=== PATIENT | female | born 1935 | race Caucasian/White ===

== ENCOUNTER 2017-10-09 17:14 | Inpatient (IN) | payer MEDICARE, BC, SELFPAY ==
[2017-10-09] VITALS (7 sets, daily range): BP systolic 117–126; BP diastolic 47–71; PULSE 60–71; RESP 16–23; TEMP 36–36.1; O2SAT 94–97; BMI 31.0; BMI 30.6
--- NOTE | 2017-10-09 18:07 | EKG12_ITS ---
Test Reason : Blood Pressure : / mmHG Vent. Rate : 061 BPM Atrial Rate : 061 BPM P-R Int : 160 ms QRS Dur : 206 ms QT Int : 532 ms P-R-T Axes : 000 -77 105 degrees QTc Int : 535 ms Atrial-sensed ventricular-paced rhythm Abnormal ECG Confirmed by MAHIN HANNA ([id number]), medical editor JÚNIOR LEWIS ([id number]) on 10/14/2017 10:07:35 AM Referred By: CHARLI Confirmed By:MAHIN HANNA
[2017-10-09 18:25] LABS: Absolute Lymphocyte Count 1.01 X10^3/ul (0.83-4.51); Absolute Neutrophil Count 5.7 X10^3/uL (2.0-7.7); Basophil# 0.03 X10^3/uL; Basophil% 0.4 % (0-1); Eosinophil# 0.21 X10^3/uL; Eosinophils% 2.7 % (0-5); Hematocrit 38.5 % (37-47); Lymphocyte # 1.01 X10^3/ul (4.0); Lymphocyte % 13.1 % (19-41); Mean Corp Hgb Conc 31.2 g/gl (32-36); Mean Corpuscular Hgb 27.6 pg (27.0-32.0); Mean Corpuscular Volume 88.7 fL (81-99); Mean Platelet Vol. 10.9 fl (6.2-12.0); Monocyte# 0.75 X10^3/uL; Monocyte% 9.8 % (0-10); Neutrophil # 5.67 X10^3/uL (2.7-7.7); Neutrophil % 73.7 % (47-70); Platelet Count 146 K/mm3 (150-450); RBC Distribution Width CV 15.8 % (11.6-14.6); Red Blood Count 4.34 M/mm3 (4.2-5.4); White Blood Count 7.7 K/mm3 (4.4-11.0)
[2017-10-09 18:27] LABS: POSITIVE COUNT NO; POSITIVE DIFFERENTIAL NO; POSITIVE MORPHOLOGY NO
[2017-10-09] MEDS: Furosemide 40 MG/4 ML Vial IV (18:40)
[2017-10-09 18:47] LABS: ALB/GLOB Ratio 0.7 RATIO (0.9-2.4); AST(SGOT) 35 U/L (15-37); Alanine Aminotransfer ALT/SGPT 26 U/L (12-78); Albumin, Serum 3.1 g/dL (3.4-5.0); Alkaline Phosphatase 168 U/L (45-117); Anion Gap 6 (5-15); BUN 38 mg/dL (7-18); BUN/Creat Ratio 21.3 RATIO (10-20); Calcium,Total 8.7 mg/dL (8.5-10.1); Chloride 107 mmol/L (98-107); Creatinine, Serum 1.78 mg/dL (0.55-1.02); EST Glomerular Filtration Rate 29 mL/min (>60); Est Glom Filt Rate - Afr Amer 35 mL/min (>60); Estimated Creatinine Clearance 27.27 ml/min; Globulin 4.2 g/dL (2.2-4.2); Glucose 249 mg/dL (70-110); Potassium 4.9 mmol/L (3.5-5.1); Protein, Total 7.3 g/dL (6.4-8.2); Sodium Level 141 mmol/L (136-145)
--- NOTE | 2017-10-09 18:50 | RAD_ITS ---
STUDY: X-RAY CHEST REASON FOR EXAM: Female, 81 years old. Weight gain. Orthopnea TECHNIQUE: PA and lateral views of the chest. COMPARISON: 06/11/2017 FINDINGS: Stable left chest wall pacing device Hypoinflated lungs with interstitial edema and right effusion. Sternal cerclage wires are present from a prior sternotomy. Cardiomegaly. Normal mediastinum and bib. Normal visualized pulmonary arteries. Normal visualized aortic arch and descending thoracic aorta. There are diffuse degenerative changes of the visualized thoracic spine. There is degenerative osteoarthritis of the bilateral shoulders. There is no demonstrated abnormality of the visualized soft tissue structures of the upper abdomen. RAD/Chest PA and Lateral IMPRESSION: CHF and right effusion Electronically Signed: Reggie Scott DO at 19:13 EST Tel , Service support ,
--- NOTE | 2017-10-09 19:26 | ED.VISSUMM ---
- ER Visit Summary Date of Service: 10/09/17 Chief Complaint: Sent to ER by History of Present Illness: The patient is a 81 F who has multiple medical problems and reports dyspnea on exertion, orthopnea and swelling for the past week. She is now able to walk only room to room for complain of shortness of breath. She denies fever, chills night sweats. She does report a 20 pound weight gain. She denies any ocular, visual auditory symptoms. She denies chest pain of any type. She does complain of abdominal distention without nausea, vomiting diarrhea. She denies dysuria, frequency, urgency or hematuria. Please see written note for complete detail Physical Examination: Pleasant woman slightly tachypnic. Monitor reveals a paced rhythm. Head is atraumatic normocephalic. Pupils are equal round reactive. Extraocular muscles are intact. TMs are pearly white with landmarks noted. Nares patent with no drainage. Posterior pharynx without erythema or exudate. Uvula is midline. There is no dysphonia or dysphasia. Trachea is midline. There is no stridor with auscultation of the neck. Lungs reveal bilateral rales with decreased breath sounds right base. Heart is regular without murmur, gallop or rub abdomen is distended and has pitting edema. Neuro exam is nonfocal. Test Results: EKG atrial sensed paced rhythm. Chest x-ray reveals an effusion that is moderate in size on the right with CHF and borderline cardiomegaly. CBC is unremarkable. Electrode panel was marked for glucose of 249 BUN 38 creatinine 1.78 with a GFR 21. Troponins elevated 0.23. Albumin slightly decreased at 3.1. Emergency Department Course and Treatment: Was treated with Lasix IV and workup for anasarca and dyspnea on exertion Treatment Plan: Admission for further diagnostic testing to evaluate CHF and elevated troponin Disposition: Admit to monitored unit Impression: 1. CHF, new onset 2. Right pleural effusion 3. Anasarca 4. Elevated troponin 5. Dyspnea on exertion rule out anginal equivalent 6. Elevated creatinine 7. History of diabetes type 2 8. History of coronary disease status post four-vessel bypass surgery This note was generated with [employer] dictation software. It may contain incorrect words, spelling, and punctuation that were not noted in review of the chart prior to signing ED Disposition - Plan for ED Patient: Chief Complaint: Shortness of Breath Referrals: Pita Conde MD [Primary Care Provider] -
--- NOTE | 2017-10-09 19:57 | PCM.HP.STD ---
Problem List (1) Acute exacerbation of CHF (congestive heart failure) Status: Acute Qualifiers: Congestive heart failure type: unspecified Qualified Code(s): I50.9 - Heart failure, unspecified (2) Acute kidney injury Status: Acute (3) Pacemaker Status: Chronic (4) History of renal stent Status: Chronic Comment: 2008, right (5) SSS (sick sinus syndrome) Status: Chronic Comment: s/p pacer 2013 (6) Esophageal spasm Status: Acute (7) Anxiety Status: Chronic (8) Hypertension Status: Chronic Qualifiers: (9) GERD (gastroesophageal reflux disease) Status: Chronic Qualifiers: (10) Diabetes mellitus, type 2 Status: Chronic Qualifiers: (11) History of hypothyroidism Status: Chronic (12) Benign hypertension Status: Chronic (13) History of coronary artery disease Status: Chronic (14) Obesity (BMI 30.0-34.9) Status: Chronic (15) Anemia Status: Chronic Qualifiers: (16) Chronic obstructive pulmonary disease (COPD) Status: Chronic Qualifiers: History of Present Illness Date of Admission: 10/09/17 Chief Complaint: Dyspnea, Orthopnea, LE Edema. The patient is a 81 y/o F w/ PMHx: Hx of Sick sinus syndrome s/p pacemaker, Obesity, GERD, Diabetes mellitus type II w/ Neuropathy, Chronic COPD, CAD s/p PCI and CABG x 4, Hypothyroidism, Anxiety and Depression who presents to the [facility] ED on 10/09/17 with history of ongoing exertional dyspnea, worse with increased activity, orthopnea and LE edema, progressively worsening over the last week with PCP attempts to increase home lasix; however, no improvement. In the ED work-up included T 96.8, HR 60-70, BP 119/63-->90/60 after lasix, RR 16, 96% on RA, CBC w/ WBC 7.7, Hgb 12, Plts 146 without marked shift, CMP w/ BUN/Cr 38/1.78, glucose 249, Alk phos 168, Trop 0.23, EKG paced without acute evidence of ischemia, CXR w/ congestion, R pleural effusion moderate. In the ED patient administered lasix 40 mg IV x 1. Patient and family requested Cardiology evaluation. Discussed in addition to plan of care advanced care planning w/ decision per patient to maintain full code status. Past Medical History Past Medical History (Chronic Problems): Chronic Problems Pacemaker (Chronic) History of renal stent (Chronic) 2009, right SSS (sick sinus syndrome) (Chronic) s/p pacer 2013 Anxiety (Chronic) Hypertension (Chronic) GERD (gastroesophageal reflux disease) (Chronic) Diabetes mellitus, type 2 (Chronic) History of hypothyroidism (Chronic) Benign hypertension (Chronic) History of coronary artery disease (Chronic) Edema extremities (Chronic) Status post total hip replacement, right (Chronic) Obesity (BMI 30.0-34.9) (Chronic) Anemia (Chronic) Chronic obstructive pulmonary disease (COPD) (Chronic) Allergies felodipine Allergy (Severe, Verified 06/12/17 01:09) Shortness of breath pentazocine lactate [From Talwin] Allergy (Unknown, Verified 06/12/17 01:09) Unknown Patient does not know what happened when taking pentazocine, was told do not take it in the past promethazine Allergy (Unknown, Verified 06/12/17 01:09) Unknown Patient is unsure of allergy or reaction, was told do not take it in the past Sulfa (Sulfonamide Antibiotics) Allergy (Unknown, Verified 06/12/17 01:09) Unknown Patient does not know what the reaction/allergy is. Was told not to take it after surgery in the past amlodipine Allergy (Verified 06/12/17 01:09) Unknown Heparin Analogues Allergy (Verified 06/12/17 01:09) Unknown meloxicam [From Mobic] Allergy (Verified 06/12/17 01:09) Other oxycodone terephthalate [From Percodan] Allergy (Verified 06/12/17 01:09) Unknown Penicillins Allergy (Verified 06/12/17 01:09) Hives Iodinated Contrast- Oral and IV Dye [Iodinated Contrast Media - IV Dye] Adverse Reaction (Severe, Verified 06/12/17 01:09) Other Convulsions NSAIDS (Non-Steroidal Anti-Inflamma Adverse Reaction (Intermediate, Verified 06/12/17 01:09) Other Elevated liver enzymes oxycodone HCl [From Percodan] Adverse Reaction (Intermediate, Verified 06/12/17 01:09) Other Elevated liver enzymes ciprofloxacin [From Cipro] Adverse Reaction (Mild, Verified 06/12/17 01:09) Nausea/Vom/Diarrhea codeine Adverse Reaction (Mild, Verified 06/12/17 01:09) Nausea makes me sick HEPARIN Allergy (Unknown, Uncoded 06/12/17 01:09) Unknown WAS TOLD NOT TO TAKE AFTER HEART SURG D/T RXN Home Medications: Ambulatory Orders Medication Instructions Recorded Folic Acid 400 mcg PO DAILY@0800 06/18/13 Hydroxychloroquine [Plaquenil] 200 mg PO BIDCM 06/18/13 Levothyroxine [Synthroid] 125 mcg PO DAILY 06/18/13 Nitroglycerin [Nitrostat] 0.4 mg SUBLINGUAL Q5M PRN 06/18/13 Simvastatin [Zocor] 20 mg PO QHS 06/18/13 Pantoprazole Sodium [Protonix] 40 mg PO BID 06/20/13 Clonazepam [Klonopin] 0.5 mg PO DAILY PRN PRN 06/19/14 Insulin NPH Human Isophane See Protocol SQ TIDCM #1 pen 09/28/15 [Humulin N Kwikpen] Gabapentin [Neurontin] 300 mg PO TID 01/10/16 Lisinopril [Zestril] 10 mg PO DAILY 01/10/16 Naproxen 0.5 - 1 tab PO BID PRN PRN 06/11/17 Premarin 1 applicatio VAGINALLY DAILY 06/11/17 TraMADol [Ultram] 1 - 2 tab PO BID PRN PRN 06/11/17 Aspirin E.C. [Ecotrin] 81 mg PO DAILY@0800 10/09/17 Carvedilol [Coreg] 18.75 mg PO BID 10/09/17 Furosemide [Lasix] 40 mg PO DAILY 10/09/17 Guaifenesin/Codeine [Robitussin AC] 5 - 10 ml PO Q6H PRN PRN 10/09/17 Polyethylene Glycol 3350 [Miralax] 17 gm PO DAILY 10/09/17 Valacyclovir HCl [Valtrex] 500 mg PO BID 10/09/17 Surgical History: - - CABG x 4, stent placement, R carotid endarterectomy, JACQUES w/ BSOO, Cholecystectomy, Appendectomy, BL Breast Reduction, Pcaemaker. Psychiatric History: Anxiety, Depression CDC ASSOCIATE History: No pertinent CDC ASSOCIATE history Lives: Spouse/ Significant Other Smoking Status: Former smoker - Very distant short length tobacco use in youth. Tobacco Use: Non-smoker Alcohol: None Drugs: None - *Family History Maternal History Items: Dementia - age 90, Hypertension Paternal History Items: Heart Disease - age 80, Hypertension, Stroke Sibling History Items: Hypertension Review of Systems Constitutional: Reports: Malaise, Weakness, Fatigue. Denies: Chills, Fever, Weight Change HEENT: Denies: Head Aches, Sinus Congestion, Sinus Drainage Cardiovascular: Reports: Edema, Orthopnea. Denies: Chest Pain, Chest Pressure, Chest Tightness, Light Headedness, Palpitations, Syncope Respiratory: Reports: Shortness of Breath, Shortness of breath at rest, Shortness of breath upon exertion. Denies: Cough, Sputum production Gastrointestinal: Denies: Abdominal Pain, Nausea, Vomiting Genitourinary: Denies: Dysuria Musculoskeletal: Denies: Joint Pain, Joint Tenderness Skin: Denies: Rash, Wounds Neurological: Denies: Numbness, Tingling, Focal weakness Psychiatric: Reports: Anxiety, Depression. Denies: Homicidal Ideations, Suicidal Ideations Hematologic/ Lymphatic: Reports: Anemia. Denies: Easy Bruising, Easy Bleeding VTE Information - Inpt Only VTE Present on Admission: No VTE Mechan Device Prophylaxis: SCD's VTE Pharm Prophylaxis ordered?: Yes Patient Problems: Active and Suspected Problems Acute exacerbation of CHF (congestive heart failure) (Acute) Acute kidney injury (Acute) Subjective: Seated upright in the ED bed, NAD, notes feeling mildly improved since lasix in the ED, but not exerting herself. Objective: Physical Examination: General: awake, alert, oriented x 3 and cooperative, seated upright in the ED bed in no apparent distress. Skin: normal color, turgor, no icterus, cyanosis. HEENT: AT/NC, EOMI, PERRLA, mildly dry MM, no carotid bruits or JVD noted. Lungs: Diminished BS BL bases, moderate effort, crackles BL bases, R> mid, no ronchi or wheezing. Heart: Paced; no gallop, rub audible. Abdomen: soft, obese, NTTP, ND, normal BS, no HSM. Extremities: no cyanosis, clubbing, BL LE foot to proximal ward 2+. Neurological: patient awake, alert, oriented x 3; cognitive function intact; pupils equally reactive to light and accomodation; cranial nerves II-XII grossly normal, moving all 4 extremities, no focal deficits, strength severely globally decreased secondary to acute presentation. Psychiatric: affect appears normal, no acute evidence of depressive or anxiety feelings. - Physical Exam Vital Signs Temp Pulse Resp BP Pulse Ox 96.8 F L 60 23 H 126/47 H 94 10/09/17 19:45 10/09/17 19:45 10/09/17 19:45 10/09/17 19:45 10/09/17 19:45 Oxygen Delivery Method Room Air Weight: 148 lb 9.465 oz Body Mass Index (BMI) 31.0 Finger Stick Blood Glucose 272 Laboratory Tests Past 24 Hrs 10/09/17 10/09/17 18:15 18:15 WBC 7.7 RBC 4.34 Hgb 12.0 Hct 38.5 MCV 88.7 MCH 27.6 MCHC 31.2 L RDW 15.8 H RDW Differential 51.0 H Plt Count 146 L MPV 10.9 Immature Gran % (Auto) 0.300 Neut % (Auto) 73.7 H Lymph % (Auto) 13.1 L [place] % (Auto) 9.8 Eos % (Auto) 2.7 Baso % (Auto) 0.4 Absolute Neuts (auto) 5.7 Absolute Lymphs (auto) 1.01 Total Counted Not Reportable Sodium 141 Potassium 4.9 Chloride 107 Carbon Dioxide 28.0 Anion Gap 6 BUN 38 H Creatinine 1.78 H Estim Creat Clear Calc 27.27 Est GFR (MDRD) Af Amer 35 L Est GFR (MDRD) Non-Af 29 L BUN/Creatinine Ratio 21.3 H Glucose 249 H Calcium 8.7 Total Bilirubin 0.60 AST 35 ALT 26 Alkaline Phosphatase 168 H Troponin I 0.23 H Total Protein 7.3 Albumin 3.1 L Globulin 4.2 Albumin/Globulin Ratio 0.7 L Assessment/Plan Active and Suspected Problems Acute exacerbation of CHF (congestive heart failure) (Acute) Acute kidney injury (Acute) The patient is a 81 y/o F w/ PMHx: Hx of Sick sinus syndrome s/p pacemaker, Obesity, GERD, Diabetes mellitus type II w/ Neuropathy, Chronic COPD, CAD s/p PCI and CABG x 4, Hypothyroidism, Anxiety and Depression who presents to the [facility] ED on 10/09/17 with history of ongoing exertional dyspnea, worse with increased activity, orthopnea and LE edema, progressively worsening over the last week with PCP attempts to increase home lasix; however, no improvement. (1) Acute Decompensated CHF, Unclear Type w/ indeterminate cardiac enzyme: CXR obtained in the ED w/ congestion, R effusion, troponin 0.23, EKG paced without acute findings. Patient administered IV lasix in the ED, will admit to PCU, maintain on cardiac telemetry obtain cardiac enzyme series, obtain serial EKGs, continue IV lasix diuresis, monitor I/Os, maintain on intake restriction, continue medical therapy w/ asa, statin, BB, hold ACEI given concurrent BRISEIDA and need for IV lasix usage with add back as able. Will obtain TSH and magnesium level. Most recent ECHO noted distantly, will repeat. Cardiology consulted, pending. PRN morphine to decrease afterload, continue oxygen supplementation, if necessary will position w/ upright position with legs off bed to decrease preload. (2) Acute kidney injury: Unclear specific etiology although likely secondary to recent increased lasix administration outpatient, admission BUN/Cr 38/1.78, prior baseline creatinine noted to be 0.9-1.0. Will defer hydration given acute failure presentation, will need to continue IV lasix as noted, defer ACEI for now, closely trending BMP. If continued worsened or unchanged function will obtain FeNa assessment and renal US. (3) CAD: s/p PCI/CABG x 4, follows w/ [facility]. Will continue home regimen asa, statin, BB. (4) Diabetes mellitus type II: Hold oral home regimen, continue home insulin regimen, ADA diet, accu checks w/ ISS. (5) Hypertension: Continue home regimen including coreg, IV lasix, holding ACEI given concurrent BRISEIDA and need for lasix usage, PRN hydralazine. (6) Hyperlipidemia: Continue home statin regimen. FLP in AM. (7) Anxiety and Depression: Continue home klonopin regimen. (8) Hypothyroidism: Continue home synthroid regimen. (9) Chronic COPD: ATC duonebs, PRN albuterol, HOB, IS parameters. (10) Sick Sinus Syndrome, Hx: s/p pacemaker. (11) Obesity: Encourage healthy weight and lifestyle changes. (12) GERD: PPI. (13) DVT Prophylaxis: SCDs, heparin. (14) CODE status: Discussed CODE status at length including difference between FULL code, DNR-CCA and DNR-CC status. Following discussions about the differences in these status, requested FULL CODE status. Patient does have HCPOA and living will in place also. Advanced Care Planning Face to Face Time: 16 minutes. Code Visit Inpatient E&M: 64845 Init Hosp L3 Procedures: 92676 Advncd Care Plan 30 Min
--- NOTE | 2017-10-09 20:10 | ED.RN ---
STILL NEEDS VERIFIED NO POA OR LW
[2017-10-09 21:21] LABS: Magnesium 1.7 mg/dL (1.6-2.6); Thyroid Stim Hormone (TSH) 2.99 uIU/mL (0.358-3.74)
[2017-10-09 22:02] LABS: Hemoglobin A1c 8.3 % (4.2-6.3)
[2017-10-09] MEDS: Ipratropium/Albuterol Sulfate 3 ML AMPUL.NEB INHALATION (22:03)
[2017-10-09 22:36] LABS: Bedside Glucose 209 mg/dL (70-110)
[2017-10-09] MEDS: Carvedilol 6.25 MG Tablet 18.75 MG PO (22:58)
[2017-10-09] MEDS: Pantoprazole Sodium 20 MG Tablet 40 MG PO (22:59)
[2017-10-09] MEDS: Atorvastatin Calcium 10 MG Tablet PO (22:59)
[2017-10-10] VITALS (14 sets, daily range): BP systolic 119–131; BP diastolic 37–54; PULSE 60–70; RESP 16–18; TEMP 36.7–36.9; O2SAT 93–95
[2017-10-10 02:28] LABS: Hematocrit 35.9 % (37-47); Hemoglobin 11.2 g/dl (12.0-15.0); Mean Corp Hgb Conc 31.2 g/gl (32-36); Mean Corpuscular Hgb 27.7 pg (27.0-32.0); Mean Corpuscular Volume 88.9 fL (81-99); Mean Platelet Vol. 10.9 fl (6.2-12.0); Platelet Count 135 K/mm3 (150-450); RBC Distribution Width CV 15.7 % (11.6-14.6); RBC Distribution Width SD 50.9 fl (35.1-43.9); Red Blood Count 4.04 M/mm3 (4.2-5.4); White Blood Count 6.3 K/mm3 (4.4-11.0)
[2017-10-10 02:31] LABS: Scan Indicated on CBC? Y/N NO
[2017-10-10 02:44] LABS: Anion Gap 8 (5-15); BUN 40 mg/dL (7-18); BUN/Creat Ratio 25.5 RATIO (10-20); Calcium,Total 8.6 mg/dL (8.5-10.1); Chloride 108 mmol/L (98-107); Cholesterol 91 mg/dL (200); Creatinine, Serum 1.57 mg/dL (0.55-1.02); EST Glomerular Filtration Rate 34 mL/min (>60); Est Glom Filt Rate - Afr Amer 41 mL/min (>60); Glucose 170 mg/dL (70-110); High Density Lipoprotein 52 mg/dL; Sodium Level 143 mmol/L (136-145); Triglycerides 49 mg/dL; Very Low Density Lipoprotein 10 mg/dL (5-40)
--- NOTE | 2017-10-10 05:55 | EKG12_ITS ---
Test Reason : MORNING EKG Blood Pressure : / mmHG Vent. Rate : 063 BPM Atrial Rate : 063 BPM P-R Int : 186 ms QRS Dur : 208 ms QT Int : 526 ms P-R-T Axes : 000 -74 107 degrees QTc Int : 538 ms AV dual-paced rhythm Abnormal ECG When compared with ECG of 12-JUN-2017 05:30, Vent. rate has increased BY 3 BPM Confirmed by MAHIN HANNA ([id number]), purchasing expeditor JÚNIOR LEWIS ([id number]) on 10/16/2017 11:55:03 AM Referred By: CALIXTO Confirmed By:MAHIN HANNA
--- NOTE | 2017-10-10 05:55 | ECHOD_ITS ---
Reason For Study: CHF Procedure This was a 2D Doppler, Color Flow transthoracic echocardiogram. Exam performed portable in patient room. Left Ventricle Mildly dilated left ventricle. The estimated ejection fraction is 50 %. Paced septal motion. There is mild global hypokinesis of the left ventricle. Right Ventricle Normal size and thickness. ICD or pacer leads identified within the right ventricle. Normal systolic function. Atria Normal left atrium. Normal right atrium. Normal atrial septum. Mitral Valve Mild diffuse mitral valve thickening. Mild mitral annular calcification extending into the posterior leaflet. Mild (1+) mitral valve insufficiency. Tricuspid Valve Normal tricuspid valve. Mild (1+) tricuspid valve insufficiency. Right ventricular systolic pressure estimated to be 48 mmHg. Moderate pulmonary hypertension. Aortic Valve Trisinus/trileaflet aortic valve. Mild focal aortic valve thickening. There is no aortic stenosis. Pulmonic Valve Normal pulmonic valve. Trivial eccentric pulmonic valve insufficiency. Great Vessels Normal aortic root. Normal arch. The inferior vena cava is dilated. Inferior vena cava collapse with sniff. Pericardium/Pleural No pericardial effusion. MMode/2D Measurements & Calculations LVIDd: 5.1 cm IVSd: 1.1 cm Ao root diam: 2.7 cm LVIDs: 4.0 cm LVPWd: 0.88 cm LA dimension: 5.0 cm RVDd: 4.3 cm FS: 22.4 % LAV(MOD-bp): 51.6 ml LA A4 area: 18.1 cm2 RA A4 area: 16.1 cm2 LAV(MOD-bp) Indexed: 32.4 ml/m2 LAV(MOD-sp2): 50.1 ml LAV(MOD-sp4): 44.1 ml Doppler Measurements & Calculations MV E max ambrosio: 104.1 cm/sec Lat Peak E' Ambrosio: 5.1 cm/sec Med Peak E' Ambrosio: 3.7 cm/sec MV A max ambrosio: 46.6 cm/sec E/E' lat: 20.4 E/E' med: 28.3 MV E/A: 2.2 Ao V2 max: 99.7 cm/sec LV V1 max: 80.1 cm/sec PA V2 max: 78.0 cm/sec Ao max P.0 mmHg LV V1 max P.6 mmHg Ao V2 mean: 69.6 cm/sec Ao mean P.1 mmHg Ao V2 VTI: 22.0 cm TR max ambrosio: 326.6 cm/sec TR max P.7 mmHg Interpretation Summary Mildly dilated left ventricle. The estimated ejection fraction is 50 %. There is mild global hypokinesis of the left ventricle. Mild (1+) mitral valve insufficiency. Mild (1+) tricuspid valve insufficiency. Right ventricular systolic pressure estimated to be 48 mmHg. Moderate pulmonary hypertension. Compared to echo report dated 01/11/2016, no LV Function appears to be the same, and RVSP has increased from 42 to 48 mm HG. Ordering Physician: Qian Cochran Referring Physician: Pita Conde Performed By: Brenda Forrest, ADRIAN, RVT
[2017-10-10] MEDS: Levothyroxine 125 MCG Tablet PO (06:51)
[2017-10-10] MEDS: Enoxaparin 30 MG/0.3 ML Syringe SC (06:51)
[2017-10-10 07:11] LABS: Bedside Glucose 128 mg/dL (70-110)
[2017-10-10] MEDS: Ipratropium/Albuterol Sulfate 3 ML AMPUL.NEB INHALATION ×3 (07:28→22:48)
[2017-10-10] MEDS: Aspirin E.C. 81 MG Tablet PO (08:49)
[2017-10-10] MEDS: Hydroxychloroquine 200 MG Tablet PO ×2 (08:49→17:13)
--- NOTE | 2017-10-10 08:57 | PCM.CONS.C ---
Problem List (1) Acute exacerbation of CHF (congestive heart failure) Status: Acute Qualifiers: Congestive heart failure type: unspecified Qualified Code(s): I50.9 - Heart failure, unspecified (2) Pacemaker Status: Chronic (3) History of renal stent Status: Chronic Comment: 2008, right (4) SSS (sick sinus syndrome) Status: Chronic Comment: s/p pacer 2013 (5) Hypertension Status: Chronic Qualifiers: (6) Diabetes mellitus, type 2 Status: Chronic Qualifiers: (7) Benign hypertension Status: Chronic (8) History of coronary artery disease Status: Chronic (9) Edema extremities Status: Chronic Reason for Consult Date of Consultation: 10/10/17 Reason for Consultation: CHF, coronary artery disease status post CABG, previous smoker, lower extremity edema, pacemaker. History of Present Illness: The patient is a 81 year old F, former patient of Dr. Mcallister is now seeing Dr. Arora, with a history of diabetes, hypertension, hypercholesterolemia, status post pacemaker about 3 years ago, coronary artery disease status post four-vessel CABG at [facility] approximately 10 years ago per the patient. She reports that she has had no catheterization since that time and has had several stress test in the interim. Her most recent one was at the [facility] in [place] several months ago. She does not know the results of that test but had not been recommended a repeat catheterization. Patient was not in normal health until around 2-3 weeks ago when she began developing increased abdominal girth, lower extremity edema, shortness of breath, refractory to increasing doses of Lasix as an outpatient. Prior to that the patient had a cough in the recumbent position for several weeks worse when laying down. She denies any angina, chest pain, presyncope or syncope. She does not recall her presenting symptoms 10 years ago prior to detection of her coronary disease. On admission she had an EKG which showed AV sequential pacing with a left bundle branch pattern. Echocardiogram is pending. Her initial troponin was 0.23 and increased to 0.26 thus far. [] Past Medical History Allergies/Adverse Reactions: Allergies felodipine Allergy (Severe, Verified 06/12/17 01:09) Shortness of breath pentazocine lactate [From Talwin] Allergy (Unknown, Verified 06/12/17 01:09) Unknown Patient does not know what happened when taking pentazocine, was told do not take it in the past promethazine Allergy (Unknown, Verified 06/12/17 01:09) Unknown Patient is unsure of allergy or reaction, was told do not take it in the past Sulfa (Sulfonamide Antibiotics) Allergy (Unknown, Verified 06/12/17 01:09) Unknown Patient does not know what the reaction/allergy is. Was told not to take it after surgery in the past amlodipine Allergy (Verified 06/12/17 01:09) Unknown Heparin Analogues Allergy (Verified 06/12/17 01:09) Unknown meloxicam [From Mobic] Allergy (Verified 06/12/17 01:09) Other oxycodone terephthalate [From Percodan] Allergy (Verified 06/12/17 01:09) Unknown Penicillins Allergy (Verified 06/12/17 01:09) Hives Iodinated Contrast- Oral and IV Dye [Iodinated Contrast Media - IV Dye] Adverse Reaction (Severe, Verified 06/12/17 01:09) Other Convulsions NSAIDS (Non-Steroidal Anti-Inflamma Adverse Reaction (Intermediate, Verified 06/12/17 01:09) Other Elevated liver enzymes oxycodone HCl [From Percodan] Adverse Reaction (Intermediate, Verified 06/12/17 01:09) Other Elevated liver enzymes ciprofloxacin [From Cipro] Adverse Reaction (Mild, Verified 06/12/17 01:09) Nausea/Vom/Diarrhea codeine Adverse Reaction (Mild, Verified 06/12/17 01:09) Nausea makes me sick HEPARIN Allergy (Unknown, Uncoded 06/12/17 01:09) Unknown WAS TOLD NOT TO TAKE AFTER HEART SURG D/T RXN Home Medications: Ambulatory Orders Medication Instructions Recorded Folic Acid 400 mcg PO DAILY@0800 06/18/13 Hydroxychloroquine [Plaquenil] 200 mg PO BIDCM 06/18/13 Levothyroxine [Synthroid] 125 mcg PO DAILY 06/18/13 Nitroglycerin [Nitrostat] 0.4 mg SUBLINGUAL Q5M PRN 06/18/13 Simvastatin [Zocor] 20 mg PO QHS 06/18/13 Pantoprazole Sodium [Protonix] 40 mg PO BID 06/20/13 Clonazepam [Klonopin] 0.5 mg PO DAILY PRN PRN 06/19/14 Insulin NPH Human Isophane See Protocol SQ TIDCM #1 pen 09/28/15 [Humulin N Kwikpen] Gabapentin [Neurontin] 300 mg PO TID PRN 01/10/16 Lisinopril [Zestril] 10 mg PO DAILY 01/10/16 Naproxen 0.5 - 1 tab PO BID PRN PRN 06/11/17 Premarin 1 applicatio VAGINALLY DAILY 06/11/17 TraMADol [Ultram] 1 - 2 tab PO BID PRN PRN 06/11/17 Aspirin E.C. [Ecotrin] 81 mg PO DAILY@0800 10/09/17 Carvedilol [Coreg] 18.75 mg PO BID 10/09/17 Furosemide [Lasix] 40 mg PO DAILY 10/09/17 Guaifenesin/Codeine [Robitussin AC] 5 - 10 ml PO Q6H PRN PRN 10/09/17 Polyethylene Glycol 3350 [Miralax] 17 gm PO DAILY 10/09/17 Valacyclovir HCl [Valtrex] 500 mg PO BID 10/09/17 Past Medical History (Chronic Problems): Chronic Problems Pacemaker (Chronic) History of renal stent (Chronic) 2008, right SSS (sick sinus syndrome) (Chronic) s/p pacer 2013 Anxiety (Chronic) Hypertension (Chronic) GERD (gastroesophageal reflux disease) (Chronic) Diabetes mellitus, type 2 (Chronic) History of hypothyroidism (Chronic) Benign hypertension (Chronic) History of coronary artery disease (Chronic) Edema extremities (Chronic) Status post total hip replacement, right (Chronic) Obesity (BMI 30.0-34.9) (Chronic) Anemia (Chronic) Chronic obstructive pulmonary disease (COPD) (Chronic) Surgical History: - - CABG x 4, stent placement, R carotid endarterectomy, JACQUES w/ BSOO, Cholecystectomy, Appendectomy, BL Breast Reduction, Pcaemaker. Psychiatric History: Anxiety, Depression NEW ORDER CLERK History: No pertinent NEW ORDER CLERK history - *Family History Maternal History Items: Dementia - age 90, Hypertension Paternal History Items: Heart Disease - age 80, Hypertension, Stroke Sibling History Items: Hypertension Lives: Spouse/ Significant Other Smoking Status: Former smoker Tobacco Use: Non-smoker Alcohol: None Drugs: None Review of Systems - Review of Systems General: Denies: Fever, Night Sweats, Fatigue Cardiovascular: Reports: Shortness of Breath, Shortness of Breath with Exertion, Orthopnea, Peripheral Edema. Denies: Chest Discomfort, PND, Palpitations, Lightheadedness, Dizziness, Near Syncope, Syncope Respiratory: Denies: Cough, Sputum Production, Hemoptysis Gastrointestinal: Denies: Hematemesis, Hematochezia, Melena Genitourinary: Denies: Dysuria, Hematuria Skin: Denies: Rash Subjectve: Patient laying in bed, no acute distress. Objective: Vital Signs Temp Pulse Resp BP Pulse Ox 98.0 F 60 18 119/50 L 93 10/10/17 03:00 10/10/17 06:58 10/10/17 03:00 10/10/17 03:00 10/10/17 03:00 Oxygen Delivery Method Room Air Weight: 143 lb 4.807 oz Body Mass Index (BMI) 30.6 Intake and Output for Last 24 Hours 10/08/17 10/09/17 10/10/17 23:59 23:59 23:59 Intake Total 480 / 480 Output Total 1950 / 1950 Balance -1470 / -1470 General: Awake, Alert, Oriented x 3 HEENT: PERRL, EOMI, Sclera Non Icteric Neck: Supple, Good ROM, No Lymph Node Enlargement Lungs: Rales - Yves Bases Cardiovascular: Regular Rhythm, Normal S1, Normal S2, No Murmurs, No Rubs, No Gallops Vascular: No Carotid Bruits, Normal Femoral Pulses, Normal Radial Pulses, Normal Dorsalis Pedal Pulse, Normal Posterior Tibial Pulses Abdomen: Bowel Sounds Present, Soft, Non Tender, No HSM, No Organomegaly Extremities: No Cyanosis, No Clubbing, No edema Neurological: No Focal Motor or Sensory Deficit 10/09/17 22:13: Troponin I 0.24 H 10/10/17 02:05: WBC 6.3, RBC 4.04 L, Hgb 11.2 L, Hct 35.9 L, MCV 88.9, MCH 27.7, MCHC 31.2 L, RDW 15.7 H, RDW Differential 50.9 H, Plt Count 135 L, MPV 10.9 10/10/17 02:05: Sodium 143, Potassium 4.0, Chloride 108 H, Carbon Dioxide 27.0, Anion Gap 8, BUN 40 H, Creatinine 1.57 H, Est GFR (MDRD) Af Amer 41 L, Est GFR (MDRD) Non-Af 34 L, BUN/Creatinine Ratio 25.5 H, Glucose 170 H, Calcium 8.6, Triglycerides 49, Cholesterol 91, LDL Cholesterol 29, VLDL Cholesterol 10, HDL Cholesterol 52 10/10/17 02:05: Troponin I 0.26 H Rhythm: EKG: As above ECHO: Pending Stress Test: Outpatient results pending Cardiac Cath: PCI: CT Surgery: Holter monitor: EPS: PPM: CXR: Chest CT Scan: Assessment/Plan 1. Congestive heart failure: The patient presents with progressively worsening lower extremity edema, abdominal girth fullness, shortness of breath, orthopnea and PND in the face of previous known diabetes, hypertension, hypercholesterolemia, coronary artery disease status post CABG approximately 10 years ago, and status post pacemaker about 3 years ago. At this point I am in agreement with continuing IV Lasix until the patient achieves her dry weight. I believe this is necessary for at least 1 more day. In the interim we will obtain a 2D echo with Doppler to determine her LV function, valvular status, and pulmonary pressures. In addition I recommended that we obtain her outpatient recent stress test to determine if she has any areas of ischemia or borderline question of ischemia. Given her abnormal troponins, she may require a diagnostic coronary angiogram with graft angiography. To that end I recommend we obtain her bypass report from Dr. Arora's office to give us guidance about where her bypass grafts are. Continue baby aspirin. She is currently on Coreg 18.75 mg p.o. twice daily. She is not on an CARLOS inhibitor most likely due to her creatinine clearance. If the patient has any evidence of LV dysfunction on echocardiogram I recommend starting her on hydralazine 10 mg 3 times daily for afterload reduction. Given her creatinine clearance and chronic renal insufficiency she may require increasing doses of Lasix to achieve the same diuretic effectiveness. 2. Hyperlipidemia: Her LDL is 29 and HDL is 52. Continue present statin management. 3. Thank you very much for the opportunity to participate in the cardiac care of your patient. Consultation time took place between 8 AM and 8:30 AM. Code Visit Inpatient E&M: 29798 Init Hosp L2
--- NOTE | 2017-10-10 09:05 | CON.PCM_ITS ---
Problem List (1) Acute exacerbation of CHF (congestive heart failure) Status: Acute Qualifiers: Congestive heart failure type: unspecified Qualified Code(s): I50.9 - Heart failure, unspecified (2) Pacemaker Status: Chronic (3) History of renal stent Status: Chronic Comment: 2008, right (4) SSS (sick sinus syndrome) Status: Chronic Comment: s/p pacer 2013 (5) Hypertension Status: Chronic Qualifiers: (6) Diabetes mellitus, type 2 Status: Chronic Qualifiers: (7) Benign hypertension Status: Chronic (8) History of coronary artery disease Status: Chronic (9) Edema extremities Status: Chronic Reason for Consult Date of Consultation: 10/10/17 Reason for Consultation: CHF, coronary artery disease status post CABG, previous smoker, lower extremity edema, pacemaker. History of Present Illness: The patient is a 81 year old F, former patient of Dr. Mcallister is now seeing Dr. Arora, with a history of diabetes, hypertension, hypercholesterolemia, status post pacemaker about 3 years ago, coronary artery disease status post four-vessel CABG at [facility] approximately 10 years ago per the patient. She reports that she has had no catheterization since that time and has had several stress test in the interim. Her most recent one was at the [facility] in [place] several months ago. She does not know the results of that test but had not been recommended a repeat catheterization. Patient was not in normal health until around 2-3 weeks ago when she began developing increased abdominal girth, lower extremity edema, shortness of breath , refractory to increasing doses of Lasix as an outpatient. Prior to that the patient had a cough in the recumbent position for several weeks worse when laying down. She denies any angina, chest pain, presyncope or syncope. She does not recall her presenting symptoms 10 years ago prior to detection of her coronary disease. On admission she had an EKG which showed AV sequential pacing with a left bundle branch pattern. Echocardiogram is pending. Her initial troponin was 0.23 and increased to 0.26 thus far. [] Past Medical History Allergies/Adverse Reactions: Allergies felodipine Allergy (Severe, Verified 06/12/17 01:09) Shortness of breath pentazocine lactate [From Talwin] Allergy (Unknown, Verified 06/12/17 01:09) Unknown Patient does not know what happened when taking pentazocine, was told do not take it in the past promethazine Allergy (Unknown, Verified 06/12/17 01:09) Unknown Patient is unsure of allergy or reaction, was told do not take it in the past Sulfa (Sulfonamide Antibiotics) Allergy (Unknown, Verified 06/12/17 01:09) Unknown Patient does not know what the reaction/allergy is. Was told not to take it after surgery in the past amlodipine Allergy (Verified 06/12/17 01:09) Unknown Heparin Analogues Allergy (Verified 06/12/17 01:09) Unknown meloxicam [From Mobic] Allergy (Verified 06/12/17 01:09) Other oxycodone terephthalate [From Percodan] Allergy (Verified 06/12/17 01:09) Unknown Penicillins Allergy (Verified 06/12/17 01:09) Hives Iodinated Contrast- Oral and IV Dye [Iodinated Contrast Media - IV Dye] Adverse Reaction (Severe, Verified 06/12/17 01:09) Other Convulsions NSAIDS (Non-Steroidal Anti-Inflamma Adverse Reaction (Intermediate, Verified 01:09) Other Elevated liver enzymes oxycodone HCl [From Percodan] Adverse Reaction (Intermediate, Verified 06/12/17 01:09) Other Elevated liver enzymes ciprofloxacin [From Cipro] Adverse Reaction (Mild, Verified 06/12/17 01:09) Nausea/Vom/Diarrhea codeine Adverse Reaction (Mild, Verified 06/12/17 01:09) Nausea makes me sick HEPARIN Allergy (Unknown, Uncoded 06/12/17 01:09) Unknown WAS TOLD NOT TO TAKE AFTER HEART SURG D/T RXN Home Medications: Ambulatory Orders Medication Instructions Recorded Folic Acid 400 mcg PO DAILY@0800 06/18/13 Hydroxychloroquine [Plaquenil] 200 mg PO BIDCM 06/18/13 Levothyroxine [Synthroid] 125 mcg PO DAILY 06/18/13 Nitroglycerin [Nitrostat] 0.4 mg SUBLINGUAL Q5M PRN 06/18/13 Simvastatin [Zocor] 20 mg PO QHS 06/18/13 Pantoprazole Sodium [Protonix] 40 mg PO BID 06/20/13 Clonazepam [Klonopin] 0.5 mg PO DAILY PRN PRN 06/19/14 Insulin NPH Human Isophane See Protocol SQ TIDCM #1 pen 09/28/15 [Humulin N Kwikpen] Gabapentin [Neurontin] 300 mg PO TID PRN 01/10/16 Lisinopril [Zestril] 10 mg PO DAILY 01/10/16 Naproxen 0.5 - 1 tab PO BID PRN PRN 06/11/17 Premarin 1 applicatio VAGINALLY DAILY 06/11/17 TraMADol [Ultram] 1 - 2 tab PO BID PRN PRN 06/11/17 Aspirin E.C. [Ecotrin] 81 mg PO DAILY@0800 10/09/17 Carvedilol [Coreg] 18.75 mg PO BID 10/09/17 Furosemide [Lasix] 40 mg PO DAILY 10/09/17 Guaifenesin/Codeine [Robitussin AC] 5 - 10 ml PO Q6H PRN PRN 10/09/17 Polyethylene Glycol 3350 [Miralax] 17 gm PO DAILY 10/09/17 Valacyclovir HCl [Valtrex] 500 mg PO BID 10/09/17 Past Medical History (Chronic Problems): Chronic Problems Pacemaker (Chronic) History of renal stent (Chronic) 2008, right SSS (sick sinus syndrome) (Chronic) s/p pacer 2013 Anxiety (Chronic) Hypertension (Chronic) GERD (gastroesophageal reflux disease) (Chronic) Diabetes mellitus, type 2 (Chronic) History of hypothyroidism (Chronic) Benign hypertension (Chronic) History of coronary artery disease (Chronic) Edema extremities (Chronic) Status post total hip replacement, right (Chronic) Obesity (BMI 30.0-34.9) (Chronic) Anemia (Chronic) Chronic obstructive pulmonary disease (COPD) (Chronic) Surgical History: - - CABG x 4, stent placement, R carotid endarterectomy, JACQUES w / BSOO, Cholecystectomy, Appendectomy, BL Breast Reduction, Pcaemaker. Psychiatric History: Anxiety, Depression PROJECT SCIENTIST History: No pertinent PROJECT SCIENTIST history - *Family History Maternal History Items: Dementia - age 90, Hypertension Paternal History Items: Heart Disease - age 80, Hypertension, Stroke Sibling History Items: Hypertension Lives: Spouse/ Significant Other Smoking Status: Former smoker Tobacco Use: Non-smoker Alcohol: None Drugs: None Review of Systems - Review of Systems General: Denies: Fever, Night Sweats, Fatigue Cardiovascular: Reports: Shortness of Breath, Shortness of Breath with Exertion , Orthopnea, Peripheral Edema. Denies: Chest Discomfort, PND, Palpitations, Lightheadedness, Dizziness, Near Syncope, Syncope Respiratory: Denies: Cough, Sputum Production, Hemoptysis Gastrointestinal: Denies: Hematemesis, Hematochezia, Melena Genitourinary: Denies: Dysuria, Hematuria Skin: Denies: Rash Subjectve: Patient laying in bed, no acute distress. Objective: Vital Signs Temp Pulse Resp BP Pulse Ox 98.0 F 60 18 119/50 L 93 10/10/17 03:00 10/10/17 06:58 10/10/17 03:00 10/10/17 03:00 10/10/17 03:00 Oxygen Delivery Method Room Air Weight: 143 lb 4.807 oz Body Mass Index (BMI) 30.6 Intake and Output for Last 24 Hours 10/08/17 10/09/17 10/10/17 23:59 23:59 23:59 Intake Total 480 / 480 Output Total 1950 / 1950 Balance -1470 / -1470 General: Awake, Alert, Oriented x 3 HEENT: PERRL, EOMI, Sclera Non Icteric Neck: Supple, Good ROM, No Lymph Node Enlargement Lungs: Rales - Yves Bases Cardiovascular: Regular Rhythm, Normal S1, Normal S2, No Murmurs, No Rubs, No Gallops Vascular: No Carotid Bruits, Normal Femoral Pulses, Normal Radial Pulses, Normal Dorsalis Pedal Pulse, Normal Posterior Tibial Pulses Abdomen: Bowel Sounds Present, Soft, Non Tender, No HSM, No Organomegaly Extremities: No Cyanosis, No Clubbing, No edema Neurological: No Focal Motor or Sensory Deficit 10/09/17 22:13: Troponin I 0.24 H 10/10/17 02:05: WBC 6.3, RBC 4.04 L, Hgb 11.2 L, Hct 35.9 L, MCV 88.9, MCH 27.7 , MCHC 31.2 L, RDW 15.7 H, RDW Differential 50.9 H, Plt Count 135 L, MPV 10.9 10/10/17 02:05: Sodium 143, Potassium 4.0, Chloride 108 H, Carbon Dioxide 27.0, Anion Gap 8, BUN 40 H, Creatinine 1.57 H, Est GFR (MDRD) Af Amer 41 L, Est GFR ( MDRD) Non-Af 34 L, BUN/Creatinine Ratio 25.5 H, Glucose 170 H, Calcium 8.6, Triglycerides 49, Cholesterol 91, LDL Cholesterol 29, VLDL Cholesterol 10, HDL Cholesterol 52 10/10/17 02:05: Troponin I 0.26 H Rhythm: EKG: As above ECHO: Pending Stress Test: Outpatient results pending Cardiac Cath: PCI: CT Surgery: Holter monitor: EPS: PPM: CXR: Chest CT Scan: Assessment/Plan 1. Congestive heart failure: The patient presents with progressively worsening lower extremity edema, abdominal girth fullness, shortness of breath, orthopnea and PND in the face of previous known diabetes, hypertension, hypercholesterolemia, coronary artery disease status post CABG approximately 10 years ago, and status post pacemaker about 3 years ago. At this point I am in agreement with continuing IV Lasix until the patient achieves her dry weight. I believe this is necessary for at least 1 more day. In the interim we will obtain a 2D echo with Doppler to determine her LV function, valvular status, and pulmonary pressures. In addition I recommended that we obtain her outpatient recent stress test to determine if she has any areas of ischemia or borderline question of ischemia. Given her abnormal troponins, she may require a diagnostic coronary angiogram with graft angiography. To that end I recommend we obtain her bypass report from Dr. Arora's office to give us guidance about where her bypass grafts are. Continue baby aspirin. She is currently on Coreg 18.75 mg p.o. twice daily. She is not on an CARLOS inhibitor most likely due to her creatinine clearance. If the patient has any evidence of LV dysfunction on echocardiogram I recommend starting her on hydralazine 10 mg 3 times daily for afterload reduction. Given her creatinine clearance and chronic renal insufficiency she may require increasing doses of Lasix to achieve the same diuretic effectiveness. 2. Hyperlipidemia: Her LDL is 29 and HDL is 52. Continue present statin management. 3. Thank you very much for the opportunity to participate in the cardiac care of your patient. Consultation time took place between 8 AM and 8:30 AM. Code Visit Inpatient E&M: 10549 Init Hosp L2
[2017-10-10] MEDS: Carvedilol 6.25 MG Tablet 18.75 MG PO ×2 (10:56→21:56)
[2017-10-10] MEDS: Furosemide 40 MG/4 ML Vial IV ×2 (10:56→17:17)
[2017-10-10] MEDS: Pantoprazole Sodium 20 MG Tablet 40 MG PO ×2 (10:56→21:56)
--- NOTE | 2017-10-10 11:23 | CASEMGMT ---
This RN CM to bedside to complete CM assessment and physical therapy is at bedside. Will attempt again later. SStjarod RN CM
[2017-10-10 12:41] LABS: Bedside Glucose 169 mg/dL (70-110)
--- NOTE | 2017-10-10 12:42 | PCM.PROGNOTE ---
Patient Problems: Active and Suspected Problems Acute exacerbation of CHF (congestive heart failure) (Acute) Acute kidney injury (Acute) Subjective: Pt has had significant improvement in breathing since admission, she has had intermittent SOB relieved with aerosols and occasional dry cough. She feels her swelling has improved dramatically most notably in her abdomen. She has no fevers or chills. No CP, but does feel heaviness with breathing. - Physical Exam General: Alert, Oriented x3, Cooperative HEENT: Atraumatic, PERRLA, EOMI, Normocephalic Neck: Supple, No JVD, Negative Carotid Bruits Lungs: Normal air movement, Rales - BL bases Cardiovascular: Regular rate, No murmurs Abdomen: Bowel Sounds Present, Soft, Non Tender Extremities: No edema, Capillary Refill Less than 3 Seconds, Edema - mild, CARLOS wraps in place. Skin: No rashes, No breakdown Musculoskeletal: No Tenderness to Palpation of Joints or Extremities Neurological: Cranial nerves II-XII grossly intact Psych/Mental Status: Normal Affect, Appropriate, Alert and oriented to time, place, person, mood and affect Vital Signs Temp Pulse Resp BP Pulse Ox 98.1 F 64 18 128/38 H 95 10/10/17 09:00 10/10/17 11:08 10/10/17 09:00 10/10/17 09:00 10/10/17 09:00 Oxygen Delivery Method Room Air Weight: 65 kg Body Mass Index (BMI) 30.6 Intake and Output for Last 24 Hours 10/08/17 10/09/17 10/10/17 23:59 23:59 23:59 Intake Total 720 / 720 Output Total 1950 / 1950 Balance -1230 / -1230 Laboratory Tests Past 24 Hrs 10/09/17 10/10/17 10/10/17 22:13 02:05 02:05 WBC 6.3 RBC 4.04 L Hgb 11.2 L Hct 35.9 L MCV 88.9 MCH 27.7 MCHC 31.2 L RDW 15.7 H RDW Differential 50.9 H Plt Count 135 L MPV 10.9 Sodium 143 Potassium 4.0 Chloride 108 H Carbon Dioxide 27.0 Anion Gap 8 BUN 40 H Creatinine 1.57 H Estim Creat Clear Calc 30.50 Est GFR (MDRD) Af Amer 41 L Est GFR (MDRD) Non-Af 34 L BUN/Creatinine Ratio 25.5 H Glucose 170 H Calcium 8.6 Troponin I 0.24 H Triglycerides 49 Cholesterol 91 LDL Cholesterol 29 VLDL Cholesterol 10 HDL Cholesterol 52 10/10/17 10/10/17 02:05 08:15 WBC RBC Hgb Hct MCV MCH MCHC RDW RDW Differential Plt Count MPV Sodium Potassium Chloride Carbon Dioxide Anion Gap BUN Creatinine Estim Creat Clear Calc Est GFR (MDRD) Af Amer Est GFR (MDRD) Non-Af BUN/Creatinine Ratio Glucose Calcium Troponin I 0.26 H 0.24 H Triglycerides Cholesterol LDL Cholesterol VLDL Cholesterol HDL Cholesterol POC Glucose 10/10/17 10/10/17 10/09/17 12:38 06:49 22:03 POC Glucose 169 H 128 H 209 H Assessment/Plan Active and Suspected Problems Acute exacerbation of CHF (congestive heart failure) (Acute) Acute kidney injury (Acute) 1. Acute CHF, subtype unclear - improved. Good output. Weight decreasing. Cardiology following. Continue IV diuresis. No O2 requirement. SOB improved. Echo pending. Continue Coreg, no CARLOS with renal dysfunction. CXR with CHF and R effusion. TSH normal. No BNP. 2. BRISEIDA - improved with diuresis. Continue to trend. 3. Indeterminate troponin - has remained flat. Dr. Stokes following, he is considering cath. + heaviness with breathing. 4. Hx SSS - s/p pacemaker. rate / rhythm controlled. 5. CAD - S/p CABG 10 years ago. Continue aspirin, statin. LDL at goal. 6. DMt2 - orals held. Continue current therapy. A1C 8.3. 7. HTN - stable 8. Anx/Dep - home meds. 9. COPD - continue current measures, respiratory status stable and not wheezy 10. GERD - on ppi. DVT ppx: heparin DC planning: pending cardiology plan. Not anticipating any home needs at this time. This patient was seen by Koko Mcginnis PA-C under the supervision of Doctor Grant.
--- NOTE | 2017-10-10 14:59 | CASEMGMT ---
Face to Face with patient for initial transition planning/care coordination assessment. STACI BRYAN introduced self and role at [facility], pt voices understanding and consents to assessment at this time. Pt sitting up in chair in no distress at this time. Pt A/O x4 at this time and answers all questions appropriately at this time. Care providers, pharmacy, and demographics verified. See attached link. Pt voices no further concerns/needs at this time. Advised pt to ask for CM if any further questions/concerns/needs arise, voices understanding. PLAN: [place] STACI BRYAN
[2017-10-10] MEDS: BENZOCAINE/MENTHOL 1 LOZENGE MUCOUS MEM ×2 (15:23→22:07)
[2017-10-10] MEDS: 0.9% NaCl Peripheral Flush Adult/Peds IV (17:17)
[2017-10-10 17:31] LABS: Bedside Glucose 267 mg/dL (70-110)
[2017-10-10] MEDS: Atorvastatin Calcium 10 MG Tablet PO (21:56)
[2017-10-10 22:21] LABS: Bedside Glucose 278 mg/dL (70-110)
[2017-10-11] VITALS (15 sets, daily range): BP systolic 119–140; BP diastolic 38–65; PULSE 60–92; RESP 16–20; TEMP 36.4–37; O2SAT 94–96
[2017-10-11] MEDS: Levothyroxine 125 MCG Tablet PO (05:44)
[2017-10-11] MEDS: Enoxaparin 30 MG/0.3 ML Syringe SC (06:24)
[2017-10-11 06:48] LABS: Anion Gap 9 (5-15); BUN 45 mg/dL (7-18); Calcium,Total 9.2 mg/dL (8.5-10.1); Chloride 101 mmol/L (98-107); Creatinine, Serum 1.55 mg/dL (0.55-1.02); EST Glomerular Filtration Rate 34 mL/min (>60); Est Glom Filt Rate - Afr Amer 41 mL/min (>60); Estimated Creatinine Clearance 29.69 ml/min; Glucose 244 mg/dL (70-110); Potassium 4.2 mmol/L (3.5-5.1); Sodium Level 137 mmol/L (136-145)
[2017-10-11 07:11] LABS: Bedside Glucose 224 mg/dL (70-110)
[2017-10-11] MEDS: Aspirin E.C. 81 MG Tablet PO (08:21)
[2017-10-11] MEDS: Hydroxychloroquine 200 MG Tablet PO ×2 (08:22→16:23)
[2017-10-11] MEDS: Carvedilol 6.25 MG Tablet 18.75 MG PO ×2 (08:22→22:02)
[2017-10-11] MEDS: Furosemide 40 MG/4 ML Vial IV ×2 (08:23→16:24)
[2017-10-11] MEDS: Pantoprazole Sodium 20 MG Tablet 40 MG PO ×2 (08:24→22:03)
--- NOTE | 2017-10-11 08:50 | PCM.PN.CARD ---
Subjectve: Patient is slowly improving, but unable to lay down flat at this time. She complains of a barking type cough, when she lays down flat. Net urine output is about 2500 cc negative since admission, and the patient reports improved lower extremity edema and improve shortness of breath. Chest x-ray reviewed yesterday demonstrated a moderate right pleural effusion consistent with at least snf up her lung base. Physical exam today demonstrates egophony snf up her right lung. The patient denies ever being told she had lung cancer or breast cancer in the past, and denies excessive cigarette smoke other than her teenage years. She denies any previous or recent viral-like illnesses. Telemetry negative. Objective: Vital Signs Temp Pulse Resp BP Pulse Ox 97.5 F L 66 20 H 140/65 H 96 10/11/17 08:31 10/11/17 08:31 10/11/17 08:31 10/11/17 08:31 10/11/17 08:31 Oxygen Delivery Method Room Air Weight: 140 lb 14.006 oz Body Mass Index (BMI) 30.6 Intake and Output for Last 24 Hours 10/09/17 10/10/17 10/11/17 23:59 23:59 23:59 Intake Total 990 / 990 100 / 100 Output Total 2900 / 2900 700 / 700 Balance -1910 / -1910 -600 / -600 General: Awake, Alert, Oriented x 3 HEENT: PERRL, EOMI, Sclera Non Icteric Neck: Supple, Good ROM, No Lymph Node Enlargement Lungs: Diminished Right Base, Rales - Right Base, Dullness to Percussion-Right Cardiovascular: Regular Rhythm, Normal S1, Normal S2, No Murmurs, No Rubs, No Gallops Vascular: No Carotid Bruits, Normal Femoral Pulses, Normal Radial Pulses, Normal Dorsalis Pedal Pulse, Normal Posterior Tibial Pulses Abdomen: Bowel Sounds Present, Soft, Non Tender, No HSM, No Organomegaly Extremities: No Cyanosis, No Clubbing, No edema Neurological: No Focal Motor or Sensory Deficit 10/10/17 08:15: Troponin I 0.24 H 10/11/17 05:35: Sodium 137, Potassium 4.2, Chloride 101, Carbon Dioxide 27.0, Anion Gap 9, BUN 45 H, Creatinine 1.55 H, Est GFR (MDRD) Af Amer 41 L, Est GFR (MDRD) Non-Af 34 L, BUN/Creatinine Ratio 29.0 H, Glucose 244 H, Calcium 9.2 Rhythm: EKG: ECHO: LVEF of 50%, RVSP of 40 mmHg, mild MR and mild TR. Stress Test: Cardiac Cath: Pending per PCI: CT Surgery: Holter monitor: EPS: PPM: CXR: Chest CT Scan: Assessment/Plan 1. Congestive heart failure: The patient presents with progressively worsening lower extremity edema, abdominal girth fullness, shortness of breath, orthopnea and PND in the face of previous known diabetes, hypertension, hypercholesterolemia, coronary artery disease status post CABG approximately 10 years ago, and status post pacemaker about 3 years ago. At this point I am in agreement with continuing IV Lasix until the patient achieves her dry weight. I believe this is necessary for at least 1 more day, or at least until she can lay down flat for a repeat catheterization. Her 2D echo yesterday showed an overall EF around 50%, RVSP of 48 mmHg, mild MR and mild TR. In addition I recommended that we obtain her outpatient recent stress test to determine if she has any areas of ischemia or borderline question of ischemia. Given her abnormal troponins, she may require a diagnostic coronary angiogram with graft angiography, as well as a right heart catheterization.. To that end I recommend we obtain her bypass report from Dr. Arora's office to give us guidance about where her bypass grafts are. Continue baby aspirin. She is currently on Coreg 18.75 mg p.o. twice daily. She is not on an CARLOS inhibitor most likely due to her creatinine clearance. Given her LV dysfunction, pulmonary hypertension, and CHF, she requires more aggressive afterload reduction. Recommend initiating hydralazine 10 mg p.o. 3 times daily and titrating up from there. Given her creatinine clearance and chronic renal insufficiency she may require increasing doses of Lasix to achieve the same diuretic effectiveness. Recommend IV diuresis for 1 more day and repeating her chest x-ray tomorrow. If she has no improvement of her right pleural effusion, I would recommend ultrasound-guided thoracentesis in order to facilitate her laying in the prone position to facilitate left and right her catheterization sometime this week. 2. Hyperlipidemia: Her LDL is 29 and HDL is 52. Continue present statin management. 3. Thank you very much for the opportunity to participate in the cardiac care of your patient. Code Visit Inpatient E&M: [id number] Subs Hosp L2
--- NOTE | 2017-10-11 08:56 | PN.CARD_ITS ---
Subjectve: Patient is slowly improving, but unable to lay down flat at this time. She complains of a barking type cough, when she lays down flat. Net urine output is about 2500 cc negative since admission, and the patient reports improved lower extremity edema and improve shortness of breath. Chest x-ray reviewed yesterday demonstrated a moderate right pleural effusion consistent with at least long-term up her lung base. Physical exam today demonstrates egophony long-term up her right lung. The patient denies ever being told she had lung cancer or breast cancer in the past, and denies excessive cigarette smoke other than her teenage years. She denies any previous or recent viral-like illnesses. Telemetry negative. Objective: Vital Signs Temp Pulse Resp BP Pulse Ox 97.5 F L 66 20 H 140/65 H 96 10/11/17 08:31 10/11/17 08:31 10/11/17 08:31 10/11/17 08:31 10/11/17 08:31 Oxygen Delivery Method Room Air Weight: 140 lb 14.006 oz Body Mass Index (BMI) 30.6 Intake and Output for Last 24 Hours 10/09/17 10/10/17 10/11/17 23:59 23:59 23:59 Intake Total 990 / 990 100 / 100 Output Total 2900 / 2900 700 / 700 Balance -1910 / -1910 -600 / -600 General: Awake, Alert, Oriented x 3 HEENT: PERRL, EOMI, Sclera Non Icteric Neck: Supple, Good ROM, No Lymph Node Enlargement Lungs: Diminished Right Base, Rales - Right Base, Dullness to Percussion-Right Cardiovascular: Regular Rhythm, Normal S1, Normal S2, No Murmurs, No Rubs, No Gallops Vascular: No Carotid Bruits, Normal Femoral Pulses, Normal Radial Pulses, Normal Dorsalis Pedal Pulse, Normal Posterior Tibial Pulses Abdomen: Bowel Sounds Present, Soft, Non Tender, No HSM, No Organomegaly Extremities: No Cyanosis, No Clubbing, No edema Neurological: No Focal Motor or Sensory Deficit 10/10/17 08:15: Troponin I 0.24 H 10/11/17 05:35: Sodium 137, Potassium 4.2, Chloride 101, Carbon Dioxide 27.0, Anion Gap 9, BUN 45 H, Creatinine 1.55 H, Est GFR (MDRD) Af Amer 41 L, Est GFR ( MDRD) Non-Af 34 L, BUN/Creatinine Ratio 29.0 H, Glucose 244 H, Calcium 9.2 Rhythm: EKG: ECHO: LVEF of 50%, RVSP of 40 mmHg, mild MR and mild TR. Stress Test: Cardiac Cath: Pending per PCI: CT Surgery: Holter monitor: EPS: PPM: CXR: Chest CT Scan: Assessment/Plan 1. Congestive heart failure: The patient presents with progressively worsening lower extremity edema, abdominal girth fullness, shortness of breath, orthopnea and PND in the face of previous known diabetes, hypertension, hypercholesterolemia, coronary artery disease status post CABG approximately 10 years ago, and status post pacemaker about 3 years ago. At this point I am in agreement with continuing IV Lasix until the patient achieves her dry weight. I believe this is necessary for at least 1 more day, or at least until she can lay down flat for a repeat catheterization. Her 2D echo yesterday showed an overall EF around 50%, RVSP of 48 mmHg, mild MR and mild TR. In addition I recommended that we obtain her outpatient recent stress test to determine if she has any areas of ischemia or borderline question of ischemia. Given her abnormal troponins, she may require a diagnostic coronary angiogram with graft angiography, as well as a right heart catheterization.. To that end I recommend we obtain her bypass report from Dr. Arora's office to give us guidance about where her bypass grafts are. Continue baby aspirin. She is currently on Coreg 18.75 mg p.o. twice daily. She is not on an CARLOS inhibitor most likely due to her creatinine clearance. Given her LV dysfunction , pulmonary hypertension, and CHF, she requires more aggressive afterload reduction. Recommend initiating hydralazine 10 mg p.o. 3 times daily and titrating up from there. Given her creatinine clearance and chronic renal insufficiency she may require increasing doses of Lasix to achieve the same diuretic effectiveness. Recommend IV diuresis for 1 more day and repeating her chest x-ray tomorrow. If she has no improvement of her right pleural effusion, I would recommend ultrasound-guided thoracentesis in order to facilitate her laying in the prone position to facilitate left and right her catheterization sometime this week. 2. Hyperlipidemia: Her LDL is 29 and HDL is 52. Continue present statin management. 3. Thank you very much for the opportunity to participate in the cardiac care of your patient. Code Visit Inpatient E&M: [id number] Subs Hosp L2
[2017-10-11] MEDS: Ipratropium/Albuterol Sulfate 3 ML AMPUL.NEB INHALATION ×4 (10:46→22:53)
[2017-10-11 11:46] LABS: Bedside Glucose 323 mg/dL (70-110)
--- NOTE | 2017-10-11 14:12 | PCM.PROGNOTE ---
Patient Problems: Active and Suspected Problems Acute exacerbation of CHF (congestive heart failure) (Acute) Acute kidney injury (Acute) Subjective: SOB has improved more today. She has also had further decrease in her abdominal distention. She has a dry cough and feels that her acid reflux is irritating her today. Leg swelling has improved. - Physical Exam General: Alert, Oriented x3, Cooperative HEENT: Atraumatic, PERRLA, EOMI, Normocephalic Neck: Supple, No JVD, Negative Carotid Bruits Lungs: Normal air movement, Rales - BL parekh Cardiovascular: Regular rate, No murmurs Abdomen: Bowel Sounds Present, Soft, Non Tender Extremities: No edema, Capillary Refill Less than 3 Seconds Skin: No rashes, No breakdown Musculoskeletal: No Tenderness to Palpation of Joints or Extremities Neurological: Cranial nerves II-XII grossly intact Psych/Mental Status: Normal Affect, Appropriate, Alert and oriented to time, place, person, mood and affect Vital Signs Temp Pulse Resp BP Pulse Ox 98.2 F 61 16 121/46 H 94 10/11/17 13:35 10/11/17 13:35 10/11/17 13:35 10/11/17 13:35 10/11/17 13:35 Oxygen Delivery Method Room Air Weight: 63.9 kg Body Mass Index (BMI) 30.6 Intake and Output for Last 24 Hours 10/09/17 10/10/17 10/11/17 23:59 23:59 23:59 Intake Total 990 / 990 100 / 100 Output Total 2900 / 2900 700 / 700 Balance -1910 / -1910 -600 / -600 Laboratory Tests Past 24 Hrs 10/11/17 05:35 Sodium 137 Potassium 4.2 Chloride 101 Carbon Dioxide 27.0 Anion Gap 9 BUN 45 H Creatinine 1.55 H Estim Creat Clear Calc 29.69 Est GFR (MDRD) Af Amer 41 L Est GFR (MDRD) Non-Af 34 L BUN/Creatinine Ratio 29.0 H Glucose 244 H Calcium 9.2 POC Glucose 10/11/17 10/11/17 10/10/17 11:23 06:53 22:10 POC Glucose 323 H 224 H 278 H 10/10/17 17:12 POC Glucose 267 H Assessment/Plan Active and Suspected Problems Acute exacerbation of CHF (congestive heart failure) (Acute) Acute kidney injury (Acute) 1. Acute CHF, diastolic complicated by pulmonary htn - Continues to improve and diuresis with renal tolerance. EF 50%. RVSP 48 mmHg - moderate pulmonary htn. 2. BRISEIDA - improved with diuresis. 3. Indeterminate troponin - Cath per Dr. Stokes. 4. Hx SSS - s/p pacemaker. rate / rhythm controlled. 5. CAD - S/p CABG 10 years ago. Continue aspirin, statin. LDL at goal. 6. DMt2 - orals held. Continue current therapy. A1C 8.3. 7. HTN - stable 8. Anx/Dep - home meds. 9. COPD - continue current measures, respiratory status stable and not wheezy 10. GERD - on ppi. DVT ppx: heparin DC planning: pending cardiology plan. Not anticipating any home needs at this time. This patient was seen by Koko Mcginnis PA-C under the supervision of Doctor Grant.
[2017-10-11 17:06] LABS: Bedside Glucose 371 mg/dL (70-110)
[2017-10-11] MEDS: Atorvastatin Calcium 10 MG Tablet PO (22:04)
[2017-10-11 22:11] LABS: Bedside Glucose 361 mg/dL (70-110)
[2017-10-12] VITALS (15 sets, daily range): BP systolic 96–132; BP diastolic 39–59; PULSE 60–67; RESP 14–20; TEMP 36.4–37.2; O2SAT 91–97
[2017-10-12] MEDS: Gabapentin 100 MG Capsule 200 MG PO ×2 (04:29→15:54)
--- NOTE | 2017-10-12 06:18 | RAD_ITS ---
STUDY: X-RAY CHEST REASON FOR EXAM: Female, 81 years old. Shortness of breath TECHNIQUE: Frontal and lateral views of the chest were obtained. COMPARISON: October 09, 2017 FINDINGS: The lungs are hyperinflated. There are dense and patchy opacities in the right lung base with partial obscuring of the diaphragm. There is moderate blunting of the right costophrenic angle. There is mild enlargement of the cardiac silhouette. Sternotomy wires are present. A pacing device is stable in the left chest. There are surgical clips in the mediastinum. Normal visualized pulmonary arteries. There is atherosclerotic calcification of the thoracic aorta. There are diffuse degenerative changes of the visualized spine. There are degenerative changes in both shoulders. There is no demonstrated abnormality of the visualized upper abdomen. RAD/Chest PA and Lateral IMPRESSION: Right basilar opacities are worrisome for consolidation/pneumonia. There is a moderate right pleural effusion. There is stable mild enlargement of the cardiac silhouette without pulmonary edema. Vascularity is improved compared to the prior study. Electronically Signed: Mica Fisher MD at 8:55 EST Tel Direct: [phone], Service support ,
[2017-10-12 06:28] LABS: Anion Gap 10 (5-15); BUN 52 mg/dL (7-18); BUN/Creat Ratio 32.3 RATIO (10-20); Calcium,Total 8.8 mg/dL (8.5-10.1); Chloride 99 mmol/L (98-107); Creatinine, Serum 1.61 mg/dL (0.55-1.02); EST Glomerular Filtration Rate 33 mL/min (>60); Est Glom Filt Rate - Afr Amer 40 mL/min (>60); Estimated Creatinine Clearance 28.58 ml/min; Glucose 312 mg/dL (70-110); Potassium 4.2 mmol/L (3.5-5.1); Sodium Level 137 mmol/L (136-145)
[2017-10-12] MEDS: Enoxaparin 30 MG/0.3 ML Syringe SC (06:40)
[2017-10-12] MEDS: Levothyroxine 125 MCG Tablet PO (06:40)
[2017-10-12] MEDS: BENZOCAINE/MENTHOL 1 LOZENGE MUCOUS MEM (06:43)
[2017-10-12 06:56] LABS: Bedside Glucose 348 mg/dL (70-110)
[2017-10-12] MEDS: Aspirin E.C. 81 MG Tablet PO (08:29)
[2017-10-12] MEDS: Hydroxychloroquine 200 MG Tablet PO ×2 (08:29→15:54)
--- NOTE | 2017-10-12 10:26 | PN.CARD_ITS ---
Subjectve: Patient continues to slowly improve, is negative a total of 5 L since admission , 10 pounds total. Patient reports that she is able to lay down but not completely flat at this time. Telemetry shows AV pacing, no ventricular arrhythmias. Objective: Vital Signs Temp Pulse Resp BP Pulse Ox 97.8 F 61 17 122/54 H 94 10/12/17 08:20 10/12/17 08:20 10/12/17 08:20 10/12/17 08:20 10/12/17 08:20 Oxygen Delivery Method Room Air Weight: 138 lb 10.732 oz Body Mass Index (BMI) 30.6 Intake and Output for Last 24 Hours 10/10/17 10/11/17 10/12/17 23:59 23:59 23:59 Intake Total 990 / 990 350 / 350 200 / 200 Output Total 2900 / 2900 3100 / 3100 400 / 400 Balance -1910 / -1910 -2750 / -2750 -200 / -200 General: Awake, Alert, Oriented x 3 HEENT: PERRL, EOMI, Sclera Non Icteric Neck: Supple, Good ROM, No Lymph Node Enlargement Lungs: Clear to auscultation, Rales - Right Base Cardiovascular: Regular Rhythm, Normal S1, Normal S2, No Murmurs, No Rubs, No Gallops Vascular: No Carotid Bruits, Normal Femoral Pulses, Normal Radial Pulses, Normal Dorsalis Pedal Pulse, Normal Posterior Tibial Pulses Abdomen: Bowel Sounds Present, Soft, Non Tender, No HSM, No Organomegaly Extremities: No Cyanosis, No Clubbing, No edema Neurological: No Focal Motor or Sensory Deficit 10/12/17 05:27: Sodium 137, Potassium 4.2, Chloride 99, Carbon Dioxide 28.0, Anion Gap 10, BUN 52 H, Creatinine 1.61 H, Est GFR (MDRD) Af Amer 40 L, Est GFR (MDRD) Non-Af 33 L, BUN/Creatinine Ratio 32.3 H, Glucose 312 H, Calcium 8.8 Rhythm: AV sequential pacing. EKG: ECHO: Stress Test: Cardiac Cath: PCI: CT Surgery: Holter monitor: EPS: PPM: CXR: Chest x-ray today shows improvement of right pleural effusion but still a moderate degree. Pulmonary vascular congestion markedly improved. Chest CT Scan: Assessment/Plan 1. Congestive heart failure: The patient presents with progressively worsening lower extremity edema, abdominal girth fullness, shortness of breath, orthopnea and PND in the face of previous known diabetes, hypertension, hypercholesterolemia, coronary artery disease status post CABG approximately 10 years ago, and status post pacemaker about 3 years ago. Now the patient has lost about 10 pounds, her edema has completely resolved, and her pleural effusion is mildly improved, we can transition her to Lasix 40 mg p.o. twice daily going forward. Would recommend that she be evaluated with ultrasound to determine if she requires therapeutic thoracentesis. Her 2D echo on 10/10/17 showed an overall EF around 50%, RVSP of 48 mmHg, mild MR and mild TR. In addition I recommended that we obtain her outpatient recent stress test to determine if she has any areas of ischemia or borderline question of ischemia. Given her abnormal troponins, she may require a diagnostic coronary angiogram with graft angiography, as well as a right heart catheterization.. To that end I recommend we obtain her bypass report from Dr. Arora's office to give us guidance about where her bypass grafts are. Continue baby aspirin. Also recommend reducing her Coreg to 12.5 mg p.o. twice daily given her CHF exacerbation. She is not on an CARLOS inhibitor most likely due to her creatinine clearance. Given her LV dysfunction, pulmonary hypertension, and CHF, she requires more aggressive afterload reduction. Recommend initiating hydralazine 10 mg p.o. 3 times daily and titrating up from there. Given her creatinine clearance and chronic renal insufficiency she may require increasing doses of Lasix to achieve the same diuretic effectiveness. I would recommend ultrasound-guided thoracentesis in order to facilitate her laying in the prone position to facilitate left and right her catheterization sometime this week. 2. Hyperlipidemia: Her LDL is 29 and HDL is 52. Continue present statin management. 3. Thank you very much for the opportunity to participate in the cardiac care of your patient. Code Visit Inpatient E&M: [id number] Subs Hosp L2
[2017-10-12 11:31] LABS: Bedside Glucose 348 mg/dL (70-110)
[2017-10-12] MEDS: Furosemide 40 MG Tablet PO ×2 (12:01→17:47)
[2017-10-12] MEDS: Pantoprazole Sodium 20 MG Tablet 40 MG PO ×2 (12:01→22:42)
--- NOTE | 2017-10-12 13:16 | PN_ITS ---
Patient Problems: Active and Suspected Problems Acute exacerbation of CHF (congestive heart failure) (Acute) Acute kidney injury (Acute) Subjective: Pt resting comfortably in chair, NAD. No SOB, improvement in LE edema and abdominal distention. She is not requiring O2 and has an intermittent nonproductive cough. She is agreeable to a cath - although anxious and requesting anxiolytics for it, but is reluctant to consider a thoracentesis at this time. - Physical Exam General: Alert, Oriented x3, Cooperative HEENT: Atraumatic, PERRLA, EOMI, Normocephalic Neck: Supple, No JVD, Negative Carotid Bruits Lungs: Clear to auscultation, Normal air movement, Rales - BL parekh Cardiovascular: Regular rate, No murmurs Abdomen: Bowel Sounds Present, Soft, Non Tender Extremities: No edema, Capillary Refill Less than 3 Seconds Skin: No rashes, No breakdown Musculoskeletal: No Tenderness to Palpation of Joints or Extremities Neurological: Cranial nerves II-XII grossly intact Psych/Mental Status: Normal Affect, Appropriate, Alert and oriented to time, place, person, mood and affect Vital Signs Temp Pulse Resp BP Pulse Ox 97.8 F 63 17 122/54 H 94 10/12/17 08:20 10/12/17 11:55 10/12/17 08:20 10/12/17 08:20 10/12/17 08:20 Oxygen Delivery Method Room Air Weight: 62.9 kg Body Mass Index (BMI) 30.6 Intake and Output for Last 24 Hours 10/10/17 10/11/17 10/12/17 23:59 23:59 23:59 Intake Total 990 / 990 350 / 350 440 / 440 Output Total 2900 / 2900 3100 / 3100 800 / 800 Balance -1910 / -1910 -2750 / -2750 -360 / -360 Laboratory Tests Past 24 Hrs 10/12/17 05:27 Sodium 137 Potassium 4.2 Chloride 99 Carbon Dioxide 28.0 Anion Gap 10 BUN 52 H Creatinine 1.61 H Estim Creat Clear Calc 28.58 Est GFR (MDRD) Af Amer 40 L Est GFR (MDRD) Non-Af 33 L BUN/Creatinine Ratio 32.3 H Glucose 312 H Calcium 8.8 POC Glucose 10/12/17 10/12/17 10/11/17 11:25 06:50 22:07 POC Glucose 348 H 348 H 361 H 10/11/17 16:18 POC Glucose 371 H Assessment/Plan Active and Suspected Problems Acute exacerbation of CHF (congestive heart failure) (Acute) Acute kidney injury (Acute) 1. Acute CHF, diastolic complicated by pulmonary htn - Continues to improve symptomatically. EF 50%. RVSP 48 mmHg - moderate pulmonary htn. Coreg decrased, hydralazine started per cardiology. Weight has decreased from 66.5 kg to 62.9 kg. Lasix to PO. -Repeat CXR shows right moderate pleural effusion, respiratory status is stable , if worsens will do thora. 2. BRISEIDA - initially improved, not creatinine increasing, so lasix will be changed to PO 3. Indeterminate troponin - Cath per Dr. Stokes tomorrow if she can lay flat. 4. Hx SSS - s/p pacemaker. rate / rhythm controlled. 5. CAD - S/p CABG 10 years ago. Continue aspirin, statin. LDL at goal. 6. DMt2 - orals held. Continue current therapy. A1C 8.3. 7. HTN - stable 8. Anx/Dep - home meds. 9. COPD - continue current measures, respiratory status stable and not wheezy 10. GERD - on ppi. DVT ppx: heparin DC planning: possibly after cath DC home. Not anticipating any home needs at this time. This patient was seen by Koko Mcginnis PA-C under the supervision of Doctor Grant.
[2017-10-12 15:21] LABS: Bedside Glucose 286 mg/dL (70-110)
[2017-10-12] MEDS: Acetaminophen 325 MG Tablet 650 MG PO (20:25)
[2017-10-12] MEDS: 0.9% NaCl Peripheral Flush Adult/Peds IV (20:25)
[2017-10-12] MEDS: Atorvastatin Calcium 10 MG Tablet PO (22:42)
[2017-10-12] MEDS: Acyclovir 200 MG Capsule 400 MG PO (22:43)
[2017-10-12 23:11] LABS: Bedside Glucose 281 mg/dL (70-110)
[2017-10-13] VITALS (18 sets, daily range): BP systolic 97–118; BP diastolic 40–63; PULSE 60–67; RESP 14–18; TEMP 36.3–37.2; O2SAT 94–98
[2017-10-13] MEDS: Levothyroxine 125 MCG Tablet PO (05:35)
[2017-10-13] MEDS: Enoxaparin 30 MG/0.3 ML Syringe SC (05:37)
[2017-10-13 06:13] LABS: International Normalized Ratio 1.2
[2017-10-13 06:15] LABS: Partial Thromboplast Time 31.7 Seconds (24.1-36.2)
[2017-10-13 06:40] LABS: Anion Gap 8 (5-15); BUN 64 mg/dL (7-18); Calcium,Total 8.9 mg/dL (8.5-10.1); Chloride 102 mmol/L (98-107); Creatinine, Serum 1.78 mg/dL (0.55-1.02); EST Glomerular Filtration Rate 29 mL/min (>60); Est Glom Filt Rate - Afr Amer 35 mL/min (>60); Estimated Creatinine Clearance 25.33 ml/min; Glucose 102 mg/dL (70-110); Potassium 4.3 mmol/L (3.5-5.1); Sodium Level 140 mmol/L (136-145)
[2017-10-13 07:01] LABS: Bedside Glucose 133 mg/dL (70-110)
--- NOTE | 2017-10-13 08:00 | US_ITS ---
PROCEDURE: ULTRASOUND GUIDED THORACENTESIS. DATE: October 13, 2017.. INDICATION: Female, 81 years old. Right pleural effusion. PHYSICIAN: Kenroy Dooley M.D. PROCEDURE: The risks, benefits, and alternatives to the procedure were explained to the patient. The specific risks of bleeding, infection, and pneumothorax requiring chest tube insertion were discussed and accepted. Written informed consent was obtained. Ultrasonographic evaluation of the right lower pleural space was carried out. An adequate pocket was identified. The patient was placed in the sitting, upright position. The overlying skin was prepped and draped in sterile fashion. 1% lidocaine was administered subcutaneously for local anesthesia. Under ultrasound guidance, a 6 [place] thoracentesis needle/catheter system was advanced into the right posterior lower pleural fluid collection. Approximately 500 mL of edel-colored fluid was drained. The catheter was removed, and a sterile dressing was applied. The patient tolerated the procedure well. A chest x-ray was ordered. US/Thoracentesis W US IMPRESSION: Ultrasound-guided right thoracentesis. Electronically Signed: Kenroy Dooley MD at 15:20 EST Tel [phone], Service support ,
[2017-10-13 09:59] LABS: International Normalized Ratio 1.3; Prothrombin Time (Protime)PT. 16.1 SECONDS (11.7-14.9)
[2017-10-13] MEDS: Gabapentin 100 MG Capsule 200 MG PO ×2 (10:14→17:39)
[2017-10-13] MEDS: Aspirin E.C. 81 MG Tablet PO (10:14)
[2017-10-13] MEDS: Hydroxychloroquine 200 MG Tablet PO ×2 (10:15→17:39)
[2017-10-13] MEDS: Pantoprazole Sodium 20 MG Tablet 40 MG PO ×2 (10:16→21:50)
[2017-10-13] MEDS: Furosemide 40 MG Tablet PO ×2 (10:16→17:39)
[2017-10-13] MEDS: Carvedilol 12.5 MG Tablet PO ×2 (10:18→21:50)
[2017-10-13 11:36] LABS: Bedside Glucose 261 mg/dL (70-110)
--- NOTE | 2017-10-13 11:43 | PN.CARD_ITS ---
Subjectve: Patient doing very well this morning. Patient was able to lay down flat about 45 minutes but had to get up due to right shoulder pain. Awaiting thoracentesis this afternoon per Objective: Vital Signs Temp Pulse Resp BP Pulse Ox 98.2 F 60 18 113/52 L 95 10/13/17 09:39 10/13/17 10:55 10/13/17 09:39 10/13/17 09:39 10/13/17 09:39 Oxygen Delivery Method Room Air Weight: 138 lb 0.15 oz Body Mass Index (BMI) 30.6 Intake and Output for Last 24 Hours 10/11/17 10/12/17 10/13/17 23:59 23:59 23:59 Intake Total 350 / 350 800 / 800 120 / 120 Output Total 3100 / 3100 1100 / 1100 300 / 300 Balance -2750 / -2750 -300 / -300 -180 / -180 General: Awake, Alert, Oriented x 3 HEENT: PERRL, EOMI, Sclera Non Icteric Neck: Supple, Good ROM, No Lymph Node Enlargement Lungs: Clear to auscultation Cardiovascular: Regular Rhythm, Normal S1, Normal S2, No Murmurs, No Rubs, No Gallops Vascular: No Carotid Bruits, Normal Femoral Pulses, Normal Radial Pulses, Normal Dorsalis Pedal Pulse, Normal Posterior Tibial Pulses Abdomen: Bowel Sounds Present, Soft, Non Tender, No HSM, No Organomegaly Extremities: No Cyanosis, No Clubbing, No edema Neurological: No Focal Motor or Sensory Deficit 10/13/17 05:30: Sodium 140, Potassium 4.3, Chloride 102, Carbon Dioxide 30.0, Anion Gap 8, BUN 64 H, Creatinine 1.78 H, Est GFR (MDRD) Af Amer 35 L, Est GFR ( MDRD) Non-Af 29 L, BUN/Creatinine Ratio 36.0 H, Glucose 102, Calcium 8.9 10/13/17 05:30: PT 15.0 H, INR 1.2, APTT 31.7 10/13/17 09:40: PT 16.1 H, INR 1.3 Rhythm: EKG: ECHO: Stress Test: Cardiac Cath: PCI: CT Surgery: Holter monitor: EPS: PPM: CXR: Chest CT Scan: Assessment/Plan 1. Congestive heart failure: The patient presents with progressively worsening lower extremity edema, abdominal girth fullness, shortness of breath, orthopnea and PND in the face of previous known diabetes, hypertension, hypercholesterolemia, coronary artery disease status post CABG approximately 10 years ago, and status post pacemaker about 3 years ago. Now the patient has lost about 10 pounds, her edema has completely resolved, and her pleural effusion is mildly improved, we can transition her to Lasix 40 mg p.o. twice daily going forward. Would recommend that she be evaluated with ultrasound to determine if she requires therapeutic thoracentesis. Her 2D echo on 10/10/17 showed an overall EF around 50%, RVSP of 48 mmHg, mild MR and mild TR. In addition I recommended that we obtain her outpatient recent stress test to determine if she has any areas of ischemia or borderline question of ischemia. Given her abnormal troponins, she may require a diagnostic coronary angiogram with graft angiography, as well as a right heart catheterization.. To that end I recommend we obtain her bypass report from Dr. Arora's office to give us guidance about where her bypass grafts are. Continue baby aspirin. Also recommend reducing her Coreg to 12.5 mg p.o. twice daily given her CHF exacerbation. She is not on an CARLOS inhibitor most likely due to her creatinine clearance. Given her LV dysfunction, pulmonary hypertension, and CHF, she requires more aggressive afterload reduction. Recommend initiating hydralazine 10 mg p.o. 3 times daily and titrating up from there. Given her creatinine clearance and chronic renal insufficiency she may require increasing doses of Lasix to achieve the same diuretic effectiveness. Patient is going to undergo a therapeutic and diagnostic thoracentesis on the right side this afternoon. Once this is completed we will proceed with left heart and right heart catheterization tomorrow morning assuming we can get her bypass report from Dr. Arora's office. Patient will need to be loaded with Plavix 300 mg ?1 followed by 75 mg a day. 2. Hyperlipidemia: Her LDL is 29 and HDL is 52. Continue present statin management. 3. Thank you very much for the opportunity to participate in the cardiac care of your patient. Code Visit Inpatient E&M: 55149 Subs Hosp L2
--- NOTE | 2017-10-13 11:53 | PCM.PROGNOTE ---
Patient Problems: Active and Suspected Problems Acute exacerbation of CHF (congestive heart failure) (Acute) Acute kidney injury (Acute) Subjective: Pt is resting comfortably in chair at bedside, not SOB and without O2 requirements. She is agreeable to thora today and cath tomorrow. - Physical Exam General: Alert, Oriented x3, Cooperative HEENT: Atraumatic, PERRLA, EOMI, Normocephalic Neck: Supple, No JVD, Negative Carotid Bruits Lungs: Normal air movement, Rales Cardiovascular: Regular rate, No murmurs Abdomen: Bowel Sounds Present, Soft, Non Tender Extremities: No edema, Capillary Refill Less than 3 Seconds Skin: No rashes, No breakdown Musculoskeletal: No Tenderness to Palpation of Joints or Extremities Neurological: Cranial nerves II-XII grossly intact Psych/Mental Status: Normal Affect, Appropriate, Alert and oriented to time, place, person, mood and affect Vital Signs Temp Pulse Resp BP Pulse Ox 98.2 F 60 18 113/52 L 95 10/13/17 09:39 10/13/17 10:55 10/13/17 09:39 10/13/17 09:39 10/13/17 10:00 Oxygen Delivery Method Room Air Weight: 62.6 kg Body Mass Index (BMI) 30.6 Intake and Output for Last 24 Hours 10/11/17 10/12/17 10/13/17 23:59 23:59 23:59 Intake Total 350 / 350 800 / 800 480 / 480 Output Total 3100 / 3100 1100 / 1100 600 / 600 Balance -2750 / -2750 -300 / -300 -120 / -120 Laboratory Tests Past 24 Hrs 10/13/17 10/13/17 10/13/17 05:30 05:30 09:40 PT 15.0 H 16.1 H INR 1.2 1.3 APTT 31.7 Sodium 140 Potassium 4.3 Chloride 102 Carbon Dioxide 30.0 Anion Gap 8 BUN 64 H Creatinine 1.78 H Estim Creat Clear Calc 25.33 Est GFR (MDRD) Af Amer 35 L Est GFR (MDRD) Non-Af 29 L BUN/Creatinine Ratio 36.0 H Glucose 102 Calcium 8.9 POC Glucose 10/13/17 10/13/17 10/12/17 11:30 06:54 22:34 POC Glucose 261 H 133 H 281 H 01/28/18 15:16 POC Glucose 286 H Assessment/Plan Active and Suspected Problems Acute exacerbation of CHF (congestive heart failure) (Acute) Acute kidney injury (Acute) 1. Acute CHF, diastolic complicated by pulmonary htn - Symptoms stable. EF 50%. RVSP 48 mmHg - moderate pulmonary htn. Coreg decreased and hydralazine started per cardiology. Weight has decreased from 66.5 kg to 62.9 kg. On 40 BID lasix -Thora today, Heart Cath tomorrow per Dr. Stokes -Repeat CXR shows right moderate pleural effusion, respiratory status is stable 2. BRISEIDA - initially improved, not creatinine increasing, on PO lasix as of yesterday. May need to decrease dose if her creatinine continues to rise. Hold lovenox. 3. Indeterminate troponin - Cath per Dr. Stokes tomorrow if she can lay flat. 4. Hx SSS - s/p pacemaker. rate / rhythm controlled. 5. CAD - S/p CABG 10 years ago. Continue aspirin, statin. LDL at goal. 6. DMt2 - orals held. Continue current therapy. A1C 8.3. 7. HTN - stable 8. Anx/Dep - home meds. 9. COPD - continue current measures, respiratory status stable and not wheezy 10. GERD - on ppi. DVT ppx: will hold lovenox given renal dysfxn. DC planning: possibly after cath DC home. Not anticipating any home needs at this time. This patient was seen by Koko Mcginnis PA-C under the supervision of Doctor Donnelly.
[2017-10-13] MEDS: clonazePAM 0.5 MG Tablet PO (13:16)
--- NOTE | 2017-10-13 14:32 | RAD_ITS ---
STUDY: X-RAY CHEST REASON FOR EXAM: Female, 81 years old. Status post right thoracentesis. TECHNIQUE: Single AP expiratory portable view of the chest. COMPARISON: Comparison is made with prior examination dated October 12, 2017. FINDINGS: The patient is status post right thoracentesis. There is no evidence of pneumothorax. Small residual blunting of the right costophrenic angle with underlying atelectasis and/or infiltration. RAD/Chest PA and Lateral IMPRESSION: Status post right thoracentesis. There is no evidence of pneumothorax. Electronically Signed: Kenroy Dooley MD at 15:18 EST Tel [phone], Service support ,
[2017-10-13] MEDS: Clopidogrel Bisulfate 300 MG Tablet PO (16:29)
[2017-10-13 16:41] LABS: Bedside Glucose 220 mg/dL (70-110)
[2017-10-13] MEDS: Atorvastatin Calcium 10 MG Tablet PO (21:50)
[2017-10-13 21:56] LABS: Bedside Glucose 260 mg/dL (70-110)
[2017-10-14] VITALS (14 sets, daily range): BP systolic 93–142; BP diastolic 48–71; PULSE 59–72; RESP 16–18; TEMP 36.3–37; O2SAT 93–98
--- NOTE | 2017-10-14 05:55 | EKG12_ITS ---
Test Reason : MORNING EKG Blood Pressure : / mmHG Vent. Rate : 066 BPM Atrial Rate : 066 BPM P-R Int : 186 ms QRS Dur : 206 ms QT Int : 528 ms P-R-T Axes : 000 -78 101 degrees QTc Int : 553 ms AV dual-paced rhythm Abnormal ECG When compared with ECG of 10-OCT-2017 05:12, MANUAL COMPARISON REQUIRED, DATA IS UNCONFIRMED Confirmed by MAHIN HANNA ([id number]), production editor JÚNIOR LEWIS ([id number]) on 10/16/2017 12:05:57 PM Referred By: RUTH ANN Confirmed By:MAHIN HANNA
[2017-10-14] MEDS: Levothyroxine 125 MCG Tablet PO (06:35)
[2017-10-14] MEDS: 0.9% Normal Saline 1,000 ML 15 ML IV (06:35)
[2017-10-14] MEDS: Carvedilol 12.5 MG Tablet PO (06:35)
[2017-10-14] MEDS: Clopidogrel Bisulfate 75 MG Tablet PO (06:35)
[2017-10-14] MEDS: Aspirin E.C. 81 MG Tablet PO (06:35)
[2017-10-14 06:56] LABS: Bedside Glucose 176 mg/dL (70-110)
--- NOTE | 2017-10-14 07:04 | NURSING ---
Report given to STACI Paniagua in scientific laboratory supervisor.
[2017-10-14 07:27] LABS: Absolute Lymphocyte Count 0.96 X10^3/ul (0.83-4.51); Absolute Neutrophil Count 4.6 X10^3/uL (2.0-7.7); Basophil# 0.02 X10^3/uL; Basophil% 0.3 % (0-1); Eosinophil# 0.25 X10^3/uL; Eosinophils% 3.8 % (0-5); Hematocrit 37.8 % (37-47); Hemoglobin 11.7 g/dl (12.0-15.0); Lymphocyte # 0.96 X10^3/ul (4.0); Lymphocyte % 14.7 % (19-41); Mean Corpuscular Hgb 27.7 pg (27.0-32.0); Mean Corpuscular Volume 89.6 fL (81-99); Mean Platelet Vol. 11.4 fl (6.2-12.0); Monocyte# 0.69 X10^3/uL; Monocyte% 10.6 % (0-10); Neutrophil # 4.58 X10^3/uL (2.7-7.7); Neutrophil % 70.3 % (47-70); Platelet Count 126 K/mm3 (150-450); RBC Distribution Width CV 15.8 % (11.6-14.6); RBC Distribution Width SD 51.3 fl (35.1-43.9); Red Blood Count 4.22 M/mm3 (4.2-5.4); White Blood Count 6.5 K/mm3 (4.4-11.0)
[2017-10-14 07:30] LABS: International Normalized Ratio 1.2; Prothrombin Time (Protime)PT. 14.8 SECONDS (11.7-14.9)
[2017-10-14] MEDS: DiphenhydrAMINE 25 MG Capsule 50 MG PO (07:31)
[2017-10-14 07:37] LABS: POSITIVE COUNT NO; POSITIVE DIFFERENTIAL NO; POSITIVE MORPHOLOGY NO
[2017-10-14 07:38] LABS: Partial Thromboplast Time 26.7 Seconds (24.1-36.2)
[2017-10-14 07:49] LABS: Anion Gap 8 (5-15); BUN 69 mg/dL (7-18); Calcium,Total 8.3 mg/dL (8.5-10.1); Chloride 103 mmol/L (98-107); Creatinine, Serum 1.77 mg/dL (0.55-1.02); EST Glomerular Filtration Rate 29 mL/min (>60); Est Glom Filt Rate - Afr Amer 36 mL/min (>60); Estimated Creatinine Clearance 25.23 ml/min; Glucose 165 mg/dL (70-110); Potassium 4.9 mmol/L (3.5-5.1); Sodium Level 137 mmol/L (136-145)
--- NOTE | 2017-10-14 10:25 | CL.D_ITS ---
Patient Name: DAVIS NEVILLE Study Date: 10/14/2017 Performing: Vasu Stokes MD Ht: 57.87 inches 147 cm : 1935 Wt: 138.89 lbs 63 kg Age: 81 Gender: female BSA: 1.56 PROCEDURE(S) PERFORMED HG89-SHR/COR/LV CLINICAL PROFILE AND INDICATIONS INDICATIONS: Unstable Angina Stress/Imaging Stress Test w/SPECT MPI: Yes Result: Positive Intermediate RiskStress Test with SP ECT MPI: Positive Intermediate Risk Angina Classification Anginal Classification w/in 2 Weeks: CCS III CAD Presentations: Other: OCHOA, SOB Comorbidities/Risk Factors: Hypertension Dyslipidemia Prior CHF Prior CABG Peripheral Arterial Disease CONCLUSIONS Global LV systolic dysfunction- Moderate to severe Triple vessel CAD of the LM, RCA Patent ROMANO to LAD Patent radial to OM Occluded SVG to RCA RECOMMENDATIONS Management as per referring Business Process Associate asa/plavix for life given CAD, PVD. Increase hydralazine to 25mg po bid. Decrease coreg to 12.5 mg bid Medical management of CAD; no PCI recommended at this time. DESCRIPTION OF PROCEDURE The patient arrived to the procedure lab. The risks and benefits of the procedure as well as a full d escription of our services here and current unavailability of surgical backup were fully explained to the patient and/or their significant other prior to the catheterization. The Timeout was completed, verifying the correct patient and procedure. The patient's procedural site was prepped and draped in the usual fashion. Local anesthetic was given subcutaneously to right groin region with Lidocaine 2%. Using a modified Seldinger technique, arterial access was obtained via the right femoral artery, a 4 Fr sheath was inserted Saphenous Vein graft to the Circumflex selective angiography was performed in multiple views using a 4 Fr. 3DRC catheter. Left internal mammary artery graft to the LAD selective angiography was performed in multiple views using a 4 Fr. 3drc catheter. Saphenous Vein graft to the RCA selective angiography was performed in multiple views using a 4 Fr. AR MOD 2 catheter. Left Coron nadiya Artery selective angiography was performed in multiple views using a 4 Fr. JL5 catheter. Left Cristopher triculography was performed in TORRES projection using a 4 Fr. Pigtail catheter. LV to AO pullback press ures were then recorded.The arterial sheath was pulled and manual compression applied until hemostasi s is achieved. CORONARY ANGIOGRAPHY DOMINANCE: Right Dominant LEFT HEART ASSESSMENT Left Ventricular Ejection Fraction: by LV Gram 40-45 % Global Hypokinesis - Moderate to severeto severe Depressed Left Ventricular systolic function LEFT MAIN: 80 distal % Stenosis LEFT ANTERIOR DECENDING ARTERY: Mild luminal irregularities less than 30% CIRCUMFLEX ARTERY: Mild luminal irregularities less than 30% RIGHT CORONARY ARTERY: PROX RCA: 60 diffuse % Stenosis GRAFTS: ROMANO graft to the LAD is patent Radial graft to the CIRC is patent Saphenous Vein graft to the RCA is totally occluded COMPLICATIONS No Complications PROCEDURE MEDICATIONS Oxygen: 2 L/min via nasal cannula Pepcid 20 mg IV 10/14/2017 09:20:13 Solu-cortef 100 mg IV 10/14/2017 09:20:24 SUMMARY OF HEMODYNAMIC DATA Time AIR REST ECG 07:46:37 AO 136/53 (83) SA 09:47:55 LV 138/2, 20 10:00:51 LV 138/4, 19 10:00:59 LVp 144/8, 33 10:01:08 AOp 141/47 (80) 10:01:13 Signed By Vasu Stokes MD On 10/14/2017 10:24:52 Vasu Stokes MD
[2017-10-14] MEDS: Gabapentin 100 MG Capsule 200 MG PO ×2 (11:55→17:15)
[2017-10-14] MEDS: Furosemide 40 MG Tablet PO ×2 (11:56→17:15)
[2017-10-14] MEDS: Pantoprazole Sodium 20 MG Tablet 40 MG PO (11:56)
[2017-10-14 12:06] LABS: Bedside Glucose 194 mg/dL (70-110)
[2017-10-14] MEDS: Acyclovir 200 MG Capsule 400 MG PO (14:31)
--- NOTE | 2017-10-14 14:45 | PCM.DC ---
- Discharge Diagnoses Current Active Problems: Current Active and Chronic Problems Acute exacerbation of CHF (congestive heart failure) (Acute) Acute kidney injury (Acute) You will use the following diet at home:: Calorie/Carbohydrate Controlled (specify 1200, 1400, etc) - 1800 najma / day, Cardiac Your food should be the consistency of: Regular Your liquids should be the consistency of: Regular/Thin Discharge Activity: Return to Normal Activity Allergies/Adverse Reactions: Allergies felodipine Allergy (Severe, Verified 06/12/17 01:09) Shortness of breath pentazocine lactate [From Talwin] Allergy (Unknown, Verified 06/12/17 01:09) Unknown Patient does not know what happened when taking pentazocine, was told do not take it in the past promethazine Allergy (Unknown, Verified 06/12/17 01:09) Unknown Patient is unsure of allergy or reaction, was told do not take it in the past Sulfa (Sulfonamide Antibiotics) Allergy (Unknown, Verified 06/12/17 01:09) Unknown Patient does not know what the reaction/allergy is. Was told not to take it after surgery in the past amlodipine Allergy (Verified 06/12/17 01:09) Unknown Heparin Analogues Allergy (Verified 06/12/17 01:09) Unknown meloxicam [From Mobic] Allergy (Verified 06/12/17 01:09) Other oxycodone terephthalate [From Percodan] Allergy (Verified 06/12/17 01:09) Unknown Penicillins Allergy (Verified 06/12/17 01:09) Hives Iodinated Contrast- Oral and IV Dye [Iodinated Contrast Media - IV Dye] Adverse Reaction (Severe, Verified 06/12/17 01:09) Other Convulsions NSAIDS (Non-Steroidal Anti-Inflamma Adverse Reaction (Intermediate, Verified 06/12/17 01:09) Other Elevated liver enzymes oxycodone HCl [From Percodan] Adverse Reaction (Intermediate, Verified 06/12/17 01:09) Other Elevated liver enzymes ciprofloxacin [From Cipro] Adverse Reaction (Mild, Verified 06/12/17 01:09) Nausea/Vom/Diarrhea codeine Adverse Reaction (Mild, Verified 06/12/17 01:09) Nausea makes me sick HEPARIN Allergy (Unknown, Uncoded 06/12/17 01:09) Unknown WAS TOLD NOT TO TAKE AFTER HEART SURG D/T RXN Medications to take at Discharge Folic Acid 400 mcg PO DAILY@0800 06/18/13 Hydroxychloroquine [Plaquenil] 200 mg PO BIDCM 06/18/13 Levothyroxine [Synthroid] 125 mcg PO DAILY 06/18/13 Nitroglycerin [Nitrostat] 0.4 mg SUBLINGUAL Q5M PRN 06/18/13 Simvastatin [Zocor] 20 mg PO QHS 06/18/13 Pantoprazole Sodium [Protonix] 40 mg PO BID 06/20/13 Clonazepam [Klonopin] 0.5 mg PO DAILY PRN PRN 06/19/14 Insulin NPH Human Isophane [Humulin N Kwikpen] See Protocol SQ TIDCM #1 pen 09/28/15 Gabapentin [Neurontin] 300 mg PO TID PRN 01/10/16 Premarin 1 applicatio VAGINALLY DAILY 06/11/17 Aspirin E.C. [Ecotrin] 81 mg PO DAILY@0800 10/09/17 Valacyclovir HCl [Valtrex] 500 mg PO BID 10/09/17 Carvedilol [Coreg (Beta Ramírez)] 12.5 mg PO BID #60 tab 10/14/17 Clopidogrel Bisulfate [Plavix] 75 mg PO DAILY #30 tab 10/14/17 Furosemide [Lasix] 40 mg PO BID@1000,1800 #60 tab 10/14/17 HydrALAZINE [Apresoline] 25 mg PO BID #60 tab 10/14/17 Polyethylene Glycol 3350 [Miralax] 17 gm PO DAILY PRN PRN #0 10/14/17 The following prescriptions were given: Carvedilol [Coreg (Beta Ramírez)] 12.5 mg PO BID #60 tab Clopidogrel Bisulfate [Plavix] 75 mg PO DAILY #30 tab Furosemide [Lasix] 40 mg PO BID@1000,1800 #60 tab HydrALAZINE [Apresoline] 25 mg PO BID #60 tab Primary Care Physician: Pita Conde MD [Primary Care Provider] - Please follow up with your Primary Care Physician in: 2 weeks Please Follow Up With: Vasu Stokes MD When: 2 weeks Proposed Discharge Date: 10/14/17
--- NOTE | 2017-10-14 14:48 | DCINST_ITS ---
- Discharge Diagnoses Current Active Problems: Current Active and Chronic Problems Acute exacerbation of CHF (congestive heart failure) (Acute) Acute kidney injury (Acute) You will use the following diet at home:: Calorie/Carbohydrate Controlled ( specify 1200, 1400, etc) - 1800 najma / day, Cardiac Your food should be the consistency of: Regular Your liquids should be the consistency of: Regular/Thin Discharge Activity: Return to Normal Activity Allergies/Adverse Reactions: Allergies felodipine Allergy (Severe, Verified 06/12/17 01:09) Shortness of breath pentazocine lactate [From Talwin] Allergy (Unknown, Verified 06/12/17 01:09) Unknown Patient does not know what happened when taking pentazocine, was told do not take it in the past promethazine Allergy (Unknown, Verified 06/12/17 01:09) Unknown Patient is unsure of allergy or reaction, was told do not take it in the past Sulfa (Sulfonamide Antibiotics) Allergy (Unknown, Verified 06/12/17 01:09) Unknown Patient does not know what the reaction/allergy is. Was told not to take it after surgery in the past amlodipine Allergy (Verified 06/12/17 01:09) Unknown Heparin Analogues Allergy (Verified 06/12/17 01:09) Unknown meloxicam [From Mobic] Allergy (Verified 06/12/17 01:09) Other oxycodone terephthalate [From Percodan] Allergy (Verified 06/12/17 01:09) Unknown Penicillins Allergy (Verified 06/12/17 01:09) Hives Iodinated Contrast- Oral and IV Dye [Iodinated Contrast Media - IV Dye] Adverse Reaction (Severe, Verified 06/12/17 01:09) Other Convulsions NSAIDS (Non-Steroidal Anti-Inflamma Adverse Reaction (Intermediate, Verified 01:09) Other Elevated liver enzymes oxycodone HCl [From Percodan] Adverse Reaction (Intermediate, Verified 06/12/17 01:09) Other Elevated liver enzymes ciprofloxacin [From Cipro] Adverse Reaction (Mild, Verified 06/12/17 01:09) Nausea/Vom/Diarrhea codeine Adverse Reaction (Mild, Verified 06/12/17 01:09) Nausea makes me sick HEPARIN Allergy (Unknown, Uncoded 06/12/17 01:09) Unknown WAS TOLD NOT TO TAKE AFTER HEART SURG D/T RXN Medications to take at Discharge Folic Acid 400 mcg PO DAILY@0800 06/18/13 Hydroxychloroquine [Plaquenil] 200 mg PO BIDCM 06/18/13 Levothyroxine [Synthroid] 125 mcg PO DAILY 06/18/13 Nitroglycerin [Nitrostat] 0.4 mg SUBLINGUAL Q5M PRN 06/18/13 Simvastatin [Zocor] 20 mg PO QHS 06/18/13 Pantoprazole Sodium [Protonix] 40 mg PO BID 06/20/13 Clonazepam [Klonopin] 0.5 mg PO DAILY PRN PRN 06/19/14 Insulin NPH Human Isophane [Humulin N Kwikpen] See Protocol SQ TIDCM #1 pen Gabapentin [Neurontin] 300 mg PO TID PRN 01/10/16 Premarin 1 applicatio VAGINALLY DAILY 06/11/17 Aspirin E.C. [Ecotrin] 81 mg PO DAILY@0800 10/09/17 Valacyclovir HCl [Valtrex] 500 mg PO BID 10/09/17 Carvedilol [Coreg (Beta Ramírez)] 12.5 mg PO BID #60 tab 10/14/17 Clopidogrel Bisulfate [Plavix] 75 mg PO DAILY #30 tab 10/14/17 Furosemide [Lasix] 40 mg PO BID@1000,1800 #60 tab 10/14/17 HydrALAZINE [Apresoline] 25 mg PO BID #60 tab 10/14/17 Polyethylene Glycol 3350 [Miralax] 17 gm PO DAILY PRN PRN #0 10/14/17 The following prescriptions were given: Carvedilol [Coreg (Beta Ramírez)] 12.5 mg PO BID #60 tab Clopidogrel Bisulfate [Plavix] 75 mg PO DAILY #30 tab Furosemide [Lasix] 40 mg PO BID@1000,1800 #60 tab HydrALAZINE [Apresoline] 25 mg PO BID #60 tab Primary Care Physician: Pita Conde MD [Primary Care Provider] - Please follow up with your Primary Care Physician in: 2 weeks Please Follow Up With: Vasu Stokes MD When: 2 weeks Proposed Discharge Date: 10/14/17
--- NOTE | 2017-10-14 14:48 | PCM.DC.SUM ---
Discharge Date and Diagnosis - Problem List Patient Problems: Active and Suspected Problems Acute exacerbation of CHF (congestive heart failure) (Acute) Acute kidney injury (Acute) Date of Admission: 10/09/17 Date of Discharge: 10/14/17 - Primary Discharge Diagnosis Active and Suspected Problems Acute exacerbation of diastolic CHF (congestive heart failure) (Acute) Acute kidney injury (Acute) indeterminate troponin CAD T2DM Hx SSS HTN Anx/Dep COPD GERD - Secondary Discharge Diagnosis Chronic Problems Pacemaker (Chronic) History of renal stent (Chronic) 2008, right SSS (sick sinus syndrome) (Chronic) s/p pacer 2013 Anxiety (Chronic) Hypertension (Chronic) GERD (gastroesophageal reflux disease) (Chronic) Diabetes mellitus, type 2 (Chronic) History of hypothyroidism (Chronic) Benign hypertension (Chronic) History of coronary artery disease (Chronic) Edema extremities (Chronic) Status post total hip replacement, right (Chronic) Obesity (BMI 30.0-34.9) (Chronic) Anemia (Chronic) Chronic obstructive pulmonary disease (COPD) (Chronic) Hospital Course and Treatment Imaging Results: RAD/Chest PA and Lateral IMPRESSION: CHF and right effusion Echo: Interpretation Summary Mildly dilated left ventricle. The estimated ejection fraction is 50 %. There is mild global hypokinesis of the left ventricle. Mild (1+) mitral valve insufficiency. Mild (1+) tricuspid valve insufficiency. Right ventricular systolic pressure estimated to be 48 mmHg. Moderate pulmonary hypertension. Compared to echo report dated 01/11/2016, no LV Function appears to be the same, and RVSP has increased from 42 to 48 mm HG. RAD/Chest PA and Lateral IMPRESSION: Right basilar opacities are worrisome for consolidation/pneumonia. There is a moderate right pleural effusion. There is stable mild enlargement of the cardiac silhouette without pulmonary edema. Vascularity is improved compared to the prior study. US/Thoracentesis W US IMPRESSION: Ultrasound-guided right thoracentesis. RAD/Chest PA and Lateral IMPRESSION: Status post right thoracentesis. There is no evidence of pneumothorax. Consultants: [facility] Operations: None Procedures: 2-D Echocardiogram, Cardiac catheterization, Thoracentesis Summary of Care Provided: Physical exam on day of discharge: General: Resting comfortably NAD Psych: A/Ox3 normal affect HEENT: PEARRLA AT NC Neck: Supple NT CV: RRR no m/t/r/g/h Resp: CTA Abd: [id number] Soft NT no guarding or rigidity Ext: DP2+= no edema Skin: W/D normal turgor Lymph/Heme: No active bleeding or adenopathy Neuro: CN2-12 intact Hospital course: The patient is a 81 year old F who presented to the emergency room with chief complaint of dyspnea, orthopnea, lower extremity edema, abdominal distention, 20 pound weight gain. She had a history of CHF, CKD stage III, sick sinus syndrome, status post pacemaker 2013, type 2 diabetes. She is a patient of Dr. Stokes. She had a chest x-ray consistent with congestive heart failure and an elevated BNP. Creatinine was elevated indicating BRISEIDA. She was admitted to the hospital and started on IV diuresis for suspected CHF exacerbation. She underwent an echocardiogram. Lisinopril was stopped due to worsening renal dysfunction. Her troponin came back indeterminate. Cardiology was consulted. They advised to undergo a heart catheterization once her breathing had improved. She was diuresed successfully. Her creatinine was fluctuant with diuresis. She responded well to Lasix but continued to have a moderate sized pleural effusion. She underwent thoracentesis with 500 cc removed. The following day she underwent heart catheterization which revealed global LV systolic dysfunction, moderate to severe, triple-vessel CAD of the LM, RCA, patent ROMANO to LAD, patent radial to OM, occluded SVG to RCA. Cardiology recommended no intervention at this time but to continue aspirin and Plavix for life. She was also started on hydralazine while she was here and her Coreg dose was adjusted. She will be discharged home on a higher dose of Lasix at 40 twice daily. I recommend that she has a BMP in 3 days to assess her renal function and tolerance. Continue to hold lisinopril at this point as her creatinine was elevated she can have this restarted at a later date if appropriate. She will need to follow-up with cardiology in 2 weeks as well as with her PCP in 2 weeks. This patient was seen by Koko Mcginnis PA-C under the supervision of Doctor Donnelly. [] Discharge Diet: Low fat/ Low Cholesterol, 1800 Calorie Control Diet, 2000 mg Sodium Diet Discharge Activity: Return to Normal Activity Home Medications: Medications to take at Discharge Folic Acid 400 mcg PO DAILY@0800 06/18/13 Hydroxychloroquine [Plaquenil] 200 mg PO BIDCM 06/18/13 Levothyroxine [Synthroid] 125 mcg PO DAILY 06/18/13 Nitroglycerin [Nitrostat] 0.4 mg SUBLINGUAL Q5M PRN 06/18/13 Simvastatin [Zocor] 20 mg PO QHS 06/18/13 Pantoprazole Sodium [Protonix] 40 mg PO BID 06/20/13 Clonazepam [Klonopin] 0.5 mg PO DAILY PRN PRN 06/19/14 Insulin NPH Human Isophane [Humulin N Kwikpen] See Protocol SQ TIDCM #1 pen 09/28/15 Gabapentin [Neurontin] 300 mg PO TID PRN 01/10/16 Premarin 1 applicatio VAGINALLY DAILY 06/11/17 Aspirin E.C. [Ecotrin] 81 mg PO DAILY@0800 10/09/17 Valacyclovir HCl [Valtrex] 500 mg PO BID 10/09/17 Carvedilol [Coreg (Beta Ramírez)] 12.5 mg PO BID #60 tab 10/14/17 Clopidogrel Bisulfate [Plavix] 75 mg PO DAILY #30 tab 10/14/17 Furosemide [Lasix] 40 mg PO BID@1000,1800 #60 tab 10/14/17 HydrALAZINE [Apresoline] 25 mg PO BID #60 tab 10/14/17 Polyethylene Glycol 3350 [Miralax] 17 gm PO DAILY PRN PRN #0 10/14/17 Following Prescrptions Were Given to Patient: Carvedilol [Coreg (Beta Ramírez)] 12.5 mg PO BID #60 tab Clopidogrel Bisulfate [Plavix] 75 mg PO DAILY #30 tab Furosemide [Lasix] 40 mg PO BID@1000,1800 #60 tab HydrALAZINE [Apresoline] 25 mg PO BID #60 tab Primary Care Physician: Pita Conde MD [Primary Care Provider] - Please follow up with your Primary Care Physician in: 2 weeks Please Follow Up With: Vasu Stokes MD When: 2 weeks Disposition: Home Minutes spent on discharge:: 45 Patient Condition:: Stable Meaningful Use Info Meaningful Use Diagnoses (Choose all that apply): CHF - CHF CARLOS/ARB ordered at discharge?: No Reason CARLOS/ARB not ordered?: Worsening renal disease Documented LVEF (%): 50
--- NOTE | 2017-10-14 14:55 | DS.PCM_ITS ---
Discharge Date and Diagnosis - Problem List Patient Problems: Active and Suspected Problems Acute exacerbation of CHF (congestive heart failure) (Acute) Acute kidney injury (Acute) Date of Admission: 10/09/17 Date of Discharge: 10/14/17 - Primary Discharge Diagnosis Active and Suspected Problems Acute exacerbation of diastolic CHF (congestive heart failure) (Acute) Acute kidney injury (Acute) indeterminate troponin CAD T2DM Hx SSS HTN Anx/Dep COPD GERD - Secondary Discharge Diagnosis Chronic Problems Pacemaker (Chronic) History of renal stent (Chronic) 2008, right SSS (sick sinus syndrome) (Chronic) s/p pacer 2013 Anxiety (Chronic) Hypertension (Chronic) GERD (gastroesophageal reflux disease) (Chronic) Diabetes mellitus, type 2 (Chronic) History of hypothyroidism (Chronic) Benign hypertension (Chronic) History of coronary artery disease (Chronic) Edema extremities (Chronic) Status post total hip replacement, right (Chronic) Obesity (BMI 30.0-34.9) (Chronic) Anemia (Chronic) Chronic obstructive pulmonary disease (COPD) (Chronic) Hospital Course and Treatment Imaging Results: RAD/Chest PA and Lateral IMPRESSION: CHF and right effusion Echo: Interpretation Summary Mildly dilated left ventricle. The estimated ejection fraction is 50 %. There is mild global hypokinesis of the left ventricle. Mild (1+) mitral valve insufficiency. Mild (1+) tricuspid valve insufficiency. Right ventricular systolic pressure estimated to be 48 mmHg. Moderate pulmonary hypertension. Compared to echo report dated 01/11/2016, no LV Function appears to be the same, and RVSP has increased from 42 to 48 mm HG. RAD/Chest PA and Lateral IMPRESSION: Right basilar opacities are worrisome for consolidation/pneumonia. There is a moderate right pleural effusion. There is stable mild enlargement of the cardiac silhouette without pulmonary edema. Vascularity is improved compared to the prior study. US/Thoracentesis W US IMPRESSION: Ultrasound-guided right thoracentesis. RAD/Chest PA and Lateral IMPRESSION: Status post right thoracentesis. There is no evidence of pneumothorax. Consultants: [facility] Operations: None Procedures: 2-D Echocardiogram, Cardiac catheterization, Thoracentesis Summary of Care Provided: Physical exam on day of discharge: General: Resting comfortably NAD Psych: A/Ox3 normal affect HEENT: PEARRLA AT NC Neck: Supple NT CV: RRR no m/t/r/g/h Resp: CTA Abd: [id number] Soft NT no guarding or rigidity Ext: DP2+= no edema Skin: W/D normal turgor Lymph/Heme: No active bleeding or adenopathy Neuro: CN2-12 intact Hospital course: The patient is a 81 year old F who presented to the emergency room with chief complaint of dyspnea, orthopnea, lower extremity edema, abdominal distention, 20 pound weight gain. She had a history of CHF, CKD stage III, sick sinus syndrome, status post pacemaker 2013, type 2 diabetes. She is a patient of Dr. Stokes. She had a chest x-ray consistent with congestive heart failure and an elevated BNP. Creatinine was elevated indicating BRISEIDA. She was admitted to the hospital and started on IV diuresis for suspected CHF exacerbation. She underwent an echocardiogram. Lisinopril was stopped due to worsening renal dysfunction. Her troponin came back indeterminate. Cardiology was consulted. They advised to undergo a heart catheterization once her breathing had improved. She was diuresed successfully. Her creatinine was fluctuant with diuresis. She responded well to Lasix but continued to have a moderate sized pleural effusion. She underwent thoracentesis with 500 cc removed. The following day she underwent heart catheterization which revealed global LV systolic dysfunction, moderate to severe, triple-vessel CAD of the LM, RCA, patent ROMANO to LAD, patent radial to OM, occluded SVG to RCA. Cardiology recommended no intervention at this time but to continue aspirin and Plavix for life. She was also started on hydralazine while she was here and her Coreg dose was adjusted. She will be discharged home on a higher dose of Lasix at 40 twice daily. I recommend that she has a BMP in 3 days to assess her renal function and tolerance. Continue to hold lisinopril at this point as her creatinine was elevated she can have this restarted at a later date if appropriate. She will need to follow-up with cardiology in 2 weeks as well as with her PCP in 2 weeks. This patient was seen by Koko Mcginnis PA-C under the supervision of Doctor Donnelly. [] Discharge Diet: Low fat/ Low Cholesterol, 1800 Calorie Control Diet, 2000 mg Sodium Diet Discharge Activity: Return to Normal Activity Home Medications: Medications to take at Discharge Folic Acid 400 mcg PO DAILY@0800 06/18/13 Hydroxychloroquine [Plaquenil] 200 mg PO BIDCM 06/18/13 Levothyroxine [Synthroid] 125 mcg PO DAILY 06/18/13 Nitroglycerin [Nitrostat] 0.4 mg SUBLINGUAL Q5M PRN 06/18/13 Simvastatin [Zocor] 20 mg PO QHS 06/18/13 Pantoprazole Sodium [Protonix] 40 mg PO BID 06/20/13 Clonazepam [Klonopin] 0.5 mg PO DAILY PRN PRN 06/19/14 Insulin NPH Human Isophane [Humulin N Kwikpen] See Protocol SQ TIDCM #1 pen Gabapentin [Neurontin] 300 mg PO TID PRN 01/10/16 Premarin 1 applicatio VAGINALLY DAILY 06/11/17 Aspirin E.C. [Ecotrin] 81 mg PO DAILY@0800 10/09/17 Valacyclovir HCl [Valtrex] 500 mg PO BID 10/09/17 Carvedilol [Coreg (Beta Ramírez)] 12.5 mg PO BID #60 tab 10/14/17 Clopidogrel Bisulfate [Plavix] 75 mg PO DAILY #30 tab 10/14/17 Furosemide [Lasix] 40 mg PO BID@1000,1800 #60 tab 10/14/17 HydrALAZINE [Apresoline] 25 mg PO BID #60 tab 10/14/17 Polyethylene Glycol 3350 [Miralax] 17 gm PO DAILY PRN PRN #0 10/14/17 Following Prescrptions Were Given to Patient: Carvedilol [Coreg (Beta Ramírez)] 12.5 mg PO BID #60 tab Clopidogrel Bisulfate [Plavix] 75 mg PO DAILY #30 tab Furosemide [Lasix] 40 mg PO BID@1000,1800 #60 tab HydrALAZINE [Apresoline] 25 mg PO BID #60 tab Primary Care Physician: Pita Conde MD [Primary Care Provider] - Please follow up with your Primary Care Physician in: 2 weeks Please Follow Up With: Vasu Stokes MD When: 2 weeks Disposition: Home Minutes spent on discharge:: 45 Patient Condition:: Stable Meaningful Use Info Meaningful Use Diagnoses (Choose all that apply): CHF - CHF CARLOS/ARB ordered at discharge?: No Reason CARLOS/ARB not ordered?: Worsening renal disease Documented LVEF (%): 50
[2017-10-14] MEDS: Hydroxychloroquine 200 MG Tablet PO (15:03)
[2017-10-14] MEDS: Glucerna Shake 120 ML LIQUID PO (17:18)
[2017-10-14 17:21] LABS: Bedside Glucose 240 mg/dL (70-110)
--- NOTE | 2017-10-14 18:20 | NURSING ---
REVIEWED Elena MCNEILL'S CHARTING.
== END 2017-10-14 19:10 | disposition home or self-care (01) | DRG 286 ==
LOC: ED 19:17 → PCU 20:17
PROVIDERS: Internal Medicine; Internal Medicine Cardiovascular Disease; Physician Assistant; Admitting Provider Family Medicine; Emergency Provider Emergency Medicine; Family Provider Internal Medicine; PCP Internal Medicine; Visit Provider Internal Medicine
DX: I13.0 Hypertensive heart and chronic kidney disease with heart failure and stage 1 through stage 4 chronic kidney disease, or unspecified chronic kidney disease (principal); I50.33 Acute on chronic diastolic (congestive) heart failure; N17.9 Acute kidney failure, unspecified; J90 Pleural effusion, not elsewhere classified; E11.22 Type 2 diabetes mellitus with diabetic chronic kidney disease; E11.40 Type 2 diabetes mellitus with diabetic neuropathy, unspecified; J44.9 Chronic obstructive pulmonary disease, unspecified; E78.5 Hyperlipidemia, unspecified; E03.9 Hypothyroidism, unspecified; E66.9 Obesity, unspecified; K21.9 Gastro-esophageal reflux disease without esophagitis; Z95.0 Presence of cardiac pacemaker; Z79.4 Long term (current) use of insulin; Z68.30 Body mass index [BMI] 30.0-30.9, adult; Z95.1 Presence of aortocoronary bypass graft; Z87.891 Personal history of nicotine dependence; I27.20 Pulmonary hypertension, unspecified; F41.9 Anxiety disorder, unspecified; F32.9 Major depressive disorder, single episode, unspecified; Z79.899 Other long term (current) drug therapy; N18.3 Chronic kidney disease, stage 3 (moderate)
CPT/HCPCS: 32555; 36415; 71046; 80048; 80053; 80061; 82962; 83036; 83735; 84443; 84484; 85025; 85027; 85610; 85730; 93005; 93306; 93459; 94640; 97110; 97165; 97535; 97802; 99285; J7030; J7040; Q9967; A4216; C1769; J1940

== ENCOUNTER 2017-11-01 09:52 | Inpatient (IN) | payer MEDICARE, BC, SELFPAY ==
[2017-11-01] VITALS (8 sets, daily range): BP systolic 100–155; BP diastolic 36–97; PULSE 60–88; RESP 14–20; TEMP 36.1–36.8; O2SAT 94–98; BMI 30.2; BMI 29.4
--- NOTE | 2017-11-01 11:12 | EKG12_ITS ---
Test Reason : CP Blood Pressure : / mmHG Vent. Rate : 062 BPM Atrial Rate : 062 BPM P-R Int : 122 ms QRS Dur : 224 ms QT Int : 562 ms P-R-T Axes : 000 -78 102 degrees QTc Int : 570 ms Atrial-sensed ventricular-paced rhythm Abnormal ECG Confirmed by MINNIE AN, ANIBAL ([id number]), book editor JÚNIOR LEWIS ([id number]) on 11/05/2017 2:33:42 PM Referred By: DEVIN Confirmed By:ANIBAL HARTMAN MD
--- NOTE | 2017-11-01 11:13 | RAD_ITS ---
STUDY: X-RAY CHEST REASON FOR EXAM: Female, 81 years old. Shortness of breath. TECHNIQUE: Single AP portable view of the chest. COMPARISON: 10/13/2017 FINDINGS: Left lung is clear. Right lower lobe consolidation with effusion. Mild interstitial prominence throughout suggest mild vascular congestion. Stable left chest wall pacing device. Cardiac event monitor is noted. Sternal cerclage wires and vascular clips are present from a prior sternotomy and coronary artery bypass graft procedure (CABG). Normal mediastinum and bib. Normal visualized pulmonary arteries. Normal visualized aortic arch and descending thoracic aorta. Normal visualized thoracic spine. Normal visualized ribs, clavicles, and shoulders. There is no demonstrated abnormality of the visualized soft tissue structures of the upper abdomen. RAD/Chest 1 View (Portable) IMPRESSION: Right lower lobe consolidation and effusion. Mild interstitial edema suggesting vascular congestion Electronically Signed: Reggie Scott DO at 11:35 EST Tel , Service support ,
[2017-11-01 11:49] LABS: Mucous, Urine 0 SEEN /hpf (<or=2+); Red Blood Cells-Urine 0 SEEN /hpf (0-5); Squamous Epithelial Cells - UA 0 SEEN /hpf (5-10)
[2017-11-01 11:51] LABS: Color, Urine Yellow (Yellow); Glucose, Dipstick Normal (Normal); Ketone-Dipstick Negative (Negative); Leukocyte Esterase-Dipstick 500 /ul (Negative); Nitrite-Dipstick Negative (Negative); Occult Blood-Urine 10 /ul (Negative); Protein-Dipstick 15 mg/dl (Negative); Specific Gravity, Urine 1.015 (1.002-1.030); Urine Bilirubin Dipstick Negative (Negative); Urine Clarity Clear (Clear); Urine Urobilinogen Normal (Normal)
[2017-11-01 11:54] LABS: Absolute Lymphocyte Count 1.06 X10^3/ul (0.83-4.51); Absolute Neutrophil Count 6.7 X10^3/uL (2.0-7.7); Basophil# 0.03 X10^3/uL; Basophil% 0.3 % (0-1); Eosinophil# 0.11 X10^3/uL; Eosinophils% 1.3 % (0-5); Hematocrit 37.6 % (37-47); Hemoglobin 11.9 g/dl (12.0-15.0); Lymphocyte # 1.06 X10^3/ul (4.0); Lymphocyte % 12.3 % (19-41); Mean Corp Hgb Conc 31.6 g/gl (32-36); Mean Corpuscular Volume 88.5 fL (81-99); Mean Platelet Vol. 10.7 fl (6.2-12.0); Monocyte% 8.1 % (0-10); Neutrophil # 6.71 X10^3/uL (2.7-7.7); Neutrophil % 77.9 % (47-70); Platelet Count 177 K/mm3 (150-450); RBC Distribution Width CV 16.2 % (11.6-14.6); RBC Distribution Width SD 51.7 fl (35.1-43.9); Red Blood Count 4.25 M/mm3 (4.2-5.4); White Blood Count 8.6 K/mm3 (4.4-11.0)
--- NOTE | 2017-11-01 11:59 | CT_ITS ---
STUDY: CT ABDOMEN AND PELVIS WITHOUT CONTRAST REASON FOR EXAM: Female, 81 years old. Shortness of breath and weight gain. COPD RADIATION DOSAGE (If Supplied By Facility): CTDIvol = ( 20.74 ) mGy, DLP = ( 875.45 ) mGycm TECHNIQUE: Transaxial images were obtained from the dome of the diaphragm to the symphysis pubis without oral contrast, and without intravenous contrast. Sagittal and coronal images were reconstructed. Individualized dose optimization techniques were used for this CT. COMPARISON: July 04, 2013 CT examination.. FINDINGS: Moderate to large right-sided pleural effusion. Small left-sided pleural effusion Extensive vascular calcifications of the abdominal aorta Degenerative changes of the sacroiliac joints. Right-sided hip prosthesis. Extensive abdominal wall edema. Cellulitis cannot be excluded from this exam. Degenerative changes in the lumbar spine. Diffuse osteopenia. Mild anterolisthesis of L4 on L5. Degenerative changes in the hip joints. There is likely a pacemaker device present. Calcified granuloma in the liver. Small calcified granulomas of the spleen. Distensive vascular calcifications. Adrenal glands appear grossly unremarkable. The pancreas appear atrophic. Extensive vascular calcifications of the mesenteric vasculature Vascular calcifications at the origin of the renal arteries. Small amount of ascitic fluid also present. Low-attenuation foci within the kidneys possibly renal cyst. Moderate amount of free fluid in the pelvis. The bowel gas pattern is nonobstructive. IMPRESSION: Moderate right-sided and small left-sided pleural effusion. Ascites Extensive atherosclerotic vascular calcifications No evidence for small bowel obstruction. Abdominal wall edema in the lower abdomen. Cellulitis is a differential consideration Moderate amount of free fluid in the pelvis with uncomplicated colonic diverticulosis. Status post right-sided hip arthroplasty. Soft tissue fullness in the right hip joint. Infection of the right hip joint is not excluded. Electronically Signed: Alex Guidry, at 13:04 EST Tel , Service support , CT/Abdomen/Pelvis without Cont
[2017-11-01 12:00] LABS: POSITIVE COUNT NO; POSITIVE DIFFERENTIAL NO; POSITIVE MORPHOLOGY NO
[2017-11-01 12:07] LABS: Anion Gap 9 (5-15); BUN 67 mg/dL (7-18); BUN/Creat Ratio 43.8 RATIO (10-20); Calcium,Total 8.9 mg/dL (8.5-10.1); Chloride 106 mmol/L (98-107); Creatinine, Serum 1.53 mg/dL (0.55-1.02); EST Glomerular Filtration Rate 35 mL/min (>60); Est Glom Filt Rate - Afr Amer 42 mL/min (>60); Glucose 69 mg/dL (74-106); Potassium 3.8 mmol/L (3.5-5.1); Sodium Level 138 mmol/L (136-145)
[2017-11-01 12:36] LABS: Bacteria 1+ /hpf (None Seen); White Blood Cells 5-10 SEEN /hpf (0-5)
[2017-11-01] MEDS: Furosemide 40 MG/4 ML Vial IV ×2 (13:36→17:13)
--- NOTE | 2017-11-01 13:41 | PN_ITS ---
Vitals/I&O's: Vital Signs Temp Pulse Resp BP Pulse Ox 96.9 F L 88 14 155/97 H 98 11/01/17 10:01 11/01/17 12:06 11/01/17 12:06 11/01/17 12:06 11/01/17 12:06 Oxygen Delivery Method Room Air Weight: 65.5 kg Body Mass Index (BMI) 30.2 Finger Stick Blood Glucose 272 Laboratory Results 11/01/17 11:34: WBC 8.6, RBC 4.25, Hgb 11.9 L, Hct 37.6, MCV 88.5, MCH 28.0, MCHC 31.6 L, RDW 16.2 H, RDW Differential 51.7 H, Plt Count 177, MPV 10.7, Immature Gran % (Auto) 0.100, Neut % (Auto) 77.9 H, Lymph % (Auto) 12.3 L, Mccone % (Auto) 8.1, Eos % (Auto) 1.3, Baso % (Auto) 0.3, Absolute Neuts (auto) 6.7, Absolute Lymphs (auto) 1.06, Total Counted Not Reportable 11/01/17 11:34: Sodium 138, Potassium 3.8, Chloride 106, Carbon Dioxide 23.0, Anion Gap 9, BUN 67 H, Creatinine 1.53 H, Est GFR (MDRD) Af Amer 42 L, Est GFR ( MDRD) Non-Af 35 L, BUN/Creatinine Ratio 43.8 H, Glucose 69 L, Calcium 8.9, Troponin I 0.31 H 11/01/17 11:34: B-Natriuretic Peptide 1410.1 H 11/01/17 11:34: Urine Color Yellow, Urine Clarity Clear, Urine pH 6.0, Ur Specific [place] 1.015, Urine Protein 15 H, Urine Glucose (UA) Normal, Urine Ketones Negative, Urine Occult Blood 10 H, Urine Nitrite Negative, Urine Bilirubin Negative, Urine Urobilinogen Normal, Ur Leukocyte Esterase 500 H, Urine RBC 0 SEEN, Urine WBC 5-10 SEEN, Ur Squamous Epith Cells 0 SEEN, Urine Bacteria 1+, Urine Mucus 0 SEEN
--- NOTE | 2017-11-01 13:56 | ED.DCSUM_ITS ---
- ER Visit Summary Date of Service: 11/01/17 Chief Complaint: [] Shortness of breath increasing abdominal girth and weight gain edema History of Present Illness: The patient is a 81 F [] congestive heart failure she notes 5-6 pound weight gain over the last week despite using Lasix 40 mg twice daily worsening shortness of breath she feels the fluid is collecting her abdomen, she was seen for routine visit at her doctor's office today the doctor was not in and she was sent to the emergency department, she also sees Dr. Arora her bowel and bladder habits are otherwise unremarkable she has had no fever or cough Physical Examination: [] Vital signs are within normal range her pulse ox is about 95% on room air when she talks for extended period time it dips down to 92 she is in no distress she has some crackles at the bases the heart tones are distant pacemaker is apparent on the monitor the abdomen is slightly distended but nontender upper lower extremities unremarkable except she has 3+ edema that is slightly worse than normal she is moving all 4 extremities, she informed me she is having normal bowel bladder habits and she is taking her Lasix as prescribed and avoiding salt etc. Test Results: [] Emergency Department Course and Treatment: [] Studies revealed basically an elevated BNP, troponin 0.31, chest x-ray with signs of congestive failure, abdominal CT done for the abdominal girth and issues shows ascites and bilateral pleural effusions, we did give her IV Lasix, spoke with the hospitalist given all the above they will see her for admission Treatment Plan: [] Disposition: [] Stable Impression: [] Acute congestive heart failure, failed outpatient therapy, bilateral pleural effusions, abnormal troponin cardiac pacemaker This note was generated with [employer] dictation software. It may contain incorrect words, spelling, and punctuation that were not noted in review of the chart prior to signing ED Disposition - Plan for ED Patient: Chief Complaint: Edema Referrals: Pita Conde MD [Primary Care Provider] -
--- NOTE | 2017-11-01 14:02 | PCM.HP.STD ---
Problem List (1) Acute kidney injury Status: Acute (2) Acute exacerbation of CHF (congestive heart failure) Status: Acute Qualifiers: Heart failure type: systolic Qualified Code(s): I50.23 - Acute on chronic systolic (congestive) heart failure (3) Hypertension Status: Chronic Qualifiers: Hypertension type: essential hypertension (4) Diabetes mellitus, type 2 Status: Chronic Qualifiers: Diabetes mellitus complication status: with unspecified complications (5) History of hypothyroidism Status: Chronic (6) History of coronary artery disease Status: Chronic (7) Chronic obstructive pulmonary disease (COPD) Status: Chronic Qualifiers: COPD type: unspecified COPD Qualified Code(s): J44.9 - Chronic obstructive pulmonary disease, unspecified History of Present Illness Date of Admission: 11/01/17 Chief Complaint: Shortness of breath, increase abdominal girth, weight gain The patient is a 81 year old F past medical history of CAD status post CABG, CKD stage III, sick sinus syndrome status post pacemaker, chronic systolic CHF with last EF of 40%, currently discharged on 14 October 2017 with acute CHF exacerbation. She says that since her discharge, she had followed up with cardiology, Dr. Arora, was told by his insurance claims assistant to increase her fluid intake because of her worsening renal function, and she has been trying to taking lots of fluid. She has noticed that she had shortness of breath at rest and exertion associated with palpitations, orthopnea, PND and bilateral leg swelling. She denied chest pain or dizziness. Vitals in the ED showed T 96.9F, HR 63, BP 117/53, RR 17, spO2 98%. Chest X-ray showed right lower lobe consolidation and effusion with mild interstitial edema suggestive of vascular congestion. Admitting BMP reports that thousand 410. Admitting troponin was 0.31. CT scan of the abdomen and pelvis shows moderate to large right-sided pleural effusion with small left-sided pleural effusion as well as extensive abdominal wall edema.. Past Medical History Past Medical History (Chronic Problems): Chronic Problems Pacemaker (Chronic) History of renal stent (Chronic) 2008, right SSS (sick sinus syndrome) (Chronic) s/p pacer 2013 Anxiety (Chronic) Hypertension (Chronic) GERD (gastroesophageal reflux disease) (Chronic) Diabetes mellitus, type 2 (Chronic) History of hypothyroidism (Chronic) Benign hypertension (Chronic) History of coronary artery disease (Chronic) Edema extremities (Chronic) Status post total hip replacement, right (Chronic) Obesity (BMI 30.0-34.9) (Chronic) Anemia (Chronic) Chronic obstructive pulmonary disease (COPD) (Chronic) Allergies felodipine Allergy (Severe, Verified 11/01/17 10:02) Shortness of breath pentazocine lactate [From Talwin] Allergy (Unknown, Verified 11/01/17 10:02) Unknown Patient does not know what happened when taking pentazocine, was told do not take it in the past promethazine Allergy (Unknown, Verified 11/01/17 10:02) Unknown Patient is unsure of allergy or reaction, was told do not take it in the past Sulfa (Sulfonamide Antibiotics) Allergy (Unknown, Verified 11/01/17 10:02) Unknown Patient does not know what the reaction/allergy is. Was told not to take it after surgery in the past amlodipine Allergy (Verified 11/01/17 10:02) Unknown Heparin Analogues Allergy (Verified 11/01/17 10:02) Unknown meloxicam [From Mobic] Allergy (Verified 11/01/17 10:02) Other oxycodone terephthalate [From Percodan] Allergy (Verified 11/01/17 10:02) Unknown Penicillins Allergy (Verified 11/01/17 10:02) Hives Iodinated Contrast- Oral and IV Dye [Iodinated Contrast Media - IV Dye] Adverse Reaction (Severe, Verified 11/01/17 10:02) Other Convulsions NSAIDS (Non-Steroidal Anti-Inflamma Adverse Reaction (Intermediate, Verified 11/01/17 10:02) Other Elevated liver enzymes oxycodone HCl [From Percodan] Adverse Reaction (Intermediate, Verified 11/01/17 10:02) Other Elevated liver enzymes ciprofloxacin [From Cipro] Adverse Reaction (Mild, Verified 11/01/17 10:02) Nausea/Vom/Diarrhea codeine Adverse Reaction (Mild, Verified 11/01/17 10:02) Nausea makes me sick HEPARIN Allergy (Unknown, Uncoded 11/01/17 10:02) Unknown WAS TOLD NOT TO TAKE AFTER HEART SURG D/T RXN Home Medications: Ambulatory Orders Medication Instructions Recorded RX: Folic Acid 400 mcg PO DAILY@0800 06/18/13 RX: Hydroxychloroquine [Plaquenil] 200 mg PO BIDCM 06/18/13 RX: Levothyroxine [Synthroid] 125 mcg PO DAILY 06/18/13 RX: Nitroglycerin [Nitrostat] 0.4 mg SUBLINGUAL Q5M PRN 06/18/13 RX: Simvastatin [Zocor] 20 mg PO QHS 06/18/13 RX: Pantoprazole Sodium [Protonix] 40 mg PO BID 06/20/13 RX: Clonazepam [Klonopin] 0.5 mg PO DAILY PRN PRN 06/19/14 RX: Insulin NPH Human Isophane See Protocol SQ TIDCM #1 pen 09/28/15 [Humulin N Kwikpen] RX: Gabapentin [Neurontin] 300 mg PO TID PRN 01/10/16 Premarin 1 applicatio VAGINALLY DAILY 06/11/17 RX: Aspirin E.C. [Ecotrin] 81 mg PO DAILY@0800 10/09/17 RX: Valacyclovir HCl [Valtrex] 500 mg PO BID 10/09/17 RX: Carvedilol [Coreg (Beta 12.5 mg PO BID #60 tab 10/14/17 Ramírez)] RX: Clopidogrel Bisulfate [Plavix] 75 mg PO DAILY #30 tab 10/14/17 RX: Furosemide [Lasix] 40 mg PO BID@1000,1800 #60 tab 10/14/17 RX: HydrALAZINE [Apresoline] 25 mg PO BID #60 tab 10/14/17 RX: Polyethylene Glycol 3350 17 gm PO DAILY PRN PRN #0 10/14/17 [Miralax] Surgical History: - - CABG x 4, stent placement, R carotid endarterectomy, JACQUES w/ BSOO, Cholecystectomy, Appendectomy, BL Breast Reduction, Pcaemaker. Psychiatric History: Anxiety, Depression TILE GRADER History: No pertinent TILE GRADER history Smoking Status: Former smoker - *Family History Maternal History Items: Dementia - age 90, Hypertension Paternal History Items: Heart Disease - age 80, Hypertension, Stroke Sibling History Items: Hypertension Review of Systems Constitutional: Reports: Weight Change. Denies: Anorexia, Chills, Fever, Malaise, Weakness Eyes: Denies: Blurred vision, Cataracts, Conjunctivae Inflammation, Pain, Redness HEENT: Denies: Difficulty Hearing, Difficulty Swallowing, Head Aches, Hearing Changes, Sinus Drainage, Sore Throat Cardiovascular: Reports: Chest Tightness, Orthopnea, Palpitations, Paroxysmal Noc. Dyspnea. Denies: Chest Pain, Light Headedness Respiratory: Reports: Shortness of breath at rest, Shortness of breath upon exertion. Denies: Cough, Hemoptysis, Sputum production Gastrointestinal: Denies: Abdominal Pain, Constipation, Diarrhea, Hematemesis, Hematochezia, Nausea Genitourinary: Denies: Dysuria, Frequency, Incontinence, Nocturia Musculoskeletal: Denies: Joint stiffness, Joint swelling Neurological: Denies: Difficulty swallowing, Focal weakness, Headaches VTE Information - Inpt Only VTE Present on Admission: No VTE Mechan Device Prophylaxis: None VTE Pharm Prophylaxis ordered?: Yes - Physical Exam General: Alert, Oriented x3, Cooperative, No apparent distress HEENT: Atraumatic, PERRLA, EOMI, Normocephalic Oral: Moist Mucosa Neck: Supple, JVD, Right - elevated at 4cm Lungs: Normal air movement, Diminished - at lung bases Cardiovascular: Regular rate, Regular Rhythm, Normal S1, Normal S2, No murmurs Abdomen: Bowel Sounds Present, Soft, Non Tender, Non-Distended, No Hepato-splenomegaly Extremities: Edema - Bilateral +1 pedal edema Skin: No rashes Musculoskeletal: No Tenderness to Palpation of Joints or Extremities Lymphatic: No Cervical, Supraclavicular, or Inguinal Adenopathy Neurological: Cranial nerves II-XII grossly intact, Neuro grossly intact Psych/Mental Status: Normal Affect, Appropriate Vital Signs Temp Pulse Resp BP Pulse Ox 96.9 F L 66 14 122/55 H 98 11/01/17 10:01 11/01/17 13:53 11/01/17 13:53 11/01/17 13:53 11/01/17 13:53 Assessment/Plan 81 year old F with past medical history of CAD status post CABG, CKD stage III, sick sinus syndrome status post pacemaker, chronic systolic CHF with last EF of 40%, currently discharged on 14 October 2017 with acute CHF exacerbation. 1. Acute CHF exacerbation patient with underlying ischemic cardiomyopathy, EF of 50%, secondary to noncompliance to fluid restriction as a result of instructions given in the outpatient. Patient's admitting BNP was more than 1410, chest x-ray and CT scan of the abdomen and pelvis are consistent with bilateral effusion and vascular congestion. Plan: Admit to PCU, monitor on telemetry, IV Lasix 40 mg twice daily, strict I's and O's, daily weights, and troponins, will consult cardiology if troponins become elevated. 2. CAD status post CABG, history of recent cardiac cath in September 2017, cardiac cath findings showed left main of 80%, LAD 30%, circumflex less than 30%, RCA 60%, grafts were said to be patent, patient was managed on aspirin and Plavix, admitting troponin 0 0.31, will continue to trend troponins, if trends up will consult cardiology 3. Acute kidney injury, likely secondary to diuretic use versus cardiorenal drug, patient is on Lasix 40 mg p.o. twice daily, admitting creatinine is 1.53 improved from 1.73, will continue on Lasix 40 mg IV twice daily, creatinine closely as well as urine output and daily weights, may need to readjust Lasix tomorrow depending on BMP. 4. Hypertension, controlled, continue on carvedilol, hydralazine, monitor closely on telemetry 5. Type II DM, on insulin, continue home regimen, as well as Accu-Cheks and insulin sliding scale 6. Pulmonary hypertension, last RVSP was 48, will need to folow-up with pulmonology in the outpatient 7. Sick sinus syndrome status post pacemaker 8. DVT Prophylaxis with heparin SC Code Visit Inpatient E&M: 94427 Init Hosp L3
--- NOTE | 2017-11-01 14:18 | HP.PCM_ITS ---
Problem List (1) Acute kidney injury Status: Acute (2) Acute exacerbation of CHF (congestive heart failure) Status: Acute Qualifiers: Heart failure type: systolic Qualified Code(s): I50.23 - Acute on chronic systolic (congestive) heart failure (3) Hypertension Status: Chronic Qualifiers: Hypertension type: essential hypertension (4) Diabetes mellitus, type 2 Status: Chronic Qualifiers: Diabetes mellitus complication status: with unspecified complications (5) History of hypothyroidism Status: Chronic (6) History of coronary artery disease Status: Chronic (7) Chronic obstructive pulmonary disease (COPD) Status: Chronic Qualifiers: COPD type: unspecified COPD Qualified Code(s): J44.9 - Chronic obstructive pulmonary disease, unspecified History of Present Illness Date of Admission: 11/01/17 Chief Complaint: Shortness of breath, increase abdominal girth, weight gain The patient is a 81 year old F past medical history of CAD status post CABG, CKD stage III, sick sinus syndrome status post pacemaker, chronic systolic CHF with last EF of 40%, currently discharged on 14 October 2017 with acute CHF exacerbation. She says that since her discharge, she had followed up with cardiology, Dr. Arora, was told by his museum assistant to increase her fluid intake because of her worsening renal function, and she has been trying to taking lots of fluid. She has noticed that she had shortness of breath at rest and exertion associated with palpitations, orthopnea, PND and bilateral leg swelling. She denied chest pain or dizziness. Vitals in the ED showed T 96.9F, HR 63, BP 117/53, RR 17, spO2 98%. Chest X- ray showed right lower lobe consolidation and effusion with mild interstitial edema suggestive of vascular congestion. Admitting BMP reports that thousand 410. Admitting troponin was 0.31. CT scan of the abdomen and pelvis shows moderate to large right-sided pleural effusion with small left-sided pleural effusion as well as extensive abdominal wall edema.. Past Medical History Past Medical History (Chronic Problems): Chronic Problems Pacemaker (Chronic) History of renal stent (Chronic) 2008, right SSS (sick sinus syndrome) (Chronic) s/p pacer 2013 Anxiety (Chronic) Hypertension (Chronic) GERD (gastroesophageal reflux disease) (Chronic) Diabetes mellitus, type 2 (Chronic) History of hypothyroidism (Chronic) Benign hypertension (Chronic) History of coronary artery disease (Chronic) Edema extremities (Chronic) Status post total hip replacement, right (Chronic) Obesity (BMI 30.0-34.9) (Chronic) Anemia (Chronic) Chronic obstructive pulmonary disease (COPD) (Chronic) Allergies felodipine Allergy (Severe, Verified 11/01/17 10:02) Shortness of breath pentazocine lactate [From Talwin] Allergy (Unknown, Verified 11/01/17 10:02) Unknown Patient does not know what happened when taking pentazocine, was told do not take it in the past promethazine Allergy (Unknown, Verified 11/01/17 10:02) Unknown Patient is unsure of allergy or reaction, was told do not take it in the past Sulfa (Sulfonamide Antibiotics) Allergy (Unknown, Verified 11/01/17 10:02) Unknown Patient does not know what the reaction/allergy is. Was told not to take it after surgery in the past amlodipine Allergy (Verified 11/01/17 10:02) Unknown Heparin Analogues Allergy (Verified 11/01/17 10:02) Unknown meloxicam [From Mobic] Allergy (Verified 11/01/17 10:02) Other oxycodone terephthalate [From Percodan] Allergy (Verified 11/01/17 10:02) Unknown Penicillins Allergy (Verified 11/01/17 10:02) Hives Iodinated Contrast- Oral and IV Dye [Iodinated Contrast Media - IV Dye] Adverse Reaction (Severe, Verified 11/01/17 10:02) Other Convulsions NSAIDS (Non-Steroidal Anti-Inflamma Adverse Reaction (Intermediate, Verified 10:02) Other Elevated liver enzymes oxycodone HCl [From Percodan] Adverse Reaction (Intermediate, Verified 11/01/17 10:02) Other Elevated liver enzymes ciprofloxacin [From Cipro] Adverse Reaction (Mild, Verified 11/01/17 10:02) Nausea/Vom/Diarrhea codeine Adverse Reaction (Mild, Verified 11/01/17 10:02) Nausea makes me sick HEPARIN Allergy (Unknown, Uncoded 11/01/17 10:02) Unknown WAS TOLD NOT TO TAKE AFTER HEART SURG D/T RXN Home Medications: Ambulatory Orders Medication Instructions Recorded RX: Folic Acid 400 mcg PO DAILY@0800 06/18/13 RX: Hydroxychloroquine [Plaquenil] 200 mg PO BIDCM 06/18/13 RX: Levothyroxine [Synthroid] 125 mcg PO DAILY 06/18/13 RX: Nitroglycerin [Nitrostat] 0.4 mg SUBLINGUAL Q5M PRN 06/18/13 RX: Simvastatin [Zocor] 20 mg PO QHS 06/18/13 RX: Pantoprazole Sodium [Protonix] 40 mg PO BID 06/20/13 RX: Clonazepam [Klonopin] 0.5 mg PO DAILY PRN PRN 06/19/14 RX: Insulin NPH Human Isophane See Protocol SQ TIDCM #1 pen 09/28/15 [Humulin N Kwikpen] RX: Gabapentin [Neurontin] 300 mg PO TID PRN 01/10/16 Premarin 1 applicatio VAGINALLY DAILY 06/11/17 RX: Aspirin E.C. [Ecotrin] 81 mg PO DAILY@0800 10/09/17 RX: Valacyclovir HCl [Valtrex] 500 mg PO BID 10/09/17 RX: Carvedilol [Coreg (Beta 12.5 mg PO BID #60 tab 10/14/17 Ramírez)] RX: Clopidogrel Bisulfate [Plavix] 75 mg PO DAILY #30 tab 10/14/17 RX: Furosemide [Lasix] 40 mg PO BID@1000,1800 #60 tab 10/14/17 RX: HydrALAZINE [Apresoline] 25 mg PO BID #60 tab 10/14/17 RX: Polyethylene Glycol 3350 17 gm PO DAILY PRN PRN #0 10/14/17 [Miralax] Surgical History: - - CABG x 4, stent placement, R carotid endarterectomy, JACQUES w / BSOO, Cholecystectomy, Appendectomy, BL Breast Reduction, Pcaemaker. Psychiatric History: Anxiety, Depression PAINTER History: No pertinent PAINTER history Smoking Status: Former smoker - *Family History Maternal History Items: Dementia - age 90, Hypertension Paternal History Items: Heart Disease - age 80, Hypertension, Stroke Sibling History Items: Hypertension Review of Systems Constitutional: Reports: Weight Change. Denies: Anorexia, Chills, Fever, Malaise, Weakness Eyes: Denies: Blurred vision, Cataracts, Conjunctivae Inflammation, Pain, Redness HEENT: Denies: Difficulty Hearing, Difficulty Swallowing, Head Aches, Hearing Changes, Sinus Drainage, Sore Throat Cardiovascular: Reports: Chest Tightness, Orthopnea, Palpitations, Paroxysmal Noc. Dyspnea. Denies: Chest Pain, Light Headedness Respiratory: Reports: Shortness of breath at rest, Shortness of breath upon exertion. Denies: Cough, Hemoptysis, Sputum production Gastrointestinal: Denies: Abdominal Pain, Constipation, Diarrhea, Hematemesis, Hematochezia, Nausea Genitourinary: Denies: Dysuria, Frequency, Incontinence, Nocturia Musculoskeletal: Denies: Joint stiffness, Joint swelling Neurological: Denies: Difficulty swallowing, Focal weakness, Headaches VTE Information - Inpt Only VTE Present on Admission: No VTE Mechan Device Prophylaxis: None VTE Pharm Prophylaxis ordered?: Yes - Physical Exam General: Alert, Oriented x3, Cooperative, No apparent distress HEENT: Atraumatic, PERRLA, EOMI, Normocephalic Oral: Moist Mucosa Neck: Supple, JVD, Right - elevated at 4cm Lungs: Normal air movement, Diminished - at lung bases Cardiovascular: Regular rate, Regular Rhythm, Normal S1, Normal S2, No murmurs Abdomen: Bowel Sounds Present, Soft, Non Tender, Non-Distended, No Hepato- splenomegaly Extremities: Edema - Bilateral +1 pedal edema Skin: No rashes Musculoskeletal: No Tenderness to Palpation of Joints or Extremities Lymphatic: No Cervical, Supraclavicular, or Inguinal Adenopathy Neurological: Cranial nerves II-XII grossly intact, Neuro grossly intact Psych/Mental Status: Normal Affect, Appropriate Vital Signs Temp Pulse Resp BP Pulse Ox 96.9 F L 66 14 122/55 H 98 11/01/17 10:01 11/01/17 13:53 11/01/17 13:53 11/01/17 13:53 11/01/17 13:53 Assessment/Plan 81 year old F with past medical history of CAD status post CABG, CKD stage III, sick sinus syndrome status post pacemaker, chronic systolic CHF with last EF of 40%, currently discharged on 14 October 2017 with acute CHF exacerbation. 1. Acute CHF exacerbation patient with underlying ischemic cardiomyopathy, EF of 50%, secondary to noncompliance to fluid restriction as a result of instructions given in the outpatient. Patient's admitting BNP was more than 1410, chest x-ray and CT scan of the abdomen and pelvis are consistent with bilateral effusion and vascular congestion. Plan: Admit to PCU, monitor on telemetry, IV Lasix 40 mg twice daily, strict I' s and O's, daily weights, and troponins, will consult cardiology if troponins become elevated. 2. CAD status post CABG, history of recent cardiac cath in September 2017, cardiac cath findings showed left main of 80%, LAD 30%, circumflex less than 30% , RCA 60%, grafts were said to be patent, patient was managed on aspirin and Plavix, admitting troponin 0 0.31, will continue to trend troponins, if trends up will consult cardiology 3. Acute kidney injury, likely secondary to diuretic use versus cardiorenal drug, patient is on Lasix 40 mg p.o. twice daily, admitting creatinine is 1.53 improved from 1.73, will continue on Lasix 40 mg IV twice daily, creatinine closely as well as urine output and daily weights, may need to readjust Lasix tomorrow depending on BMP. 4. Hypertension, controlled, continue on carvedilol, hydralazine, monitor closely on telemetry 5. Type II DM, on insulin, continue home regimen, as well as Accu-Cheks and insulin sliding scale 6. Pulmonary hypertension, last RVSP was 48, will need to folow-up with pulmonology in the outpatient 7. Sick sinus syndrome status post pacemaker 8. DVT Prophylaxis with heparin SC Code Visit Inpatient E&M: 10791 Init Hosp L3
[2017-11-01 16:56] LABS: Bedside Glucose 72 mg/dL (70-110)
[2017-11-01] MEDS: Hydroxychloroquine 200 MG Tablet PO (17:13)
[2017-11-01] MEDS: 0.9% NaCl Peripheral Flush Adult/Peds IV ×2 (17:14→20:57)
[2017-11-01] MEDS: Atorvastatin Calcium 10 MG Tablet PO (21:00)
[2017-11-01] MEDS: Pantoprazole Sodium 40 MG Tablet PO (21:00)
[2017-11-01] MEDS: Carvedilol 12.5 MG Tablet PO (21:00)
[2017-11-02] VITALS (13 sets, daily range): BP systolic 111–125; BP diastolic 40–61; PULSE 60–83; RESP 16–18; TEMP 36.6–36.9; O2SAT 94–96
[2017-11-02] MEDS: Gabapentin 300 MG Capsule PO (01:41)
[2017-11-02] MEDS: Levothyroxine 125 MCG Tablet PO (05:07)
[2017-11-02 06:34] LABS: Hematocrit 36.3 % (37-47); Hemoglobin 11.2 g/dl (12.0-15.0); Mean Corp Hgb Conc 30.9 g/gl (32-36); Mean Corpuscular Hgb 27.5 pg (27.0-32.0); Mean Corpuscular Volume 89.2 fL (81-99); Platelet Count 183 K/mm3 (150-450); RBC Distribution Width CV 16.1 % (11.6-14.6); RBC Distribution Width SD 52.5 fl (35.1-43.9); Red Blood Count 4.07 M/mm3 (4.2-5.4); White Blood Count 7.3 K/mm3 (4.4-11.0)
[2017-11-02 06:42] LABS: Scan Indicated on CBC? Y/N NO
[2017-11-02 06:46] LABS: Bedside Glucose 260 mg/dL (70-110)
[2017-11-02 06:52] LABS: Anion Gap 11 (5-15); BUN 67 mg/dL (7-18); BUN/Creat Ratio 43.5 RATIO (10-20); Calcium,Total 8.7 mg/dL (8.5-10.1); Chloride 102 mmol/L (98-107); Creatinine, Serum 1.54 mg/dL (0.55-1.02); EST Glomerular Filtration Rate 35 mL/min (>60); Est Glom Filt Rate - Afr Amer 42 mL/min (>60); Estimated Creatinine Clearance 29.55 ml/min; Glucose 272 mg/dL (74-106); Potassium 3.8 mmol/L (3.5-5.1); Sodium Level 137 mmol/L (136-145)
[2017-11-02] MEDS: Folic Acid 1 MG Tablet 0.5 MG PO (08:16)
[2017-11-02] MEDS: Hydroxychloroquine 200 MG Tablet PO ×2 (08:16→17:19)
[2017-11-02] MEDS: Aspirin E.C. 81 MG Tablet PO (08:16)
[2017-11-02] MEDS: Carvedilol 12.5 MG Tablet PO ×2 (08:17→21:16)
[2017-11-02] MEDS: Pantoprazole Sodium 40 MG Tablet PO ×2 (08:17→21:16)
[2017-11-02] MEDS: Clopidogrel Bisulfate 75 MG Tablet PO (08:17)
[2017-11-02] MEDS: Furosemide 40 MG/4 ML Vial IV ×2 (08:17→17:22)
[2017-11-02] MEDS: 0.9% NaCl Peripheral Flush Adult/Peds IV ×2 (08:18→17:20)
--- NOTE | 2017-11-02 10:11 | PCM.PN.HOSP ---
Subjective: Patient was seen and examined. No new complains. Feels much better, says she has lost 2 pounds. Notes that her anterior abdominal wall swelling has gone down. Denies chest pain, SOB, leg swelling. Objective: Physical Exam General: Alert, Oriented x3, Cooperative, No apparent distress HEENT: Atraumatic, PERRLA, EOMI, Normocephalic Oral: Moist Mucosa Neck: Supple, JVD, Right - elevated at 4cm Lungs: Normal air movement, Diminished - at lung bases Cardiovascular: Regular rate, Regular Rhythm, Normal S1, Normal S2, No murmurs Abdomen: Bowel Sounds Present, Soft, Non Tender, Non-Distended, No Hepato-splenomegaly Extremities: Edema - Bilateral trace pedal edema Skin: No rashes Musculoskeletal: No Tenderness to Palpation of Joints or Extremities Lymphatic: No Cervical, Supraclavicular, or Inguinal Adenopathy Neurological: Cranial nerves II-XII grossly intact, Neuro grossly intact Psych/Mental Status: Normal Affect, Appropriate Vitals/I&O's: Vital Signs Temp Pulse Resp BP Pulse Ox 98.0 F 64 16 125/48 H 94 11/02/17 08:01 11/02/17 08:17 11/02/17 08:01 11/02/17 08:01 11/02/17 08:01 Oxygen Delivery Method Room Air Weight: 63.2 kg Body Mass Index (BMI) 29.4 Intake and Output for Last 24 Hours 10/31/17 11/01/17 11/02/17 23:59 23:59 23:59 Intake Total 360 / 360 150 / 150 Output Total 1000 / 1000 1100 / 1100 Balance -640 / -640 -950 / -950 Laboratory Results 11/01/17 15:23: Troponin I 0.29 H 11/01/17 16:50: POC Glucose 72 11/02/17 05:55: WBC 7.3, RBC 4.07 L, Hgb 11.2 L, Hct 36.3 L, MCV 89.2, MCH 27.5, MCHC 30.9 L, RDW 16.1 H, RDW Differential 52.5 H, Plt Count 183, MPV 11.0 11/02/17 05:55: Sodium 137, Potassium 3.8, Chloride 102, Carbon Dioxide 24.0, Anion Gap 11, BUN 67 H, Creatinine 1.54 H, Estim Creat Clear Calc 29.55, Est GFR (MDRD) Af Amer 42 L, Est GFR (MDRD) Non-Af 35 L, BUN/Creatinine Ratio 43.5 H, Glucose 272 H, Calcium 8.7 11/02/17 06:38: POC Glucose 260 H Current Medications Aspirin (Ecotrin) 81 mg PO DAILY@0800 [facility] Last Admin: 11/02/17 08:16 Dose: 81 mg Atorvastatin Calcium (Lipitor) 10 mg PO QHS [facility] Last Admin: 11/01/17 21:00 Dose: 10 mg Carvedilol (Coreg) 12.5 mg PO BID [facility] Last Admin: 11/02/17 08:17 Dose: 12.5 mg Clonazepam (Klonopin) 0.5 mg PO DAILY PRN PRN PRN Reason: ANXIETY Clopidogrel Bisulfate (Plavix) 75 mg PO DAILY [facility] Last Admin: 11/02/17 08:17 Dose: 75 mg Folic Acid (Folic Acid) 0.5 mg PO DAILY@0800 [facility] Last Admin: 11/02/17 08:16 Dose: 0.5 mg Furosemide (Lasix) 40 mg IV BID@1000,1800 [facility] Last Admin: 11/02/17 08:17 Dose: 40 mg Gabapentin (Neurontin) 300 mg PO TID PRN PRN PRN Reason: NERVE PAIN Last Admin: 11/02/17 01:41 Dose: 300 mg Heparin Sodium (Porcine) (Heparin Na) 5,000 unit SC BID [facility] Last Admin: 11/02/17 08:12 Dose: Not Given Hydralazine HCl (Apresoline) 25 mg PO BID [facility] Last Admin: 11/02/17 08:17 Dose: 25 mg [facility] Admin: 11/02/17 08:16 Dose: 200 mg Levothyroxine Sodium (Synthroid) 125 mcg PO DAILY@0600 [facility] Last Admin: 11/02/17 05:07 Dose: 125 mcg Magnesium Hydroxide (Milk Of Magnesia) 30 ml PO DAILY PRN PRN Reason: Constipation Nitroglycerin (Nitrostat) 0.4 mg SUBLINGUAL Q5M PRN PRN Reason: Chest Pain Ondansetron HCl (Zofran) 4 mg IV Q8H PRN PRN PRN Reason: Nausea Pantoprazole Sodium (Protonix) 40 mg PO BID [facility] Last Admin: 11/02/17 08:17 Dose: 40 mg Polyethylene Glycol (Miralax) 17 gm PO DAILY [facility] Last Admin: 11/02/17 08:16 Dose: Not Given Polyethylene Glycol (Miralax) 17 gm PO DAILY PRN PRN PRN Reason: Constipation Sodium Chloride () 5 - 30 ml IV UD PRN PRN Reason: SALINE FLUSH Last Admin: 11/02/17 08:18 Dose: 10 ml Valacyclovir HCl (Valtrex) 50 mg PO BID PRN PRN PRN Reason: ANTIVIRAL Assessment/Plan 81 year old F with past medical history of CAD status post CABG, CKD stage III, sick sinus syndrome status post pacemaker, chronic systolic CHF with last EF of 40%, currently discharged on 14 October 2017 with acute CHF exacerbation. 1. Acute CHF exacerbation patient with underlying ischemic cardiomyopathy, EF of 50%, secondary to noncompliance to fluid restriction as a result of instructions given in the outpatient. Patient's admitting BNP was more than 1410, chest x-ray and CT scan of the abdomen and pelvis are consistent with bilateral effusion and vascular congestion. Patient has no acute events on telemetry, diuresing well, will continue with strict I & Os. 2. Elevated troponins secondary to demand ischemia, not an NSTEMI, patient is asymptomatic, vitals are stable, history of CAD status post CABG, history of recent cardiac cath in September 2017, cardiac cath findings showed left main of 80%, LAD 30%, circumflex less than 30%, RCA 60%, grafts were said to be patent, continue on aspirin, statin, plavix, will need to follow up with cardiology in the outpatient. 3. Elevated Creatinine, not BRISEIDA, Cr is aboutthe same, improved, compared to previous admisison, likely secondary to diuretic use versus cardiorenal syndrome, patient is on Lasix 40 mg p.o. twice daily,will continue on IV lasix 40mg BID, nephrology consult to establish care and follow-up in outpatient 4. Hypertension, controlled, continue on carvedilol, hydralazine, monitor closely on telemetry 5. Type II DM, on insulin, continue home regimen, as well as Accu-Cheks and insulin sliding scale 6. Pulmonary hypertension, last RVSP was 48, will need to follow-up with pulmonology in the outpatient 7. Sick sinus syndrome status post pacemaker 8. DVT Prophylaxis with heparin SC Code Visit Inpatient E&M: 78592 Subs Hosp L2
[2017-11-02 11:31] LABS: Bedside Glucose 373 mg/dL (70-110)
[2017-11-02 16:16] LABS: Bedside Glucose 397 mg/dL (70-110)
[2017-11-02] MEDS: Atorvastatin Calcium 10 MG Tablet PO (21:16)
[2017-11-02 22:01] LABS: Bedside Glucose 406 mg/dL (70-110)
[2017-11-03] VITALS (13 sets, daily range): BP systolic 100–118; BP diastolic 34–74; PULSE 60–66; RESP 16–20; TEMP 36.6–36.9; O2SAT 93–96
[2017-11-03 03:21] LABS: Bedside Glucose 267 mg/dL (70-110)
[2017-11-03] MEDS: Levothyroxine 125 MCG Tablet PO (05:55)
[2017-11-03 06:34] LABS: Anion Gap 10 (5-15); BUN 79 mg/dL (7-18); BUN/Creat Ratio 45.4 RATIO (10-20); Calcium,Total 8.6 mg/dL (8.5-10.1); Chloride 99 mmol/L (98-107); Creatinine, Serum 1.74 mg/dL (0.55-1.02); EST Glomerular Filtration Rate 30 mL/min (>60); Est Glom Filt Rate - Afr Amer 36 mL/min (>60); Estimated Creatinine Clearance 26.86 ml/min; Glucose 285 mg/dL (74-106); Potassium 4.2 mmol/L (3.5-5.1); Sodium Level 135 mmol/L (136-145)
[2017-11-03 06:51] LABS: Bedside Glucose 301 mg/dL (70-110)
--- NOTE | 2017-11-03 09:17 | PCM.CONS.R ---
Consultation - Renal 11/03/17 PCP/ Referring MD: Requesting physician: Miracle Mtz Primary care physician: Pita Conde Reason for Consultation:: BRISEIDA - History of Present Illness History of Present Illness: The patient is a 81 year old F past medical history of CAD status post CABG, CKD stage III, sick sinus syndrome status post pacemaker, chronic systolic CHF with last EF of 50% dilated left ventricle on echocardiogram from 10/10/[address] 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 She was recently discharged from [facility] on 14 October 2017 with acute CHF exacerbation. She was told by cardiology to increase her fluid intake for worsening renal function. She developed increased shortness of breath at rest and with minimal exertion. She complained of increased abdominal bloating, distention with 10 pound weight gain since last admit. She had orthopnea and PND with bilateral leg swelling. She is on Lasix twice a day 40 mg at home. Consulted for acute renal failure on CKD. Creatinine was 0.96-1.07 eGFR 53-60cc/min back in May 2017. Creatinine during last hospitalization in September was 1.5-1.78. Creatinine on admission was 1.53 has progressed to 1.74 today with eGFR of 30-35 cc/min. She has a history of right renal artery stenosis status post stent about 5-6 years ago followed by Dr. Skinner in [place] with annual renal duplex scans. She has not been seen by a tree inspector in the past. Chest X-ray showed right lower lobe consolidation and effusion with mild interstitial edema suggestive of vascular congestion. BNP [address] scan of the abdomen and pelvis shows moderate to large right-sided pleural effusion with small left-sided pleural effusion as well as extensive abdominal wall edema. She is breathing better without any further abdominal distention. She denied any nausea or vomiting. Her lower extremity edema has improved. - Allergies Allergies: Allergies felodipine Allergy (Severe, Verified 11/01/17 10:02) Shortness of breath pentazocine lactate [From Talwin] Allergy (Unknown, Verified 11/01/17 10:02) Unknown Patient does not know what happened when taking pentazocine, was told do not take it in the past promethazine Allergy (Unknown, Verified 11/01/17 10:02) Unknown Patient is unsure of allergy or reaction, was told do not take it in the past Sulfa (Sulfonamide Antibiotics) Allergy (Unknown, Verified 11/01/17 10:02) Unknown Patient does not know what the reaction/allergy is. Was told not to take it after surgery in the past amlodipine Allergy (Verified 11/01/17 10:02) Unknown Heparin Analogues Allergy (Verified 11/01/17 10:02) Unknown meloxicam [From Mobic] Allergy (Verified 11/01/17 10:02) Other oxycodone terephthalate [From Percodan] Allergy (Verified 11/01/17 10:02) Unknown Penicillins Allergy (Verified 11/01/17 10:02) Hives Iodinated Contrast- Oral and IV Dye [Iodinated Contrast Media - IV Dye] Adverse Reaction (Severe, Verified 11/01/17 10:02) Other Convulsions NSAIDS (Non-Steroidal Anti-Inflamma Adverse Reaction (Intermediate, Verified 11/01/17 10:02) Other Elevated liver enzymes oxycodone HCl [From Percodan] Adverse Reaction (Intermediate, Verified 11/01/17 10:02) Other Elevated liver enzymes ciprofloxacin [From Cipro] Adverse Reaction (Mild, Verified 11/01/17 10:02) Nausea/Vom/Diarrhea codeine Adverse Reaction (Mild, Verified 11/01/17 10:02) Nausea makes me sick HEPARIN Allergy (Unknown, Uncoded 11/01/17 10:02) Unknown WAS TOLD NOT TO TAKE AFTER HEART SURG D/T RXN - Current Medications Current Medications: Current Medications Aspirin (Ecotrin) 81 mg PO DAILY@0800 [facility] Last Admin: 11/02/17 08:16 Dose: 81 mg Atorvastatin Calcium (Lipitor) 10 mg PO QHS [facility] Last Admin: 11/02/17 21:16 Dose: 10 mg Carvedilol (Coreg) 12.5 mg PO BID [facility] Last Admin: 11/02/17 21:16 Dose: 12.5 mg Clonazepam (Klonopin) 0.5 mg PO DAILY PRN PRN PRN Reason: ANXIETY Clopidogrel Bisulfate (Plavix) 75 mg PO DAILY [facility] Last Admin: 11/02/17 08:17 Dose: 75 mg Dextrose (D50w Syringe) 0 gm IV X1 PRN; Protocol PRN Reason: Hypoglycemia Folic Acid (Folic Acid) 0.5 mg PO DAILY@0800 [facility] Last Admin: 11/02/17 08:16 Dose: 0.5 mg Furosemide (Lasix) 40 mg IV BID@1000,1800 [facility] Last Admin: 11/02/17 17:22 Dose: 40 mg Gabapentin (Neurontin) 300 mg PO TID PRN PRN PRN Reason: NERVE PAIN Last Admin: 11/02/17 01:41 Dose: 300 mg Glucagon () 1 mg IM .X1 PRN PRN Reason: Hypoglycemia Heparin Sodium (Porcine) (Heparin Na) 5,000 unit SC BID [facility] Last Admin: 11/02/17 21:16 Dose: Not Given Hydralazine HCl (Apresoline) 25 mg PO BID [facility] Last Admin: 11/02/17 21:19 Dose: 25 mg Hydroxychloroquine [facility] ([facility]il) [facility] Last Admin: 11/02/17 17:19 Dose: 200 mg Insulin Aspart (Novolog Flexpen (Bkc)) 0 units SC ACHS [facility] PRN Reason: Protocol Last Admin: 11/02/17 22:57 Dose: 7 units Levothyroxine Sodium (Synthroid) 125 mcg PO DAILY@0600 [facility] Last Admin: 11/03/17 05:55 Dose: 125 mcg Magnesium Hydroxide (Milk Of Magnesia) 30 ml PO DAILY PRN PRN Reason: Constipation Nitroglycerin (Nitrostat) 0.4 mg SUBLINGUAL Q5M PRN PRN Reason: Chest Pain Ondansetron HCl (Zofran) 4 mg IV Q8H PRN PRN PRN Reason: Nausea Pantoprazole Sodium (Protonix) 40 mg PO BID [facility] Last Admin: 11/02/17 21:16 Dose: 40 mg Polyethylene Glycol (Miralax) 17 gm PO DAILY [facility] Last Admin: 11/02/17 08:16 Dose: Not Given Polyethylene Glycol (Miralax) 17 gm PO DAILY PRN PRN PRN Reason: Constipation Sodium Chloride () 5 - 30 ml IV UD PRN PRN Reason: SALINE FLUSH Last Admin: 11/02/17 17:20 Dose: 10 ml Valacyclovir HCl (Valtrex) 50 mg PO BID PRN PRN PRN Reason: ANTIVIRAL - Past Medical History Past Medical History (Chronic Problems): Chronic Problems Pacemaker (Chronic) History of renal stent (Chronic) 2008, right SSS (sick sinus syndrome) (Chronic) s/p pacer 2013 Anxiety (Chronic) Hypertension (Chronic) GERD (gastroesophageal reflux disease) (Chronic) Diabetes mellitus, type 2 (Chronic) History of hypothyroidism (Chronic) Benign hypertension (Chronic) History of coronary artery disease (Chronic) Edema extremities (Chronic) Status post total hip replacement, right (Chronic) Obesity (BMI 30.0-34.9) (Chronic) Anemia (Chronic) Chronic obstructive pulmonary disease (COPD) (Chronic) - Past Surgical History Surgical History: angioplasty - cardiac stent, JACQUES w/ BSO, pa, appendectomy, cataract, cholecystectomy, coronary bypass surgery, pacemaker implantation, total hip arthroplasty - rt, - - Rt CEA, Rt renal artery stent 2012, JACQUES/BSO - Social History Marital Status: Smoking Status: Former smoker - Family History Maternal History Items: Dementia - age 90, Hypertension Paternal History Items: Heart Disease - age 80, Hypertension, Stroke Sibling History Items: Hypertension, Stroke Review of Systems Constitutional: Reports: Weakness, Fatigue. Denies: Anorexia, Chills, Fever Eyes: Denies: Blurred vision HEENT: Denies: Head Aches Cardiovascular: Reports: Edema, Orthopnea, Palpitations, Paroxysmal Noc. Dyspnea. Denies: Chest Pain, Syncope Respiratory: Reports: Cough, Shortness of breath at rest, Shortness of breath upon exertion. Denies: Wheezing Gastrointestinal: Reports: - - Increased abdominal distention improved since admission. Denies: Abdominal Pain, Constipation, Diarrhea, Nausea, Vomiting Genitourinary: Denies: Dysuria, Hesitancy, Incontinence, Retention Musculoskeletal: Reports: Joint Pain, Joint Tenderness. Denies: Arm Pain Skin: Denies: Rash Neurological: Reports: Numbness, Tingling. Denies: Focal weakness, Tremor, Seizures Psychiatric: Reports: Anxiety. Denies: Depression Hematologic/ Lymphatic: Denies: Anemia, Hx of blood clot - Physical Exam General: Alert, Oriented x3, Cooperative, No apparent distress, Well developed, Well nourished HEENT: Atraumatic, Normocephalic Oral: Dry Mucosa Neck: Supple, JVD, Bilateral Lungs: Rales - bases bilaterally Cardiovascular: Regular rate, Murmur Abdomen: Bowel Sounds Present, Soft, Non Tender, Non-Distended Extremities: Edema - Minimal edema Musculoskeletal: No Muscle Wasting Neurological: Cranial nerves II-XII grossly intact Psych/Mental Status: Normal Affect, Appropriate, Alert and oriented to time, place, person, mood and affect Vital Signs Temp Pulse Resp BP Pulse Ox 97.8 F 64 16 100/34 L 95 11/03/17 03:15 11/03/17 07:00 11/03/17 03:15 11/03/17 03:15 11/03/17 03:15 Oxygen Delivery Method Room Air Weight: 64.9 kg Body Mass Index (BMI) 29.4 Intake and Output for Last 24 Hours 11/01/17 11/02/17 11/03/17 23:59 23:59 23:59 Intake Total 360 / 360 1010 / 1010 520 / 520 Output Total 1000 / 1000 1900 / 1900 700 / 700 Balance -640 / -640 -890 / -890 -180 / -180 Laboratory Tests Past 24 Hrs 11/03/17 05:50 Sodium 135 L Potassium 4.2 Chloride 99 Carbon Dioxide 26.0 Anion Gap 10 BUN 79 H Creatinine 1.74 H Estim Creat Clear Calc 26.86 Est GFR (MDRD) Af Amer 36 L Est GFR (MDRD) Non-Af 30 L BUN/Creatinine Ratio 45.4 H Glucose 285 H Calcium 8.6 POC Glucose 11/03/17 11/03/17 11/02/17 06:40 03:17 21:14 POC Glucose 301 H 267 H 406 H 11/02/17 11/02/17 16:12 11:24 POC Glucose 397 H 373 H Clinical Impression(s) from Imaging Studies Chest X-Ray 11/01/17 11:13 IMPRESSION: Right lower lobe consolidation and effusion. Mild interstitial edema suggesting vascular congestion Electronically Signed: Reggie Scott DO at 11:35 EST Tel , Service support , Assessment/Plan 1. Acute on chronic kidney disease stage III with baseline creatinine 0.96-1.0 eGFR 54-60cc/min in May 2017. Creatinine 1.5-1.7 eGFR 30-35cc/min during last hospitalization in September and this hospitalization likely due to prerenal event from combination of cardiomyopathy, IV diuretics. Check renal artery for stenosis with a history of stent placement 2008. Discussed with the patient that she would require dialysis when her GFR approaches 10-15 cc/min. 2. Acute systolic congestive heart failure with bilateral pleural effusion and ascites. BNP elevated at 1410. Recheck chest x-ray. Symptoms improved. Will switch over to oral Lasix due to rising creatinine. May need thoracentesis as needed if pleural effusion persists. 3. DM type II check urine protein creatinine ratio 4. hypertension with stable blood pressure 5. CAD status post CABG, pacemaker for sick sinus syndrome 6. Carotid disease status post right CEA no history of stroke.
--- NOTE | 2017-11-03 09:21 | CON.PCM_ITS ---
Consultation - Renal 11/03/17 PCP/ Referring MD: Requesting physician: Miracle Mtz Primary care physician: Pita Conde Reason for Consultation:: BRISEIDA - History of Present Illness History of Present Illness: The patient is a 81 year old F past medical history of CAD status post CABG, CKD stage III, sick sinus syndrome status post pacemaker, chronic systolic CHF with last EF of 50% dilated left ventricle on echocardiogram from 10/10/[address] 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 She was recently discharged from [facility] on 14 October 2017 with acute CHF exacerbation. She was told by cardiology to increase her fluid intake for worsening renal function. She developed increased shortness of breath at rest and with minimal exertion. She complained of increased abdominal bloating, distention with 10 pound weight gain since last admit. She had orthopnea and PND with bilateral leg swelling. She is on Lasix twice a day 40 mg at home. Consulted for acute renal failure on CKD. Creatinine was 0.96-1.07 eGFR 53-60cc/ min back in May 2017. Creatinine during last hospitalization in September was 1.5-1.78. Creatinine on admission was 1.53 has progressed to 1.74 today with eGFR of 30-35 cc/min. She has a history of right renal artery stenosis status post stent about 5-6 years ago followed by Dr. Skinner in [place] with annual renal duplex scans. She has not been seen by a crown wheel assembler in the past. Chest X-ray showed right lower lobe consolidation and effusion with mild interstitial edema suggestive of vascular congestion. BNP [address] scan of the abdomen and pelvis shows moderate to large right-sided pleural effusion with small left-sided pleural effusion as well as extensive abdominal wall edema. She is breathing better without any further abdominal distention. She denied any nausea or vomiting. Her lower extremity edema has improved. - Allergies Allergies: Allergies felodipine Allergy (Severe, Verified 11/01/17 10:02) Shortness of breath pentazocine lactate [From Talwin] Allergy (Unknown, Verified 11/01/17 10:02) Unknown Patient does not know what happened when taking pentazocine, was told do not take it in the past promethazine Allergy (Unknown, Verified 11/01/17 10:02) Unknown Patient is unsure of allergy or reaction, was told do not take it in the past Sulfa (Sulfonamide Antibiotics) Allergy (Unknown, Verified 11/01/17 10:02) Unknown Patient does not know what the reaction/allergy is. Was told not to take it after surgery in the past amlodipine Allergy (Verified 11/01/17 10:02) Unknown Heparin Analogues Allergy (Verified 11/01/17 10:02) Unknown meloxicam [From Mobic] Allergy (Verified 11/01/17 10:02) Other oxycodone terephthalate [From Percodan] Allergy (Verified 11/01/17 10:02) Unknown Penicillins Allergy (Verified 11/01/17 10:02) Hives Iodinated Contrast- Oral and IV Dye [Iodinated Contrast Media - IV Dye] Adverse Reaction (Severe, Verified 11/01/17 10:02) Other Convulsions NSAIDS (Non-Steroidal Anti-Inflamma Adverse Reaction (Intermediate, Verified 10:02) Other Elevated liver enzymes oxycodone HCl [From Percodan] Adverse Reaction (Intermediate, Verified 11/01/17 10:02) Other Elevated liver enzymes ciprofloxacin [From Cipro] Adverse Reaction (Mild, Verified 11/01/17 10:02) Nausea/Vom/Diarrhea codeine Adverse Reaction (Mild, Verified 11/01/17 10:02) Nausea makes me sick HEPARIN Allergy (Unknown, Uncoded 11/01/17 10:02) Unknown WAS TOLD NOT TO TAKE AFTER HEART SURG D/T RXN - Current Medications Current Medications: Current Medications Aspirin (Ecotrin) 81 mg PO DAILY@0800 [facility] Last Admin: 11/02/17 08:16 Dose: 81 mg Atorvastatin Calcium (Lipitor) 10 mg PO QHS [facility] Last Admin: 11/02/17 21:16 Dose: 10 mg Carvedilol (Coreg) 12.5 mg PO BID [facility] Last Admin: 11/02/17 21:16 Dose: 12.5 mg Clonazepam (Klonopin) 0.5 mg PO DAILY PRN PRN PRN Reason: ANXIETY Clopidogrel Bisulfate (Plavix) 75 mg PO DAILY [facility] Last Admin: 11/02/17 08:17 Dose: 75 mg Dextrose (D50w Syringe) 0 gm IV X1 PRN; Protocol PRN Reason: Hypoglycemia Folic Acid (Folic Acid) 0.5 mg PO DAILY@0800 [facility] Last Admin: 11/02/17 08:16 Dose: 0.5 mg Furosemide (Lasix) 40 mg IV BID@1000,1800 [facility] Last Admin: 11/02/17 17:22 Dose: 40 mg Gabapentin (Neurontin) 300 mg PO TID PRN PRN PRN Reason: NERVE PAIN Last Admin: 11/02/17 01:41 Dose: 300 mg Glucagon () 1 mg IM .X1 PRN PRN Reason: Hypoglycemia Heparin Sodium (Porcine) (Heparin Na) 5,000 unit SC BID [facility] Last Admin: 11/02/17 21:16 Dose: Not Given Hydralazine HCl (Apresoline) 25 mg PO BID [facility] Last Admin: 11/02/17 21:19 Dose: 25 mg [facility]xychloroquine [facility] ([facility]) [facility] Last Admin: 11/02/17 17:19 Dose: 200 mg Insulin Aspart (Novolog Flexpen (Bkc)) 0 units SC ACHS [facility] PRN Reason: Protocol Last Admin: 11/02/17 22:57 Dose: 7 units Levothyroxine Sodium (Synthroid) 125 mcg PO DAILY@0600 [facility] Last Admin: 11/03/17 05:55 Dose: 125 mcg Magnesium Hydroxide (Milk Of Magnesia) 30 ml PO DAILY PRN PRN Reason: Constipation Nitroglycerin (Nitrostat) 0.4 mg SUBLINGUAL Q5M PRN PRN Reason: Chest Pain Ondansetron HCl (Zofran) 4 mg IV Q8H PRN PRN PRN Reason: Nausea Pantoprazole Sodium (Protonix) 40 mg PO BID [facility] Last Admin: 11/02/17 21:16 Dose: 40 mg Polyethylene Glycol (Miralax) 17 gm PO DAILY [facility] Last Admin: 11/02/17 08:16 Dose: Not Given Polyethylene Glycol (Miralax) 17 gm PO DAILY PRN PRN PRN Reason: Constipation Sodium Chloride () 5 - 30 ml IV UD PRN PRN Reason: SALINE FLUSH Last Admin: 11/02/17 17:20 Dose: 10 ml Valacyclovir HCl (Valtrex) 50 mg PO BID PRN PRN PRN Reason: ANTIVIRAL - Past Medical History Past Medical History (Chronic Problems): Chronic Problems Pacemaker (Chronic) History of renal stent (Chronic) 2008, right SSS (sick sinus syndrome) (Chronic) s/p pacer 2013 Anxiety (Chronic) Hypertension (Chronic) GERD (gastroesophageal reflux disease) (Chronic) Diabetes mellitus, type 2 (Chronic) History of hypothyroidism (Chronic) Benign hypertension (Chronic) History of coronary artery disease (Chronic) Edema extremities (Chronic) Status post total hip replacement, right (Chronic) Obesity (BMI 30.0-34.9) (Chronic) Anemia (Chronic) Chronic obstructive pulmonary disease (COPD) (Chronic) - Past Surgical History Surgical History: angioplasty - cardiac stent, JACQUES w/ BSO, pa, appendectomy, cataract, cholecystectomy, coronary bypass surgery, pacemaker implantation, total hip arthroplasty - rt, - - Rt CEA, Rt renal artery stent 2012, JACQUES/BSO - Social History Marital Status: Smoking Status: Former smoker - Family History Maternal History Items: Dementia - age 90, Hypertension Paternal History Items: Heart Disease - age 80, Hypertension, Stroke Sibling History Items: Hypertension, Stroke Review of Systems Constitutional: Reports: Weakness, Fatigue. Denies: Anorexia, Chills, Fever Eyes: Denies: Blurred vision HEENT: Denies: Head Aches Cardiovascular: Reports: Edema, Orthopnea, Palpitations, Paroxysmal Noc. Dyspnea. Denies: Chest Pain, Syncope Respiratory: Reports: Cough, Shortness of breath at rest, Shortness of breath upon exertion. Denies: Wheezing Gastrointestinal: Reports: - - Increased abdominal distention improved since admission. Denies: Abdominal Pain, Constipation, Diarrhea, Nausea, Vomiting Genitourinary: Denies: Dysuria, Hesitancy, Incontinence, Retention Musculoskeletal: Reports: Joint Pain, Joint Tenderness. Denies: Arm Pain Skin: Denies: Rash Neurological: Reports: Numbness, Tingling. Denies: Focal weakness, Tremor, Seizures Psychiatric: Reports: Anxiety. Denies: Depression Hematologic/ Lymphatic: Denies: Anemia, Hx of blood clot - Physical Exam General: Alert, Oriented x3, Cooperative, No apparent distress, Well developed, Well nourished HEENT: Atraumatic, Normocephalic Oral: Dry Mucosa Neck: Supple, JVD, Bilateral Lungs: Rales - bases bilaterally Cardiovascular: Regular rate, Murmur Abdomen: Bowel Sounds Present, Soft, Non Tender, Non-Distended Extremities: Edema - Minimal edema Musculoskeletal: No Muscle Wasting Neurological: Cranial nerves II-XII grossly intact Psych/Mental Status: Normal Affect, Appropriate, Alert and oriented to time, place, person, mood and affect Vital Signs Temp Pulse Resp BP Pulse Ox 97.8 F 64 16 100/34 L 95 11/03/17 03:15 11/03/17 07:00 11/03/17 03:15 11/03/17 03:15 11/03/17 03:15 Oxygen Delivery Method Room Air Weight: 64.9 kg Body Mass Index (BMI) 29.4 Intake and Output for Last 24 Hours 11/01/17 11/02/17 11/03/17 23:59 23:59 23:59 Intake Total 360 / 360 1010 / 1010 520 / 520 Output Total 1000 / 1000 1900 / 1900 700 / 700 Balance -640 / -640 -890 / -890 -180 / -180 Laboratory Tests Past 24 Hrs 11/03/17 05:50 Sodium 135 L Potassium 4.2 Chloride 99 Carbon Dioxide 26.0 Anion Gap 10 BUN 79 H Creatinine 1.74 H Estim Creat Clear Calc 26.86 Est GFR (MDRD) Af Amer 36 L Est GFR (MDRD) Non-Af 30 L BUN/Creatinine Ratio 45.4 H Glucose 285 H Calcium 8.6 POC Glucose 11/03/17 11/03/17 11/02/17 06:40 03:17 21:14 POC Glucose 301 H 267 H 406 H 11/02/17 11/02/17 16:12 11:24 POC Glucose 397 H 373 H Clinical Impression(s) from Imaging Studies Chest X-Ray 11/01/17 11:13 IMPRESSION: Right lower lobe consolidation and effusion. Mild interstitial edema suggesting vascular congestion Electronically Signed: Reggie Scott DO at 11:35 EST Tel , Service support , Assessment/Plan 1. Acute on chronic kidney disease stage III with baseline creatinine 0.96-1.0 eGFR 54-60cc/min in May 2017. Creatinine 1.5-1.7 eGFR 30-35cc/min during last hospitalization in September and this hospitalization likely due to prerenal event from combination of cardiomyopathy, IV diuretics. Check renal artery for stenosis with a history of stent placement 2008. Discussed with the patient that she would require dialysis when her GFR approaches 10-15 cc/min. 2. Acute systolic congestive heart failure with bilateral pleural effusion and ascites. BNP elevated at 1410. Recheck chest x-ray. Symptoms improved. Will switch over to oral Lasix due to rising creatinine. May need thoracentesis as needed if pleural effusion persists. 3. DM type II check urine protein creatinine ratio 4. hypertension with stable blood pressure 5. CAD status post CABG, pacemaker for sick sinus syndrome 6. Carotid disease status post right CEA no history of stroke.
[2017-11-03] MEDS: Aspirin E.C. 81 MG Tablet PO (10:02)
[2017-11-03] MEDS: Folic Acid 1 MG Tablet 0.5 MG PO (10:02)
[2017-11-03] MEDS: Clopidogrel Bisulfate 75 MG Tablet PO (10:03)
[2017-11-03] MEDS: Carvedilol 12.5 MG Tablet PO ×2 (10:03→22:24)
[2017-11-03] MEDS: Pantoprazole Sodium 40 MG Tablet PO ×2 (10:03→22:24)
[2017-11-03] MEDS: Hydroxychloroquine 200 MG Tablet PO ×2 (10:04→17:27)
[2017-11-03] MEDS: Furosemide 40 MG/4 ML Vial IV (10:04)
--- NOTE | 2017-11-03 10:07 | RDU_ITS ---
Reason For Study: Renal artery stenosis Right Renal Artery Left Renal Artery Right renal artery ostium Left renal artery ostium 255.0/19.9 341.0/29.1 RSV/EDV. PSV/EDV. Right renal artery proximal Left renal artery proximal PSV/EDV 209.0/21.4 PSV/EDV. 229.0/27.5 . Right renal artery mid 194.0/21.4 Left renal artery mid 205.0/23.2 PSV/EDV. PSV/EDV . Right renal artery distal Left renal artery distal 178.0/12.3 249.0/17.1 PSV/EDV. PSV/EDV. Right Renal Parenchyma Left Renal Parenchyma Upper Pole Medula 21.7/4.6 PSV/EDV. Left upper pole medulla 24.8/3.4 Right upper pole medulla EDR .21 . PSV/EDV . Right upper pole medulla R.I. .79 . Left upper pole medulla EDR 7.3 . Upper Johan Cortx 23.8/4.0 PSV/EDV. Left upper pole medulla R.I. .86 . Right upper pole cortex EDR .17 . UP Cortex 23.5/4.3 PSV/EDV. Right upper pole cortex R.I. .83 . Left upper pole cortex EDR .18 . Right lower Pole medulla 20.2/3.1 Left upper pole cortex R.I. .82 . PSV/EDV . Left lower Pole medulla 23.8/4.3 Right lower pole medulla EDR .15 . PSV/EDV . Right lower pole medulla R.I. .85 . Left lower pole medulla EDR .18 . Lower Pole Cortex 20.5/3.4 PSV/EDV. Left lower pole medulla R.I. .82 . Right lower pole cortex EDR .17 . Lower Pole Cortx 14.7/2.8 PSV/EDV. Right lower pole cortex R.I. .84 . Left lower pole cortex EDR .19 . Right Renal Hilar Left lower pole cortex R.I. .81 . Right Hilar avg 46.4/5.8 PSV/EDV. Left Renal Hilar Right hilar acceleration time 73 LT Hilar avg 68.4/9.6 PSV/EDV . m/sec. Left hilar acceleration time 51 Right Renal Dimensions m/sec. Right kidney size 10.6 cm . Left Renal Dimensions Right cortical dimension 1.5 cm . Left kidney size 10.3 cm . Left cortical dimension 1.4 cm . Cyst noted 5.4 x 5.4 cm. Aorta Proximal abdominal aorta 1.5 x 1.6 cm . Proximal abdominal aorta peak systolic velocity is 105.0 cm/sec . Distal aorta not visualized due to bowel gas. Interpretation Summary Poorly visualize origin of the right renal artery with elevated velocity suspicous for >60% stenosis but renal artery to aortic ratio cannot confirm due to slightly elevated aortic velocity. History of left renal artery stenting with mildly elevated velocity likely consistent with patent stent. Bilateral renal resistivity indices are elevated consistent with intrinsic renal parenchymal disease. Renal length is generally maintained at10.6cm on the right and 10.3cm on the left. Left renal 5.39 x 5.42cm cyst. Aortic diameter proximally 1.5 x 1.6 cm. Ordering Physician: Meredith Hernandez Referring Physician: Pita Conde M.D. Performed By: Brittney Barron RVT
--- NOTE | 2017-11-03 10:12 | RAD_ITS ---
STUDY: X-RAY CHEST REASON FOR EXAM: Female, 81 years old. History of CHF. TECHNIQUE: PA and lateral views of the chest. COMPARISON: Comparison is made with prior study dated November 01, 2017. FINDINGS: EKG electrodes are seen. Persistent infiltration in the right lower lobe with a small right pleural effusion. The infiltration has improved slightly as compared to prior study. Stable blunting of the left costophrenic angle. Sternal cerclage wires and vascular clips are present from a prior sternotomy and coronary artery bypass graft procedure (CABG). A left-sided dual-chamber pacemaker is seen. A loop recorder is seen overlying the left side of the heart. Normal mediastinum and bib. Normal visualized pulmonary arteries. Normal visualized aortic arch and descending thoracic aorta. There is demineralization of the osseous structures. Increased kyphosis. There is degenerative osteoarthritis of the bilateral shoulders. There is no demonstrated abnormality of the visualized soft tissue structures of the upper abdomen. RAD/Chest PA and Lateral IMPRESSION: Mild improvement in the right lower lobe infiltration in the small right pleural effusion. The remainder of examination is unchanged. Electronically Signed: Kenroy Dooley MD at 10:57 EST Tel [phone], Service support ,
[2017-11-03 12:00] LABS: Bedside Glucose 415 mg/dL (70-110)
--- NOTE | 2017-11-03 12:49 | CASEMGMT ---
Chart review completed at this time as pt was admitted at end september also. Please see CM assessment from 10/10/17 completed by this RN CM. Pt states no changes at this time. Pt states she has been 'getting weaker' at home and her has been sick. Pt states that she and are homebound and may be interested in HHC but would like to think about it. RN CM to follow PT/OT for recommendations. SStaten STACI CM
[2017-11-03 13:46] LABS: Protein, Urine (Random) 27.8 mg/dL (<11.9)
[2017-11-03 17:51] LABS: Bedside Glucose 365 mg/dL (70-110)
--- NOTE | 2017-11-03 18:16 | PCM.PN.HOSP ---
Subjective: CC: SOB She reports that her breathing has improved, she denies any cough, chest pain, dizziness palpitations or rapid heartbeat. Vitals/I&O's: Vital Signs Temp Pulse Resp BP Pulse Ox 98.4 F 60 16 112/35 L 96 11/03/17 09:45 11/03/17 11:00 11/03/17 09:45 11/03/17 10:03 11/03/17 09:45 Oxygen Delivery Method Room Air Weight: 64.9 kg Body Mass Index (BMI) 29.4 Intake and Output for Last 24 Hours 11/01/17 11/02/17 11/03/17 23:59 23:59 23:59 Intake Total 360 / 360 1010 / 1010 820 / 820 Output Total 1000 / 1000 1900 / 1900 1050 / 1050 Balance -640 / -640 -890 / -890 -230 / -230 General: Alert, Oriented x3, No apparent distress Oral: Moist Mucosa Neck: Supple, No JVD Lungs: Clear to auscultation Cardiovascular: Regular rate, Normal S1, Normal S2 Abdomen: Bowel Sounds Present, Soft, Non Tender Extremities: No edema Neurological: Neuro grossly intact, Motor Exam 5/5 strength throughout Laboratory Results 11/02/17 21:14: POC Glucose 406 H 11/03/17 03:17: POC Glucose 267 H 11/03/17 05:50: Sodium 135 L, Potassium 4.2, Chloride 99, Carbon Dioxide 26.0, Anion Gap 10, BUN 79 H, Creatinine 1.74 H, Estim Creat Clear Calc 26.86, Est GFR (MDRD) Af Amer 36 L, Est GFR (MDRD) Non-Af 30 L, BUN/Creatinine Ratio 45.4 H, Glucose 285 H, Calcium 8.6 11/03/17 05:50: B-Natriuretic Peptide 1500.6 H 11/03/17 06:40: POC Glucose 301 H 11/03/17 11:52: POC Glucose 415 H 11/03/17 13:30: Urine Creatinine 33.20 11/03/17 13:30: U Random Total Protein 27.8 H 11/03/17 17:24: POC Glucose 365 H Current Medications Aspirin (Ecotrin) 81 mg PO DAILY@0800 [facility] Last Admin: 11/03/17 10:02 Dose: 81 mg Atorvastatin Calcium (Lipitor) 10 mg PO QHS [facility] Last Admin: 11/02/17 21:16 Dose: 10 mg Carvedilol (Coreg) 12.5 mg PO BID [facility] Last Admin: 11/03/17 10:03 Dose: 12.5 mg Clonazepam (Klonopin) 0.5 mg PO DAILY PRN PRN PRN Reason: ANXIETY Clopidogrel Bisulfate (Plavix) 75 mg PO DAILY [facility] Last Admin: 11/03/17 10:03 Dose: 75 mg Dextrose (D50w Syringe) 0 gm IV X1 PRN; Protocol PRN Reason: Hypoglycemia Folic Acid (Folic Acid) 0.5 mg PO DAILY@0800 [facility] Last Admin: 11/03/17 10:02 Dose: 0.5 mg Furosemide (Lasix) 40 mg PO BID@1000,1800 [facility] Gabapentin (Neurontin) 300 mg PO TID PRN PRN PRN Reason: NERVE PAIN Last Admin: 11/02/17 01:41 Dose: 300 mg Glucagon () 1 mg IM .X1 PRN PRN Reason: Hypoglycemia Heparin Sodium (Porcine) (Heparin Na) 5,000 unit SC BID [facility] Last Admin: 11/03/17 10:03 Dose: Not Given Hydralazine HCl (Apresoline) 25 mg PO BID [facility] Last Admin: 11/03/17 10:03 Dose: 25 mg [facility] ([facility]) [facility] Last Admin: 11/03/17 17:27 Dose: 200 mg Insulin Aspart (Novolog Flexpen (Bkc)) 0 units SC ACHS [facility] PRN Reason: Protocol Last Admin: 11/03/17 17:26 Dose: 6 units Levothyroxine Sodium (Synthroid) 125 mcg PO DAILY@0600 [facility] Last Admin: 11/03/17 05:55 Dose: 125 mcg Magnesium Hydroxide (Milk Of Magnesia) 30 ml PO DAILY PRN PRN Reason: Constipation Nitroglycerin (Nitrostat) 0.4 mg SUBLINGUAL Q5M PRN PRN Reason: Chest Pain Ondansetron HCl (Zofran) 4 mg IV Q8H PRN PRN PRN Reason: Nausea Pantoprazole Sodium (Protonix) 40 mg PO BID [facility] Last Admin: 11/03/17 10:03 Dose: 40 mg Polyethylene Glycol (Miralax) 17 gm PO DAILY [facility] Last Admin: 11/03/17 11:54 Dose: Not Given Polyethylene Glycol (Miralax) 17 gm PO DAILY PRN PRN PRN Reason: Constipation Sodium Chloride () 5 - 30 ml IV UD PRN PRN Reason: SALINE FLUSH Last Admin: 11/02/17 17:20 Dose: 10 ml Valacyclovir HCl (Valtrex) 50 mg PO BID PRN PRN PRN Reason: ANTIVIRAL Assessment/Plan 1. Acute CHF exacerbation ; she has improved and we will change to p.o. Lasix. 2. Elevated troponin consistent with type II NSTEMI, recent cardiac cath in September 2017, cardiac cath showed patent grafts. 3. Acute on chronic kidney disease stage III ; would avoid potential nephrotoxic medications, nephrology input noted . 4. Hypertension, controlled, continue on carvedilol, hydralazine, monitor closely on telemetry 5. Type II DM, on insulin, continue home regimen, as well as Accu-Cheks and insulin sliding scale 6. Pulmonary hypertension, last RVSP was 48, will need to follow-up with pulmonology in the outpatient 7. Sick sinus syndrome status post pacemaker 8. DVT Prophylaxis with heparin SC Code Visit Inpatient E&M: 03670 Subs Hosp L2
--- NOTE | 2017-11-03 18:19 | PN_ITS ---
Subjective: CC: SOB She reports that her breathing has improved, she denies any cough, chest pain, dizziness palpitations or rapid heartbeat. Vitals/I&O's: Vital Signs Temp Pulse Resp BP Pulse Ox 98.4 F 60 16 112/35 L 96 11/03/17 09:45 11/03/17 11:00 11/03/17 09:45 11/03/17 10:03 11/03/17 09:45 Oxygen Delivery Method Room Air Weight: 64.9 kg Body Mass Index (BMI) 29.4 Intake and Output for Last 24 Hours 11/01/17 11/02/17 11/03/17 23:59 23:59 23:59 Intake Total 360 / 360 1010 / 1010 820 / 820 Output Total 1000 / 1000 1900 / 1900 1050 / 1050 Balance -640 / -640 -890 / -890 -230 / -230 General: Alert, Oriented x3, No apparent distress Oral: Moist Mucosa Neck: Supple, No JVD Lungs: Clear to auscultation Cardiovascular: Regular rate, Normal S1, Normal S2 Abdomen: Bowel Sounds Present, Soft, Non Tender Extremities: No edema Neurological: Neuro grossly intact, Motor Exam 5/5 strength throughout Laboratory Results 11/02/17 21:14: POC Glucose 406 H 11/03/17 03:17: POC Glucose 267 H 11/03/17 05:50: Sodium 135 L, Potassium 4.2, Chloride 99, Carbon Dioxide 26.0, Anion Gap 10, BUN 79 H, Creatinine 1.74 H, Estim Creat Clear Calc 26.86, Est GFR (MDRD) Af Amer 36 L, Est GFR (MDRD) Non-Af 30 L, BUN/Creatinine Ratio 45.4 H , Glucose 285 H, Calcium 8.6 11/03/17 05:50: B-Natriuretic Peptide 1500.6 H 11/03/17 06:40: POC Glucose 301 H 11/03/17 11:52: POC Glucose 415 H 11/03/17 13:30: Urine Creatinine 33.20 11/03/17 13:30: U Random Total Protein 27.8 H 11/03/17 17:24: POC Glucose 365 H Current Medications Aspirin (Ecotrin) 81 mg PO DAILY@0800 [facility] Last Admin: 11/03/17 10:02 Dose: 81 mg Atorvastatin Calcium (Lipitor) 10 mg PO QHS [facility] Last Admin: 11/02/17 21:16 Dose: 10 mg Carvedilol (Coreg) 12.5 mg PO BID [facility] Last Admin: 11/03/17 10:03 Dose: 12.5 mg Clonazepam (Klonopin) 0.5 mg PO DAILY PRN PRN PRN Reason: ANXIETY Clopidogrel Bisulfate (Plavix) 75 mg PO DAILY [facility] Last Admin: 11/03/17 10:03 Dose: 75 mg Dextrose (D50w Syringe) 0 gm IV X1 PRN; Protocol PRN Reason: Hypoglycemia Folic Acid (Folic Acid) 0.5 mg PO DAILY@0800 [facility] Last Admin: 11/03/17 10:02 Dose: 0.5 mg Furosemide (Lasix) 40 mg PO BID@1000,1800 [facility] Gabapentin (Neurontin) 300 mg PO TID PRN PRN PRN Reason: NERVE PAIN Last Admin: 11/02/17 01:41 Dose: 300 mg Glucagon () 1 mg IM .X1 PRN PRN Reason: Hypoglycemia Heparin Sodium (Porcine) (Heparin Na) 5,000 unit SC BID [facility] Last Admin: 11/03/17 10:03 Dose: Not Given Hydralazine HCl (Apresoline) 25 mg PO BID [facility] Last Admin: 11/03/17 10:03 Dose: 25 mg [facility] Last Admin: 11/03/17 17:27 Dose: 200 mg Insulin Aspart (Novolog Flexpen (Bkc)) 0 units SC ACHS [facility] PRN Reason: Protocol Last Admin: 11/03/17 17:26 Dose: 6 units Levothyroxine Sodium (Synthroid) 125 mcg PO DAILY@0600 [facility] Last Admin: 11/03/17 05:55 Dose: 125 mcg Magnesium Hydroxide (Milk Of Magnesia) 30 ml PO DAILY PRN PRN Reason: Constipation Nitroglycerin (Nitrostat) 0.4 mg SUBLINGUAL Q5M PRN PRN Reason: Chest Pain Ondansetron HCl (Zofran) 4 mg IV Q8H PRN PRN PRN Reason: Nausea Pantoprazole Sodium (Protonix) 40 mg PO BID [facility] Last Admin: 11/03/17 10:03 Dose: 40 mg Polyethylene Glycol (Miralax) 17 gm PO DAILY [facility] Last Admin: 11/03/17 11:54 Dose: Not Given Polyethylene Glycol (Miralax) 17 gm PO DAILY PRN PRN PRN Reason: Constipation Sodium Chloride () 5 - 30 ml IV UD PRN PRN Reason: SALINE FLUSH Last Admin: 11/02/17 17:20 Dose: 10 ml Valacyclovir HCl (Valtrex) 50 mg PO BID PRN PRN PRN Reason: ANTIVIRAL Assessment/Plan 1. Acute CHF exacerbation ; she has improved and we will change to p.o. Lasix. 2. Elevated troponin consistent with type II NSTEMI, recent cardiac cath in September 2017, cardiac cath showed patent grafts. 3. Acute on chronic kidney disease stage III ; would avoid potential nephrotoxic medications, nephrology input noted . 4. Hypertension, controlled, continue on carvedilol, hydralazine, monitor closely on telemetry 5. Type II DM, on insulin, continue home regimen, as well as Accu-Cheks and insulin sliding scale 6. Pulmonary hypertension, last RVSP was 48, will need to follow-up with pulmonology in the outpatient 7. Sick sinus syndrome status post pacemaker 8. DVT Prophylaxis with heparin SC Code Visit Inpatient E&M: 42730 Subs Hosp L2
[2017-11-03] MEDS: Atorvastatin Calcium 10 MG Tablet PO (22:24)
[2017-11-03 22:40] LABS: Bedside Glucose 304 mg/dL (70-110)
[2017-11-04] VITALS (13 sets, daily range): BP systolic 111–122; BP diastolic 39–62; PULSE 59–82; RESP 16–20; TEMP 36.6–36.7; O2SAT 94–98
[2017-11-04 06:02] LABS: Albumin, Serum 2.6 g/dL (3.2-5.0); BUN 83 mg/dL (7-18); BUN/Creat Ratio 46.4 RATIO (10-20); Calcium,Total 8.6 mg/dL (8.5-10.1); Chloride 98 mmol/L (98-107); Creatinine, Serum 1.79 mg/dL (0.55-1.02); EST Glomerular Filtration Rate 29 mL/min (>60); Est Glom Filt Rate - Afr Amer 35 mL/min (>60); Estimated Creatinine Clearance 26.11 ml/min; Glucose 378 mg/dL (74-106); Potassium 4.3 mmol/L (3.5-5.1); Sodium Level 129 mmol/L (136-145)
[2017-11-04] MEDS: Levothyroxine 125 MCG Tablet PO (06:37)
[2017-11-04 06:50] LABS: Bedside Glucose 376 mg/dL (70-110)
[2017-11-04] MEDS: Carvedilol 12.5 MG Tablet PO ×2 (09:16→21:54)
[2017-11-04] MEDS: Clopidogrel Bisulfate 75 MG Tablet PO (09:16)
[2017-11-04] MEDS: Folic Acid 1 MG Tablet 0.5 MG PO (09:16)
[2017-11-04] MEDS: Aspirin E.C. 81 MG Tablet PO (09:17)
[2017-11-04] MEDS: Hydroxychloroquine 200 MG Tablet PO ×2 (09:17→16:48)
[2017-11-04] MEDS: Furosemide 40 MG Tablet PO (09:17)
[2017-11-04] MEDS: Pantoprazole Sodium 40 MG Tablet PO ×2 (09:17→21:54)
--- NOTE | 2017-11-04 09:53 | PCM.PN.REN ---
Subjective: Breathing and abdominal distention improved. Renal function continues to decline. Lasix was switched over to oral. Sodium dropped to 129. Renal duplex scan has been done and report. History of right renal artery stent in 2008. Discussed possibility of needing dialysis in the near future if her renal function continues to decline. Patient is dependent on diuretic therapy with history of congestive heart failure and ascites. - Physical Exam General: Alert, Oriented x3, Cooperative, No apparent distress Oral: Moist Mucosa Neck: Supple Lungs: Diminished, Rales - Right base Cardiovascular: Regular rate, Murmur Abdomen: Bowel Sounds Present, Soft, Non Tender, Non-Distended Extremities: Edema - Mild edema bilaterally greater than the right lower extremity Skin: No rashes Musculoskeletal: No Muscle Wasting Psych/Mental Status: Normal Affect, Appropriate, Alert and oriented to time, place, person, mood and affect Vital Signs Temp Pulse Resp BP Pulse Ox 97.8 F 59 L 16 116/41 L 98 11/04/17 09:14 11/04/17 09:17 11/04/17 09:14 11/04/17 09:14 11/04/17 09:14 Oxygen Delivery Method Room Air Weight: 65.2 kg Body Mass Index (BMI) 29.4 Intake and Output for Last 24 Hours 11/02/17 11/03/17 11/04/17 23:59 23:59 23:59 Intake Total 1010 / 1010 1195 / 1195 50 / 50 Output Total 1900 / 1900 1500 / 1500 300 / 300 Balance -890 / -890 -305 / -305 -250 / -250 Laboratory Tests Past 24 Hrs 11/03/17 11/03/17 11/03/17 05:50 13:30 13:30 Sodium Potassium Chloride Carbon Dioxide BUN Creatinine Estim Creat Clear Calc Est GFR (MDRD) Af Amer Est GFR (MDRD) Non-Af BUN/Creatinine Ratio Glucose Calcium Phosphorus B-Natriuretic Peptide 1500.6 H Albumin U Random Total Protein 27.8 H Urine Creatinine 33.20 11/04/17 05:28 Sodium 129 L Potassium 4.3 Chloride 98 Carbon Dioxide 22.0 BUN 83 H Creatinine 1.79 H Estim Creat Clear Calc 26.11 Est GFR (MDRD) Af Amer 35 L Est GFR (MDRD) Non-Af 29 L BUN/Creatinine Ratio 46.4 H Glucose 378 H Calcium 8.6 Phosphorus 3.0 B-Natriuretic Peptide Albumin 2.6 L U Random Total Protein Urine Creatinine POC Glucose 11/04/17 11/03/17 11/03/17 06:38 22:13 17:24 POC Glucose 376 H 304 H 365 H 11/03/17 11:52 POC Glucose 415 H Assessment/Plan 1. Acute on chronic kidney disease stage III with baseline creatinine 0.96-1.0 eGFR 54-60cc/min in May 2017. Creatinine 1.5-1.7 eGFR 30-35cc/min during last hospitalization in September and this hospitalization likely due to prerenal event from combination of cardiomyopathy, IV diuretics. Creatinine elevated at 1.75 today. Check renal artery for stenosis with a history of stent placement 2008. 2. Acute systolic congestive heart failure with bilateral pleural effusion and ascites. BNP elevated chest x-ray reviewed. Symptoms improved. 3. DM type II. urine protein creatinine ratio 837mg/g cr 4. Hypertension with stable blood pressure 5. 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
[2017-11-04 11:35] LABS: Bedside Glucose 335 mg/dL (70-110)
[2017-11-04] MEDS: clonazePAM 0.5 MG Tablet PO (14:23)
--- NOTE | 2017-11-04 15:33 | PCM.PN.HOSP ---
Subjective: CC: Shortness of breath She reports that her breathing has improved, she denies any cough, chest pain, experienced mild dizziness after she walked to the bathroom. Vitals/I&O's: Vital Signs Temp Pulse Resp BP Pulse Ox 98.0 F 59 L 18 111/39 L 98 11/04/17 14:18 11/04/17 14:18 11/04/17 14:18 11/04/17 14:18 11/04/17 14:18 Oxygen Delivery Method Room Air Weight: 65.2 kg Body Mass Index (BMI) 29.4 Intake and Output for Last 24 Hours 11/02/17 11/03/17 11/04/17 23:59 23:59 23:59 Intake Total 1010 / 1010 1195 / 1195 250 / 250 Output Total 1900 / 1900 1500 / 1500 600 / 600 Balance -890 / -890 -305 / -305 -350 / -350 General: Alert, Oriented x3 HEENT: Atraumatic Oral: Moist Mucosa Neck: Supple, No JVD Lungs: Clear to auscultation, No wheeze Cardiovascular: Regular rate, Normal S1, Normal S2 Abdomen: Bowel Sounds Present, Soft, Non Tender Extremities: No edema Laboratory Results 11/03/17 17:24: POC Glucose 365 H 11/03/17 22:13: POC Glucose 304 H 11/04/17 05:28: Sodium 129 L, Potassium 4.3, Chloride 98, Carbon Dioxide 22.0, BUN 83 H, Creatinine 1.79 H, Estim Creat Clear Calc 26.11, Est GFR (MDRD) Af Amer 35 L, Est GFR (MDRD) Non-Af 29 L, BUN/Creatinine Ratio 46.4 H, Glucose 378 H, Calcium 8.6, Phosphorus 3.0, Albumin 2.6 L 11/04/17 06:38: POC Glucose 376 H 11/04/17 11:25: POC Glucose 335 H Current Medications Aspirin (Ecotrin) 81 mg PO DAILY@0800 [facility] Last Admin: 11/04/17 09:17 Dose: 81 mg Atorvastatin Calcium (Lipitor) 10 mg PO QHS [facility] Last Admin: 11/03/17 22:24 Dose: 10 mg Carvedilol (Coreg) 12.5 mg PO BID [facility] Last Admin: 11/04/17 09:16 Dose: 12.5 mg Clonazepam (Klonopin) 0.5 mg PO DAILY PRN PRN PRN Reason: ANXIETY Last Admin: 11/04/17 14:23 Dose: 0.25 mg Clopidogrel Bisulfate (Plavix) 75 mg PO DAILY [facility] Last Admin: 11/04/17 09:16 Dose: 75 mg Dextrose (D50w Syringe) 0 gm IV X1 PRN; Protocol PRN Reason: Hypoglycemia Folic Acid (Folic Acid) 0.5 mg PO DAILY@0800 [facility] Last Admin: 11/04/17 09:16 Dose: 0.5 mg Furosemide (Lasix) 40 mg PO DAILY [facility] Gabapentin (Neurontin) 300 mg PO TID PRN PRN PRN Reason: NERVE PAIN Last Admin: 11/02/17 01:41 Dose: 300 mg Glucagon () 1 mg IM .X1 PRN PRN Reason: Hypoglycemia Heparin Sodium (Porcine) (Heparin Na) 5,000 unit SC BID [facility] Last Admin: 11/04/17 09:18 Dose: Not Given Hydralazine HCl (Apresoline) 25 mg PO BID [facility] Last Admin: 11/04/17 09:17 Dose: 25 mg [facility] Admin: 11/04/17 09:17 Dose: 200 mg Insulin Aspart (Novolog Flexpen (Bkc)) 0 units SC ACHS [facility] PRN Reason: Protocol Last Admin: 11/04/17 11:27 Dose: 5 units Levothyroxine Sodium (Synthroid) 125 mcg PO DAILY@0600 [facility] Last Admin: 11/04/17 06:37 Dose: 125 mcg Magnesium Hydroxide (Milk Of Magnesia) 30 ml PO DAILY PRN PRN Reason: Constipation Nitroglycerin (Nitrostat) 0.4 mg SUBLINGUAL Q5M PRN PRN Reason: Chest Pain Ondansetron HCl (Zofran) 4 mg IV Q8H PRN PRN PRN Reason: Nausea Pantoprazole Sodium (Protonix) 40 mg PO BID [facility] Last Admin: 11/04/17 09:17 Dose: 40 mg Polyethylene Glycol (Miralax) 17 gm PO DAILY [facility] Last Admin: 11/04/17 09:17 Dose: Not Given Polyethylene Glycol (Miralax) 17 gm PO DAILY PRN PRN PRN Reason: Constipation Sodium Chloride () 5 - 30 ml IV UD PRN PRN Reason: SALINE FLUSH Last Admin: 11/02/17 17:20 Dose: 10 ml Valacyclovir HCl (Valtrex) 50 mg PO BID PRN PRN PRN Reason: ANTIVIRAL Assessment/Plan 1. Acute CHF exacerbation ; she has improved, she is now on p.o. Lasix. 2. Elevated troponin consistent with type II NSTEMI, recent cardiac cath in September 2017, cardiac cath showed patent grafts. 3. Acute on chronic kidney disease stage III ; Lasix decreased to 40 mg po daily, repeat renal parameters in a.m. 4. Hypertension, controlled, continue on carvedilol, hydralazine. 5. Type II DM ; will restart on her NPH 20 units subcu twice daily 6. Pulmonary hypertension; on Lasix, will need a 6 minute walk for 02, prior to discharge.. 7. Sick sinus syndrome status post pacemaker 8. DVT Prophylaxis with heparin SC
--- NOTE | 2017-11-04 15:36 | PN_ITS ---
Subjective: CC: Shortness of breath She reports that her breathing has improved, she denies any cough, chest pain, experienced mild dizziness after she walked to the bathroom. Vitals/I&O's: Vital Signs Temp Pulse Resp BP Pulse Ox 98.0 F 59 L 18 111/39 L 98 11/04/17 14:18 11/04/17 14:18 11/04/17 14:18 11/04/17 14:18 11/04/17 14:18 Oxygen Delivery Method Room Air Weight: 65.2 kg Body Mass Index (BMI) 29.4 Intake and Output for Last 24 Hours 11/02/17 11/03/17 11/04/17 23:59 23:59 23:59 Intake Total 1010 / 1010 1195 / 1195 250 / 250 Output Total 1900 / 1900 1500 / 1500 600 / 600 Balance -890 / -890 -305 / -305 -350 / -350 General: Alert, Oriented x3 HEENT: Atraumatic Oral: Moist Mucosa Neck: Supple, No JVD Lungs: Clear to auscultation, No wheeze Cardiovascular: Regular rate, Normal S1, Normal S2 Abdomen: Bowel Sounds Present, Soft, Non Tender Extremities: No edema Laboratory Results 11/03/17 17:24: POC Glucose 365 H 11/03/17 22:13: POC Glucose 304 H 11/04/17 05:28: Sodium 129 L, Potassium 4.3, Chloride 98, Carbon Dioxide 22.0, BUN 83 H, Creatinine 1.79 H, Estim Creat Clear Calc 26.11, Est GFR (MDRD) Af Amer 35 L, Est GFR (MDRD) Non-Af 29 L, BUN/Creatinine Ratio 46.4 H, Glucose 378 H, Calcium 8.6, Phosphorus 3.0, Albumin 2.6 L 11/04/17 06:38: POC Glucose 376 H 11/04/17 11:25: POC Glucose 335 H Current Medications Aspirin (Ecotrin) 81 mg PO DAILY@0800 [facility] Last Admin: 11/04/17 09:17 Dose: 81 mg Atorvastatin Calcium (Lipitor) 10 mg PO QHS [facility] Last Admin: 11/03/17 22:24 Dose: 10 mg Carvedilol (Coreg) 12.5 mg PO BID [facility] Last Admin: 11/04/17 09:16 Dose: 12.5 mg Clonazepam (Klonopin) 0.5 mg PO DAILY PRN PRN PRN Reason: ANXIETY Last Admin: 11/04/17 14:23 Dose: 0.25 mg Clopidogrel Bisulfate (Plavix) 75 mg PO DAILY [facility] Last Admin: 11/04/17 09:16 Dose: 75 mg Dextrose (D50w Syringe) 0 gm IV X1 PRN; Protocol PRN Reason: Hypoglycemia Folic Acid (Folic Acid) 0.5 mg PO DAILY@0800 [facility] Last Admin: 11/04/17 09:16 Dose: 0.5 mg Furosemide (Lasix) 40 mg PO DAILY [facility] Gabapentin (Neurontin) 300 mg PO TID PRN PRN PRN Reason: NERVE PAIN Last Admin: 11/02/17 01:41 Dose: 300 mg Glucagon () 1 mg IM .X1 PRN PRN Reason: Hypoglycemia Heparin Sodium (Porcine) (Heparin Na) 5,000 unit SC BID [facility] Last Admin: 11/04/17 09:18 Dose: Not Given Hydralazine HCl (Apresoline) 25 mg PO BID [facility] Last Admin: 11/04/17 09:17 Dose: 25 mg [facility]ine [facility] ([facility]) [facility] Last Admin: 11/04/17 09:17 Dose: 200 mg Insulin Aspart (Novolog Flexpen (Bkc)) 0 units SC ACHS [facility] PRN Reason: Protocol Last Admin: 11/04/17 11:27 Dose: 5 units Levothyroxine Sodium (Synthroid) 125 mcg PO DAILY@0600 [facility] Last Admin: 11/04/17 06:37 Dose: 125 mcg Magnesium Hydroxide (Milk Of Magnesia) 30 ml PO DAILY PRN PRN Reason: Constipation Nitroglycerin (Nitrostat) 0.4 mg SUBLINGUAL Q5M PRN PRN Reason: Chest Pain Ondansetron HCl (Zofran) 4 mg IV Q8H PRN PRN PRN Reason: Nausea Pantoprazole Sodium (Protonix) 40 mg PO BID [facility] Last Admin: 11/04/17 09:17 Dose: 40 mg Polyethylene Glycol (Miralax) 17 gm PO DAILY [facility] Last Admin: 11/04/17 09:17 Dose: Not Given Polyethylene Glycol (Miralax) 17 gm PO DAILY PRN PRN PRN Reason: Constipation Sodium Chloride () 5 - 30 ml IV UD PRN PRN Reason: SALINE FLUSH Last Admin: 11/02/17 17:20 Dose: 10 ml Valacyclovir HCl (Valtrex) 50 mg PO BID PRN PRN PRN Reason: ANTIVIRAL Assessment/Plan 1. Acute CHF exacerbation ; she has improved, she is now on p.o. Lasix. 2. Elevated troponin consistent with type II NSTEMI, recent cardiac cath in September 2017, cardiac cath showed patent grafts. 3. Acute on chronic kidney disease stage III ; Lasix decreased to 40 mg po daily, repeat renal parameters in a.m. 4. Hypertension, controlled, continue on carvedilol, hydralazine. 5. Type II DM ; will restart on her NPH 20 units subcu twice daily 6. Pulmonary hypertension; on Lasix, will need a 6 minute walk for 02, prior to discharge.. 7. Sick sinus syndrome status post pacemaker 8. DVT Prophylaxis with heparin SC
[2017-11-04 16:56] LABS: Bedside Glucose 307 mg/dL (70-110)
--- NOTE | 2017-11-04 17:00 | NURSING ---
This RN taking over care at this time
[2017-11-04 21:07] LABS: Urine Sodium 13 mmol/L (Not Establ.)
[2017-11-04] MEDS: Atorvastatin Calcium 10 MG Tablet PO (21:55)
[2017-11-04 22:06] LABS: Bedside Glucose 276 mg/dL (70-110)
[2017-11-05] VITALS (12 sets, daily range): BP systolic 111–122; BP diastolic 42–56; PULSE 60–71; RESP 16–18; TEMP 36.3–36.7; O2SAT 94–98
[2017-11-05] MEDS: Levothyroxine 125 MCG Tablet PO (06:47)
[2017-11-05 06:57] LABS: Albumin, Serum 3.2 g/dL (3.2-5.0); BUN 90 mg/dL (7-18); BUN/Creat Ratio 48.4 RATIO (10-20); Calcium,Total 8.8 mg/dL (8.5-10.1); Chloride 100 mmol/L (98-107); Creatinine, Serum 1.86 mg/dL (0.55-1.02); EST Glomerular Filtration Rate 28 mL/min (>60); Est Glom Filt Rate - Afr Amer 34 mL/min (>60); Estimated Creatinine Clearance 25.36 ml/min; Glucose 195 mg/dL (74-106); Potassium 4.4 mmol/L (3.5-5.1); Sodium Level 136 mmol/L (136-145)
[2017-11-05 07:36] LABS: Bedside Glucose 226 mg/dL (70-110)
[2017-11-05] MEDS: Folic Acid 1 MG Tablet 0.5 MG PO (07:42)
[2017-11-05] MEDS: Hydroxychloroquine 200 MG Tablet PO ×2 (07:42→17:26)
[2017-11-05] MEDS: Aspirin E.C. 81 MG Tablet PO (07:42)
[2017-11-05] MEDS: Pantoprazole Sodium 40 MG Tablet PO ×2 (09:36→21:34)
[2017-11-05] MEDS: Clopidogrel Bisulfate 75 MG Tablet PO (09:36)
[2017-11-05] MEDS: Carvedilol 12.5 MG Tablet PO ×2 (09:36→21:34)
[2017-11-05 11:36] LABS: Bedside Glucose 216 mg/dL (70-110)
[2017-11-05 16:36] LABS: Bedside Glucose 308 mg/dL (70-110)
--- NOTE | 2017-11-05 16:55 | US_ITS ---
STUDY: ABDOMINAL ULTRASOUND -LIMITED REASON FOR VISIT: Female, 81 years old. Ascites TECHNIQUE: Ultrasound evaluation of the abdominal quadrants was performed with real-time and static piedra-scale imaging. TECHNICAL QUALITY: Adequate. COMPARISON: CT 11/01/2017. FINDINGS: Minimal ascites. Largest pocket in the right lower quadrant. Small right pleural effusion. US/Abdomen Limited IMPRESSION: Minimal ascites. Small right pleural effusion. Electronically Signed: Alli Faye DO at 19:34 EST , Service support ,
--- NOTE | 2017-11-05 16:55 | PCM.PN.HOSP ---
Subjective: CC: abdominal distention She reports that her breathing has improved, she denies any cough, chest pain. She has abdominal discomfort, she feels like there is fluid in her abdomen and wants something done about this. Vitals/I&O's: Vital Signs Temp Pulse Resp BP Pulse Ox 97.4 F L 62 16 114/56 L 97 11/05/17 15:25 11/05/17 15:25 11/05/17 15:25 11/05/17 15:25 11/05/17 15:25 Oxygen Delivery Method Room Air Weight: 65.5 kg Body Mass Index (BMI) 29.4 Intake and Output for Last 24 Hours 11/03/17 11/04/17 11/05/17 23:59 23:59 23:59 Intake Total 1195 / 1195 1090 / 1090 210 / 210 Output Total 1500 / 1500 1100 / 1100 400 / 400 Balance -305 / -305 -10 / -10 -190 / -190 General: Alert, Oriented x3 HEENT: Atraumatic Oral: Moist Mucosa Neck: Supple, No JVD Lungs: No wheeze, No rales Cardiovascular: Regular rate, Normal S1, Normal S2 Abdomen: Non-Distended, Distended - mild Skin: No rashes Musculoskeletal: No Tenderness to Palpation of Joints or Extremities Lymphatic: No Cervical, Supraclavicular, or Inguinal Adenopathy Neurological: Cranial nerves II-XII grossly intact Laboratory Results 11/04/17 16:46: POC Glucose 307 H 11/04/17 20:40: Ur Random Sodium 13 11/04/17 21:48: POC Glucose 276 H 11/05/17 06:10: Sodium 136, Potassium 4.4, Chloride 100, Carbon Dioxide 26.0, BUN 90 H, Creatinine 1.86 H, Estim Creat Clear Calc 25.36, Est GFR (MDRD) Af Amer 34 L, Est GFR (MDRD) Non-Af 28 L, BUN/Creatinine Ratio 48.4 H, Glucose 195 H, Calcium 8.8, Phosphorus 3.0, Albumin 3.2 11/05/17 06:49: POC Glucose 226 H 11/05/17 11:20: POC Glucose 216 H 11/05/17 16:28: POC Glucose 308 H Current Medications Aspirin (Ecotrin) 81 mg PO DAILY@0800 [facility] Last Admin: 11/05/17 07:42 Dose: 81 mg Atorvastatin Calcium (Lipitor) 10 mg PO QHS [facility] Last Admin: 11/04/17 21:55 Dose: 10 mg Carvedilol (Coreg) 12.5 mg PO BID [facility] Last Admin: 11/05/17 09:36 Dose: 12.5 mg Clonazepam (Klonopin) 0.5 mg PO DAILY PRN PRN PRN Reason: ANXIETY Last Admin: 11/04/17 14:23 Dose: 0.25 mg Clopidogrel Bisulfate (Plavix) 75 mg PO DAILY [facility] Last Admin: 11/05/17 09:36 Dose: 75 mg Dextrose (D50w Syringe) 0 gm IV X1 PRN; Protocol PRN Reason: Hypoglycemia Folic Acid (Folic Acid) 0.5 mg PO DAILY@0800 [facility] Last Admin: 11/05/17 07:42 Dose: 0.5 mg Gabapentin (Neurontin) 300 mg PO TID PRN PRN PRN Reason: NERVE PAIN Last Admin: 11/02/17 01:41 Dose: 300 mg Glucagon () 1 mg IM .X1 PRN PRN Reason: Hypoglycemia Heparin Sodium (Porcine) (Heparin Na) 5,000 unit SC BID [facility] Last Admin: 11/05/17 09:37 Dose: Not Given Hydralazine HCl (Apresoline) 25 mg PO BID [facility] Last Admin: 11/05/17 09:36 Dose: 25 mg Hydroxychloroquine Sulfate (Plaquenil) 200 mg PO BIDCM [facility] Last Admin: 11/05/17 07:42 Dose: 200 mg Insulin Aspart (Novolog Flexpen (Bkc)) 0 units SC ACHS [facility] PRN Reason: Protocol Last Admin: 11/05/17 11:33 Dose: 2 units Insulin Aspart (Novolog Mix 70-30 Flexpen Syrn) 20 units SC BIDAC [facility] Last Admin: 11/05/17 07:43 Dose: 20 u Levothyroxine Sodium (Synthroid) 125 mcg PO DAILY@0600 [facility] Last Admin: 11/05/17 06:47 Dose: 125 mcg Magnesium Hydroxide (Milk Of Magnesia) 30 ml PO DAILY PRN PRN Reason: Constipation Nitroglycerin (Nitrostat) 0.4 mg SUBLINGUAL Q5M PRN PRN Reason: Chest Pain Ondansetron HCl (Zofran) 4 mg IV Q8H PRN PRN PRN Reason: Nausea Pantoprazole Sodium (Protonix) 40 mg PO BID [facility] Last Admin: 11/05/17 09:36 Dose: 40 mg Polyethylene Glycol (Miralax) 17 gm PO DAILY [facility] Last Admin: 11/05/17 09:37 Dose: Not Given Polyethylene Glycol (Miralax) 17 gm PO DAILY PRN PRN PRN Reason: Constipation Sodium Chloride () 5 - 30 ml IV UD PRN PRN Reason: SALINE FLUSH Last Admin: 11/02/17 17:20 Dose: 10 ml Valacyclovir HCl (Valtrex) 50 mg PO BID PRN PRN PRN Reason: ANTIVIRAL Assessment/Plan 1. Acute CHF exacerbation ; she has improved, she is now on p.o. Lasix. 2. Elevated troponin consistent with type II NSTEMI, recent cardiac cath in September 2017, cardiac cath showed patent grafts. 3. Acute on chronic kidney disease stage III ; Lasix decreased to 40 mg po daily, repeat renal parameters in a.m. 4. Hypertension, controlled, continue on carvedilol, hydralazine. 5. Type II DM ; will restart on her NPH 20 units subcu twice daily 6. Pulmonary hypertension; on Lasix, will need a 6 minute walk for 02, prior to discharge.. 7. Sick sinus syndrome status post pacemaker 8. Ascites; will obtain abdominal ultrasound for further evaluation. 9. DVT Prophylaxis with heparin SC Code Visit Inpatient E&M: 35305 Subs Hosp L2
--- NOTE | 2017-11-05 17:03 | PN_ITS ---
Subjective: CC: abdominal distention She reports that her breathing has improved, she denies any cough, chest pain. She has abdominal discomfort, she feels like there is fluid in her abdomen and wants something done about this. Vitals/I&O's: Vital Signs Temp Pulse Resp BP Pulse Ox 97.4 F L 62 16 114/56 L 97 11/05/17 15:25 11/05/17 15:25 11/05/17 15:25 11/05/17 15:25 11/05/17 15:25 Oxygen Delivery Method Room Air Weight: 65.5 kg Body Mass Index (BMI) 29.4 Intake and Output for Last 24 Hours 11/03/17 11/04/17 11/05/17 23:59 23:59 23:59 Intake Total 1195 / 1195 1090 / 1090 210 / 210 Output Total 1500 / 1500 1100 / 1100 400 / 400 Balance -305 / -305 -10 / -10 -190 / -190 General: Alert, Oriented x3 HEENT: Atraumatic Oral: Moist Mucosa Neck: Supple, No JVD Lungs: No wheeze, No rales Cardiovascular: Regular rate, Normal S1, Normal S2 Abdomen: Non-Distended, Distended - mild Skin: No rashes Musculoskeletal: No Tenderness to Palpation of Joints or Extremities Lymphatic: No Cervical, Supraclavicular, or Inguinal Adenopathy Neurological: Cranial nerves II-XII grossly intact Laboratory Results 11/04/17 16:46: POC Glucose 307 H 11/04/17 20:40: Ur Random Sodium 13 11/04/17 21:48: POC Glucose 276 H 11/05/17 06:10: Sodium 136, Potassium 4.4, Chloride 100, Carbon Dioxide 26.0, BUN 90 H, Creatinine 1.86 H, Estim Creat Clear Calc 25.36, Est GFR (MDRD) Af Amer 34 L, Est GFR (MDRD) Non-Af 28 L, BUN/Creatinine Ratio 48.4 H, Glucose 195 H, Calcium 8.8, Phosphorus 3.0, Albumin 3.2 11/05/17 06:49: POC Glucose 226 H 11/05/17 11:20: POC Glucose 216 H 11/05/17 16:28: POC Glucose 308 H Current Medications Aspirin (Ecotrin) 81 mg PO DAILY@0800 [facility] Last Admin: 11/05/17 07:42 Dose: 81 mg Atorvastatin Calcium (Lipitor) 10 mg PO QHS [facility] Last Admin: 11/04/17 21:55 Dose: 10 mg Carvedilol (Coreg) 12.5 mg PO BID [facility] Last Admin: 11/05/17 09:36 Dose: 12.5 mg Clonazepam (Klonopin) 0.5 mg PO DAILY PRN PRN PRN Reason: ANXIETY Last Admin: 11/04/17 14:23 Dose: 0.25 mg Clopidogrel Bisulfate (Plavix) 75 mg PO DAILY [facility] Last Admin: 11/05/17 09:36 Dose: 75 mg Dextrose (D50w Syringe) 0 gm IV X1 PRN; Protocol PRN Reason: Hypoglycemia Folic Acid (Folic Acid) 0.5 mg PO DAILY@0800 [facility] Last Admin: 11/05/17 07:42 Dose: 0.5 mg Gabapentin (Neurontin) 300 mg PO TID PRN PRN PRN Reason: NERVE PAIN Last Admin: 11/02/17 01:41 Dose: 300 mg Glucagon () 1 mg IM .X1 PRN PRN Reason: Hypoglycemia Heparin Sodium (Porcine) (Heparin Na) 5,000 unit SC BID [facility] Last Admin: 11/05/17 09:37 Dose: Not Given Hydralazine HCl (Apresoline) 25 mg PO BID [facility] Last Admin: 11/05/17 09:36 Dose: 25 mg Hydroxychloroquine Sulfate (Plaquenil) 200 mg PO BIDCM [facility] Last Admin: 11/05/17 07:42 Dose: 200 mg Insulin Aspart (Novolog Flexpen (Bkc)) 0 units SC ACHS [facility] PRN Reason: Protocol Last Admin: 11/05/17 11:33 Dose: 2 units Insulin Aspart (Novolog Mix 70-30 Flexpen Syrn) 20 units SC BIDAC [facility] Last Admin: 11/05/17 07:43 Dose: 20 u Levothyroxine Sodium (Synthroid) 125 mcg PO DAILY@0600 [facility] Last Admin: 11/05/17 06:47 Dose: 125 mcg Magnesium Hydroxide (Milk Of Magnesia) 30 ml PO DAILY PRN PRN Reason: Constipation Nitroglycerin (Nitrostat) 0.4 mg SUBLINGUAL Q5M PRN PRN Reason: Chest Pain Ondansetron HCl (Zofran) 4 mg IV Q8H PRN PRN PRN Reason: Nausea Pantoprazole Sodium (Protonix) 40 mg PO BID [facility] Last Admin: 11/05/17 09:36 Dose: 40 mg Polyethylene Glycol (Miralax) 17 gm PO DAILY [facility] Last Admin: 11/05/17 09:37 Dose: Not Given Polyethylene Glycol (Miralax) 17 gm PO DAILY PRN PRN PRN Reason: Constipation Sodium Chloride () 5 - 30 ml IV UD PRN PRN Reason: SALINE FLUSH Last Admin: 11/02/17 17:20 Dose: 10 ml Valacyclovir HCl (Valtrex) 50 mg PO BID PRN PRN PRN Reason: ANTIVIRAL Assessment/Plan 1. Acute CHF exacerbation ; she has improved, she is now on p.o. Lasix. 2. Elevated troponin consistent with type II NSTEMI, recent cardiac cath in September 2017, cardiac cath showed patent grafts. 3. Acute on chronic kidney disease stage III ; Lasix decreased to 40 mg po daily, repeat renal parameters in a.m. 4. Hypertension, controlled, continue on carvedilol, hydralazine. 5. Type II DM ; will restart on her NPH 20 units subcu twice daily 6. Pulmonary hypertension; on Lasix, will need a 6 minute walk for 02, prior to discharge.. 7. Sick sinus syndrome status post pacemaker 8. Ascites; will obtain abdominal ultrasound for further evaluation. 9. DVT Prophylaxis with heparin SC Code Visit Inpatient E&M: 09889 Subs Hosp L2
--- NOTE | 2017-11-05 17:18 | PCM.PN.REN ---
Subjective: breathing stable. Edema in legs present. Denies nausea, vomiting. - Physical Exam General: Alert, Oriented x3, Cooperative Oral: Dry Mucosa Lungs: Clear to auscultation Cardiovascular: Regular rate Abdomen: Bowel Sounds Present, Soft, Non Tender, Non-Distended Extremities: Edema - BLE Skin: No rashes Musculoskeletal: No Muscle Wasting Psych/Mental Status: Normal Affect, Alert and oriented to time, place, person, mood and affect Vital Signs Temp Pulse Resp BP Pulse Ox 97.4 F L 62 16 114/56 L 97 11/05/17 15:25 11/05/17 15:25 11/05/17 15:25 11/05/17 15:25 11/05/17 15:25 Oxygen Delivery Method Room Air Weight: 65.5 kg Body Mass Index (BMI) 29.4 Intake and Output for Last 24 Hours 11/03/17 11/04/17 11/05/17 23:59 23:59 23:59 Intake Total 1195 / 1195 1090 / 1090 210 / 210 Output Total 1500 / 1500 1100 / 1100 400 / 400 Balance -305 / -305 -10 / -10 -190 / -190 Laboratory Tests Past 24 Hrs 11/04/17 11/05/17 20:40 06:10 Sodium 136 Potassium 4.4 Chloride 100 Carbon Dioxide 26.0 BUN 90 H Creatinine 1.86 H Estim Creat Clear Calc 25.36 Est GFR (MDRD) Af Amer 34 L Est GFR (MDRD) Non-Af 28 L BUN/Creatinine Ratio 48.4 H Glucose 195 H Calcium 8.8 Phosphorus 3.0 Albumin 3.2 Ur Random Sodium 13 POC Glucose 11/05/17 11/05/17 11/05/17 16:28 11:20 06:49 POC Glucose 308 H 216 H 226 H 11/04/17 21:48 POC Glucose 276 H Assessment/Plan 1. Acute on chronic kidney disease stage III with baseline creatinine 0.96-1.0 eGFR 54-60cc/min in May 2017. Creatinine 1.5-1.7 eGFR 30-35cc/min during last hospitalization in September and this hospitalization. Creatinine continues to rise at 1.86 today. Hold lasix today. lCheck renal artery for stenosis on duplex with a history of stent placement 2008. 2. Acute systolic congestive heart failure with bilateral pleural effusion and ascites. Holding lasix for rise in creatinine. 3. DM type II with diabetic nephropathy 4. hypertension with stable blood pressure 5. CAD status post CABG, pacemaker for sick sinus syndrome DW hospitalist
[2017-11-05] MEDS: Atorvastatin Calcium 10 MG Tablet PO (21:34)
[2017-11-05 22:36] LABS: Bedside Glucose 129 mg/dL (70-110)
[2017-11-06] VITALS (8 sets, daily range): BP systolic 120–124; BP diastolic 42–50; PULSE 60–68; RESP 16–18; TEMP 36.5–36.8; O2SAT 95–97
[2017-11-06] MEDS: Gabapentin 300 MG Capsule PO (01:41)
[2017-11-06] MEDS: Levothyroxine 125 MCG Tablet PO (06:48)
[2017-11-06 06:52] LABS: BUN 96 mg/dL (7-18); Calcium,Total 8.8 mg/dL (8.5-10.1); Chloride 103 mmol/L (98-107); Creatinine, Serum 1.92 mg/dL (0.55-1.02); EST Glomerular Filtration Rate 27 mL/min (>60); Est Glom Filt Rate - Afr Amer 32 mL/min (>60); Estimated Creatinine Clearance 24.57 ml/min; Glucose 182 mg/dL (74-106); Phosphorus 3.8 mg/dL (2.5-4.9); Potassium 4.1 mmol/L (3.5-5.1); Sodium Level 138 mmol/L (136-145)
[2017-11-06] MEDS: Folic Acid 1 MG Tablet 0.5 MG PO (08:30)
[2017-11-06] MEDS: Clopidogrel Bisulfate 75 MG Tablet PO (08:31)
[2017-11-06] MEDS: Carvedilol 12.5 MG Tablet PO (08:31)
[2017-11-06] MEDS: Pantoprazole Sodium 40 MG Tablet PO (08:31)
[2017-11-06] MEDS: Hydroxychloroquine 200 MG Tablet PO ×2 (08:31→17:30)
[2017-11-06] MEDS: Aspirin E.C. 81 MG Tablet PO (08:32)
--- NOTE | 2017-11-06 08:47 | PCM.PN.REN ---
Subjective: Patient complains of a nonproductive cough. Denied chest pain or shortness of breath. She continues to diurese with Lasix on hold. She has mild lower extremity edema with small pleural effusion on x-ray. Renal duplex preliminary suggested renal vascular disease bilaterally. Final report still pending. - Physical Exam General: Alert, Oriented x3, Cooperative, No apparent distress Oral: Dry Mucosa Neck: Supple Lungs: Rales - bases faint Cardiovascular: Regular rate Abdomen: Bowel Sounds Present, Soft, Non Tender, Non-Distended Extremities: Edema Musculoskeletal: - - djd changes in hands Neurological: Cranial nerves II-XII grossly intact Psych/Mental Status: Alert and oriented to time, place, person, mood and affect Vital Signs Temp Pulse Resp BP Pulse Ox 97.7 F L 65 16 122/47 H 95 11/06/17 03:42 11/06/17 08:31 11/06/17 03:42 11/06/17 03:42 11/06/17 03:42 Oxygen Delivery Method Room Air Weight: 65.5 kg Body Mass Index (BMI) 29.4 Intake and Output for Last 24 Hours 11/04/17 11/05/17 11/06/17 23:59 23:59 23:59 Intake Total 1090 / 1090 410 / 410 300 / 300 Output Total 1100 / 1100 600 / 600 425 / 425 Balance -10 / -10 -190 / -190 -125 / -125 Laboratory Tests Past 24 Hrs 11/06/17 06:05 Sodium 138 Potassium 4.1 Chloride 103 Carbon Dioxide 24.0 BUN 96 H Creatinine 1.92 H Estim Creat Clear Calc 24.57 Est GFR (MDRD) Af Amer 32 L Est GFR (MDRD) Non-Af 27 L BUN/Creatinine Ratio 50.0 H Glucose 182 H Calcium 8.8 Phosphorus 3.8 Albumin 3.0 L POC Glucose 11/05/17 11/05/17 11/05/17 21:29 16:28 11:20 POC Glucose 129 H 308 H 216 H Assessment/Plan 1. Acute on chronic kidney disease stage III with baseline creatinine 0.96-1.0 eGFR 54-60cc/min in May 2017. Creatinine 1.5-1.7 eGFR 30-35cc/min during last hospitalization in September for CHF. Creatinine continues to rise at 1.9 today. Hold lasix today. renal duplex suggestive of stenosis with high velocities bilaterally. Final report pending. history of stent placement on rt. Consult Dr Jesus for renal artery stenosis evaluation and possible need for intervention. suspect fluid retention due to renovascular disease. Urine sodium 13, in sodium avid state either from cardiac vs renal artery etiology. 2. Acute systolic congestive heart failure with bilateral pleural effusion and ascites. Holding lasix for continued rise in creatinine. 3. DM type II with diabetic nephropathy 4. hypertension with stable blood pressure 5. CAD status post CABG, pacemaker for sick sinus syndrome
[2017-11-06 12:00] LABS: Bedside Glucose 338 mg/dL (70-110)
[2017-11-06 15:21] LABS: Bedside Glucose 191 mg/dL (70-110)
--- NOTE | 2017-11-06 16:47 | PCM.CONS.GEN ---
Problem List (1) Acute kidney injury Status: Acute Reason for Consult Date of Consultation: 11/06/17 History of Present Illness: The patient is a 81 year old F [who was admitted to the [facility] on November 01, 2017. She presented with progressive renal insufficiency and congestive heart failure and fluid overload. I been asked to see her by Dr. Meredith Hernandez regarding renal artery stenosis the potential for possible improvement in renal function if she would undergo repeat aortogram with renal artery angioplasty or stenting. A written copy of my surgical consult recommendations will be returned to Dr. Hernandez. The patient age 81. She states that she has been an insulin-dependent diabetic dating all the way back to age 34. She had renal artery duplex exam performed at the [facility] on November 03, 2017. The aortic velocity is slightly elevated making interpretation of the renal aortic ratio not possible. She does have elevated right renal artery velocity 341 cm/s and left renal artery maximum 255 cm/s. Now by history there is suggestion that she is previously had a right renal artery stented which then in 2014 required repeat angioplasty because of in-stent stenosis and at that time she had her left renal artery stented. Those procedures were performed by Dr. Skinner.] November 01 her BUN was 67 whereas today it is 96. In was 1.53 and now is 1.92 concerned that her renal demise may be secondary to renal artery stenosis and questioning whether repeat renal artery intervention would provide benefit. It is of note however that the renal artery duplex exam demonstrates relatively maintained renal length bilaterally laterally at 10.6 cm on the right and 10.3 cm on the left. More pertinently the renal resistive indices are elevated bilaterally consistent with intrinsic renal parenchymal disease. On November 01, 2017 upon presentation her glucose was 69. On November 04 she had a high of 378. Her laboratory today demonstrates a value of 182. The patient states that she routinely runs in the low 200s at home Her other chronic medical problems include hypertension type 2 diabetes mellitus insulin-dependent history of hypothyroidism history of atherosclerotic cardiovascular disease history of COPD. She presents with acute exacerbation of her congestive heart failure and acute kidney injury. Her medications include atorvastatin and aspirin and carvedilol and clopidogrel and gabapentin and glucagon and hydralazine and Plaquenil levothyroxine She had a noncontrasted CT scan upon her admission showing moderate right-sided and smaller left-sided pleural effusions. There is abdominal wall edema in the lower abdomen. Free fluid in the pelvis. There is significant vascular calcifications extensively noted. Past Medical History Past Medical History (Chronic Problems): Chronic Problems Pacemaker (Chronic) History of renal stent (Chronic) 2008, right SSS (sick sinus syndrome) (Chronic) s/p pacer 2013 Anxiety (Chronic) Hypertension (Chronic) GERD (gastroesophageal reflux disease) (Chronic) Diabetes mellitus, type 2 (Chronic) History of hypothyroidism (Chronic) Benign hypertension (Chronic) History of coronary artery disease (Chronic) Edema extremities (Chronic) Status post total hip replacement, right (Chronic) Obesity (BMI 30.0-34.9) (Chronic) Anemia (Chronic) Chronic obstructive pulmonary disease (COPD) (Chronic) Allergies felodipine Allergy (Severe, Verified 11/01/17 10:02) Shortness of breath pentazocine lactate [From Talwin] Allergy (Unknown, Verified 11/01/17 10:02) Unknown Patient does not know what happened when taking pentazocine, was told do not take it in the past promethazine Allergy (Unknown, Verified 11/01/17 10:02) Unknown Patient is unsure of allergy or reaction, was told do not take it in the past Sulfa (Sulfonamide Antibiotics) Allergy (Unknown, Verified 11/01/17 10:02) Unknown Patient does not know what the reaction/allergy is. Was told not to take it after surgery in the past amlodipine Allergy (Verified 11/01/17 10:02) Unknown Heparin Analogues Allergy (Verified 11/01/17 10:02) Unknown meloxicam [From Mobic] Allergy (Verified 11/01/17 10:02) Other oxycodone terephthalate [From Percodan] Allergy (Verified 11/01/17 10:02) Unknown Penicillins Allergy (Verified 11/01/17 10:02) Hives Iodinated Contrast- Oral and IV Dye [Iodinated Contrast Media - IV Dye] Adverse Reaction (Severe, Verified 11/01/17 10:02) Other Convulsions NSAIDS (Non-Steroidal Anti-Inflamma Adverse Reaction (Intermediate, Verified 11/01/17 10:02) Other Elevated liver enzymes oxycodone HCl [From Percodan] Adverse Reaction (Intermediate, Verified 11/01/17 10:02) Other Elevated liver enzymes ciprofloxacin [From Cipro] Adverse Reaction (Mild, Verified 11/01/17 10:02) Nausea/Vom/Diarrhea codeine Adverse Reaction (Mild, Verified 11/01/17 10:02) Nausea makes me sick HEPARIN Allergy (Unknown, Uncoded 11/01/17 10:02) Unknown WAS TOLD NOT TO TAKE AFTER HEART SURG D/T RXN Home Medications: Ambulatory Orders Medication Instructions Recorded Folic Acid 400 mcg PO DAILY@0800 06/18/13 Hydroxychloroquine [Plaquenil] 200 mg PO BIDCM 06/18/13 Levothyroxine [Synthroid] 125 mcg PO DAILY 06/18/13 Nitroglycerin [Nitrostat] 0.4 mg SUBLINGUAL Q5M PRN 06/18/13 Simvastatin [Zocor] 20 mg PO QHS 06/18/13 Pantoprazole Sodium [Protonix] 40 mg PO BID 06/20/13 Clonazepam [Klonopin] 0.5 mg PO DAILY PRN PRN 06/19/14 Gabapentin [Neurontin] 300 mg PO TID PRN 01/10/16 Aspirin E.C. [Ecotrin] 81 mg PO DAILY@0800 10/09/17 Valacyclovir HCl [Valtrex] 500 mg PO BID PRN 10/09/17 Polyethylene Glycol 3350 [Miralax] 17 gm PO DAILY PRN PRN #0 10/14/17 Carvedilol [Coreg (Beta Ramírez)] 12.5 mg PO BID 11/01/17 Clopidogrel Bisulfate [Plavix] 75 mg PO DAILY 11/01/17 Furosemide [Lasix] 40 mg PO BID@1000,1800 11/01/17 HydrALAZINE [Apresoline] 25 mg PO BID 11/01/17 Insulin NPH Human Isophane See Protocol SQ TIDCM 11/01/17 [Humulin N Kwikpen] Surgical History: angioplasty - cardiac stent, JACQUES w/ BSO, pa, appendectomy, cataract, cholecystectomy, coronary bypass surgery, pacemaker implantation, total hip arthroplasty - rt, - - Rt CEA, Rt renal artery stent 2012, JACQUES/BSO Smoking Status: Former smoker - *Family History Maternal History Items: Dementia - age 90, Hypertension Paternal History Items: Heart Disease - age 80, Hypertension, Stroke Sibling History Items: Hypertension, Stroke Review of Systems Constitutional: Denies: Anorexia HEENT: Reports: Difficulty Hearing Cardiovascular: Denies: Chest Pain Respiratory: Denies: Cough Gastrointestinal: Denies: Abdominal Pain Genitourinary: Denies: Dysuria - Physical Exam General: Alert Neck: Supple Lungs: Clear to auscultation, - - Diminished in bases Cardiovascular: Regular rate Abdomen: Soft, Non Tender Extremities: - - Bilateral lower extremity edema noted Neurological: Cranial nerves II-XII grossly intact Vital Signs Temp Pulse Resp BP Pulse Ox 98.2 F 68 16 124/50 H 97 11/06/17 14:30 11/06/17 15:18 11/06/17 14:30 11/06/17 14:30 11/06/17 14:30 Oxygen Delivery Method Room Air Weight: 144 lb 6.444 oz Body Mass Index (BMI) 29.4 Intake and Output for Last 24 Hours 11/04/17 11/05/17 11/06/17 23:59 23:59 23:59 Intake Total 1090 / 1090 410 / 410 660 / 660 Output Total 1100 / 1100 600 / 600 925 / 925 Balance -10 / -10 -190 / -190 -265 / -265 Laboratory Tests Past 24 Hrs 11/06/17 06:05 Sodium 138 Potassium 4.1 Chloride 103 Carbon Dioxide 24.0 BUN 96 H Creatinine 1.92 H Estim Creat Clear Calc 24.57 Est GFR (MDRD) Af Amer 32 L Est GFR (MDRD) Non-Af 27 L BUN/Creatinine Ratio 50.0 H Glucose 182 H Calcium 8.8 Phosphorus 3.8 Albumin 3.0 L POC Glucose 11/06/17 11/06/17 11/05/17 11:28 06:46 21:29 POC Glucose 338 H 191 H 129 H Assessment/Plan Reviewing the patient's duplex imaging she likely has recurrent in-stent stenosis at least of the right renal artery possibly on the left though the absolute velocity on the left may be altered simply by the presence of the stent. It is of note however that she has maintained renal length bilaterally. She has abnormal renal resistivity indices bilaterally consistent with intrinsic parenchymal disease. I do not believe that her renal insufficiency will be salvaged or benefited the attempt at endovascular treatment of her renal arteries. Although some of the procedure might be able to be accomplished utilizing carbon dioxide there would be a significantly likelihood that contrast material would be required for the fine detail imaging that is necessary for renal artery treatment. As noted on the CT her vasculature is densely calcified increasing interventional risk. At this time I am not in favor of an attempt at carbon dioxide aortogram or renal artery treatment as I do not believe it will alter the course of her renal insufficiency. I very much appreciate the kind opportunity of assisting with her surgical care Brando Jesus M.D., F.A.C.S.
--- NOTE | 2017-11-06 16:52 | PCM.DC ---
You will use the following diet at home:: Renal (restricted protein/sodium) Discharge Activity: Return to Normal Activity Allergies/Adverse Reactions: Allergies felodipine Allergy (Severe, Verified 11/01/17 10:02) Shortness of breath pentazocine lactate [From Talwin] Allergy (Unknown, Verified 11/01/17 10:02) Unknown Patient does not know what happened when taking pentazocine, was told do not take it in the past promethazine Allergy (Unknown, Verified 11/01/17 10:02) Unknown Patient is unsure of allergy or reaction, was told do not take it in the past Sulfa (Sulfonamide Antibiotics) Allergy (Unknown, Verified 11/01/17 10:02) Unknown Patient does not know what the reaction/allergy is. Was told not to take it after surgery in the past amlodipine Allergy (Verified 11/01/17 10:02) Unknown Heparin Analogues Allergy (Verified 11/01/17 10:02) Unknown meloxicam [From Mobic] Allergy (Verified 11/01/17 10:02) Other oxycodone terephthalate [From Percodan] Allergy (Verified 11/01/17 10:02) Unknown Penicillins Allergy (Verified 11/01/17 10:02) Hives Iodinated Contrast- Oral and IV Dye [Iodinated Contrast Media - IV Dye] Adverse Reaction (Severe, Verified 11/01/17 10:02) Other Convulsions NSAIDS (Non-Steroidal Anti-Inflamma Adverse Reaction (Intermediate, Verified 11/01/17 10:02) Other Elevated liver enzymes oxycodone HCl [From Percodan] Adverse Reaction (Intermediate, Verified 11/01/17 10:02) Other Elevated liver enzymes ciprofloxacin [From Cipro] Adverse Reaction (Mild, Verified 11/01/17 10:02) Nausea/Vom/Diarrhea codeine Adverse Reaction (Mild, Verified 11/01/17 10:02) Nausea makes me sick HEPARIN Allergy (Unknown, Uncoded 11/01/17 10:02) Unknown WAS TOLD NOT TO TAKE AFTER HEART SURG D/T RXN Medications to take at Discharge Folic Acid 400 mcg PO DAILY@0800 06/18/13 Hydroxychloroquine [Plaquenil] 200 mg PO BIDCM 06/18/13 Levothyroxine [Synthroid] 125 mcg PO DAILY 06/18/13 Nitroglycerin [Nitrostat] 0.4 mg SUBLINGUAL Q5M PRN 06/18/13 Simvastatin [Zocor] 20 mg PO QHS 06/18/13 Pantoprazole Sodium [Protonix] 40 mg PO BID 06/20/13 Clonazepam [Klonopin] 0.5 mg PO DAILY PRN PRN 06/19/14 Gabapentin [Neurontin] 300 mg PO TID PRN 01/10/16 Aspirin E.C. [Ecotrin] 81 mg PO DAILY@0800 10/09/17 Valacyclovir HCl [Valtrex] 500 mg PO BID PRN 10/09/17 Polyethylene Glycol 3350 [Miralax] 17 gm PO DAILY PRN PRN #0 10/14/17 Carvedilol [Coreg (Beta Ramírez)] 12.5 mg PO BID 11/01/17 Clopidogrel Bisulfate [Plavix] 75 mg PO DAILY 11/01/17 Furosemide [Lasix] 40 mg PO BID@1000,1800 11/01/17 HydrALAZINE [Apresoline] 25 mg PO BID 11/01/17 Insulin NPH Human Isophane [Humulin N Kwikpen] See Protocol SQ TIDCM 11/01/17 Primary Care Physician: Pita Conde MD [Primary Care Provider] - Within 2 Weeks Please Follow Up With: Meredith Hernandez DO - 1 - 2 weeks Proposed Discharge Date: 11/06/17
[2017-11-06 16:55] LABS: Bedside Glucose 353 mg/dL (70-110)
--- NOTE | 2017-11-06 17:00 | PCM.DC.SUM ---
Discharge Date and Diagnosis Date of Admission: 11/01/17 Date of Discharge: 11/06/17 - Secondary Discharge Diagnosis Chronic Problems Pacemaker (Chronic) History of renal stent (Chronic) 2008, right SSS (sick sinus syndrome) (Chronic) s/p pacer 2013 Anxiety (Chronic) Hypertension (Chronic) GERD (gastroesophageal reflux disease) (Chronic) Diabetes mellitus, type 2 (Chronic) History of hypothyroidism (Chronic) Benign hypertension (Chronic) History of coronary artery disease (Chronic) Edema extremities (Chronic) Status post total hip replacement, right (Chronic) Obesity (BMI 30.0-34.9) (Chronic) Anemia (Chronic) Chronic obstructive pulmonary disease (COPD) (Chronic) Hospital Course and Treatment Operations: None Summary of Care Provided: She is a 81 year old F [who was admitted to the [facility] on November 01, 2017. She presented with progressive dyspnea and was diagnosed with acute congestive heart failure and fluid overload. She was placed on IV Lasix he had good diuresis. She was noted to have progressive ATI on chronic kidney disease Dr. Hernandez of nephrology was consulted. She ordered renal artery duplex ultrasound lateral renal artery stenosis rule, Dr Jesus was consulted for possible aortogram with renal artery angioplasty or stenting. Dr. Jesus did not feel this procedure would benefit this patient at this time. History improved clinically she was discharged home in a stable condition and recommended to repeat renal parameters in 1 week and then follow with Dr. Hernandez as an outpatient. 1. Acute CHF exacerbation ; she has improved, she is now on p.o. Lasix. 2. Elevated troponin consistent with type II NSTEMI, recent cardiac cath in September 2017, cardiac cath showed patent grafts. 3. Acute on chronic kidney disease stage III ; stable renal parameters, she is to avoid potentially nephrotoxic medications, she will repeat renal parameters in 1 week.. 4. Hypertension, controlled, continue on carvedilol, hydralazine. 5. Type II DM hyperglycemia; increased her NPH to 25 units subcu twice daily 6. Pulmonary hypertension; on Lasix. 7. Sick sinus syndrome status post pacemaker 8. Ascites; will obtain abdominal ultrasound. Medium bile fluid that did not require paracentesis. Clinical exam at the time of discharge; vital signs were stable. she was alert and oriented to time place and person. she did not appear to be any form of distress. S1 and S2 heard no murmur or gallop Lung exam was clear to auscultation with no adventitious sounds. Abdomen was soft nontender with normal bowel sounds. extremity exam did not reveal any edema, palpable pulses bilaterally. Neurologic exam was grossly intact. Discharge Diet: No Restrictions Discharge Activity: Return to Normal Activity Home Medications: Medications to take at Discharge Folic Acid 400 mcg PO DAILY@0800 06/18/13 Hydroxychloroquine [Plaquenil] 200 mg PO BIDCM 06/18/13 Levothyroxine [Synthroid] 125 mcg PO DAILY 06/18/13 Nitroglycerin [Nitrostat] 0.4 mg SUBLINGUAL Q5M PRN 06/18/13 Simvastatin [Zocor] 20 mg PO QHS 06/18/13 Pantoprazole Sodium [Protonix] 40 mg PO BID 06/20/13 Clonazepam [Klonopin] 0.5 mg PO DAILY PRN PRN 06/19/14 Gabapentin [Neurontin] 300 mg PO TID PRN 01/10/16 Aspirin E.C. [Ecotrin] 81 mg PO DAILY@0800 10/09/17 Valacyclovir HCl [Valtrex] 500 mg PO BID PRN 10/09/17 Polyethylene Glycol 3350 [Miralax] 17 gm PO DAILY PRN PRN #0 10/14/17 Carvedilol [Coreg (Beta Ramírez)] 12.5 mg PO BID 11/01/17 Clopidogrel Bisulfate [Plavix] 75 mg PO DAILY 11/01/17 Furosemide [Lasix] 40 mg PO BID@1000,1800 11/01/17 HydrALAZINE [Apresoline] 25 mg PO BID 11/01/17 Insulin NPH Human Isophane [Humulin N Kwikpen] See Protocol SQ TIDCM 11/01/17 Insulin Human 70/30 [Novolog Mix 70-30 Flexpen Syrn] 25 units SC BIDAC flexpen 11/06/17 Primary Care Physician: Pita Conde MD [Primary Care Provider] - Within 2 Weeks Please Follow Up With: Meredith Hernandez DO - 1 - 2 weeks Disposition: Home Patient Condition:: Good Meaningful Use Info Meaningful Use Diagnoses (Choose all that apply): None applicable Code Visit Inpatient E&M: 50454 Disch Hosp
--- NOTE | 2017-11-07 15:16 | CASEMGMT ---
STACI BRYAN spoke with patient following discharge. Patient is requesting home health care. Patient would like [facility]. STACI BRYAN called referral to Hilda with [facility], await acceptance.
--- NOTE | 2017-11-07 15:48 | CASEMGMT ---
Per Hilda, [facility] can accept. F2F faxed and order placed. Await Dr. Chaves to sign order.
== END 2017-11-06 17:52 | disposition home health service (06) | DRG 280 ==
LOC: ED 10:56 → PCU 13:58
PROVIDERS: Internal Medicine Nephrology; Admitting Provider Internal Medicine; Emergency Provider Emergency Medicine; Family Provider Internal Medicine; PCP Internal Medicine; Visit Provider Internal Medicine
DX: I13.0 Hypertensive heart and chronic kidney disease with heart failure and stage 1 through stage 4 chronic kidney disease, or unspecified chronic kidney disease (principal); I21.A1 Myocardial infarction type 2; I50.23 Acute on chronic systolic (congestive) heart failure; N17.9 Acute kidney failure, unspecified; Z95.1 Presence of aortocoronary bypass graft; I27.20 Pulmonary hypertension, unspecified; I25.5 Ischemic cardiomyopathy; D64.9 Anemia, unspecified; I25.10 Atherosclerotic heart disease of native coronary artery without angina pectoris; J44.9 Chronic obstructive pulmonary disease, unspecified; Z79.4 Long term (current) use of insulin; Z95.0 Presence of cardiac pacemaker; K21.9 Gastro-esophageal reflux disease without esophagitis; E03.9 Hypothyroidism, unspecified; E66.9 Obesity, unspecified; Z68.30 Body mass index [BMI] 30.0-30.9, adult; Z96.641 Presence of right artificial hip joint; F41.9 Anxiety disorder, unspecified; E11.22 Type 2 diabetes mellitus with diabetic chronic kidney disease; N18.3 Chronic kidney disease, stage 3 (moderate); Z87.891 Personal history of nicotine dependence
CPT/HCPCS: 36415; 71045; 71046; 74176; 76705; 80048; 80069; 81001; 82570; 82962; 83880; 84156; 84300; 84484; 85025; 85027; 93005; 93975; 97110; 97116; 97161; 97166; 97530; 97535; 99282; A4216; J1940

== ENCOUNTER → 2017-11-18 14:57 | Outpatient (CLI) | payer MEDICARE, BC, SELFPAY ==
[2017-11-18 16:43] LABS: Albumin, Serum 2.5 g/dL (3.2-5.0); BUN 74 mg/dL (7-18); BUN/Creat Ratio 52.1 RATIO (10-20); Calcium,Total 8.1 mg/dL (8.5-10.1); Chloride 111 mmol/L (98-107); Creatinine, Serum 1.42 mg/dL (0.55-1.02); EST Glomerular Filtration Rate 38 mL/min (>60); Est Glom Filt Rate - Afr Amer 46 mL/min (>60); Glucose 141 mg/dL (74-106); Phosphorus 3.4 mg/dL (2.5-4.9); Potassium 4.4 mmol/L (3.5-5.1); Sodium Level 142 mmol/L (136-145)
== END ==
PROVIDERS: Family Provider Internal Medicine; PCP Internal Medicine; Visit Provider Internal Medicine Nephrology
DX: N17.9 Acute kidney failure, unspecified (principal)
CPT/HCPCS: 36415; 80069

== ENCOUNTER 2017-11-22 22:45 | Inpatient (IN) | payer MEDICARE, BC, SELFPAY ==
[2017-11-22 22:47] VITALS: BP 104/53; PULSE 63; RESP 16; TEMP 37; O2SAT 98; BMI 33.0
--- NOTE | 2017-11-22 23:02 | EKG12_ITS ---
Test Reason : EDEMA Blood Pressure : / mmHG Vent. Rate : 062 BPM Atrial Rate : 062 BPM P-R Int : 228 ms QRS Dur : 218 ms QT Int : 558 ms P-R-T Axes : 056 -76 106 degrees QTc Int : 566 ms AV dual-paced rhythm with prolonged AV conduction Abnormal ECG Confirmed by BRIT AN, HERACLIO ([id number]), restaurant expeditor JÚNIOR LEWIS ([id number]) on 11/24/2017 3:17:16 PM Referred By: KELLY Confirmed By:HERACLIO PEREA MD
--- NOTE | 2017-11-22 23:02 | RAD_ITS ---
STUDY: X-RAY CHEST REASON FOR EXAM: Female, 81 years old. ABD BLOATING AND LOWER EXT EDEMA TECHNIQUE: Single AP portable view of the chest. COMPARISON: November 03, 2017 FINDINGS: Pacemaker is seen on the left side. There is partial atelectasis in the right lung base. There is moderate right pleural effusion. Normal size heart. Normal mediastinum and bib. Normal visualized pulmonary arteries. Normal visualized aortic arch and descending thoracic aorta. Normal visualized thoracic spine. Normal visualized ribs, clavicles, and shoulders. There is no demonstrated abnormality of the visualized soft tissue structures of the upper abdomen. RAD/Chest 1 View (Portable) IMPRESSION: Moderate right pleural effusion has increased in size since the previous study. Electronically Signed: Faisal Lovelace MD at 23:51 EST Tel , Service support ,
--- NOTE | 2017-11-22 23:05 | ED.VISSUMM ---
- ER Visit Summary Date of Service: 11/22/17 Chief Complaint: Edema History of Present Illness: The patient is a 81 F CHF. 10 years ago had a quadruple bypass. She has a history of renal insufficiency, insulin-dependent diabetes and hypertension. She was admitted and discharged from [facility] approximately within the last 1-2 weeks. She was admitted at that time for CHF. She denies any fever. She states she short of breath however pulse ox is in the high 90s. Physical Examination: Vital signs are stable afebrile. Pulse ox 90% on room air no signs of hypoxia. HEENT exam is unremarkable. Neck is nontender no lymphadenopathy. No JVD. Lungs clear to auscultation bilaterally. Heart regular rhythm no murmur. Abdomen is soft non-tender without peritoneal signs. She has positive bowel sounds. Her abdominal wall is edematous she is basically edematous from her upper abdominal wall the way down to both toes bilaterally. She is pitting edema both lower extremities. 2+. Both upper and lower extremities are neurovascularly intact. Neurologically she is awake alert without focal motor deficits. Test Results: Chest x-ray shows slightly increased right pleural effusion. Left-sided pacemaker. Chronic changes. Read both by myself the radiologist. EKG is a paced rhythm at 62 with intraventricular conduction delay. White count of 10. H&H 11.6 and 36. BMP shows a BUN of 86 and creatinine of 2.07. PT/INR unremarkable. Her troponins elevated 0.32 they are often chronically elevated in this patient. Emergency Department Course and Treatment: Patient with acute on chronic exacerbation of CHF with bilateral lower extremity abdominal wall edema. Treatment Plan: Patient will be admitted for diuresis. I have the hospitalist on page. Disposition: Admission Impression: Exacerbation of CHF with anasarca History of renal insufficiency History of prior quadruple bypass and insulin-dependent diabetes This note was generated with ActiveReplay dictation software. It may contain incorrect words, spelling, and punctuation that were not noted in review of the chart prior to signing ED Disposition - Plan for ED Patient: Chief Complaint: Edema Referrals: Pita Conde MD [Primary Care Provider] -
--- NOTE | 2017-11-22 23:08 | ED.DCSUM_ITS ---
- ER Visit Summary Date of Service: 11/22/17 Chief Complaint: Edema History of Present Illness: The patient is a 81 F CHF. 10 years ago had a quadruple bypass. She has a history of renal insufficiency, insulin-dependent diabetes and hypertension. She was admitted and discharged from [facility] approximately within the last 1-2 weeks. She was admitted at that time for CHF. She denies any fever. She states she short of breath however pulse ox is in the high 90s. Physical Examination: Vital signs are stable afebrile. Pulse ox 90% on room air no signs of hypoxia. HEENT exam is unremarkable. Neck is nontender no lymphadenopathy. No JVD. Lungs clear to auscultation bilaterally. Heart regular rhythm no murmur. Abdomen is soft non-tender without peritoneal signs. She has positive bowel sounds. Her abdominal wall is edematous she is basically edematous from her upper abdominal wall the way down to both toes bilaterally. She is pitting edema both lower extremities. 2+. Both upper and lower extremities are neurovascularly intact. Neurologically she is awake alert without focal motor deficits. Test Results: Chest x-ray shows slightly increased right pleural effusion. Left -sided pacemaker. Chronic changes. Read both by myself the radiologist. EKG is a paced rhythm at 62 with intraventricular conduction delay. White count of 10. H&H 11.6 and 36. BMP shows a BUN of 86 and creatinine of 2.07. PT/INR unremarkable. Her troponins elevated 0.32 they are often chronically elevated in this patient. Emergency Department Course and Treatment: Patient with acute on chronic exacerbation of CHF with bilateral lower extremity abdominal wall edema. Treatment Plan: Patient will be admitted for diuresis. I have the hospitalist on page. Disposition: Admission Impression: Exacerbation of CHF with anasarca History of renal insufficiency History of prior quadruple bypass and insulin-dependent diabetes This note was generated with [employer] dictation software. It may contain incorrect words, spelling, and punctuation that were not noted in review of the chart prior to signing ED Disposition - Plan for ED Patient: Chief Complaint: Edema Referrals: Piat Conde MD [Primary Care Provider] -
[2017-11-22 23:17] VITALS: BP 109/92; PULSE 64; RESP 16; O2SAT 97
[2017-11-22 23:35] LABS: Absolute Lymphocyte Count 1.31 X10^3/ul (0.83-4.51); Absolute Neutrophil Count 7.7 X10^3/uL (2.0-7.7); Basophil# 0.03 X10^3/uL; Basophil% 0.3 % (0-1); Eosinophil# 0.12 X10^3/uL; Eosinophils% 1.2 % (0-5); Hematocrit 36.8 % (37-47); Hemoglobin 11.6 g/dl (12.0-15.0); Lymphocyte # 1.31 X10^3/ul (4.0); Lymphocyte % 12.9 % (19-41); Mean Corp Hgb Conc 31.5 g/gl (32-36); Mean Corpuscular Hgb 28.1 pg (27.0-32.0); Mean Corpuscular Volume 89.1 fL (81-99); Mean Platelet Vol. 11.1 fl (6.2-12.0); Monocyte# 0.95 X10^3/uL; Monocyte% 9.4 % (0-10); Neutrophil # 7.68 X10^3/uL (2.7-7.7); Neutrophil % 75.7 % (47-70); Platelet Count 175 K/mm3 (150-450); RBC Distribution Width CV 16.1 % (11.6-14.6); RBC Distribution Width SD 51.8 fl (35.1-43.9); Red Blood Count 4.13 M/mm3 (4.2-5.4); White Blood Count 10.1 K/mm3 (4.4-11.0)
[2017-11-22 23:40] LABS: POSITIVE COUNT NO; POSITIVE DIFFERENTIAL NO; POSITIVE MORPHOLOGY NO
[2017-11-22 23:47] LABS: International Normalized Ratio 1.3; Prothrombin Time (Protime)PT. 16.5 SECONDS (11.7-14.9)
[2017-11-22 23:51] LABS: Anion Gap 8 (5-15); BUN 86 mg/dL (7-18); BUN/Creat Ratio 41.5 RATIO (10-20); Calcium,Total 8.3 mg/dL (8.5-10.1); Chloride 106 mmol/L (98-107); Creatinine, Serum 2.07 mg/dL (0.55-1.02); EST Glomerular Filtration Rate 25 mL/min (>60); Est Glom Filt Rate - Afr Amer 30 mL/min (>60); Estimated Creatinine Clearance 24.14 ml/min; Glucose 58 mg/dL (74-106); Potassium 4.4 mmol/L (3.5-5.1); Sodium Level 140 mmol/L (136-145)
[2017-11-22 23:57] VITALS: BP 83/60; PULSE 60; RESP 17; O2SAT 98
[2017-11-23] VITALS (16 sets, daily range): BP systolic 103–114; BP diastolic 40–59; PULSE 60–65; RESP 14–20; TEMP 36.3–36.8; O2SAT 93–98; BMI 34.6
[2017-11-23 00:11] LABS: BNP,B-Type NATRIURETIC PEPTIDE 1269.8 pg/mL (0-100)
--- NOTE | 2017-11-23 03:13 | PCM.HP.STD ---
Problem List (1) Acute exacerbation of CHF (congestive heart failure) Status: Acute Qualifiers: (2) Acute kidney injury Status: Acute (3) Benign hypertension Status: Chronic (4) Chronic obstructive pulmonary disease (COPD) Status: Chronic Qualifiers: (5) Diabetes mellitus, type 2 Status: Chronic (6) History of coronary artery disease Status: Chronic (7) History of hypothyroidism Status: Chronic (8) History of renal stent Status: Chronic Comment: 2009, right (9) Hypertension Status: Chronic Qualifiers: (10) Pacemaker Status: Chronic (11) SSS (sick sinus syndrome) Status: Chronic Comment: s/p pacer 2013 History of Present Illness Date of Admission: 11/23/17 Chief Complaint: Acute on chronic systolic heart failure The patient is a 81 year old female with past medical history of CAD status post CABG, CKD stage III, sick sinus syndrome status post pacemaker, chronic systolic CHF with last EF of 40%, and multiple hospitalizations for heart failure admitted for acute on chronic systolic heart failure. She was recently hospitalized for heart failure and her weight was unchanged at discharge. She c/o increased lower extremity edema and weight gain. She also has abdominal distension. Her abdominal distension caused her dull aching constant pain. Nothing appeared to make it better or worse. Her diet has been unchanged. No recent changed in her meds. Pain is mild to moderate. No cough, No SOB. Past Medical History Past Medical History (Chronic Problems): Chronic Problems Pacemaker (Chronic) History of renal stent (Chronic) 2008, right SSS (sick sinus syndrome) (Chronic) s/p pacer 2013 Anxiety (Chronic) Hypertension (Chronic) GERD (gastroesophageal reflux disease) (Chronic) Diabetes mellitus, type 2 (Chronic) History of hypothyroidism (Chronic) Benign hypertension (Chronic) History of coronary artery disease (Chronic) Edema extremities (Chronic) Status post total hip replacement, right (Chronic) Obesity (BMI 30.0-34.9) (Chronic) Anemia (Chronic) Chronic obstructive pulmonary disease (COPD) (Chronic) Allergies felodipine Allergy (Severe, Verified 11/22/17 22:50) Shortness of breath pentazocine lactate [From Talwin] Allergy (Unknown, Verified 11/22/17 22:50) Unknown Patient does not know what happened when taking pentazocine, was told do not take it in the past promethazine Allergy (Unknown, Verified 11/22/17 22:50) Unknown Patient is unsure of allergy or reaction, was told do not take it in the past Sulfa (Sulfonamide Antibiotics) Allergy (Unknown, Verified 11/22/17 22:50) Unknown Patient does not know what the reaction/allergy is. Was told not to take it after surgery in the past amlodipine Allergy (Verified 11/22/17 22:50) Unknown Heparin Analogues Allergy (Verified 11/22/17 22:50) Unknown meloxicam [From Mobic] Allergy (Verified 11/22/17 22:50) Other oxycodone terephthalate [From Percodan] Allergy (Verified 11/22/17 22:50) Unknown Penicillins Allergy (Verified 11/22/17 22:50) Hives Iodinated Contrast- Oral and IV Dye [Iodinated Contrast Media - IV Dye] Adverse Reaction (Severe, Verified 11/22/17 22:50) Other Convulsions NSAIDS (Non-Steroidal Anti-Inflamma Adverse Reaction (Intermediate, Verified 11/22/17 22:50) Other Elevated liver enzymes oxycodone HCl [From Percodan] Adverse Reaction (Intermediate, Verified 11/22/17 22:50) Other Elevated liver enzymes ciprofloxacin [From Cipro] Adverse Reaction (Mild, Verified 11/22/17 22:50) Nausea/Vom/Diarrhea codeine Adverse Reaction (Mild, Verified 11/22/17 22:50) Nausea makes me sick HEPARIN Allergy (Unknown, Uncoded 11/22/17 22:50) Unknown WAS TOLD NOT TO TAKE AFTER HEART SURG D/T RXN Home Medications: Ambulatory Orders Medication Instructions Recorded Folic Acid 400 mcg PO DAILY@0800 06/18/13 Hydroxychloroquine [Plaquenil] 200 mg PO BIDCM 06/18/13 Levothyroxine [Synthroid] 125 mcg PO DAILY 06/18/13 Nitroglycerin [Nitrostat] 0.4 mg SUBLINGUAL Q5M PRN 06/18/13 Simvastatin [Zocor] 20 mg PO QHS 06/18/13 Pantoprazole Sodium [Protonix] 40 mg PO BID 06/20/13 Clonazepam [Klonopin] 0.5 mg PO DAILY PRN PRN 06/19/14 Gabapentin [Neurontin] 300 mg PO TID PRN 01/10/16 Aspirin E.C. [Ecotrin] 81 mg PO DAILY@0800 10/09/17 Valacyclovir HCl [Valtrex] 500 mg PO BID PRN 10/09/17 Polyethylene Glycol 3350 [Miralax] 17 gm PO DAILY PRN PRN #0 10/14/17 Carvedilol [Coreg (Beta Ramírez)] 12.5 mg PO BID 11/01/17 Clopidogrel Bisulfate [Plavix] 75 mg PO DAILY 11/01/17 Furosemide [Lasix] 80 mg PO BID 11/01/17 HydrALAZINE [Apresoline] 25 mg PO BID 11/01/17 Insulin NPH Human Isophane See Protocol SQ TIDCM 11/01/17 [Humulin N Kwikpen] Spironolactone [Aldactone] 25 mg PO BID 11/22/17 Surgical History: angioplasty - cardiac stent, JACQUES w/ BSO, pa, appendectomy, cataract, cholecystectomy, coronary bypass surgery, pacemaker implantation, total hip arthroplasty - rt, - - Rt CEA, Rt renal artery stent 2012, JACQUES/BSO Smoking Status: Former smoker - *Family History Maternal History Items: Dementia - age 90, Hypertension Paternal History Items: Heart Disease - age 80, Hypertension, Stroke Sibling History Items: Hypertension, Stroke Review of Systems Constitutional: Denies: Chills, Fever, Weight Change HEENT: Denies: Head Aches, Sinus Congestion, Sinus Drainage Cardiovascular: Denies: Chest Pain, Palpitations Respiratory: Reports: Cough. Denies: Shortness of breath at rest, Sputum production Gastrointestinal: Denies: Abdominal Pain, Nausea, Vomiting Genitourinary: Denies: Dysuria Musculoskeletal: Denies: Joint Pain, Joint Tenderness Skin: Denies: Rash, Wounds Neurological: Denies: Numbness, Tingling, Focal weakness Psychiatric: Denies: Anxiety, Depression, Homicidal Ideations, Suicidal Ideations Hematologic/ Lymphatic: Denies: Easy Bruising, Easy Bleeding VTE Information - Inpt Only VTE Present on Admission: No VTE Mechan Device Prophylaxis: SCD's VTE Pharm Prophylaxis ordered?: Yes - Physical Exam General: Alert, Oriented x3, Cooperative HEENT: Atraumatic, PERRLA, EOMI, Normocephalic Neck: Supple, No JVD, Negative Carotid Bruits Lungs: Clear to auscultation, Normal air movement Cardiovascular: Regular rate, No murmurs Abdomen: Bowel Sounds Present, Soft, Non Tender Extremities: Capillary Refill Less than 3 Seconds, Edema Skin: No rashes, No breakdown Musculoskeletal: No Tenderness to Palpation of Joints or Extremities Neurological: Cranial nerves II-XII grossly intact Psych/Mental Status: Normal Affect, Appropriate Vital Signs Temp Pulse Resp BP Pulse Ox 98.6 F 61 18 113/51 L 98 11/22/17 22:47 11/23/17 01:43 11/23/17 01:43 11/23/17 01:43 11/23/17 01:43 Assessment/Plan 81 year old female with past medical history of CAD status post CABG, CKD stage III, sick sinus syndrome status post pacemaker, chronic systolic CHF with last EF of 40%, and multiple hospitalizations for heart failure admitted for acute on chronic systolic heart failure. 1) Acute on chronic systolic heart failure: Multiple admissions noted. Worsening edema and weight. Will start bumex gtt. Adjust according to UOP. Will also start metolazone. 2) HTN: Will hold meds given concern for hypotension. Will c/w diuretics. Monitor. 3) BRISEIDA: Probably secondary to cardio-renal. Will avoid hypotension, nephrotoxic drugs. Renal dose meds. Monitor. 4) Chronic issues: CAD, CABG, SSS s/p pacemaker: C/w current meds. 5) Prophylaxis: SCD
[2017-11-23] MEDS: Bumetanide 12.5 MG in CONTAINER,EMPTY 1 BAG 2 MG CONT INF (04:21)
[2017-11-23] MEDS: Levothyroxine 125 MCG Tablet PO (05:07)
--- NOTE | 2017-11-23 05:55 | RAD_ITS ---
STUDY: X-RAY CHEST REASON FOR EXAM: Female, 81 years old. Congestive heart failure TECHNIQUE: Frontal and lateral views of the chest. COMPARISON: Nov 22 2017 11:18pm FINDINGS: Pacemaker is seen on the left side. There is partial atelectasis in the right lung base. There is moderate right pleural effusion. There is a small left pleural effusion Normal size heart. Normal mediastinum and bib. Normal visualized pulmonary arteries. Normal visualized aortic arch and descending thoracic aorta. Normal visualized thoracic spine. Normal visualized ribs, clavicles, and shoulders. There is no demonstrated abnormality of the visualized soft tissue structures of the upper abdomen. RAD/Chest PA and Lateral IMPRESSION: Congestive heart failure and has not significantly changed since the previous study. Electronically Signed: Faisal Lovelace MD at 6:07 EDT Tel , Service support ,
[2017-11-23 06:17] LABS: Cholesterol 79 mg/dL (200); High Density Lipoprotein 44 mg/dL; Triglycerides 44 mg/dL; Very Low Density Lipoprotein 9 mg/dL (5-40)
[2017-11-23 07:05] LABS: Bedside Glucose 93 mg/dL (70-110)
--- NOTE | 2017-11-23 08:16 | NURSING ---
IV Bumex drip discontinued at this time, per physicians order.
[2017-11-23] MEDS: Clopidogrel Bisulfate 75 MG Tablet PO (09:52)
[2017-11-23] MEDS: Folic Acid 1 MG Tablet 0.5 MG PO (09:52)
[2017-11-23] MEDS: Hydroxychloroquine 200 MG Tablet PO ×2 (09:52→16:47)
[2017-11-23] MEDS: Pantoprazole Sodium 40 MG Tablet PO ×2 (09:52→21:36)
[2017-11-23] MEDS: Aspirin E.C. 81 MG Tablet PO (09:52)
[2017-11-23] MEDS: Glucerna Shake 120 ML LIQUID PO (09:53)
[2017-11-23 11:31] LABS: Bedside Glucose 148 mg/dL (70-110)
[2017-11-23] MEDS: Furosemide 40 MG/4 ML Vial IV ×2 (13:15→21:36)
[2017-11-23] MEDS: 0.9% NaCl Peripheral Flush Adult/Peds IV ×2 (13:17→20:31)
--- NOTE | 2017-11-23 14:43 | CON.PCM_ITS ---
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 She was recently hospitalized for heart failure in September and October. She complained of increased lower extremity edema, abdominal distension, and weight gain. Legs were rubbing together. She did not respond to increased lasix dose at 80mg twice a day along with aldactone twice a day. Creatinine was 1.9 with baseline 1.4 last hospitalization in October. Creatinine 2.0 on admit. Denied CP, cough, SOB, Nausea, vomiting. She is feeling better today after better diuresis with bumex drip last night switched to iv lasix bolus today. She had a renal duplex scan last hospitalization that showed elevated velocities bilaterally and was scheduled to f/u with Dr. Escamilla in [place] this FridayNovember 28. - Allergies Allergies: Allergies felodipine Allergy (Severe, Verified 11/22/17 22:50) Shortness of breath pentazocine lactate [From Talwin] Allergy (Unknown, Verified 11/22/17 22:50) Unknown Patient does not know what happened when taking pentazocine, was told do not take it in the past promethazine Allergy (Unknown, Verified 11/22/17 22:50) Unknown Patient is unsure of allergy or reaction, was told do not take it in the past Sulfa (Sulfonamide Antibiotics) Allergy (Unknown, Verified 11/22/17 22:50) Unknown Patient does not know what the reaction/allergy is. Was told not to take it after surgery in the past amlodipine Allergy (Verified 11/22/17 22:50) Unknown Heparin Analogues Allergy (Verified 11/22/17 22:50) Unknown meloxicam [From Mobic] Allergy (Verified 11/22/17 22:50) Other oxycodone terephthalate [From Percodan] Allergy (Verified 11/22/17 22:50) Unknown Penicillins Allergy (Verified 11/22/17 22:50) Hives Iodinated Contrast- Oral and IV Dye [Iodinated Contrast Media - IV Dye] Adverse Reaction (Severe, Verified 11/22/17 22:50) Other Convulsions NSAIDS (Non-Steroidal Anti-Inflamma Adverse Reaction (Intermediate, Verified 07/02 22:50) Other Elevated liver enzymes oxycodone HCl [From Percodan] Adverse Reaction (Intermediate, Verified 11/22/17 22:50) Other Elevated liver enzymes ciprofloxacin [From Cipro] Adverse Reaction (Mild, Verified 11/22/17 22:50) Nausea/Vom/Diarrhea codeine Adverse Reaction (Mild, Verified 11/22/17 22:50) Nausea makes me sick HEPARIN Allergy (Unknown, Uncoded 11/22/17 22:50) Unknown WAS TOLD NOT TO TAKE AFTER HEART SURG D/T RXN - Current Medications Current Medications: Current Medications Acyclovir (Zovirax) 400 mg PO Q8H PRN PRN PRN Reason: antiviral Aspirin (Ecotrin) 81 mg PO DAILY@0800 [facility] Last Admin: 11/23/17 09:52 Dose: 81 mg Atorvastatin Calcium (Lipitor) 10 mg PO QHS [facility] Clopidogrel Bisulfate (Plavix) 75 mg PO DAILY [facility] Last Admin: 11/23/17 09:52 Dose: 75 mg Folic Acid (Folic Acid) 0.5 mg PO DAILY@0800 [facility] Last Admin: 11/23/17 09:52 Dose: 0.5 mg Furosemide (Lasix) 40 mg IV Q8 [facility] Last Admin: 11/23/17 13:15 Dose: 40 mg Hydroxychloroquine [facility]) [facility] Last Admin: 11/23/17 09:52 Dose: 200 mg Levothyroxine Sodium (Synthroid) 125 mcg PO DAILY@0600 [facility] Last Admin: 11/23/17 05:07 Dose: 125 mcg Nutritional Formula (Lactose Free) (Glucerna Shake) 120 ml PO TIDCM [facility] Last Admin: 11/23/17 11:25 Dose: Not Given Pantoprazole Sodium (Protonix) 40 mg PO BID [facility] Last Admin: 11/23/17 09:52 Dose: 40 mg Polyethylene Glycol (Miralax) 17 gm PO DAILY PRN PRN PRN Reason: Constipation Sodium Chloride () 5 - 30 ml IV UD PRN PRN Reason: SALINE FLUSH Last Admin: 11/23/17 13:17 Dose: 10 ml - Past Medical History Past Medical History (Chronic Problems): Chronic Problems Pacemaker (Chronic) History of renal stent (Chronic) 2008, right SSS (sick sinus syndrome) (Chronic) s/p pacer 2013 Anxiety (Chronic) Hypertension (Chronic) GERD (gastroesophageal reflux disease) (Chronic) Diabetes mellitus, type 2 (Chronic) History of hypothyroidism (Chronic) Benign hypertension (Chronic) History of coronary artery disease (Chronic) Edema extremities (Chronic) Status post total hip replacement, right (Chronic) Obesity (BMI 30.0-34.9) (Chronic) Anemia (Chronic) Chronic obstructive pulmonary disease (COPD) (Chronic) - Past Surgical History Surgical History: angioplasty - cardiac stent, JACQUES w/ BSO, pa, appendectomy, cataract, cholecystectomy, coronary bypass surgery, pacemaker implantation, total hip arthroplasty - rt, - - Rt CEA, Rt renal artery stent 2012, JACQUES/BSO - Social History Smoking Status: Former smoker - Family History Maternal History Items: Dementia - age 90, Hypertension Paternal History Items: Heart Disease - age 80, Hypertension, Stroke Sibling History Items: Hypertension, Stroke Review of Systems Constitutional: Reports: Weakness. Denies: Anorexia, Chills, Fever Cardiovascular: Reports: Edema. Denies: Chest Pain Respiratory: Denies: Cough, Shortness of Breath Gastrointestinal: Reports: - - increased abdominal distension, tightness. Denies: Abdominal Pain, Nausea, Vomiting - Physical Exam General: Alert, Oriented x3, Cooperative, No apparent distress HEENT: PERRLA, EOMI Oral: Moist Mucosa Neck: Supple, No JVD Lungs: Clear to auscultation, Diminished - bases Cardiovascular: Regular rate, Murmur Abdomen: Bowel Sounds Present, Soft, Non Tender, Distended - improved Extremities: Edema - 2+ pitting Skin: No rashes Neurological: Cranial nerves II-XII grossly intact Psych/Mental Status: Normal Affect, Appropriate, Alert and oriented to time, place, person, mood and affect Vital Signs Temp Pulse Resp BP Pulse Ox 97.9 F 65 18 106/42 L 93 11/23/17 14:26 11/23/17 14:26 11/23/17 14:26 11/23/17 14:26 11/23/17 14:26 Oxygen Delivery Method Room Air Weight: 72.6 kg Body Mass Index (BMI) 34.6 Intake and Output for Last 24 Hours 11/21/17 11/22/17 11/24/17 23:59 23:59 00:59 Intake Total 316.8 / 316.8 Output Total 1100 / 1100 Balance -783.2 / -783.2 Laboratory Tests Past 24 Hrs 11/23/17 11/23/17 11/23/17 04:35 04:35 04:35 Troponin I 0.30 H B-Natriuretic Peptide 1234.7 H Triglycerides 44 Cholesterol 79 LDL Cholesterol 26 VLDL Cholesterol 9 HDL Cholesterol 44 11/23/17 11/23/17 07:55 14:15 Troponin I 0.29 H Pending B-Natriuretic Peptide Triglycerides Cholesterol LDL Cholesterol VLDL Cholesterol HDL Cholesterol POC Glucose 11/23/17 11/23/17 11:19 06:56 POC Glucose 148 H 93 Clinical Impression(s) from Imaging Studies Chest X-Ray 11/22/17 23:02 IMPRESSION: Moderate right pleural effusion has increased in size since the previous study. Electronically Signed: Faisal Lovelace MD at 23:51 EST Tel , Service support , Chest X-Ray 11/23/17 05:55 IMPRESSION: Congestive heart failure and has not significantly changed since the previous study. Electronically Signed: Faisal Lovelace MD at 6:07 EDT Tel , Service support , Assessment/Plan 1. Acute on CKD Stage 3 likely from diuretics with cardiorenal syndrome, renovascular disease. Creatinine 2.0 from baseline 1.4. Continue to monitor while on iv lasix. 2. Anasarca, fluid overload, CHF. Continue with iv lasix 3. DM2 4. Renal artery stenosis s/p stent left artery 5. Acute on chronic CHF. continue diuretics iv 6. CAD s/p cABg, ppm.
--- NOTE | 2017-11-23 15:03 | CCHN_ITS ---
Hospitalist Note Patient seen and examined today, I talked with her and her son who was present at the time of my examination. Patient has been admitted for systolic congestive heart failure-her EF during her cardiac catheterization that was done earlier this year was 40-45%. Patient is currently on room air and does not require supplemental oxygen at rest, her creatinine has risen to 2.07, troponin is elevated in the intermediate range, I do not think this is significant, it had elevated the last two times the patient was in the hospital also. Patient has diffuse coronary disease, most of which is nonobstructive in nature, there is one lesion in the Left Main which is 80% and this was treated medically. This was detected at her last catheterization in September of this year. I will have nephrology see the patient for appropriate administration of diuretics during her hospital stay, patient does have what appears to be a significant stenosis in the right renal artery, patient is due to see a vascular surgeon concerning this for possible stent in [facility]. For now, I will continue the patient on IV Lasix, I stopped her Bumex drip this morning and also stopped her Zaroxolyn. Patient will stay off her spironolactone
[2017-11-23 17:06] LABS: Bedside Glucose 219 mg/dL (70-110)
[2017-11-23] MEDS: Atorvastatin Calcium 10 MG Tablet PO (21:36)
[2017-11-23 22:06] LABS: Bedside Glucose 283 mg/dL (70-110)
[2017-11-23] MEDS: Polyethylene Glycol 3350 17 GM PACKET PO (23:14)
[2017-11-24] VITALS (10 sets, daily range): BP systolic 103–136; BP diastolic 32–53; PULSE 60–71; RESP 16–18; TEMP 36.4–37.2; O2SAT 94–95
[2017-11-24] MEDS: 0.9% NaCl Peripheral Flush Adult/Peds IV (05:22)
[2017-11-24] MEDS: Levothyroxine 125 MCG Tablet PO (05:22)
[2017-11-24] MEDS: Furosemide 40 MG/4 ML Vial IV ×2 (05:22→18:04)
--- NOTE | 2017-11-24 05:55 | RAD_ITS ---
STUDY: X-RAY CHEST REASON FOR EXAM: Female, 81 years old. Shortness of breath. TECHNIQUE: Single AP portable view of the chest. COMPARISON: Comparison is made with prior study dated November 23, 2017. FINDINGS: EKG electrodes are seen. The previously seen right lower lobe and right middle lobe infiltrates has improved. Residual changes persist. Blunting of the right costophrenic angle. Mild increased markings at the left lung base. This is unchanged. A loop recorder is seen overlying the left lower hemithorax. Stable mild degree of vascular congestion. Sternal cerclage wires and vascular clips are present from a prior sternotomy and coronary artery bypass graft procedure (CABG). A left-sided dual-chamber pacemaker is seen. Normal mediastinum and bib. Normal visualized pulmonary arteries. There is atherosclerotic calcification of the aortic arch with tortuosity. There are diffuse degenerative changes of the visualized thoracic spine. Normal visualized ribs, clavicles, and shoulders. There is no demonstrated abnormality of the visualized soft tissue structures of the upper abdomen. RAD/Chest 1 View (Portable) IMPRESSION: Residual right lower lobe infiltrate. There has been improvement as compared to prior study. Electronically Signed: Kenroy Dooley MD at 9:00 EDT Tel [phone], Service support ,
[2017-11-24 06:09] LABS: Anion Gap 9 (5-15); BUN 85 mg/dL (7-18); BUN/Creat Ratio 39.4 RATIO (10-20); Calcium,Total 8.4 mg/dL (8.5-10.1); Chloride 100 mmol/L (98-107); Creatinine, Serum 2.16 mg/dL (0.55-1.02); EST Glomerular Filtration Rate 23 mL/min (>60); Est Glom Filt Rate - Afr Amer 28 mL/min (>60); Glucose 292 mg/dL (74-106); Potassium 4.4 mmol/L (3.5-5.1); Sodium Level 137 mmol/L (136-145)
[2017-11-24 06:56] LABS: Bedside Glucose 306 mg/dL (70-110)
[2017-11-24] MEDS: Aspirin E.C. 81 MG Tablet PO (08:25)
[2017-11-24] MEDS: Folic Acid 1 MG Tablet 0.5 MG PO (08:25)
[2017-11-24] MEDS: Glucerna Shake 120 ML LIQUID PO ×2 (08:26→11:30)
[2017-11-24] MEDS: Pantoprazole Sodium 40 MG Tablet PO ×2 (09:37→21:59)
[2017-11-24] MEDS: Hydroxychloroquine 200 MG Tablet PO ×2 (09:37→16:48)
[2017-11-24] MEDS: Clopidogrel Bisulfate 75 MG Tablet PO (09:37)
[2017-11-24 11:40] LABS: Bedside Glucose 410 mg/dL (70-110)
--- NOTE | 2017-11-24 14:31 | CASEMGMT ---
Face to Face with patient for initial transition planning/care coordination assessment. STACI BRYAN introduced self and role at [facility], pt voices understanding and consents to assessment at this time. Pt sitting up in bed in no distress at this time. Pt A/O x4 at this time and answers all questions appropriately at this time. Care providers, pharmacy, and demographics verified. See attached link. Per therapy, they are recommending that pt has HHC therapy. Pt currently has [facility] HHC for RN and SW, this RN CM added order for PT/OT at this time. Pt voices no further concerns/needs at this time. Advised pt to ask for CM if any further questions/concerns/needs arise, voices understanding. PLAN: [place]/ [place] [facility]I [facility]
[2017-11-24 16:56] LABS: Bedside Glucose 377 mg/dL (70-110)
[2017-11-24] MEDS: Polyethylene Glycol 3350 17 GM PACKET PO (18:10)
--- NOTE | 2017-11-24 18:49 | PCM.PROGNOTE ---
Subjective: Patient is a 81-year-old female with a past medical history of sick sinus syndrome (see status post pacer 2014), anxiety, hypertension, GERD, renal artery stenosis, diabetes mellitus type 2, hypothyroidism, hypertension, coronary artery disease, obesity and COPD who presented to the emergency room at [facility] on 11/23/2017 complaining of increased lower extremity edema and weight gain. She had recently been in the hospital from 11/01/2017 to 11/06/2017 treated for acute congestive heart failure. She was 98% saturated on room air in the emergency room with a respiratory rate of 16 and a blood pressure of 104/53. Creatinine was increased at 2.16. Over the past year the creatinine has ranged from 0.96-1.92 at discharge from the hospital on 11/06/2017. BNP at admission was 1270. Troponin was mildly increased at 0.32 at admission and has really not changed. Fluid balance is -2728 since admission. She was not weighed today. Creatinine today has increased to 2.16 with a BUN of 85. Blood sugars are grossly uncontrolled. Hemoglobin A1c in September 2017 was 8.3%. She had a cardiac catheterization done in September 2017 that showed global left ventricular systolic dysfunction with an EF estimated at 40-45%. There was 80% stenosis of the distal left main and mild luminal irregularities of the left anterior descending with less than 30% stenosis. The circumflex artery had less than 30% stenosis and the right coronary artery had diffuse stenosis estimated at 60%. No intervention was done and continued medical management was recommended. she has been admitted every month for the past 3 months for CHF. CXR is improving - Physical Exam General: Alert, Cooperative, No apparent distress Oral: Moist Mucosa Neck: No JVD Lungs: Clear to auscultation, Diminished Cardiovascular: Regular rate, Regular Rhythm, Normal S1, Normal S2, No rub noted, No Gallop Abdomen: Bowel Sounds Present, Soft, Non Tender, Non-Distended, Obese Extremities: No cyanosis, No Calf Tenderness, Edema Skin: No rashes, No breakdown Neurological: Cranial nerves II-XII grossly intact, Neuro grossly intact Psych/Mental Status: Normal Affect, Appropriate Vital Signs Temp Pulse Resp BP Pulse Ox 99.0 F 61 16 111/43 L 95 11/24/17 14:03 11/24/17 15:17 11/24/17 14:03 11/24/17 14:03 11/24/17 14:03 Oxygen Delivery Method Room Air Weight: 160 lb 0.889 oz Body Mass Index (BMI) 34.6 Intake and Output for Last 24 Hours 11/22/17 11/23/17 11/24/17 22:59 23:59 23:59 Intake Total 960 / 960 Output Total 1925 / 1925 Balance -965 / -965 Laboratory Tests Past 24 Hrs 11/24/17 05:20 Sodium 137 Potassium 4.4 Chloride 100 Carbon Dioxide 28.0 Anion Gap 9 BUN 85 H Creatinine 2.16 H Estim Creat Clear Calc 24.20 Est GFR (MDRD) Af Amer 28 L Est GFR (MDRD) Non-Af 23 L BUN/Creatinine Ratio 39.4 H Glucose 292 H Calcium 8.4 L POC Glucose 11/24/17 11/24/17 11/24/17 16:40 11:28 06:50 POC Glucose 377 H 410 H 306 H 11/23/17 21:33 POC Glucose 283 H Assessment/Plan Impressions 1. acute systolic CHF - EF in September 2017 was 50% with global hypokinesis of the LV. Cath in September of [address] Stokes - medical management - EF was 40 - 45% recommended and life long dual antiplatelet therapy 2. elevated troponin - not trending, possibly due to renal failure 3. acute on chronic renal failure 4. CRF stage 3 5. Renal Artery stenosis - she is S/P Left renal artery stent and has an appt with a doctor in [place] for a possible R renal stent - this was arranged by Dr. Hernandez. 6. HTN - well controlled 7. CAD with a hx of CABG 8. Pulmonary HTN - 48 PA systolic in September 9. RA - 10. DM II - uncontrolled Continue intravenous Lasix Recheck BMP in a.m. Patient has not been cooperating with physical therapy and has not ambulated. I encouraged her to get out of bed and start moving around. she was admitted to the hospital 2 weeks ago for congestive heart failure and is obviously noncompliant with diet/salt restriction. She is also noncompliant with compression stockings and elevating her legs. I suspect she will require frequent admissions for fluid overload.
[2017-11-24] MEDS: Atorvastatin Calcium 10 MG Tablet PO (21:59)
[2017-11-24 22:25] LABS: Bedside Glucose 415 mg/dL (70-110)
[2017-11-25] VITALS (11 sets, daily range): BP systolic 108–141; BP diastolic 41–51; PULSE 63–75; RESP 16–18; TEMP 36.6–37; O2SAT 93–97
[2017-11-25] MEDS: Levothyroxine 125 MCG Tablet PO (05:11)
[2017-11-25 06:51] LABS: Bedside Glucose 416 mg/dL (70-110)
[2017-11-25 07:00] LABS: Albumin, Serum 2.9 g/dL (3.2-5.0); BUN 75 mg/dL (7-18); BUN/Creat Ratio 41.2 RATIO (10-20); Calcium,Total 8.6 mg/dL (8.5-10.1); Chloride 101 mmol/L (98-107); Creatinine, Serum 1.82 mg/dL (0.55-1.02); EST Glomerular Filtration Rate 28 mL/min (>60); Est Glom Filt Rate - Afr Amer 34 mL/min (>60); Estimated Creatinine Clearance 28.73 ml/min; Glucose 403 mg/dL (74-106); Phosphorus 2.9 mg/dL (2.5-4.9); Potassium 4.1 mmol/L (3.5-5.1); Sodium Level 137 mmol/L (136-145)
[2017-11-25] MEDS: Hydroxychloroquine 200 MG Tablet PO ×2 (08:12→16:46)
[2017-11-25] MEDS: Folic Acid 1 MG Tablet 0.5 MG PO (08:12)
[2017-11-25] MEDS: Glucerna Shake 120 ML LIQUID PO (08:12)
[2017-11-25] MEDS: Aspirin E.C. 81 MG Tablet PO (08:12)
[2017-11-25] MEDS: Pantoprazole Sodium 40 MG Tablet PO ×2 (09:22→22:27)
[2017-11-25] MEDS: Clopidogrel Bisulfate 75 MG Tablet PO (09:22)
[2017-11-25] MEDS: Furosemide 40 MG/4 ML Vial IV ×2 (09:22→17:11)
[2017-11-25] MEDS: Albuterol 2.5 MG/3 ML VIAL.NEB. INHALATION ×2 (09:22→22:40)
[2017-11-25] MEDS: 0.9% NaCl Peripheral Flush Adult/Peds IV (09:26)
--- NOTE | 2017-11-25 09:30 | PN.RENAL_ITS ---
Subjective: edema improving on iv lasix. Breathing improved with diuresis. - Physical Exam General: Alert, Oriented x3, Cooperative, No apparent distress Lungs: Clear to auscultation, Diminished - rt base Cardiovascular: Regular rate, Murmur Abdomen: Bowel Sounds Present, Soft, Non Tender, Non-Distended Extremities: Edema - to thighs Vital Signs Temp Pulse Resp BP Pulse Ox 98.1 F 64 18 127/41 H 93 11/25/17 08:08 11/25/17 08:08 11/25/17 08:08 11/25/17 08:08 11/25/17 08:08 Oxygen Delivery Method Room Air Weight: 72.6 kg Body Mass Index (BMI) 34.6 Intake and Output for Last 24 Hours 11/23/17 11/24/17 11/25/17 23:59 23:59 23:59 Intake Total 960 / 960 60 / 60 Output Total 1925 / 1925 1000 / 1000 Balance -965 / -965 -940 / -940 Laboratory Tests Past 24 Hrs 11/25/17 06:00 Sodium 137 Potassium 4.1 Chloride 101 Carbon Dioxide 28.0 BUN 75 H Creatinine 1.82 H Estim Creat Clear Calc 28.73 Est GFR (MDRD) Af Amer 34 L Est GFR (MDRD) Non-Af 28 L BUN/Creatinine Ratio 41.2 H Glucose 403 H Calcium 8.6 Phosphorus 2.9 Albumin 2.9 L POC Glucose 11/25/17 11/24/17 11/24/17 06:37 21:55 16:40 POC Glucose 416 H 415 H 377 H 11/24/17 11:28 POC Glucose 410 H Assessment/Plan 1. Acute on CKD Stage 3 likely from diuretics with cardiorenal syndrome, renovascular disease. Creatinine improved from 2.0 to 1.8 baseline 1.4. 2. Anasarca, fluid overload, CHF. Continue with iv lasix. Switch to po lasix 80mg twice a day on discharge. 3. DM2 stable 4. Renal artery stenosis s/p stent left artery. Has f/u appt this Friday with vascular surgeon Dr. Escamilla in [place]. 5. Acute on chronic CHF. continue diuretics iv for another day 6. CAD s/p cABg, ppm.
[2017-11-25 11:51] LABS: Bedside Glucose 448 mg/dL (70-110)
[2017-11-25 16:55] LABS: Bedside Glucose 448 mg/dL (70-110)
[2017-11-25 18:26] LABS: Bedside Glucose 407 mg/dL (70-110)
--- NOTE | 2017-11-25 21:24 | PCM.PROGNOTE ---
Subjective: Afebrile with stable vital signs. She is 94% saturated on room air today. She tells me that her breathing is slowly improving. Urine output on 11/24/2017 was 1575 cc. Fluid balance since admission is -4718. All lab was personally reviewed. Creatinine is 1.82 today, down from 2.16 on 11/24/2017. Electrolytes are within normal limits. Blood sugars are not adequately controlled. Hemoglobin A1c in September 2017 was 8.3%. Outpatient diabetic regimen includes only NPH 3 times daily. Currently she is on sliding scale insulin which is not controlling the blood sugars. She refused to get out of bed for PT today. She did LE exercises in the bed. She also refused to get out of bed on 11/24. Has not ambulated since admission with Pt and they recommend further skilled therapy. Denies CP, Lightheadedness, palpitations. - Physical Exam General: Alert, Oriented x3, - - Lying in bed....the HOB is at 30? and she has no tachypnea, no conversational dyspnea and no accessory muscle use. HEENT: PERRLA Oral: Moist Mucosa Neck: No Nodes, Trachea Midline Lungs: - - she has scattered coarse crackles anterior and posterior.....softer than yesterday. No wheezing. Cardiovascular: Regular rate, Regular Rhythm, Normal S1, Normal S2, No rub noted, No Gallop Abdomen: Bowel Sounds Present, Soft, Non Tender, Non-Distended Extremities: Edema - she has less pitting edema of the posterior thighs today and also of the pretibial areas Skin: No rashes, No breakdown, - - warm and dry Neurological: Cranial nerves II-XII grossly intact, Neuro grossly intact Psych/Mental Status: Appropriate Vital Signs Temp Pulse Resp BP Pulse Ox 97.9 F 67 18 108/41 L 94 11/25/17 20:08 11/25/17 20:08 11/25/17 20:08 11/25/17 20:08 11/25/17 20:08 Oxygen Delivery Method Room Air Weight: 160 lb 0.889 oz Body Mass Index (BMI) 34.6 Intake and Output for Last 24 Hours 11/23/17 11/24/17 11/25/17 23:59 23:59 23:59 Intake Total 960 / 960 1110 / 1110 Output Total 1925 / 1925 3100 / 3100 Balance -965 / -965 -1989 / Laboratory Tests Past 24 Hrs 11/25/17 06:00 Sodium 137 Potassium 4.1 Chloride 101 Carbon Dioxide 28.0 BUN 75 H Creatinine 1.82 H Estim Creat Clear Calc 28.73 Est GFR (MDRD) Af Amer 34 L Est GFR (MDRD) Non-Af 28 L BUN/Creatinine Ratio 41.2 H Glucose 403 H Calcium 8.6 Phosphorus 2.9 Albumin 2.9 L POC Glucose 11/25/17 11/25/17 11/25/17 18:21 16:42 11:43 POC Glucose 407 H 448 H 448 H 11/25/17 11/24/17 06:37 21:55 POC Glucose 416 H 415 H Assessment/Plan Impressions 1. acute systolic CHF - EF in September 2017 was 50% with global hypokinesis of the LV. Cath in September of [address] Stokes - medical management - EF was 40 - 45% recommended and life long dual antiplatelet therapy 2. elevated troponin - not trending, possibly due to renal failure 3. acute on chronic renal failure 4. CRF stage 3 5. Renal Artery stenosis - she is S/P Left renal artery stent and has an appt with a doctor in [place] for a possible R renal stent - this was arranged by Dr. Hernandez. 6. HTN - well controlled 7. CAD with a hx of CABG 8. Pulmonary HTN - 48 PA systolic in September 9. RA - 10. DM II - uncontrolled Discussed with Dr. Hernandez - will continue the IV Lasix for today and likely transition to PO in the AM. Ambulatory pulse ox on RA in the AM. She needs to demonstrate that she is able to walk prior to DC so I encouraged her to participate with PT in the AM. Adjust the insulin regimen Renal profile in the AM Code Visit Inpatient E&M: 94316 Subs Hosp L2
--- NOTE | 2017-11-25 21:34 | PN_ITS ---
Subjective: Afebrile with stable vital signs. She is 94% saturated on room air today. She tells me that her breathing is slowly improving. Urine output on 11/24/2017 was 1575 cc. Fluid balance since admission is -4718. All lab was personally reviewed. Creatinine is 1.82 today, down from 2.16 on 08/2018. Electrolytes are within normal limits. Blood sugars are not adequately controlled. Hemoglobin A1c in September 2017 was 8.3%. Outpatient diabetic regimen includes only NPH 3 times daily. Currently she is on sliding scale insulin which is not controlling the blood sugars. She refused to get out of bed for PT today. She did LE exercises in the bed. She also refused to get out of bed on 11/24. Has not ambulated since admission with Pt and they recommend further skilled therapy. Denies CP, Lightheadedness, palpitations. - Physical Exam General: Alert, Oriented x3, - - Lying in bed....the HOB is at 30? and she has no tachypnea, no conversational dyspnea and no accessory muscle use. HEENT: PERRLA Oral: Moist Mucosa Neck: No Nodes, Trachea Midline Lungs: - - she has scattered coarse crackles anterior and posterior.....softer than yesterday. No wheezing. Cardiovascular: Regular rate, Regular Rhythm, Normal S1, Normal S2, No rub noted , No Gallop Abdomen: Bowel Sounds Present, Soft, Non Tender, Non-Distended Extremities: Edema - she has less pitting edema of the posterior thighs today and also of the pretibial areas Skin: No rashes, No breakdown, - - warm and dry Neurological: Cranial nerves II-XII grossly intact, Neuro grossly intact Psych/Mental Status: Appropriate Vital Signs Temp Pulse Resp BP Pulse Ox 97.9 F 67 18 108/41 L 94 11/25/17 20:08 11/25/17 20:08 11/25/17 20:08 11/25/17 20:08 11/25/17 20:08 Oxygen Delivery Method Room Air Weight: 160 lb 0.889 oz Body Mass Index (BMI) 34.6 Intake and Output for Last 24 Hours 11/23/17 11/24/17 11/25/17 23:59 23:59 23:59 Intake Total 960 / 960 1110 / 1110 Output Total 1925 / 1925 3100 / 3100 Balance -965 / -965 -1989 / Laboratory Tests Past 24 Hrs 11/25/17 06:00 Sodium 137 Potassium 4.1 Chloride 101 Carbon Dioxide 28.0 BUN 75 H Creatinine 1.82 H Estim Creat Clear Calc 28.73 Est GFR (MDRD) Af Amer 34 L Est GFR (MDRD) Non-Af 28 L BUN/Creatinine Ratio 41.2 H Glucose 403 H Calcium 8.6 Phosphorus 2.9 Albumin 2.9 L POC Glucose 11/25/17 11/25/17 11/25/17 18:21 16:42 11:43 POC Glucose 407 H 448 H 448 H 11/25/17 11/24/17 06:37 21:55 POC Glucose 416 H 415 H Assessment/Plan Impressions 1. acute systolic CHF - EF in September 2017 was 50% with global hypokinesis of the LV. Cath in September of [address] Stokes - medical management - EF was 40 - 45% recommended and life long dual antiplatelet therapy 2. elevated troponin - not trending, possibly due to renal failure 3. acute on chronic renal failure 4. CRF stage 3 5. Renal Artery stenosis - she is S/P Left renal artery stent and has an appt with a doctor in [place] for a possible R renal stent - this was arranged by Dr. Hernandez. 6. HTN - well controlled 7. CAD with a hx of CABG 8. Pulmonary HTN - 48 PA systolic in September 9. RA - 10. DM II - uncontrolled Discussed with Dr. Hernandez - will continue the IV Lasix for today and likely transition to PO in the AM. Ambulatory pulse ox on RA in the AM. She needs to demonstrate that she is able to walk prior to DC so I encouraged her to participate with PT in the AM. Adjust the insulin regimen Renal profile in the AM Code Visit Inpatient E&M: 95141 Subs Hosp L2
[2017-11-25] MEDS: Atorvastatin Calcium 10 MG Tablet PO (22:27)
[2017-11-25 22:36] LABS: Bedside Glucose 273 mg/dL (70-110)
[2017-11-26] VITALS (8 sets, daily range): BP systolic 116–125; BP diastolic 47–76; PULSE 64–71; RESP 18–20; TEMP 36.7–36.8; O2SAT 93–96
[2017-11-26] MEDS: Albuterol 2.5 MG/3 ML VIAL.NEB. INHALATION (03:08)
[2017-11-26] MEDS: Levothyroxine 125 MCG Tablet PO (06:20)
[2017-11-26 07:01] LABS: Bedside Glucose 152 mg/dL (70-110)
[2017-11-26 07:57] LABS: Albumin, Serum 2.8 g/dL (3.2-5.0); BUN 64 mg/dL (7-18); Calcium,Total 8.7 mg/dL (8.5-10.1); Chloride 101 mmol/L (98-107); Creatinine, Serum 1.56 mg/dL (0.55-1.02); EST Glomerular Filtration Rate 34 mL/min (>60); Est Glom Filt Rate - Afr Amer 41 mL/min (>60); Estimated Creatinine Clearance 33.51 ml/min; Glucose 136 mg/dL (74-106); Phosphorus 2.4 mg/dL (2.5-4.9); Potassium 3.7 mmol/L (3.5-5.1); Sodium Level 139 mmol/L (136-145)
[2017-11-26] MEDS: Aspirin E.C. 81 MG Tablet PO (08:41)
--- NOTE | 2017-11-26 08:54 | PCM.PN.REN ---
Subjective: no complaints. Edema improving. Good urine output with iv lasix. Will switch to po lasix. Renal fxn continues to improve. - Physical Exam General: Alert, Oriented x3, Cooperative, No apparent distress Neck: Supple Lungs: Clear to auscultation Cardiovascular: Regular rate Abdomen: Bowel Sounds Present, Soft, Non Tender, Non-Distended Extremities: Edema - to thighs, improving Skin: No rashes Psych/Mental Status: Normal Affect, Appropriate, Alert and oriented to time, place, person, mood and affect Vital Signs Temp Pulse Resp BP Pulse Ox 98.0 F 70 18 122/76 H 96 11/26/17 02:20 11/26/17 03:08 11/26/17 03:08 11/26/17 02:20 11/26/17 02:20 Oxygen Delivery Method Room Air Weight: 72.6 kg Body Mass Index (BMI) 34.6 Intake and Output for Last 24 Hours 11/24/17 11/25/17 11/26/17 23:59 23:59 23:59 Intake Total 960 / 960 1110 / 1110 360 / 360 Output Total 1925 / 1925 3100 / 3100 900 / 900 Balance -965 / -965 -1989 / -1989 -540 / -540 Laboratory Tests Past 24 Hrs 11/26/17 05:45 Sodium 139 Potassium 3.7 Chloride 101 Carbon Dioxide 33.0 H BUN 64 H Creatinine 1.56 H Estim Creat Clear Calc 33.51 Est GFR (MDRD) Af Amer 41 L Est GFR (MDRD) Non-Af 34 L BUN/Creatinine Ratio 41.0 H Glucose 136 H Calcium 8.7 Phosphorus 2.4 L Albumin 2.8 L POC Glucose 11/26/17 11/25/17 11/25/17 06:54 22:27 18:21 POC Glucose 152 H 273 H 407 H 11/25/17 11/25/17 16:42 11:43 POC Glucose 448 H 448 H Assessment/Plan 1. Acute on CKD Stage 3 likely from diuretics with cardiorenal syndrome, renovascular disease. Creatinine improved from 2.0 to 1.56 today, baseline 1.4. 2. Anasarca, fluid overload, CHF. Continue with lasix 80mg twice a day on discharge. 3. DM2 stable 4. Renal artery stenosis s/p stent left artery. f/u this Friday with vascular surgeon Dr. Escamilla in [place]. 5. Acute on chronic CHF improved 6. CAD s/p cABg, ppm. ok to dc to home. f/u in office with me within 2 wks
[2017-11-26] MEDS: Folic Acid 1 MG Tablet 0.5 MG PO (09:23)
[2017-11-26] MEDS: Pantoprazole Sodium 40 MG Tablet PO (09:24)
[2017-11-26] MEDS: Clopidogrel Bisulfate 75 MG Tablet PO (09:24)
[2017-11-26] MEDS: 0.9% NaCl Peripheral Flush Adult/Peds IV (09:25)
[2017-11-26 12:25] LABS: Bedside Glucose 236 mg/dL (70-110)
--- NOTE | 2017-11-26 15:42 | PCM.DC ---
You will use the following diet at home:: Calorie/Carbohydrate Controlled (specify 1200, 1400, etc) - no more than 2 GM of soidium a day, Cardiac Your food should be the consistency of: Regular Your liquids should be the consistency of: Regular/Thin Discharge Activity: Return to Normal Activity Call your doctor if you observe: Fever of 101 or Higher, Shortness of breath, Dizziness, Fainting spells Additional Instructions: you legs are always going to swell if you do not wear compressions stockings or wraps on your legs. When you are sitting in a chair elevated your legs. Fast margaret and restaurant food has a LOT of salt in it....so does cheese and lunchmeat and chips and pretzels and soda and canned vegetables...avoid these things Allergies/Adverse Reactions: Allergies felodipine Allergy (Severe, Verified 11/22/17 22:50) Shortness of breath pentazocine lactate [From Talwin] Allergy (Unknown, Verified 11/22/17 22:50) Unknown Patient does not know what happened when taking pentazocine, was told do not take it in the past promethazine Allergy (Unknown, Verified 11/22/17 22:50) Unknown Patient is unsure of allergy or reaction, was told do not take it in the past Sulfa (Sulfonamide Antibiotics) Allergy (Unknown, Verified 11/22/17 22:50) Unknown Patient does not know what the reaction/allergy is. Was told not to take it after surgery in the past amlodipine Allergy (Verified 11/22/17 22:50) Unknown Heparin Analogues Allergy (Verified 11/22/17 22:50) Unknown meloxicam [From Mobic] Allergy (Verified 11/22/17 22:50) Other oxycodone terephthalate [From Percodan] Allergy (Verified 11/22/17 22:50) Unknown Penicillins Allergy (Verified 11/22/17 22:50) Hives Iodinated Contrast- Oral and IV Dye [Iodinated Contrast Media - IV Dye] Adverse Reaction (Severe, Verified 11/22/17 22:50) Other Convulsions NSAIDS (Non-Steroidal Anti-Inflamma Adverse Reaction (Intermediate, Verified 11/22/17 22:50) Other Elevated liver enzymes oxycodone HCl [From Percodan] Adverse Reaction (Intermediate, Verified 11/22/17 22:50) Other Elevated liver enzymes ciprofloxacin [From Cipro] Adverse Reaction (Mild, Verified 11/22/17 22:50) Nausea/Vom/Diarrhea codeine Adverse Reaction (Mild, Verified 11/22/17 22:50) Nausea makes me sick HEPARIN Allergy (Unknown, Uncoded 11/22/17 22:50) Unknown WAS TOLD NOT TO TAKE AFTER HEART SURG D/T RXN Medications to take at Discharge Folic Acid 400 mcg PO DAILY@0800 06/18/13 Hydroxychloroquine [Plaquenil] 200 mg PO BIDCM 06/18/13 Levothyroxine [Synthroid] 125 mcg PO DAILY 06/18/13 Nitroglycerin [Nitrostat] 0.4 mg SUBLINGUAL Q5M PRN 06/18/13 Simvastatin [Zocor] 20 mg PO QHS 06/18/13 Pantoprazole Sodium [Protonix] 40 mg PO BID 06/20/13 Clonazepam [Klonopin] 0.5 mg PO DAILY PRN PRN 06/19/14 Gabapentin [Neurontin] 300 mg PO TID PRN 01/10/16 Aspirin E.C. [Ecotrin] 81 mg PO DAILY@0800 10/09/17 Valacyclovir HCl [Valtrex] 500 mg PO BID PRN 10/09/17 Polyethylene Glycol 3350 [Miralax] 17 gm PO DAILY PRN PRN #0 10/14/17 Carvedilol [Coreg (Beta Ramírez)] 12.5 mg PO BID 11/01/17 Clopidogrel Bisulfate [Plavix] 75 mg PO DAILY 11/01/17 Furosemide [Lasix] 80 mg PO BID 11/01/17 HydrALAZINE [Apresoline] 25 mg PO BID 11/01/17 Insulin NPH Human Isophane [Humulin N Kwikpen] See Protocol SQ TIDCM 11/01/17 Spironolactone [Aldactone] 25 mg PO BID 11/22/17 Na Biphos/Potassium Phosphate [Neutra-Phos Packet] 1 packet PO TID #12 packet 11/26/17 The following prescriptions were given: Na Biphos/Potassium Phosphate [Neutra-Phos Packet] 1 packet PO TID #12 packet Primary Care Physician: Pita Conde MD [Primary Care Provider] - Please follow up with your Primary Care Physician in: 5-7 days Please Follow Up With: Meredith Hernandez DO When: 2 weeks Proposed Discharge Date: 11/26/17
--- NOTE | 2017-11-26 15:52 | DCINST_ITS ---
You will use the following diet at home:: Calorie/Carbohydrate Controlled ( specify 1200, 1400, etc) - no more than 2 GM of soidium a day, Cardiac Your food should be the consistency of: Regular Your liquids should be the consistency of: Regular/Thin Discharge Activity: Return to Normal Activity Call your doctor if you observe: Fever of 101 or Higher, Shortness of breath, Dizziness, Fainting spells Additional Instructions: you legs are always going to swell if you do not wear compressions stockings or wraps on your legs. When you are sitting in a chair elevated your legs. Fast margaret and restaurant food has a LOT of salt in it....so does cheese and lunchmeat and chips and pretzels and soda and canned vegetables...avoid these things Allergies/Adverse Reactions: Allergies felodipine Allergy (Severe, Verified 11/22/17 22:50) Shortness of breath pentazocine lactate [From Talwin] Allergy (Unknown, Verified 11/22/17 22:50) Unknown Patient does not know what happened when taking pentazocine, was told do not take it in the past promethazine Allergy (Unknown, Verified 11/22/17 22:50) Unknown Patient is unsure of allergy or reaction, was told do not take it in the past Sulfa (Sulfonamide Antibiotics) Allergy (Unknown, Verified 11/22/17 22:50) Unknown Patient does not know what the reaction/allergy is. Was told not to take it after surgery in the past amlodipine Allergy (Verified 11/22/17 22:50) Unknown Heparin Analogues Allergy (Verified 11/22/17 22:50) Unknown meloxicam [From Mobic] Allergy (Verified 11/22/17 22:50) Other oxycodone terephthalate [From Percodan] Allergy (Verified 11/22/17 22:50) Unknown Penicillins Allergy (Verified 11/22/17 22:50) Hives Iodinated Contrast- Oral and IV Dye [Iodinated Contrast Media - IV Dye] Adverse Reaction (Severe, Verified 11/22/17 22:50) Other Convulsions NSAIDS (Non-Steroidal Anti-Inflamma Adverse Reaction (Intermediate, Verified 07/02 22:50) Other Elevated liver enzymes oxycodone HCl [From Percodan] Adverse Reaction (Intermediate, Verified 11/22/17 22:50) Other Elevated liver enzymes ciprofloxacin [From Cipro] Adverse Reaction (Mild, Verified 11/22/17 22:50) Nausea/Vom/Diarrhea codeine Adverse Reaction (Mild, Verified 11/22/17 22:50) Nausea makes me sick HEPARIN Allergy (Unknown, Uncoded 11/22/17 22:50) Unknown WAS TOLD NOT TO TAKE AFTER HEART SURG D/T RXN Medications to take at Discharge Folic Acid 400 mcg PO DAILY@0800 06/18/13 Hydroxychloroquine [Plaquenil] 200 mg PO BIDCM 06/18/13 Levothyroxine [Synthroid] 125 mcg PO DAILY 06/18/13 Nitroglycerin [Nitrostat] 0.4 mg SUBLINGUAL Q5M PRN 06/18/13 Simvastatin [Zocor] 20 mg PO QHS 06/18/13 Pantoprazole Sodium [Protonix] 40 mg PO BID 06/20/13 Clonazepam [Klonopin] 0.5 mg PO DAILY PRN PRN 06/19/14 Gabapentin [Neurontin] 300 mg PO TID PRN 01/10/16 Aspirin E.C. [Ecotrin] 81 mg PO DAILY@0800 10/09/17 Valacyclovir HCl [Valtrex] 500 mg PO BID PRN 10/09/17 Polyethylene Glycol 3350 [Miralax] 17 gm PO DAILY PRN PRN #0 10/14/17 Carvedilol [Coreg (Beta Ramírez)] 12.5 mg PO BID 11/01/17 Clopidogrel Bisulfate [Plavix] 75 mg PO DAILY 11/01/17 Furosemide [Lasix] 80 mg PO BID 11/01/17 HydrALAZINE [Apresoline] 25 mg PO BID 11/01/17 Insulin NPH Human Isophane [Humulin N Kwikpen] See Protocol SQ TIDCM 11/01/17 Spironolactone [Aldactone] 25 mg PO BID 11/22/17 Na Biphos/Potassium Phosphate [Neutra-Phos Packet] 1 packet PO TID #12 packet The following prescriptions were given: Na Biphos/Potassium Phosphate [Neutra-Phos Packet] 1 packet PO TID #12 packet Primary Care Physician: Pita Conde MD [Primary Care Provider] - Please follow up with your Primary Care Physician in: 5-7 days Please Follow Up With: Meredith Hernandez DO When: 2 weeks Proposed Discharge Date: 11/26/17
--- NOTE | 2017-11-26 15:58 | PCM.DC.SUM ---
Discharge Date and Diagnosis - Problem List Patient Problems: Active and Suspected Problems Acute on chronic renal failure (Acute) Elevated troponin (Acute) Acute systolic CHF (congestive heart failure) (Acute) Date of Admission: 11/23/17 Date of Discharge: 11/26/17 - Primary Discharge Diagnosis Active and Suspected Problems Acute systolic CHF (congestive heart failure) (Acute) Acute on chronic renal failure (Acute) Elevated troponin (Acute) - did not trend, may be due to the ARF - Secondary Discharge Diagnosis Chronic Problems Stage 3 chronic kidney disease (Chronic) Pacemaker (Chronic) History of renal stent (Chronic) 2008, right SSS (sick sinus syndrome) (Chronic) s/p pacer 2013 Anxiety (Chronic) Hypertension (Chronic) GERD (gastroesophageal reflux disease) (Chronic) Diabetes mellitus, type 2 (Chronic) History of hypothyroidism (Chronic) Benign hypertension (Chronic) History of coronary artery disease (Chronic) Status post total hip replacement, right (Chronic) Obesity (BMI 30.0-34.9) (Chronic) Anemia (Chronic) Chronic obstructive pulmonary disease (COPD) (Chronic) RA Hospital Course and Treatment Imaging Results: Clinical Impression(s) from Imaging Studies Chest X-Ray 11/22/17 23:02 IMPRESSION: Moderate right pleural effusion has increased in size since the previous study. Electronically Signed: Faisal Lovelace MD at 23:51 EST Tel , Service support , Chest X-Ray 11/23/17 05:55 IMPRESSION: Congestive heart failure and has not significantly changed since the previous study. Electronically Signed: Faisal Lovelace MD at 6:07 EDT Tel , Service support , Chest X-Ray 11/24/17 05:55 IMPRESSION: Residual right lower lobe infiltrate. There has been improvement as compared to prior study. Electronically Signed: Kenroy Dooley MD at 9:00 EDT Tel [phone], Service support , Laboratory Results - last 24 hr 11/25/17 11/25/17 11/25/17 16:42 18:21 22:27 Sodium Potassium Chloride Carbon Dioxide BUN Creatinine Estim Creat Clear Calc Est GFR (MDRD) Af Amer Est GFR (MDRD) Non-Af BUN/Creatinine Ratio Glucose Calcium Phosphorus Albumin POC Glucose 448 H 407 H 273 H 11/26/17 11/26/17 11/26/17 05:45 06:54 12:05 Sodium 139 Potassium 3.7 Chloride 101 Carbon Dioxide 33.0 H BUN 64 H Creatinine 1.56 H Estim Creat Clear Calc 33.51 Est GFR (MDRD) Af Amer 41 L Est GFR (MDRD) Non-Af 34 L BUN/Creatinine Ratio 41.0 H Glucose 136 H Calcium 8.7 Phosphorus 2.4 L Albumin 2.8 L POC Glucose [address] Meredith Hernandez - Nephrology Operations: None Summary of Care Provided: Patient is a 81-year-old female with a past medical history of sick sinus syndrome (status post pacer 2013), anxiety, hypertension, GERD, renal artery stenosis, diabetes mellitus type 2, hypothyroidism, hypertension, diabetic peripheral neuropathy, coronary artery disease, obesity, noncompliance with diet/salt restriction and COPD who presented to the emergency room at [facility] on 11/23/2017 complaining of increased lower extremity edema and weight gain. She had recently been in the hospital from 11/01/2017 to 11/06/2017 and treated for acute congestive heart failure. She was 98% saturated on room air in the emergency room with a respiratory rate of 16 and a blood pressure of 104/53. Creatinine was increased at 2.16. Over the past year the creatinine has ranged from 0.96-1.92 at discharge from the hospital on 11/06/2017. BNP at admission was 1270. Troponin was increased at 0.32 and the EKG showed no ischemic changes. She was admitted to a monitored bed on PCU and started on a Bumex drip. Consult was ordered with Dr. Meredith Hernandez. She was converted to IV Lasix. She diuresed well and the Fluid balance at discharge was -5318. Weights during her hospital stay were not accurate. On 11/26/2017 she denied shortness of breath and she ambulated in the mejia on room air with a pulse ox of 94-95%. HEENT had decreased from 2.16-1.56 by discharge and this is within her baseline. She was seen by Dr. Hernandez on the date of discharge will follow up with Dr. Hernandez in 2 weeks. He was afebrile for the duration of her hospital stay and vital signs were well controlled. Will exam on the date of discharge revealed lungs to be clear to auscultation without rales or wheezes. The heart had a regular rhythm and she was completely paced at the time I saw her. She continued to have pitting edema of the lower extremities which I presume she will always have. We will not wear compression stockings and she does not do Sulaiman wraps. She does not elevate her legs when she is sitting in a chair. She was out of the hospital only 2 weeks since her previous admission for congestive heart failure. The importance of salt restriction was stressed with her. she will follow up with Dr. Conde within [address] Hernandez in 2 weeks. This note was generated with [employer] dictation software. It may contain incorrect words, spelling, and punctuation that were not noted in checking the note before signing. Discharge Activity: Return to Normal Activity Call your doctor if you observe: Fever of 101 or Higher, Shortness of breath, Dizziness, Fainting spells Home Medications: Medications to take at Discharge Folic Acid 400 mcg PO DAILY@0800 06/18/13 Hydroxychloroquine [Plaquenil] 200 mg PO BIDCM 06/18/13 Levothyroxine [Synthroid] 125 mcg PO DAILY 06/18/13 Nitroglycerin [Nitrostat] 0.4 mg SUBLINGUAL Q5M PRN 06/18/13 Simvastatin [Zocor] 20 mg PO QHS 06/18/13 Pantoprazole Sodium [Protonix] 40 mg PO BID 06/20/13 Clonazepam [Klonopin] 0.5 mg PO DAILY PRN PRN 06/19/14 Gabapentin [Neurontin] 300 mg PO TID PRN 01/10/16 Aspirin E.C. [Ecotrin] 81 mg PO DAILY@0800 10/09/17 Valacyclovir HCl [Valtrex] 500 mg PO BID PRN 10/09/17 Polyethylene Glycol 3350 [Miralax] 17 gm PO DAILY PRN PRN #0 10/14/17 Carvedilol [Coreg (Beta Ramírez)] 12.5 mg PO BID 11/01/17 Clopidogrel Bisulfate [Plavix] 75 mg PO DAILY 11/01/17 Furosemide [Lasix] 80 mg PO BID 11/01/17 HydrALAZINE [Apresoline] 25 mg PO BID 11/01/17 Insulin NPH Human Isophane [Humulin N Kwikpen] See Protocol SQ TIDCM 11/01/17 Spironolactone [Aldactone] 25 mg PO BID 11/22/17 Na Biphos/Potassium Phosphate [Neutra-Phos Packet] 1 packet PO TID #12 packet 11/26/17 Following Prescrptions Were Given to Patient: Na Biphos/Potassium Phosphate [Neutra-Phos Packet] 1 packet PO TID #12 packet Primary Care Physician: Pita Conde MD [Primary Care Provider] - Please follow up with your Primary Care Physician in: 5-7 days Please Follow Up With: Meredith Hernandez DO When: 2 weeks Minutes spent on discharge:: 35 Patient Condition:: Stable Meaningful Use Info Meaningful Use Diagnoses (Choose all that apply): None applicable Code Visit Inpatient E&M: 66597 Disch Hosp
[2017-11-26] MEDS: Hydroxychloroquine 200 MG Tablet PO (16:02)
--- NOTE | 2017-11-26 16:17 | DS.PCM_ITS ---
Discharge Date and Diagnosis - Problem List Patient Problems: Active and Suspected Problems Acute on chronic renal failure (Acute) Elevated troponin (Acute) Acute systolic CHF (congestive heart failure) (Acute) Date of Admission: 11/23/17 Date of Discharge: 11/26/17 - Primary Discharge Diagnosis Active and Suspected Problems Acute systolic CHF (congestive heart failure) (Acute) Acute on chronic renal failure (Acute) Elevated troponin (Acute) - did not trend, may be due to the ARF - Secondary Discharge Diagnosis Chronic Problems Stage 3 chronic kidney disease (Chronic) Pacemaker (Chronic) History of renal stent (Chronic) 2008, right SSS (sick sinus syndrome) (Chronic) s/p pacer 2013 Anxiety (Chronic) Hypertension (Chronic) GERD (gastroesophageal reflux disease) (Chronic) Diabetes mellitus, type 2 (Chronic) History of hypothyroidism (Chronic) Benign hypertension (Chronic) History of coronary artery disease (Chronic) Status post total hip replacement, right (Chronic) Obesity (BMI 30.0-34.9) (Chronic) Anemia (Chronic) Chronic obstructive pulmonary disease (COPD) (Chronic) RA Hospital Course and Treatment Imaging Results: Clinical Impression(s) from Imaging Studies Chest X-Ray 11/22/17 23:02 IMPRESSION: Moderate right pleural effusion has increased in size since the previous study. Electronically Signed: Faisal Lovelace MD at 23:51 EST Tel , Service support , Chest X-Ray 11/23/17 05:55 IMPRESSION: Congestive heart failure and has not significantly changed since the previous study. Electronically Signed: Faisal Lovelace MD at 6:07 EDT Tel , Service support , Chest X-Ray 11/24/17 05:55 IMPRESSION: Residual right lower lobe infiltrate. There has been improvement as compared to prior study. Electronically Signed: Kenroy Dooley MD at 9:00 EDT Tel [phone], Service support , Laboratory Results - last 24 hr 11/25/17 11/25/17 11/25/17 16:42 18:21 22:27 Sodium Potassium Chloride Carbon Dioxide BUN Creatinine Estim Creat Clear Calc Est GFR (MDRD) Af Amer Est GFR (MDRD) Non-Af BUN/Creatinine Ratio Glucose Calcium Phosphorus Albumin POC Glucose 448 H 407 H 273 H 11/26/17 11/26/17 11/26/17 05:45 06:54 12:05 Sodium 139 Potassium 3.7 Chloride 101 Carbon Dioxide 33.0 H BUN 64 H Creatinine 1.56 H Estim Creat Clear Calc 33.51 Est GFR (MDRD) Af Amer 41 L Est GFR (MDRD) Non-Af 34 L BUN/Creatinine Ratio 41.0 H Glucose 136 H Calcium 8.7 Phosphorus 2.4 L Albumin 2.8 L POC Glucose [address] Meredith Hernandez - Nephrology Operations: None Summary of Care Provided: Patient is a 81-year-old female with a past medical history of sick sinus syndrome (status post pacer 2013), anxiety, hypertension, GERD, renal artery stenosis, diabetes mellitus type 2, hypothyroidism, hypertension, diabetic peripheral neuropathy, coronary artery disease, obesity, noncompliance with diet /salt restriction and COPD who presented to the emergency room at [facility] on 11/23/2017 complaining of increased lower extremity edema and weight gain. She had recently been in the hospital from 11/01/2017 to 2017 and treated for acute congestive heart failure. She was 98% saturated on room air in the emergency room with a respiratory rate of 16 and a blood pressure of 104/53. Creatinine was increased at 2.16. Over the past year the creatinine has ranged from 0.96-1.92 at discharge from the hospital on 2017. BNP at admission was 1270. Troponin was increased at 0.32 and the EKG showed no ischemic changes. She was admitted to a monitored bed on PCU and started on a Bumex drip. Consult was ordered with Dr. Meredith Hernandez. She was converted to IV Lasix. She diuresed well and the Fluid balance at discharge was -5318. Weights during her hospital stay were not accurate. On 11/26/2017 she denied shortness of breath and she ambulated in the mejia on room air with a pulse ox of 94-95%. HEENT had decreased from 2.16-1.56 by discharge and this is within her baseline. She was seen by Dr. Hernandez on the date of discharge will follow up with Dr. Hernandez in 2 weeks. He was afebrile for the duration of her hospital stay and vital signs were well controlled. Will exam on the date of discharge revealed lungs to be clear to auscultation without rales or wheezes. The heart had a regular rhythm and she was completely paced at the time I saw her. She continued to have pitting edema of the lower extremities which I presume she will always have. We will not wear compression stockings and she does not do Sulaiman wraps. She does not elevate her legs when she is sitting in a chair. She was out of the hospital only 2 weeks since her previous admission for congestive heart failure. The importance of salt restriction was stressed with her. she will follow up with Dr. Conde within [address] Hernandez in 2 weeks. This note was generated with [employer] dictation software. It may contain incorrect words, spelling, and punctuation that were not noted in checking the note before signing. Discharge Activity: Return to Normal Activity Call your doctor if you observe: Fever of 101 or Higher, Shortness of breath, Dizziness, Fainting spells Home Medications: Medications to take at Discharge Folic Acid 400 mcg PO DAILY@0800 06/18/13 Hydroxychloroquine [Plaquenil] 200 mg PO BIDCM 06/18/13 Levothyroxine [Synthroid] 125 mcg PO DAILY 06/18/13 Nitroglycerin [Nitrostat] 0.4 mg SUBLINGUAL Q5M PRN 06/18/13 Simvastatin [Zocor] 20 mg PO QHS 06/18/13 Pantoprazole Sodium [Protonix] 40 mg PO BID 06/20/13 Clonazepam [Klonopin] 0.5 mg PO DAILY PRN PRN 06/19/14 Gabapentin [Neurontin] 300 mg PO TID PRN 01/10/16 Aspirin E.C. [Ecotrin] 81 mg PO DAILY@0800 10/09/17 Valacyclovir HCl [Valtrex] 500 mg PO BID PRN 10/09/17 Polyethylene Glycol 3350 [Miralax] 17 gm PO DAILY PRN PRN #0 10/14/17 Carvedilol [Coreg (Beta Ramírez)] 12.5 mg PO BID 11/01/17 Clopidogrel Bisulfate [Plavix] 75 mg PO DAILY 11/01/17 Furosemide [Lasix] 80 mg PO BID 11/01/17 HydrALAZINE [Apresoline] 25 mg PO BID 11/01/17 Insulin NPH Human Isophane [Humulin N Kwikpen] See Protocol SQ TIDCM 11/01/17 Spironolactone [Aldactone] 25 mg PO BID 11/22/17 Na Biphos/Potassium Phosphate [Neutra-Phos Packet] 1 packet PO TID #12 packet Following Prescrptions Were Given to Patient: Na Biphos/Potassium Phosphate [Neutra-Phos Packet] 1 packet PO TID #12 packet Primary Care Physician: Pita Conde MD [Primary Care Provider] - Please follow up with your Primary Care Physician in: 5-7 days Please Follow Up With: Meredith Hernandez DO When: 2 weeks Minutes spent on discharge:: 35 Patient Condition:: Stable Meaningful Use Info Meaningful Use Diagnoses (Choose all that apply): None applicable Code Visit Inpatient E&M: 72572 Disch Hosp
[2017-11-26 16:20] LABS: Bedside Glucose 106 mg/dL (70-110)
--- NOTE | 2017-11-26 16:41 | CASEMGMT ---
Hilda at [facility] notified at this time that pt is being discharged today, voices understanding at this time. Resumption of care order had already been placed. She states that they have pt on schedule for tomorrow. Yeimi SMALL CM
== END 2017-11-26 16:54 | disposition home health service (06) | DRG 291 ==
LOC: ED 23:05 → PCU 11-23 01:26
PROVIDERS: Internal Medicine; Internal Medicine Nephrology; Admitting Provider Internal Medicine; Emergency Provider Emergency Medicine; Family Provider Internal Medicine; PCP Internal Medicine; Visit Provider Internal Medicine
DX: I13.0 Hypertensive heart and chronic kidney disease with heart failure and stage 1 through stage 4 chronic kidney disease, or unspecified chronic kidney disease (principal); I50.23 Acute on chronic systolic (congestive) heart failure; N17.9 Acute kidney failure, unspecified; E11.22 Type 2 diabetes mellitus with diabetic chronic kidney disease; E11.42 Type 2 diabetes mellitus with diabetic polyneuropathy; D64.9 Anemia, unspecified; J44.9 Chronic obstructive pulmonary disease, unspecified; E03.9 Hypothyroidism, unspecified; E66.9 Obesity, unspecified; Z79.4 Long term (current) use of insulin; Z95.1 Presence of aortocoronary bypass graft; Z95.0 Presence of cardiac pacemaker; I25.10 Atherosclerotic heart disease of native coronary artery without angina pectoris; Z79.899 Other long term (current) drug therapy; Z87.891 Personal history of nicotine dependence; N18.3 Chronic kidney disease, stage 3 (moderate); K21.9 Gastro-esophageal reflux disease without esophagitis; Z96.641 Presence of right artificial hip joint; M06.9 Rheumatoid arthritis, unspecified; Z68.34 Body mass index [BMI] 34.0-34.9, adult; F41.9 Anxiety disorder, unspecified; Z79.82 Long term (current) use of aspirin; Z79.02 Long term (current) use of antithrombotics/antiplatelets; E11.65 Type 2 diabetes mellitus with hyperglycemia
CPT/HCPCS: 36415; 71045; 71046; 80048; 80061; 80069; 82962; 83880; 84484; 85025; 85610; 93005; 94640; 97110; 97116; 97161; 97165; 97530; 97535; 97802; 99283; A4216; J1940

== ENCOUNTER 2017-12-09 23:22 | Emergency (ER) | payer MEDICARE, BC, SELFPAY ==
[2017-12-09 23:24] VITALS: BP 109/50; PULSE 77; RESP 18; TEMP 36.6; O2SAT 95; BMI 35.2
--- NOTE | 2017-12-09 23:49 | EKG12_ITS ---
Test Reason : SOB Blood Pressure : / mmHG Vent. Rate : 061 BPM Atrial Rate : 058 BPM P-R Int : 224 ms QRS Dur : 182 ms QT Int : 514 ms P-R-T Axes : 088 -76 106 degrees QTc Int : 517 ms AV dual-paced rhythm with prolonged AV conduction Abnormal ECG Confirmed by BRIT AN, HERACLIO ([id number]), telesales consultant JÚNIOR LEWIS ([id number]) on 12/11/2017 3:19:16 PM Referred By: GUALBERTO Confirmed By:HERACLIO PEREA MD
--- NOTE | 2017-12-10 | RAD_ITS ---
STUDY: X-RAY CHEST REASON FOR EXAM: Female, 82 years old. Shortness of breath. TECHNIQUE: AP and lateral views of the chest. COMPARISON: November 24, 2017. FINDINGS: Patient has left-sided intracardiac pacemaker. Patient has had a sternotomy. Cardiac monitoring leads are present. The lungs are expanded. There is patchy right basilar airspace consolidation and/or atelectasis. There are prominent bronchovascular markings in both lungs. There appear to be small pleural effusions. There is mild cardiac enlargement. Normal mediastinum and bib. Normal visualized pulmonary arteries. There is atherosclerotic calcification of the aortic arch with tortuosity. There is demineralization of the osseous structures. There is multilevel thoracic spondylosis. Normal visualized ribs, clavicles, and shoulders. There is no demonstrated abnormality of the visualized soft tissue structures of the upper abdomen. RAD/Chest PA and Lateral IMPRESSION: Right basilar airspace consolidation and/or atelectasis. This could represent pneumonia. A similar appearance was present on the previous study. Electronically Signed: Rocío Matthew MD at 1:10 EDT , Service support ,
[2017-12-10 00:17] LABS: Absolute Lymphocyte Count 0.97 X10^3/ul (0.83-4.51); Absolute Neutrophil Count 5.9 X10^3/uL (2.0-7.7); Basophil# 0.02 X10^3/uL; Basophil% 0.3 % (0-1); Eosinophil# 0.03 X10^3/uL; Eosinophils% 0.4 % (0-5); Hematocrit 35.1 % (37-47); Hemoglobin 10.9 g/dl (12.0-15.0); Lymphocyte # 0.97 X10^3/ul (4.0); Lymphocyte % 12.7 % (19-41); Mean Corp Hgb Conc 31.1 g/gl (32-36); Mean Corpuscular Hgb 27.3 pg (27.0-32.0); Mean Corpuscular Volume 87.8 fL (81-99); Mean Platelet Vol. 10.6 fl (6.2-12.0); Monocyte# 0.64 X10^3/uL; Monocyte% 8.4 % (0-10); Neutrophil # 5.93 X10^3/uL (2.7-7.7); Neutrophil % 77.8 % (47-70); Platelet Count 196 K/mm3 (150-450); RBC Distribution Width CV 16.5 % (11.6-14.6); RBC Distribution Width SD 53.1 fl (35.1-43.9); White Blood Count 7.6 K/mm3 (4.4-11.0)
[2017-12-10 00:20] LABS: POSITIVE COUNT NO; POSITIVE DIFFERENTIAL NO; POSITIVE MORPHOLOGY NO
[2017-12-10] MEDS: Furosemide 100 MG/10 ML Vial 80 MG IV (00:40)
[2017-12-10 00:48] LABS: Anion Gap 8 (5-15); BNP,B-Type NATRIURETIC PEPTIDE 1131.2 pg/mL (0-100); BUN 98 mg/dL (7-18); BUN/Creat Ratio 42.1 RATIO (10-20); Calcium,Total 8.4 mg/dL (8.5-10.1); Chloride 102 mmol/L (98-107); Creatinine, Serum 2.33 mg/dL (0.55-1.02); EST Glomerular Filtration Rate 21 mL/min (>60); Est Glom Filt Rate - Afr Amer 26 mL/min (>60); Estimated Creatinine Clearance 22.47 ml/min; Glucose 225 mg/dL (74-106); Potassium 4.7 mmol/L (3.5-5.1); Sodium Level 139 mmol/L (136-145)
[2017-12-10 01:31] VITALS: BP 106/95; PULSE 60; RESP 16; O2SAT 97
[2017-12-10 02:37] VITALS: O2SAT 100
--- NOTE | 2017-12-10 02:37 | ED.VISSUMM ---
- ER Visit Summary Date of Service: 12/10/17 Chief Complaint: [] She comes in with dyspnea for last several weeks. Gradual onset. She feels like her abdomen is getting more full and pushing up on her chest making it more difficult to breathe. It is relieved with oxygen. It was worse tonight. She has a chronic cough without changes. She is on no home oxygen. She feels like she is retaining fluid only in her abdomen. She was admitted approximately to go for similar complaints. She has had some medications adjusted by cardiology. She is on Lasix and Spironolactone. No new significant swelling in her legs. History of Present Illness: The patient is a 82 F [] Physical Examination: [] Vital signs reviewed General: Well-nourished well-developed Head: Normocephalic atraumatic Eyes: Pupils equal round and reactive to light extraocular movements intact ENT: TMs clear no hemotympanum no trauma Neck: Nontender full range of motion Cardiovascular: Regular rate rhythm no murmurs normal S1-S2 Respiratory: No distress clear to auscultation bilaterally chest nontender Abdomen: Soft nontender nondistended normal bowel sounds no masses Back: Nontender no CVA tenderness Extremities: Nontender active range of motion ?4 extremities no trauma 1+ lower extremity edema Skin: Normal color no trauma Neuro alert oriented cranial nerves II through XII intact normal strength sensation reflexes Test Results: [] Emergency Department Course and Treatment: [] G shows paced rhythm at 61. Chest x-ray shows atelectasis in the right lower base unchanged from prior. CBC is normal except hemoglobin 10.9 chronic. Chemistries normal except creatinine 2.3. Patient has chronic renal insufficiency. Troponin 0 0.3 which is chronically elevated for the patient. BNP is 1131. This is down from 1234 on her recent admission. Patient given oxygen and IV Lasix. She had multiple episodes of urination. She ambulated with a pulse ox of 95%. 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 I do not feel she has an acute exacerbation of CHF. She is not hypoxic with ambulation. She has had 2 recent admissions to the hospital for similar complaints. Treatment Plan: [] Disposition: [] Impression: [] Chronic dyspnea with chronic CHF This note was generated with [employer] software. It may contain incorrect words, spelling, and punctuation that were not noted in review of the chart prior to signing ED Disposition - Plan for ED Patient: Chief Complaint: Shortness of Breath Referrals: Pita Conde MD [Primary Care Provider] -
--- NOTE | 2017-12-10 02:40 | ED.DCSUM_ITS ---
- ER Visit Summary Date of Service: 12/10/17 Chief Complaint: [] She comes in with dyspnea for last several weeks. Gradual onset. She feels like her abdomen is getting more full and pushing up on her chest making it more difficult to breathe. It is relieved with oxygen. It was worse tonight. She has a chronic cough without changes. She is on no home oxygen. She feels like she is retaining fluid only in her abdomen. She was admitted approximately to go for similar complaints. She has had some medications adjusted by cardiology. She is on Lasix and Spironolactone. No new significant swelling in her legs. History of Present Illness: The patient is a 82 F [] Physical Examination: [] Vital signs reviewed General: Well-nourished well-developed Head: Normocephalic atraumatic Eyes: Pupils equal round and reactive to light extraocular movements intact ENT: TMs clear no hemotympanum no trauma Neck: Nontender full range of motion Cardiovascular: Regular rate rhythm no murmurs normal S1-S2 Respiratory: No distress clear to auscultation bilaterally chest nontender Abdomen: Soft nontender nondistended normal bowel sounds no masses Back: Nontender no CVA tenderness Extremities: Nontender active range of motion ?4 extremities no trauma 1+ lower extremity edema Skin: Normal color no trauma Neuro alert oriented cranial nerves II through XII intact normal strength sensation reflexes Test Results: [] Emergency Department Course and Treatment: [] G shows paced rhythm at 61. Chest x-ray shows atelectasis in the right lower base unchanged from prior. CBC is normal except hemoglobin 10.9 chronic. Chemistries normal except creatinine 2.3. Patient has chronic renal insufficiency. Troponin 0 0.3 which is chronically elevated for the patient. BNP is 1131. This is down from 1234 on her recent admission. Patient given oxygen and IV Lasix. She had multiple episodes of urination. She ambulated with a pulse ox of 95%. I feel she can follow-up as an outpatient with her manager car and family doctor. I do not feel she has an acute exacerbation of CHF. She is not hypoxic with ambulation. She has had 2 recent admissions to the hospital for similar complaints. Treatment Plan: [] Disposition: [] Impression: [] Chronic dyspnea with chronic CHF This note was generated with [employer] software. It may contain incorrect words, spelling, and punctuation that were not noted in review of the chart prior to signing ED Disposition - Plan for ED Patient: Chief Complaint: Shortness of Breath Referrals: Pita Conde MD [Primary Care Provider] -
--- NOTE | 2017-12-10 02:40 | ED.DEP ---
ED Disposition - Plan for ED Patient: Disposition: Home or Assisted Living Chief Complaint: Shortness of Breath Instructions: ED CHF General Referrals: Pita Conde MD [Primary Care Provider] -
[2017-12-10 03:06] VITALS: BP 148/69; PULSE 76; RESP 16; O2SAT 97
[2017-12-10 03:07] VITALS: O2SAT 96
== END 2017-12-10 03:07 | disposition home or self-care (01) ==
PROVIDERS: Emergency Provider Emergency Medicine; Family Provider Internal Medicine; PCP Internal Medicine
DX: R06.00 Dyspnea, unspecified (principal); I13.0 Hypertensive heart and chronic kidney disease with heart failure and stage 1 through stage 4 chronic kidney disease, or unspecified chronic kidney disease; I50.9 Heart failure, unspecified; N18.9 Chronic kidney disease, unspecified; Z99.81 Dependence on supplemental oxygen; E66.9 Obesity, unspecified; I25.10 Atherosclerotic heart disease of native coronary artery without angina pectoris; J44.9 Chronic obstructive pulmonary disease, unspecified; K21.9 Gastro-esophageal reflux disease without esophagitis; E11.9 Type 2 diabetes mellitus without complications; M06.9 Rheumatoid arthritis, unspecified; Z79.82 Long term (current) use of aspirin; Z79.02 Long term (current) use of antithrombotics/antiplatelets; Z79.4 Long term (current) use of insulin; Z79.899 Other long term (current) drug therapy
CPT/HCPCS: 71046; 80048; 83880; 84484; 85025; 93005; 99285; J7050; A4216; J1940

== ENCOUNTER 2017-12-12 15:20 | Outpatient (RCR) | payer MEDICARE, BC, SELFPAY ==
[2017-11-21 21:41] LABS: Anion Gap 8 (5-15); BUN 78 mg/dL (7-18); BUN/Creat Ratio 42.9 RATIO (10-20); Calcium,Total 8.2 mg/dL (8.5-10.1); Chloride 105 mmol/L (98-107); Creatinine, Serum 1.82 mg/dL (0.55-1.02); EST Glomerular Filtration Rate 28 mL/min (>60); Est Glom Filt Rate - Afr Amer 34 mL/min (>60); Glucose 189 mg/dL (74-106); Potassium 4.3 mmol/L (3.5-5.1); Sodium Level 139 mmol/L (136-145)
[2017-12-12 15:51] LABS: Anion Gap 10 (5-15); BUN 86 mg/dL (7-18); BUN/Creat Ratio 42.4 RATIO (10-20); Calcium,Total 8.6 mg/dL (8.5-10.1); Chloride 101 mmol/L (98-107); Creatinine, Serum 2.03 mg/dL (0.55-1.02); EST Glomerular Filtration Rate 25 mL/min (>60); Est Glom Filt Rate - Afr Amer 30 mL/min (>60); Glucose 209 mg/dL (74-106); Potassium 3.8 mmol/L (3.5-5.1); Sodium Level 141 mmol/L (136-145)
== END 2017-12-13 23:59 ==
LOC: HHLAB 15:20
PROVIDERS: Visit Provider Internal Medicine Cardiovascular Disease
DX: I13.0 Hypertensive heart and chronic kidney disease with heart failure and stage 1 through stage 4 chronic kidney disease, or unspecified chronic kidney disease (principal); I50.22 Chronic systolic (congestive) heart failure; E11.22 Type 2 diabetes mellitus with diabetic chronic kidney disease
CPT/HCPCS: 80048

== ENCOUNTER → 2017-12-15 17:38 | Outpatient (CLI) | payer MEDICARE, BC, SELFPAY ==
[2017-12-15 18:20] LABS: Anion Gap 8 (5-15); BUN 74 mg/dL (7-18); BUN/Creat Ratio 38.9 RATIO (10-20); Calcium,Total 8.7 mg/dL (8.5-10.1); Chloride 94 mmol/L (98-107); EST Glomerular Filtration Rate 27 mL/min (>60); Est Glom Filt Rate - Afr Amer 33 mL/min (>60); Glucose 270 mg/dL (74-106); Potassium 3.5 mmol/L (3.5-5.1); Sodium Level 136 mmol/L (136-145)
== END ==
PROVIDERS: Family Provider Internal Medicine; PCP Internal Medicine; Visit Provider Internal Medicine Cardiovascular Disease
DX: I13.0 Hypertensive heart and chronic kidney disease with heart failure and stage 1 through stage 4 chronic kidney disease, or unspecified chronic kidney disease (principal); I50.23 Acute on chronic systolic (congestive) heart failure; E11.22 Type 2 diabetes mellitus with diabetic chronic kidney disease; N18.9 Chronic kidney disease, unspecified
CPT/HCPCS: 80048

== ENCOUNTER 2018-01-02 12:59 | Outpatient (RCR) | payer MEDICARE, BC, SELFPAY ==
[2017-12-19 16:50] LABS: Anion Gap 9 (5-15); BUN 70 mg/dL (7-18); BUN/Creat Ratio 36.1 RATIO (10-20); Calcium,Total 8.5 mg/dL (8.5-10.1); Chloride 98 mmol/L (98-107); Creatinine, Serum 1.94 mg/dL (0.55-1.02); EST Glomerular Filtration Rate 26 mL/min (>60); Est Glom Filt Rate - Afr Amer 32 mL/min (>60); Glucose 226 mg/dL (74-106); Potassium 3.6 mmol/L (3.5-5.1); Sodium Level 140 mmol/L (136-145)
[2017-12-25 15:24] LABS: Anion Gap 6 (5-15); BUN 84 mg/dL (7-18); Calcium,Total 8.5 mg/dL (8.5-10.1); Chloride 101 mmol/L (98-107); Creatinine, Serum 2.05 mg/dL (0.55-1.02); EST Glomerular Filtration Rate 25 mL/min (>60); Est Glom Filt Rate - Afr Amer 30 mL/min (>60); Glucose 151 mg/dL (74-106); Potassium 3.6 mmol/L (3.5-5.1); Sodium Level 140 mmol/L (136-145)
[2018-01-02 13:53] LABS: Anion Gap 8 (5-15); BUN 83 mg/dL (7-18); BUN/Creat Ratio 37.1 RATIO (10-20); Calcium,Total 8.8 mg/dL (8.5-10.1); Chloride 96 mmol/L (98-107); Creatinine, Serum 2.24 mg/dL (0.55-1.02); EST Glomerular Filtration Rate 22 mL/min (>60); Est Glom Filt Rate - Afr Amer 27 mL/min (>60); Glucose 221 mg/dL (74-106); Potassium 3.9 mmol/L (3.5-5.1); Sodium Level 135 mmol/L (136-145)
== END 2018-01-12 23:59 ==
LOC: HHLAB 12:59
PROVIDERS: Family Provider Internal Medicine; PCP Internal Medicine; Visit Provider Internal Medicine Cardiovascular Disease
DX: I13.0 Hypertensive heart and chronic kidney disease with heart failure and stage 1 through stage 4 chronic kidney disease, or unspecified chronic kidney disease (principal); I50.22 Chronic systolic (congestive) heart failure; E11.22 Type 2 diabetes mellitus with diabetic chronic kidney disease
CPT/HCPCS: 80048

== ENCOUNTER 2018-01-23 15:31 | Inpatient (IN) | payer MEDICARE, BC, SELFPAY ==
[2018-01-23] VITALS (11 sets, daily range): BP systolic 106–125; BP diastolic 49–76; PULSE 60–71; RESP 16–20; TEMP 36.3–37; O2SAT 90–99; BMI 30.4; BMI 30.5; BMI 29.0
--- NOTE | 2018-01-23 15:34 | RAD_ITS ---
STUDY: X-RAY CHEST REASON FOR EXAM: Female, 82 years old. Chest pain. Abdominal distention. TECHNIQUE: AP and lateral views of the chest. COMPARISON: Comparison is made with prior study dated December 02, 2017. FINDINGS: EKG electrodes are seen. There is elevation of the right hemidiaphragm. There is evidence of vascular congestion and CHF with bibasilar atelectasis worse on the right side. There is blunting of the right costophrenic angle. Sternal cerclage wires are present from a prior sternotomy. Borderline cardiomegaly. A left-sided dual-chamber pacemaker is seen. Normal mediastinum and bib. Normal visualized pulmonary arteries. There is atherosclerotic calcification of the aortic arch with tortuosity. There are diffuse degenerative changes of the visualized thoracic spine. Normal visualized ribs, clavicles, and shoulders. There is no demonstrated abnormality of the visualized soft tissue structures of the upper abdomen. RAD/Chest 1 View (Portable) IMPRESSION: CHF with bibasilar atelectasis worse on the right side. Electronically Signed: Kenroy Dooley MD at 15:55 EDT Tel [phone], Service support ,
--- NOTE | 2018-01-23 15:39 | EKG12_ITS ---
Test Reason : Blood Pressure : / mmHG Vent. Rate : 084 BPM Atrial Rate : 084 BPM P-R Int : 000 ms QRS Dur : 176 ms QT Int : 516 ms P-R-T Axes : 000 -67 109 degrees QTc Int : 609 ms AV dual-paced rhythm Abnormal ECG Confirmed by BRIT AN, HERACLIO ([id number]), film editor JÚNIOR LEWIS ([id number]) on 01/27/2018 1:59:16 PM Referred By: Confirmed By:HERACLIO PEREA MD
--- NOTE | 2018-01-23 15:40 | CT_ITS ---
STUDY: CT ABDOMEN AND PELVIS WITHOUT CONTRAST REASON FOR EXAM: Female, 82 years old. Chest pain and abdominal pain. Kidney disease. RADIATION DOSAGE (If Supplied By Facility): CTDIvol = ( 12.74 ) mGy, DLP = ( 1265.60 ) mGycm TECHNIQUE: Transaxial images were obtained from the dome of the diaphragm to the symphysis pubis without oral contrast, and without intravenous contrast. Sagittal and coronal images were reconstructed. Individualized dose optimization techniques were used for this CT. COMPARISON: 11/01/17. FINDINGS: Limited views through the lower chest show moderate to large right pleural effusion grossly stable. Prominent atelectasis in the right lower lobe. Small pleural effusion and atelectasis in the left posterior lung base. Mild cardiomegaly status post CABG. Relatively small somewhat nodular liver, similar to prior study. Cannot exclude cirrhosis. Moderate ascites in both upper quadrants and marked ascites along the paracolic gutters and into the pelvis, significantly worse than prior study. Grossly normal spleen. Gallbladder not seen, question cholecystectomy. Atrophy of the pancreas. Grossly normal adrenal glands. No acute abnormalities of the kidneys. Stable bilateral renal cysts. No evidence for renal stones or hydronephrosis. Evaluation of the GI tract is limited by absence of oral contrast. Cannot exclude stomach wall thickening. No dilated loops of bowel or evidence for obstruction. Cannot exclude segmental thickening of the hendrix of the small or large bowel. Cannot exclude enteritis or colitis. Moderate diffuse fecal retention. Diverticulosis without definite diverticulitis. Appendix within normal limits. Heavily calcified aorta with no aneurysm. Mild retroperitoneal adenopathy, stable. In the pelvis, images are degraded by metal artifact from right hip arthroplasty. Bladder and rectum grossly normal. Probable hysterectomy. Degenerative changes and demineralization throughout the bones. Subcutaneous tissues show diffuse anasarca. CT/Abdomen/Pelvis without Cont IMPRESSION: Worsening of ascites in all quadrants. Numerous other chronic findings as above are stable. Possible cirrhosis. Moderate right pleural effusion. Cannot exclude segments of bowel wall thickening because oral contrast was not given. Electronically Signed: Juan Jose Buck MD at 16:37 EDT , Service support ,
--- NOTE | 2018-01-23 15:46 | NURSING ---
NO LW OR POA
[2018-01-23 15:59] LABS: Absolute Lymphocyte Count 1.03 X10^3/ul (0.83-4.51); Absolute Neutrophil Count 7.2 X10^3/uL (2.0-7.7); Basophil# 0.03 X10^3/uL; Basophil% 0.3 % (0-1); Eosinophil# 0.49 X10^3/uL; Hematocrit 36.1 % (37-47); Lymphocyte # 1.03 X10^3/ul (4.0); Lymphocyte % 10.5 % (19-41); Mean Corp Hgb Conc 30.5 g/gl (32-36); Mean Corpuscular Hgb 25.5 pg (27.0-32.0); Mean Corpuscular Volume 83.8 fL (81-99); Mean Platelet Vol. 10.7 fl (6.2-12.0); Monocyte# 0.97 X10^3/uL; Monocyte% 9.9 % (0-10); Neutrophil # 7.23 X10^3/uL (2.7-7.7); Neutrophil % 74.1 % (47-70); Platelet Count 181 K/mm3 (150-450); RBC Distribution Width CV 16.2 % (11.6-14.6); RBC Distribution Width SD 49.8 fl (35.1-43.9); Red Blood Count 4.31 M/mm3 (4.2-5.4); White Blood Count 9.8 K/mm3 (4.4-11.0)
[2018-01-23 16:03] LABS: POSITIVE COUNT NO; POSITIVE DIFFERENTIAL NO; POSITIVE MORPHOLOGY NO
[2018-01-23 16:25] LABS: ALB/GLOB Ratio 0.8 RATIO (0.9-2.4); AST(SGOT) 40 U/L (15-37); Alanine Aminotransfer ALT/SGPT 25 U/L (13-56); Albumin, Serum 3.3 g/dL (3.2-5.0); Alkaline Phosphatase 149 U/L (45-117); Anion Gap 10 (5-15); BUN 118 mg/dL (7-18); BUN/Creat Ratio 55.7 RATIO (10-20); Calcium,Total 8.8 mg/dL (8.5-10.1); Chloride 100 mmol/L (98-107); Creatinine, Serum 2.12 mg/dL (0.55-1.02); EST Glomerular Filtration Rate 24 mL/min (>60); Est Glom Filt Rate - Afr Amer 29 mL/min (>60); Globulin 4.4 g/dL (2.2-4.2); Glucose 60 mg/dL (74-106); Lipase 61 U/L (73-393); Potassium 3.4 mmol/L (3.5-5.1); Protein, Total 7.7 g/dL (6.4-8.2); Sodium Level 140 mmol/L (136-145)
--- NOTE | 2018-01-23 16:25 | ED.RN ---
DR HOPKINS NOTIFIED OF BUN RESULTS
[2018-01-23 16:26] LABS: International Normalized Ratio 1.4; Prothrombin Time (Protime)PT. 17.2 SECONDS (11.7-14.9)
[2018-01-23 16:33] LABS: BNP,B-Type NATRIURETIC PEPTIDE 1512.6 pg/mL (0-100)
[2018-01-23 16:42] LABS: Lactic Acid 1.8 mmol/L (0.4-2.0)
[2018-01-23] MEDS: 0.9% Normal Saline 1,000 ML 15 ML IV (16:49)
[2018-01-23] MEDS: Ondansetron 4 MG/2 ML Vial IV ×3 (16:50→19:14)
--- NOTE | 2018-01-23 16:59 | NURSING ---
DR PHELAN IN ER
--- NOTE | 2018-01-23 17:16 | PCM.HP.STD ---
Problem List (1) Acute on chronic renal failure Status: Acute (2) Acute systolic CHF (congestive heart failure) Status: Acute (3) Elevated troponin Status: Acute (4) Anemia Status: Chronic Qualifiers: (5) Anxiety Status: Chronic (6) Benign hypertension Status: Chronic (7) Chronic obstructive pulmonary disease (COPD) Status: Chronic Qualifiers: (8) Diabetes mellitus, type 2 Status: Chronic (9) GERD (gastroesophageal reflux disease) Status: Chronic Qualifiers: (10) History of coronary artery disease Status: Chronic (11) History of hypothyroidism Status: Chronic (12) History of renal stent Status: Chronic Comment: 2009, right (13) Hypertension Status: Chronic Qualifiers: (14) Obesity (BMI 30.0-34.9) Status: Chronic (15) Pacemaker Status: Chronic (16) SSS (sick sinus syndrome) Status: Chronic Comment: s/p pacer 2013 (17) Stage 3 chronic kidney disease Status: Chronic (18) Status post total hip replacement, right Status: Chronic History of Present Illness Date of Admission: 01/23/18 Chief Complaint: Shortness of breath, weakness, abdominal pain, chest pain. The patient is a 82 year old F who presents to the emergency room with multiple complaints including generalized weakness, abdominal pain with nausea, vomiting, chest pain, shortness of breath. Patient states she recently met with hospice and was to sign paperwork with them this afternoon but could not wait any longer. She states she still wishes to go through with hospice services although she is fairly indecisive about her wishes. Patient states she cannot go on like this. She is a poor historian. Patient states she lives at home with her who was recently diagnosed with heart failure. Patient follows with DULCE Lazaro. She denies chest pain currently. She states she feels like her heart is going crazy. Patient states she has had a poor oral intake due to nausea and abdominal pain. She also notes abdominal swelling. Patient denies other current complaints. She has a past medical history of chronic systolic CHF follows with DULCE Lazaro, chronic kidney disease stage III follows with Dr. Hernandez, CAD status post PCI/CABG ?4, type 2 diabetes mellitus, hypertension, hyperlipidemia, anxiety, depression, hypothyroidism, COPD, sick sinus syndrome status post pacemaker, GERD. Past Medical History Past Medical History (Chronic Problems): Chronic Problems Stage 3 chronic kidney disease (Chronic) Pacemaker (Chronic) History of renal stent (Chronic) 2008, right SSS (sick sinus syndrome) (Chronic) s/p pacer 2013 Anxiety (Chronic) Hypertension (Chronic) GERD (gastroesophageal reflux disease) (Chronic) Diabetes mellitus, type 2 (Chronic) History of hypothyroidism (Chronic) Benign hypertension (Chronic) History of coronary artery disease (Chronic) Status post total hip replacement, right (Chronic) Obesity (BMI 30.0-34.9) (Chronic) Anemia (Chronic) Chronic obstructive pulmonary disease (COPD) (Chronic) Allergies felodipine Allergy (Severe, Verified 12/09/17 23:32) Shortness of breath pentazocine lactate [From Talwin] Allergy (Unknown, Verified 12/09/17 23:32) Unknown Patient does not know what happened when taking pentazocine, was told do not take it in the past promethazine Allergy (Unknown, Verified 12/09/17 23:32) Unknown Patient is unsure of allergy or reaction, was told do not take it in the past Sulfa (Sulfonamide Antibiotics) Allergy (Unknown, Verified 12/09/17 23:32) Unknown Patient does not know what the reaction/allergy is. Was told not to take it after surgery in the past amlodipine Allergy (Verified 12/09/17 23:32) Unknown Heparin Analogues Allergy (Verified 12/09/17 23:32) Unknown meloxicam [From Mobic] Allergy (Verified 12/09/17 23:32) Other oxycodone terephthalate [From Percodan] Allergy (Verified 12/09/17 23:32) Unknown Penicillins Allergy (Verified 12/09/17 23:32) Hives Iodinated Contrast- Oral and IV Dye [Iodinated Contrast Media - IV Dye] Adverse Reaction (Severe, Verified 12/09/17 23:32) Other Convulsions NSAIDS (Non-Steroidal Anti-Inflamma Adverse Reaction (Intermediate, Verified 12/09/17 23:32) Other Elevated liver enzymes oxycodone HCl [From Percodan] Adverse Reaction (Intermediate, Verified 12/09/17 23:32) Other Elevated liver enzymes ciprofloxacin [From Cipro] Adverse Reaction (Mild, Verified 12/09/17 23:32) Nausea/Vom/Diarrhea codeine Adverse Reaction (Mild, Verified 12/09/17 23:32) Nausea makes me sick HEPARIN Allergy (Unknown, Uncoded 12/09/17 23:32) Unknown WAS TOLD NOT TO TAKE AFTER HEART SURG D/T RXN Home Medications: Ambulatory Orders Medication Instructions Recorded Folic Acid 400 mcg PO DAILY@0800 06/18/13 Hydroxychloroquine [Plaquenil] 200 mg PO BIDCM 06/18/13 Levothyroxine [Synthroid] 125 mcg PO DAILY 06/18/13 Nitroglycerin [Nitrostat] 0.4 mg SUBLINGUAL Q5M PRN 06/18/13 Simvastatin [Zocor] 20 mg PO QHS 06/18/13 Pantoprazole Sodium [Protonix] 40 mg PO BID 06/20/13 Clonazepam [Klonopin] 0.5 mg PO DAILY PRN PRN 06/19/14 Gabapentin [Neurontin] 300 mg PO TID PRN 01/10/16 Aspirin E.C. [Ecotrin] 81 mg PO DAILY@0800 10/09/17 Valacyclovir HCl [Valtrex] 500 mg PO BID PRN 10/09/17 Polyethylene Glycol 3350 [Miralax] 17 gm PO DAILY PRN PRN #0 10/14/17 Carvedilol [Coreg (Beta Ramírez)] 12.5 mg PO BID 11/01/17 Clopidogrel Bisulfate [Plavix] 75 mg PO DAILY 11/01/17 Furosemide [Lasix] 80 mg PO BID 11/01/17 Insulin NPH Human Isophane See Protocol SQ TIDCM 11/01/17 [Humulin N Kwikpen] hydrALAZINE [Apresoline] 25 mg PO BID 11/01/17 Spironolactone [Aldactone] 25 mg PO BID 11/22/17 Na Biphos/Potassium Phosphate 1 packet PO TID #12 packet 11/26/17 [Neutra-Phos Packet] Surgical History: angioplasty - cardiac stent, JACQUES w/ BSO, pa, appendectomy, cataract, cholecystectomy, coronary bypass surgery, pacemaker implantation, total hip arthroplasty - rt, - - Rt CEA, Rt renal artery stent 2012, JACQUES/BSO Lives: Spouse/ Significant Other Smoking Status: Never smoker Alcohol: None Drugs: None - *Family History Maternal History Items: Dementia - age 90, Hypertension Paternal History Items: Heart Disease - age 80, Hypertension, Stroke Sibling History Items: Hypertension, Stroke Review of Systems Constitutional: Reports: Malaise, Weakness, Fatigue. Denies: Chills, Fever, Weight Change HEENT: Denies: Head Aches, Sinus Congestion, Sinus Drainage Cardiovascular: Reports: Chest Pain, Heaviness, Light Headedness, Palpitations. Denies: Syncope Respiratory: Reports: Shortness of Breath. Denies: Cough, Sputum production Gastrointestinal: Reports: Abdominal Pain, Nausea, Vomiting Genitourinary: Denies: Dysuria Musculoskeletal: Denies: Joint Pain, Joint Tenderness Skin: Denies: Rash, Wounds Neurological: Denies: Numbness, Tingling, Focal weakness Psychiatric: Reports: Anxiety, Depression Hematologic/ Lymphatic: Denies: Easy Bruising, Easy Bleeding VTE Information - Inpt Only VTE Present on Admission: No VTE Mechan Device Prophylaxis: None VTE Pharm Prophylaxis ordered?: Yes - Physical Exam General: Alert, Cooperative, - - Soft spoken, poor eye contact HEENT: Atraumatic, PERRLA, EOMI, Normocephalic Oral: Dry Mucosa Neck: Supple, Negative Carotid Bruits, JVD, Bilateral Lungs: Diminished, - - Crackles Cardiovascular: Regular rate, No murmurs Abdomen: Bowel Sounds Present, Soft, Non Tender, Distended Extremities: No clubbing, No cyanosis, No edema Skin: No rashes, No breakdown Musculoskeletal: No Tenderness to Palpation of Joints or Extremities Neurological: Cranial nerves II-XII grossly intact, Neuro grossly intact Psych/Mental Status: Anxious, Flat Affect, Depressed Vital Signs Temp Pulse Resp BP Pulse Ox 98.6 F 62 18 113/76 99 01/23/18 15:32 01/23/18 16:43 01/23/18 16:43 01/23/18 16:43 01/23/18 16:43 Oxygen Flow Rate (L/min) 2 Oxygen Delivery Method Nasal Cannula Weight: 70.8 kg Body Mass Index (BMI) 30.4 Finger Stick Blood Glucose 272 Laboratory Tests Past 24 Hrs 01/23/18 01/23/18 01/23/18 15:35 15:35 15:35 WBC 9.8 RBC 4.31 Hgb 11.0 L Hct 36.1 L MCV 83.8 MCH 25.5 L MCHC 30.5 L RDW 16.2 H RDW Differential 49.8 H Plt Count 181 MPV 10.7 Immature Gran % (Auto) 0.200 Neut % (Auto) 74.1 H Lymph % (Auto) 10.5 L Humphreys % (Auto) 9.9 Eos % (Auto) 5.0 Baso % (Auto) 0.3 Absolute Neuts (auto) 7.2 Absolute Lymphs (auto) 1.03 Total Counted Not Reportable PT 17.2 H INR 1.4 Sodium 140 Potassium 3.4 L Chloride 100 Carbon Dioxide 30.0 Anion Gap 10 BUN 118 H* Creatinine 2.12 H Estim Creat Clear Calc 15.20 Est GFR (MDRD) Af Amer 29 L Est GFR (MDRD) Non-Af 24 L BUN/Creatinine Ratio 55.7 H Glucose 60 L Lactic Acid Calcium 8.8 Total Bilirubin 0.80 AST 40 H ALT 25 Alkaline Phosphatase 149 H Troponin I 0.526 H B-Natriuretic Peptide Total Protein 7.7 Albumin 3.3 Globulin 4.4 H Albumin/Globulin Ratio 0.8 L Lipase 61 L 01/23/18 01/23/18 15:35 15:54 WBC RBC Hgb Hct MCV MCH MCHC RDW RDW Differential Plt Count MPV Immature Gran % (Auto) Neut % (Auto) Lymph % (Auto) Humphreys % (Auto) Eos % (Auto) Baso % (Auto) Absolute Neuts (auto) Absolute Lymphs (auto) Total Counted PT INR Sodium Potassium Chloride Carbon Dioxide Anion Gap BUN Creatinine Estim Creat Clear Calc Est GFR (MDRD) Af Amer Est GFR (MDRD) Non-Af BUN/Creatinine Ratio Glucose Lactic Acid 1.8 Calcium Total Bilirubin AST ALT Alkaline Phosphatase Troponin I B-Natriuretic Peptide 1512.6 H Total Protein Albumin Globulin Albumin/Globulin Ratio Lipase Assessment/Plan 1. Acute on chronic systolic CHF with associated acute hypoxia and ascites-chest x-ray on admission shows CHF with bibasilar atelectasis. CT of abdomen showed worsening of ascites in all quadrants, possible cirrhosis, moderate right pleural effusion. BNP 1512. Lasix drip 10 mg an hour. Strict I&O. Daily weight. 1500cc FR. cardiac catheterization September 2017 showed EF 40-45%. Continue supplemental oxygen to maintain O2 at or above 90%. 2. Chronic kidney disease stage III/renal artery stenosis status post stent left artery- follows with Dr. Hernandez. Consult Dr. Hernandez. Recent creat 01/02/18 2.2. Creatinine on admission 2.1. Trend BMP. 3. Elevated troponin-appears chronic in nature. Troponin on admission 0.5. Chronically elevated during previous admissions. Suspect secondary to chronic kidney disease. Cycle enzymes. 4. CAD status post PCI/CABG ?4-most recent cath in September 2017. Cath at that time showed EF 40-45%, left main 80% distal stenosis, LAD less than 30%, circumflex artery less than 30%, RCA 60% stenosis. No further intervention was necessary at that time and patient continued medical management. Continue aspirin, statin, Plavix, carvedilol. 5. Type 2 diabetes mellitus-hold home oral regimen. Accu-Cheks before meals at bedtime with sliding scale insulin. 6. Hypertension-continue home regimen including Coreg. Hold home CARLOS inhibitor regimen. Lasix drip as noted above. As needed hydralazine. 7. Hyperlipidemia-continue statin. 8. Anxiety/depression-continue home Klonopin regimen. 9. Hypothyroidism-continue Synthroid. 10. COPD-as needed albuterol. No acute exacerbation. 11. Sick sinus syndrome-status post pacemaker. 12. GERD-continue PPI. DVT prophylaxis-heparin subcu. Discharge planning: Hospice contacted from ER due to patient being in the process of establishing with them. Awaiting response. Consult case management. This patient was seen by MEIR Malhotra under the supervision of Dr. Grant.
--- NOTE | 2018-01-23 17:32 | ED.VISSUMM ---
- ER Visit Summary Date of Service: 01/23/18 Chief Complaint: [] Chest pain and abdominal pain History of Present Illness: The patient is a 82 F [] presents via EMS with chest pain and abdominal pain and generalized weakness. History is limited secondary to the patient's lack of verbal response. Patient is slow to respond unless she is sternal rubs or providers speak loudly and clearly anxious from her face. Does have a significant past medical history of congestive heart failure renal disease, diabetes, CAD, pulmonary hypertension. CABG and AICD placement several years ago. Per nursing she was reportedly scheduled to see hospice/positive care formally within the next few hours and presented to the emergency department with generalized weakness, chest pain, abdominal pain. Physical Examination: [] Afebrile, vital signs stable. Elderly female no acute distress. Cardiovascular exam is regular rate rhythm. Diminished breath sounds globally. Abdomen is obese and distended with mild diffuse tenderness. No guarding. 1+ symmetric lower extremity edema. Test Results: [] X-rays consistent with CHF. The abdomen and pelvis without IV contrast reveals ascites without obvious acute pathology or bowel obstruction. Labs reveal normal CBC. BUN and creatinine are elevated at 118 and 2.12, respectively. INR 1.4. Lipase normal. Lactic acid 1.8. Troponin elevated at 0.526. BNP 1512. Emergency Department Course and Treatment: [] Patient evaluated for chest and abdominal pain without significant findings. Troponin is elevated however the patient has chronic renal failure and EKG is not concerning at this time. Much of the patient's presentation may be related to emotional distress/depression related to being placed on hospice/palliative care. Case was discussed with the hospitalist who then discussed the case with the hospice/palliative care team. Patient will be admitted to PCU with a consult in the morning to hospice and palliative care. Patient is amenable to this plan. Treatment Plan: [] Admit, stable. Disposition: [] Admit, Stable. Impression: [] CHF exacerbation Indeterminate troponin Dehydration This note was generated with [employer] dictation software. It may contain incorrect words, spelling, and punctuation that were not noted in review of the chart prior to signing ED Disposition - Plan for ED Patient: Chief Complaint: Chest Pain Referrals: Pita Conde MD [Primary Care Provider] -
--- NOTE | 2018-01-23 17:40 | ED.DCSUM_ITS ---
- ER Visit Summary Date of Service: 01/23/18 Chief Complaint: [] Chest pain and abdominal pain History of Present Illness: The patient is a 82 F [] presents via EMS with chest pain and abdominal pain and generalized weakness. History is limited secondary to the patient's lack of verbal response. Patient is slow to respond unless she is sternal rubs or providers speak loudly and clearly anxious from her face. Does have a significant past medical history of congestive heart failure renal disease, diabetes, CAD, pulmonary hypertension. CABG and AICD placement several years ago. Per nursing she was reportedly scheduled to see hospice/positive care formally within the next few hours and presented to the emergency department with generalized weakness, chest pain, abdominal pain. Physical Examination: [] Afebrile, vital signs stable. Elderly female no acute distress. Cardiovascular exam is regular rate rhythm. Diminished breath sounds globally. Abdomen is obese and distended with mild diffuse tenderness. No guarding. 1 + symmetric lower extremity edema. Test Results: [] X-rays consistent with CHF. The abdomen and pelvis without IV contrast reveals ascites without obvious acute pathology or bowel obstruction. Labs reveal normal CBC. BUN and creatinine are elevated at 118 and 2.12, respectively. INR 1.4. Lipase normal. Lactic acid 1.8. Troponin elevated at 0.526. BNP 1512. Emergency Department Course and Treatment: [] Patient evaluated for chest and abdominal pain without significant findings. Troponin is elevated however the patient has chronic renal failure and EKG is not concerning at this time. Much of the patient's presentation may be related to emotional distress/depression related to being placed on hospice/palliative care. Case was discussed with the hospitalist who then discussed the case with the hospice/palliative care team. Patient will be admitted to PCU with a consult in the morning to hospice and palliative care. Patient is amenable to this plan. Treatment Plan: [] Admit, stable. Disposition: [] Admit, Stable. Impression: [] CHF exacerbation Indeterminate troponin Dehydration This note was generated with [employer] dictation software. It may contain incorrect words, spelling, and punctuation that were not noted in review of the chart prior to signing ED Disposition - Plan for ED Patient: Chief Complaint: Chest Pain Referrals: Pita Conde MD [Primary Care Provider] -
--- NOTE | 2018-01-23 17:44 | NURSING ---
217 ACUTE ON CHRONIC CHF, HYPOXIA, DEBILITY RUTH ANN
[2018-01-23 18:51] LABS: Bedside Glucose 127 mg/dL (70-110)
[2018-01-23] MEDS: Furosemide 500 MG in Empty Viaflex 50 mL 1 EACH CONT INF (19:24)
[2018-01-23] MEDS: clonazePAM 0.5 MG Tablet PO (21:47)
[2018-01-23] MEDS: Atorvastatin Calcium 10 MG Tablet PO (21:51)
[2018-01-23] MEDS: Carvedilol 12.5 MG Tablet PO (21:51)
[2018-01-23] MEDS: Pantoprazole Sodium 40 MG Tablet PO (21:52)
[2018-01-23] MEDS: Na Biphos/Potassium Phosphate PACKET 1 PACKET PO (21:52)
[2018-01-23 22:15] LABS: Bedside Glucose 181 mg/dL (70-110)
[2018-01-23 22:58] LABS: Anion Gap 11 (5-15); BUN 111 mg/dL (7-18); BUN/Creat Ratio 52.9 RATIO (10-20); Calcium,Total 8.6 mg/dL (8.5-10.1); Chloride 101 mmol/L (98-107); EST Glomerular Filtration Rate 24 mL/min (>60); Est Glom Filt Rate - Afr Amer 29 mL/min (>60); Estimated Creatinine Clearance 22.67 ml/min; Glucose 184 mg/dL (74-106); Potassium 3.9 mmol/L (3.5-5.1); Sodium Level 137 mmol/L (136-145)
[2018-01-24] VITALS (8 sets, daily range): BP systolic 104–120; BP diastolic 41–46; PULSE 60–68; RESP 16–18; TEMP 36.6–36.7; O2SAT 94–98
[2018-01-24] MEDS: Levothyroxine 125 MCG Tablet PO (05:28)
[2018-01-24 06:22] LABS: Anion Gap 12 (5-15); BUN 118 mg/dL (7-18); Calcium,Total 8.7 mg/dL (8.5-10.1); Chloride 99 mmol/L (98-107); Creatinine, Serum 2.27 mg/dL (0.55-1.02); EST Glomerular Filtration Rate 22 mL/min (>60); Est Glom Filt Rate - Afr Amer 27 mL/min (>60); Estimated Creatinine Clearance 20.97 ml/min; Glucose 228 mg/dL (74-106); Potassium 3.6 mmol/L (3.5-5.1); Sodium Level 140 mmol/L (136-145)
[2018-01-24 06:51] LABS: Bedside Glucose 226 mg/dL (70-110)
[2018-01-24] MEDS: Na Biphos/Potassium Phosphate PACKET 1 PACKET PO (08:52)
[2018-01-24] MEDS: Aspirin E.C. 81 MG Tablet PO (08:52)
[2018-01-24] MEDS: Hydroxychloroquine 200 MG Tablet PO (08:53)
[2018-01-24] MEDS: Pantoprazole Sodium 40 MG Tablet PO (09:02)
[2018-01-24] MEDS: Spironolactone 50 MG Tablet PO (09:02)
[2018-01-24] MEDS: hydrALAZINE 25 MG Tablet PO (09:02)
[2018-01-24] MEDS: Carvedilol 12.5 MG Tablet PO (09:03)
[2018-01-24] MEDS: Clopidogrel Bisulfate 75 MG Tablet PO (09:03)
--- NOTE | 2018-01-24 09:42 | NURSING ---
multiple attempts made to explain reasoning for dunn catheter, pt continues to refuse.
--- NOTE | 2018-01-24 09:58 | CASEMGMT ---
Addendum entered by Azeb Bonilla 01/24/18 10:14: CM spoke w/pt, pt is ready to speak to hospice any time. SW called Brittnee w/[facility] back and left a message stating pt is ready to speak w/someone from hospice now, someone can come between 10:30-11am. SW remains available for any additional assist. JABARI Bowen, SCHOOL JANITOR Original Note: SW informed that pt was going to sign hospice papers and instead came to the hospital. SW called [facility] for clarification. As per [facility], pt is already on palliative care. Shilpa Lazo was out to see pt yesterday and she spoke w/pt about hospice. Pt was agreeable, and the liason was to come out to see her. Pt then decided to come to the emergency room. Hospice can come out to see pt today between 10:30-11am or 3pm. CM will ask pt what time is best for pt and SW will call hospice back w/time. As per TECHNICAL STENOGRAPHER, pt is now in agreement w/hospice. JABARI Bowen, SCHOOL JANITOR
--- NOTE | 2018-01-24 10:03 | CASEMGMT ---
Face to Face with patient for initial transition planning/care coordination assessment. STACI BRYAN introduced self and role at [facility], pt voices understanding and consents to assessment at this time. Pt is sitting up in chair in no distress at this time. Pt is A/O x4 at this time and answers all questions appropriately at this time. Care providers, pharmacy, and demographics verified. See attached link. Pt voices no further concerns/needs at this time. Advised pt to ask for CM if any further questions/concerns/needs arise, voices understanding. Hospice to come see pt within the hour. Pt states that is unable to join her for the Hospice consult due to 'being ill.' PLAN: [place] STACI BRYAN
--- NOTE | 2018-01-24 10:58 | CASEMGMT ---
Regina from Hospice is here to speak with pt at this time. Yeimi SMALL CM
[2018-01-24 11:30] LABS: Bedside Glucose 370 mg/dL (70-110)
--- NOTE | 2018-01-24 12:15 | CASEMGMT ---
Per Regina from Hospice, pt did sign hospice papers and is good to go home on Hospice at this time. Per Regina, pt does not need any equipment set up prior to discharge. Hilary NGUYEN aware and pt to be discharged at this time. Yeimi SMALL CM
--- NOTE | 2018-01-24 12:15 | PCM.DC ---
You will use the following diet at home:: No restrictions Discharge Activity: Return to Normal Activity Allergies/Adverse Reactions: Allergies felodipine Allergy (Severe, Verified 12/09/17 23:32) Shortness of breath pentazocine lactate [From Talwin] Allergy (Unknown, Verified 12/09/17 23:32) Unknown Patient does not know what happened when taking pentazocine, was told do not take it in the past promethazine Allergy (Unknown, Verified 12/09/17 23:32) Unknown Patient is unsure of allergy or reaction, was told do not take it in the past Sulfa (Sulfonamide Antibiotics) Allergy (Unknown, Verified 12/09/17 23:32) Unknown Patient does not know what the reaction/allergy is. Was told not to take it after surgery in the past amlodipine Allergy (Verified 12/09/17 23:32) Unknown Heparin Analogues Allergy (Verified 12/09/17 23:32) Unknown meloxicam [From Mobic] Allergy (Verified 12/09/17 23:32) Other oxycodone terephthalate [From Percodan] Allergy (Verified 12/09/17 23:32) Unknown Penicillins Allergy (Verified 12/09/17 23:32) Hives Iodinated Contrast- Oral and IV Dye [Iodinated Contrast Media - IV Dye] Adverse Reaction (Severe, Verified 12/09/17 23:32) Other Convulsions NSAIDS (Non-Steroidal Anti-Inflamma Adverse Reaction (Intermediate, Verified 12/09/17 23:32) Other Elevated liver enzymes oxycodone HCl [From Percodan] Adverse Reaction (Intermediate, Verified 12/09/17 23:32) Other Elevated liver enzymes ciprofloxacin [From Cipro] Adverse Reaction (Mild, Verified 12/09/17 23:32) Nausea/Vom/Diarrhea codeine Adverse Reaction (Mild, Verified 12/09/17 23:32) Nausea makes me sick HEPARIN Allergy (Unknown, Uncoded 12/09/17 23:32) Unknown WAS TOLD NOT TO TAKE AFTER HEART SURG D/T RXN Medications to take at Discharge Folic Acid 400 mcg PO DAILY@0800 06/18/13 Hydroxychloroquine [Plaquenil] 200 mg PO BIDCM 06/18/13 Nitroglycerin [Nitrostat] 0.4 mg SUBLINGUAL Q5M PRN 06/18/13 Simvastatin [Zocor] 20 mg PO QHS 06/18/13 Pantoprazole Sodium [Protonix] 40 mg PO BID 06/20/13 Clonazepam [Klonopin] 0.5 mg PO DAILY PRN PRN 06/19/14 Gabapentin [Neurontin] 300 mg PO TID PRN 01/10/16 Aspirin E.C. [Ecotrin] 81 mg PO DAILY@0800 10/09/17 Valacyclovir HCl [Valtrex] 500 mg PO BID PRN 10/09/17 Polyethylene Glycol 3350 [Miralax] 17 gm PO DAILY PRN PRN #0 10/14/17 Carvedilol [Coreg (Beta Ramírez)] 12.5 mg PO BID 11/01/17 Clopidogrel Bisulfate [Plavix] 75 mg PO DAILY 11/01/17 Furosemide [Lasix] 80 mg PO BID 11/01/17 hydrALAZINE [Apresoline] 25 mg PO BID 11/01/17 Spironolactone [Aldactone] 50 mg PO BID 11/22/17 Albuterol IH (ProAir) [Proair Hfa] 1 puff INHALATION Q4H PRN PRN 01/23/18 Insulin NPH Hum/Reg Insulin Hm [Humulin 70/30 Kwikpen] 5 - 15 unit SQ TIDCM 01/23/18 Levothyroxine Sodium [Synthroid] 125 mcg PO DAILY 01/23/18 Metolazone [Zaroxolyn] 2.5 mg PO DAILY 01/23/18 Na Biphos/Potassium Phosphate [Neutra-Phos Packet] 1 packet PO TID 01/23/18 Primary Care Physician: Pita Conde MD [Primary Care Provider] - Proposed Discharge Date: 01/24/18
--- NOTE | 2018-01-24 12:17 | PCM.DC.SUM ---
<Inge Rascon - Last Filed: 01/24/18 12:24> Discharge Date and Diagnosis Date of Admission: 01/23/18 Date of Discharge: 01/24/18 - Primary Discharge Diagnosis 1. Acute on chronic systolic CHF with associated acute hypoxia and ascites 2. Elevated troponin 3. Chronic kidney disease stage IV - Secondary Discharge Diagnosis Chronic Problems Stage 3 chronic kidney disease (Chronic) Pacemaker (Chronic) History of renal stent (Chronic) 2008, right SSS (sick sinus syndrome) (Chronic) s/p pacer 2013 Anxiety (Chronic) Hypertension (Chronic) GERD (gastroesophageal reflux disease) (Chronic) Diabetes mellitus, type 2 (Chronic) History of hypothyroidism (Chronic) Benign hypertension (Chronic) History of coronary artery disease (Chronic) Status post total hip replacement, right (Chronic) Obesity (BMI 30.0-34.9) (Chronic) Anemia (Chronic) Chronic obstructive pulmonary disease (COPD) (Chronic) Hospital Course and Treatment Imaging Results: Diagnostic Data Chest X-Ray 01/23/18 15:34 IMPRESSION: CHF with bibasilar atelectasis worse on the right side. Electronically Signed: Kenroy Dooley MD at 15:55 EDT Tel [phone], Service support , Abdomen/Pelvis CT 01/23/18 15:40 IMPRESSION: Worsening of ascites in all quadrants. Numerous other chronic findings as above are stable. Possible cirrhosis. Moderate right pleural effusion. Cannot exclude segments of bowel wall thickening because oral contrast was not given. Electronically Signed: Juan Jose Buck MD at 16:37 EDT , Service support , Operations: None Procedures: None Summary of Care Provided: Patient is an 82-year-old female admitted 01/23/2018 due to shortness of breath, weakness, abdominal pain, chest pain. She has a past medical history of chronic systolic CHF follows with Dr. Sapp, [facility], chronic kidney disease stage III follows with Dr. Hernandez, CAD status post PCI/CABG ?4, type 2 diabetes mellitus, hypertension, hyperlipidemia, anxiety, depression, hypothyroidism, COPD, sick sinus syndrome status post pacemaker, GERD. Patient was scheduled to meet with hospice prior to admission but states she could not wait any longer. During admission patient continued to express that she wished to be under hospice services. Hospice evaluated patient and patient will be discharged home with hospice. 1. Acute on chronic systolic CHF with associated acute hypoxia and ascites-chest x-ray on admission shows CHF with bibasilar atelectasis. CT of abdomen showed worsening of ascites in all quadrants, possible cirrhosis, moderate right pleural effusion. BNP 1512. Patient was started on Lasix drip 10 mg an hour. Cardiac catheterization September 2017 showed EF 40-45%. Continue supplemental oxygen to maintain O2 at or above 90%. Patient has decided to be discharged home with hospice services. 2. Chronic kidney disease stage IV/renal artery stenosis status post stent left artery- follows with Dr. Hernandez. 3. Elevated troponin-appears chronic in nature. Troponin on admission 0.5. Chronically elevated during previous admissions. Suspect secondary to chronic kidney disease. 4. CAD status post PCI/CABG ?4-most recent cath in September 2017. Cath at that time showed EF 40-45%, left main 80% distal stenosis, LAD less than 30%, circumflex artery less than 30%, RCA 60% stenosis. No further intervention was necessary at that time and patient continued medical management. 5. Type 2 diabetes mellitus-continue home regimen. 6. Hypertension-stable. 7. Hyperlipidemia 8. Anxiety/depression 9. Hypothyroidism 10. Chronic COPD 11. Sick sinus syndrome-status post pacemaker. 12. GERD General: Alert, Cooperative, - - Soft spoken, poor eye contact HEENT: Atraumatic, PERRLA, EOMI, Normocephalic Oral: Dry Mucosa Neck: Supple, Negative Carotid Bruits, JVD, Bilateral Lungs: Diminished, - - Crackles Cardiovascular: Regular rate, No murmurs Abdomen: Bowel Sounds Present, Soft, Non Tender, Distended Extremities: No clubbing, No cyanosis, No edema Skin: No rashes, No breakdown Musculoskeletal: No Tenderness to Palpation of Joints or Extremities Neurological: Cranial nerves II-XII grossly intact, Neuro grossly intact Psych/Mental Status: Anxious, Flat Affect, Depressed Patient seen and examined prior to discharge. Physical assessment as noted above. Patient will be discharged home with hospice. This patient was seen by MEIR Malhotra under the supervision of Dr. Corona. Discharge Diet: No Restrictions Discharge Activity: Return to Normal Activity Home Medications: Medications to take at Discharge Folic Acid 400 mcg PO DAILY@0800 06/18/13 Hydroxychloroquine [Plaquenil] 200 mg PO BIDCM 06/18/13 Nitroglycerin [Nitrostat] 0.4 mg SUBLINGUAL Q5M PRN 06/18/13 Simvastatin [Zocor] 20 mg PO QHS 06/18/13 Pantoprazole Sodium [Protonix] 40 mg PO BID 06/20/13 Clonazepam [Klonopin] 0.5 mg PO DAILY PRN PRN 06/19/14 Gabapentin [Neurontin] 300 mg PO TID PRN 01/10/16 Aspirin E.C. [Ecotrin] 81 mg PO DAILY@0800 10/09/17 Valacyclovir HCl [Valtrex] 500 mg PO BID PRN 10/09/17 Polyethylene Glycol 3350 [Miralax] 17 gm PO DAILY PRN PRN #0 10/14/17 Carvedilol [Coreg (Beta Ramírez)] 12.5 mg PO BID 11/01/17 Clopidogrel Bisulfate [Plavix] 75 mg PO DAILY 11/01/17 Furosemide [Lasix] 80 mg PO BID 11/01/17 hydrALAZINE [Apresoline] 25 mg PO BID 11/01/17 Spironolactone [Aldactone] 50 mg PO BID 11/22/17 Albuterol IH (ProAir) [Proair Hfa] 1 puff INHALATION Q4H PRN PRN 01/23/18 Insulin NPH Hum/Reg Insulin Hm [Humulin 70/30 Kwikpen] 5 - 15 unit SQ TIDCM 01/23/18 Levothyroxine Sodium [Synthroid] 125 mcg PO DAILY 01/23/18 Metolazone [Zaroxolyn] 2.5 mg PO DAILY 01/23/18 Na Biphos/Potassium Phosphate [Neutra-Phos Packet] 1 packet PO TID 01/23/18 Primary Care Physician: Pita Conde MD [Primary Care Provider] - Disposition: Home with Hospice Minutes spent on discharge:: 35 Patient Condition:: Fair Medical Necessity - Tobacco Use Smoking Status: Never smoker Meaningful Use Info Meaningful Use Diagnoses (Choose all that apply): CHF - CHF CARLOS/ARB ordered at discharge?: No Reason CARLOS/ARB not ordered?: Worsening renal dysfunctn Documented LVEF (%): 40 <Ashelfah,Ghasem E - Last Filed: 01/24/18 14:10> Discharge Date and Diagnosis - Secondary Discharge Diagnosis Chronic Problems Stage 3 chronic kidney disease (Chronic) Pacemaker (Chronic) History of renal stent (Chronic) 2008, right SSS (sick sinus syndrome) (Chronic) s/p pacer 2013 Anxiety (Chronic) Hypertension (Chronic) GERD (gastroesophageal reflux disease) (Chronic) Diabetes mellitus, type 2 (Chronic) History of hypothyroidism (Chronic) Benign hypertension (Chronic) History of coronary artery disease (Chronic) Status post total hip replacement, right (Chronic) Obesity (BMI 30.0-34.9) (Chronic) Anemia (Chronic) Chronic obstructive pulmonary disease (COPD) (Chronic) Hospital Course and Treatment Summary of Care Provided: Hospitalist note: Discharge summary above reviewed as well as physical examination and I agree with above discharge plan. Patient was admitted for shortness of breath, weakness, abdominal pain and chest pain and she was found to have acute on chronic systolic CHF with hypoxia and moderate arthritis. Her troponin was elevated. She was treated with IV Lasix drip for diuresis. Her symptoms did improve but she remained on oxygen. Prior to this admission, patient was scheduled to be evaluated by hospice and palliative care team. She had cardiac catheterization back in March, that showed ejection fraction of 40-45%. CT scan abdomen and pelvis revealed worsening ascites with possible cirrhosis and moderate right-sided pleural effusion. With IV Lasix, her symptoms slightly improved but she remained on oxygen. Because patient was supposed to see hospice and palliative care and also because she continued to express that she wishes to be under hospice and palliative care services. Hospice and palliative care team consulted and evaluated the patient and decision was made to discharge patient home with hospice. Patient discharged home with hospice at home and continued her home medications including beta-blockers, aspirin, Lasix, hydralazine, Zaroxolyn and Aldactone. Minutes spent on discharge:: 33 Code Visit Inpatient E&M: [id number] Disch Hosp
--- NOTE | 2018-01-24 12:23 | DS.PCM_ITS ---
<Inge Rascon - Last Filed: 01/24/18 12:24> Discharge Date and Diagnosis Date of Admission: 01/23/18 Date of Discharge: 01/24/18 - Primary Discharge Diagnosis 1. Acute on chronic systolic CHF with associated acute hypoxia and ascites 2. Elevated troponin 3. Chronic kidney disease stage IV - Secondary Discharge Diagnosis Chronic Problems Stage 3 chronic kidney disease (Chronic) Pacemaker (Chronic) History of renal stent (Chronic) 2008, right SSS (sick sinus syndrome) (Chronic) s/p pacer 2013 Anxiety (Chronic) Hypertension (Chronic) GERD (gastroesophageal reflux disease) (Chronic) Diabetes mellitus, type 2 (Chronic) History of hypothyroidism (Chronic) Benign hypertension (Chronic) History of coronary artery disease (Chronic) Status post total hip replacement, right (Chronic) Obesity (BMI 30.0-34.9) (Chronic) Anemia (Chronic) Chronic obstructive pulmonary disease (COPD) (Chronic) Hospital Course and Treatment Imaging Results: Diagnostic Data Chest X-Ray 01/23/18 15:34 IMPRESSION: CHF with bibasilar atelectasis worse on the right side. Electronically Signed: Kenroy Dooley MD at 15:55 EDT Tel [phone], Service support , Abdomen/Pelvis CT 01/23/18 15:40 IMPRESSION: Worsening of ascites in all quadrants. Numerous other chronic findings as above are stable. Possible cirrhosis. Moderate right pleural effusion. Cannot exclude segments of bowel wall thickening because oral contrast was not given. Electronically Signed: Juan Jose Buck MD at 16:37 EDT , Service support , Operations: None Procedures: None Summary of Care Provided: Patient is an 82-year-old female admitted 01/23/2018 due to shortness of breath, weakness, abdominal pain, chest pain. She has a past medical history of chronic systolic CHF follows with Dr. Sapp, [facility], chronic kidney disease stage III follows with Dr. Hernandez, CAD status post PCI/CABG ?4, type 2 diabetes mellitus, hypertension, hyperlipidemia, anxiety, depression, hypothyroidism, COPD, sick sinus syndrome status post pacemaker, GERD. Patient was scheduled to meet with hospice prior to admission but states she could not wait any longer. During admission patient continued to express that she wished to be under hospice services. Hospice evaluated patient and patient will be discharged home with hospice. 1. Acute on chronic systolic CHF with associated acute hypoxia and ascites- chest x-ray on admission shows CHF with bibasilar atelectasis. CT of abdomen showed worsening of ascites in all quadrants, possible cirrhosis, moderate right pleural effusion. BNP 1512. Patient was started on Lasix drip 10 mg an hour. Cardiac catheterization September 2017 showed EF 40-45%. Continue supplemental oxygen to maintain O2 at or above 90%. Patient has decided to be discharged home with hospice services. 2. Chronic kidney disease stage IV/renal artery stenosis status post stent left artery- follows with Dr. Hernandez. 3. Elevated troponin-appears chronic in nature. Troponin on admission 0.5. Chronically elevated during previous admissions. Suspect secondary to chronic kidney disease. 4. CAD status post PCI/CABG ?4-most recent cath in September 2017. Cath at that time showed EF 40-45%, left main 80% distal stenosis, LAD less than 30%, circumflex artery less than 30%, RCA 60% stenosis. No further intervention was necessary at that time and patient continued medical management. 5. Type 2 diabetes mellitus-continue home regimen. 6. Hypertension-stable. 7. Hyperlipidemia 8. Anxiety/depression 9. Hypothyroidism 10. Chronic COPD 11. Sick sinus syndrome-status post pacemaker. 12. GERD General: Alert, Cooperative, - - Soft spoken, poor eye contact HEENT: Atraumatic, PERRLA, EOMI, Normocephalic Oral: Dry Mucosa Neck: Supple, Negative Carotid Bruits, JVD, Bilateral Lungs: Diminished, - - Crackles Cardiovascular: Regular rate, No murmurs Abdomen: Bowel Sounds Present, Soft, Non Tender, Distended Extremities: No clubbing, No cyanosis, No edema Skin: No rashes, No breakdown Musculoskeletal: No Tenderness to Palpation of Joints or Extremities Neurological: Cranial nerves II-XII grossly intact, Neuro grossly intact Psych/Mental Status: Anxious, Flat Affect, Depressed Patient seen and examined prior to discharge. Physical assessment as noted above. Patient will be discharged home with hospice. This patient was seen by MEIR Malhotra under the supervision of Dr. Corona. Discharge Diet: No Restrictions Discharge Activity: Return to Normal Activity Home Medications: Medications to take at Discharge Folic Acid 400 mcg PO DAILY@0800 06/18/13 Hydroxychloroquine [Plaquenil] 200 mg PO BIDCM 06/18/13 Nitroglycerin [Nitrostat] 0.4 mg SUBLINGUAL Q5M PRN 06/18/13 Simvastatin [Zocor] 20 mg PO QHS 06/18/13 Pantoprazole Sodium [Protonix] 40 mg PO BID 06/20/13 Clonazepam [Klonopin] 0.5 mg PO DAILY PRN PRN 06/19/14 Gabapentin [Neurontin] 300 mg PO TID PRN 01/10/16 Aspirin E.C. [Ecotrin] 81 mg PO DAILY@0800 10/09/17 Valacyclovir HCl [Valtrex] 500 mg PO BID PRN 10/09/17 Polyethylene Glycol 3350 [Miralax] 17 gm PO DAILY PRN PRN #0 10/14/17 Carvedilol [Coreg (Beta Ramírez)] 12.5 mg PO BID 11/01/17 Clopidogrel Bisulfate [Plavix] 75 mg PO DAILY 11/01/17 Furosemide [Lasix] 80 mg PO BID 11/01/17 hydrALAZINE [Apresoline] 25 mg PO BID 11/01/17 Spironolactone [Aldactone] 50 mg PO BID 11/22/17 Albuterol IH (ProAir) [Proair Hfa] 1 puff INHALATION Q4H PRN PRN 01/23/18 Insulin NPH Hum/Reg Insulin Hm [Humulin 70/30 Kwikpen] 5 - 15 unit SQ TIDCM 08/02 Levothyroxine Sodium [Synthroid] 125 mcg PO DAILY 01/23/18 Metolazone [Zaroxolyn] 2.5 mg PO DAILY 01/23/18 Na Biphos/Potassium Phosphate [Neutra-Phos Packet] 1 packet PO TID 01/23/18 Primary Care Physician: Pita Conde MD [Primary Care Provider] - Disposition: Home with Hospice Minutes spent on discharge:: 35 Patient Condition:: Fair Medical Necessity - Tobacco Use Smoking Status: Never smoker Meaningful Use Info Meaningful Use Diagnoses (Choose all that apply): CHF - CHF CARLOS/ARB ordered at discharge?: No Reason CARLOS/ARB not ordered?: Worsening renal dysfunctn Documented LVEF (%): 40 <Ashelfah,Ghasem E - Last Filed: 01/24/18 14:10> Discharge Date and Diagnosis - Secondary Discharge Diagnosis Chronic Problems Stage 3 chronic kidney disease (Chronic) Pacemaker (Chronic) History of renal stent (Chronic) 2008, right SSS (sick sinus syndrome) (Chronic) s/p pacer 2013 Anxiety (Chronic) Hypertension (Chronic) GERD (gastroesophageal reflux disease) (Chronic) Diabetes mellitus, type 2 (Chronic) History of hypothyroidism (Chronic) Benign hypertension (Chronic) History of coronary artery disease (Chronic) Status post total hip replacement, right (Chronic) Obesity (BMI 30.0-34.9) (Chronic) Anemia (Chronic) Chronic obstructive pulmonary disease (COPD) (Chronic) Hospital Course and Treatment Summary of Care Provided: Hospitalist note: Discharge summary above reviewed as well as physical examination and I agree with above discharge plan. Patient was admitted for shortness of breath, weakness, abdominal pain and chest pain and she was found to have acute on chronic systolic CHF with hypoxia and moderate arthritis. Her troponin was elevated. She was treated with IV Lasix drip for diuresis. Her symptoms did improve but she remained on oxygen. Prior to this admission, patient was scheduled to be evaluated by hospice and palliative care team. She had cardiac catheterization back in March, that showed ejection fraction of 40-45%. CT scan abdomen and pelvis revealed worsening ascites with possible cirrhosis and moderate right-sided pleural effusion. With IV Lasix, her symptoms slightly improved but she remained on oxygen. Because patient was supposed to see hospice and palliative care and also because she continued to express that she wishes to be under hospice and palliative care services. Hospice and palliative care team consulted and evaluated the patient and decision was made to discharge patient home with hospice. Patient discharged home with hospice at home and continued her home medications including beta-blockers, aspirin, Lasix, hydralazine, Zaroxolyn and Aldactone. Minutes spent on discharge:: 33 Code Visit Inpatient E&M: [id number] Disch Hosp
[2018-01-24] MEDS: Gabapentin 100 MG Capsule 200 MG PO (12:39)
--- NOTE | 2018-01-24 13:11 | NURSING ---
called STACI Beaulieu with Hospice, to notify of d/c home with family.
== END 2018-01-24 13:26 | disposition hospice, home (50) | DRG 291 ==
LOC: ED 15:58 → PCU 17:53
PROVIDERS: Admitting Provider Internal Medicine; Emergency Provider Emergency Medicine; Family Provider Internal Medicine; PCP Internal Medicine; Visit Provider Hospitalist
DX: I13.0 Hypertensive heart and chronic kidney disease with heart failure and stage 1 through stage 4 chronic kidney disease, or unspecified chronic kidney disease (principal); I50.23 Acute on chronic systolic (congestive) heart failure; R18.8 Other ascites; N18.4 Chronic kidney disease, stage 4 (severe); E11.22 Type 2 diabetes mellitus with diabetic chronic kidney disease; Z95.0 Presence of cardiac pacemaker; K21.9 Gastro-esophageal reflux disease without esophagitis; E03.9 Hypothyroidism, unspecified; J44.9 Chronic obstructive pulmonary disease, unspecified; Z96.641 Presence of right artificial hip joint; D64.9 Anemia, unspecified; F41.9 Anxiety disorder, unspecified; I25.10 Atherosclerotic heart disease of native coronary artery without angina pectoris; Z95.1 Presence of aortocoronary bypass graft; E78.5 Hyperlipidemia, unspecified; R09.02 Hypoxemia; Z51.5 Encounter for palliative care; Z79.4 Long term (current) use of insulin; Z79.899 Other long term (current) drug therapy
CPT/HCPCS: 36415; 71045; 74176; 80048; 80053; 82962; 83605; 83690; 83880; 84484; 85025; 85610; 93005; 97162; 97165; 97802; 99251; 99285; J7030; A4216; G0463; J1940; J2405

== ENCOUNTER 2018-02-17 13:50 | Inpatient (IN) | payer MEDICARE, BC, SELFPAY ==
--- NOTE | 2018-02-16 15:31 | RAD_ITS ---
STUDY: X-RAY - RIGHT KNEE REASON FOR EXAM: Female, 82 years old. Fell one week ago. TECHNIQUE: For view(s) of the knee. COMPARISON: None. FINDINGS: There is demineralization of the visualized distal femur. There is demineralization of the tibia and fibula. Normal proximal tibiofibular articulation. There is moderate degenerative arthrosis of the medial femorotibial compartment with moderate joint space narrowing. There is mild degenerative arthrosis of the lateral femorotibial compartment. There is mild degenerative arthrosis of the patellofemoral articulation. There are atherosclerotic calcifications. RAD/Knee 4 or More Views IMPRESSION: Degenerative arthrosis. Atherosclerosis. Electronically Signed: Laura Rapp MD at 18:33 EDT Tel , Service support ,
--- NOTE | 2018-02-18 08:30 | DT_ITS ---
This patient was seen during an EMR downtime February 16, 2018 - February 23, 2018. This patient may have a combination of paper and electronic documentation or all paper documentation. All documentation is viewable within the e-chart portion of [employer] for each patient visit.
[2018-02-19 21:52] LABS: BUN 115 mg/dL (7-18); Glucose 112 mg/dL (74-106)
[2018-02-19 21:53] LABS: Anion Gap 9 (5-15); BUN/Creat Ratio 45.1 RATIO (10-20); Calcium,Total 8.8 mg/dL (8.5-10.1); Chloride 96 mmol/L (98-107); Creatinine, Serum 2.55 mg/dL (0.55-1.02); EST Glomerular Filtration Rate 19 mL/min (>60); Est Glom Filt Rate - Afr Amer 23 mL/min (>60); Sodium Level 135 mmol/L (136-145)
--- NOTE | 2018-02-20 10:07 | RAD_ITS ---
STUDY: X-RAY - RIGHT FOOT CLINICAL: Female, 82 years old. Soft tissue swelling and pain after fall. TECHNIQUE: 3 view(s) of the foot. COMPARISON: None. FINDINGS: There is generalized osteopenia. There is an inferior calcaneal spur. Normal visualized subtalar, talonavicular, calcaneocuboid, tarsal and tarsometatarsal articulations. Normal metatarsi. There is mild arthrosis of the metatarsophalangeal and interphalangeal joints. There is ossification of the distal Achilles tendon and plantar fascia. RAD/Foot min 3 Views IMPRESSION: Osteopenia with degenerative changes. No acute osseous abnormality. Electronically Signed: Bassam Buchanan MD at 14:59 EDT , Service support ,
[2018-02-20 11:18] LABS: Eosinophils% 0.9 % (0-5); Hematocrit 34.5 % (37-47); Lymphocyte % 8.1 % (19-41); Mean Corp Hgb Conc 31.9 g/gl (32-36); Mean Corpuscular Volume 81.6 fL (81-99); Mean Platelet Vol. 10.9 fl (6.2-12.0); Monocyte% 11.3 % (0-10); Neutrophil % 79.5 % (47-70); POSITIVE COUNT NO; POSITIVE DIFFERENTIAL NO; POSITIVE MORPHOLOGY NO; Platelet Count 158 K/mm3 (150-450); RBC Distribution Width CV 17.7 % (11.6-14.6); RBC Distribution Width SD 52.1 fl (35.1-43.9); Red Blood Count 4.23 M/mm3 (4.2-5.4); White Blood Count 8.4 K/mm3 (4.4-11.0)
[2018-02-20 11:19] LABS: Absolute Lymphocyte Count 0.68 X10^3/ul (0.83-4.51); Absolute Neutrophil Count 6.7 X10^3/uL (2.0-7.7); Basophil# 0.01 X10^3/uL; Basophil% 0.1 % (0-1); Eosinophil# 0.08 X10^3/uL; Lymphocyte # 0.68 X10^3/ul (4.0); Monocyte# 0.95 X10^3/uL; Neutrophil # 6.71 X10^3/uL (2.7-7.7)
[2018-02-21 09:31] LABS: ALB/GLOB Ratio 0.6 RATIO (0.9-2.4); AST(SGOT) 38 U/L (15-37); Alanine Aminotransfer ALT/SGPT 29 U/L (13-56); Albumin, Serum 2.9 g/dL (3.2-5.0); Alkaline Phosphatase 128 U/L (45-117); Anion Gap 13 (5-15); BUN 123 mg/dL (7-18); BUN/Creat Ratio 44.4 RATIO (10-20); Calcium,Total 8.8 mg/dL (8.5-10.1); Chloride 96 mmol/L (98-107); Creatinine, Serum 2.77 mg/dL (0.55-1.02); EST Glomerular Filtration Rate 17 mL/min (>60); Est Glom Filt Rate - Afr Amer 21 mL/min (>60); Globulin 4.5 g/dL (2.2-4.2); Glucose 263 mg/dL (74-106); Protein, Total 7.4 g/dL (6.4-8.2); Sodium Level 136 mmol/L (136-145)
[2018-02-21 10:38] LABS: Hematocrit 33.9 % (37-47); Hemoglobin 10.5 g/dl (12.0-15.0); Red Blood Count 4.03 M/mm3 (4.2-5.4); White Blood Count 8.3 K/mm3 (4.4-11.0)
[2018-02-21 10:39] LABS: Absolute Lymphocyte Count 0.68 X10^3/ul (0.83-4.51); Absolute Neutrophil Count 6.8 X10^3/uL (2.0-7.7); Basophil# 0.02 X10^3/uL; Basophil% 0.2 % (0-1); Eosinophil# 0.09 X10^3/uL; Eosinophils% 1.1 % (0-5); Lymphocyte # 0.68 X10^3/ul (4.0); Lymphocyte % 8.2 % (19-41); Mean Corpuscular Hgb 26.1 pg (27.0-32.0); Mean Corpuscular Volume 84.1 fL (81-99); Mean Platelet Vol. 11.5 fl (6.2-12.0); Monocyte# 0.67 X10^3/uL; Monocyte% 8.1 % (0-10); POSITIVE COUNT NO; POSITIVE DIFFERENTIAL NO; POSITIVE MORPHOLOGY NO; Platelet Count 144 K/mm3 (150-450); RBC Distribution Width CV 17.9 % (11.6-14.6); RBC Distribution Width SD 53.7 fl (35.1-43.9)
[2018-02-21 12:44] LABS: Glucose 461 mg/dL (74-106)
[2018-02-21 13:46] LABS: Anion Gap 12 (5-15); BUN 124 mg/dL (7-18); BUN/Creat Ratio 45.9 RATIO (10-20); Calcium,Total 8.7 mg/dL (8.5-10.1); Chloride 94 mmol/L (98-107); EST Glomerular Filtration Rate 18 mL/min (>60); Est Glom Filt Rate - Afr Amer 22 mL/min (>60); Glucose 319 mg/dL (74-106); Potassium 4.3 mmol/L (3.5-5.1); Sodium Level 134 mmol/L (136-145)
[2018-02-21 15:00] LABS: Hematocrit 34.1 % (37-47); Hemoglobin 10.6 g/dl (12.0-15.0); Mean Corp Hgb Conc 31.1 g/gl (32-36); Mean Corpuscular Hgb 25.9 pg (27.0-32.0); Mean Corpuscular Volume 83.4 fL (81-99); Mean Platelet Vol. 10.2 fl (6.2-12.0); Platelet Count 146 K/mm3 (150-450); RBC Distribution Width CV 17.6 % (11.6-14.6); Red Blood Count 4.09 M/mm3 (4.2-5.4); Scan Indicated on CBC? Y/N NO; White Blood Count 8.8 K/mm3 (4.4-11.0)
[2018-02-22 12:48] LABS: Anion Gap 11 (5-15); BUN 131 mg/dL (7-18); BUN/Creat Ratio 46.1 RATIO (10-20); Calcium,Total 8.9 mg/dL (8.5-10.1); Chloride 94 mmol/L (98-107); Creatinine, Serum 2.84 mg/dL (0.55-1.02); EST Glomerular Filtration Rate 17 mL/min (>60); Est Glom Filt Rate - Afr Amer 21 mL/min (>60); Glucose 166 mg/dL (74-106); Potassium 4.9 mmol/L (3.5-5.1); Sodium Level 137 mmol/L (136-145)
[2018-02-23] VITALS (15 sets, daily range): BP systolic 106–116; BP diastolic 39–51; PULSE 60–78; RESP 15–24; TEMP 36.3–36.7; O2SAT 94–98
[2018-02-23] MEDS: Ipratropium/Albuterol Sulfate 3 ML AMPUL.NEB INHALATION ×3 (07:05→19:05)
[2018-02-23 07:25] LABS: Anion Gap 10 (5-15); BUN 140 mg/dL (7-18); BUN/Creat Ratio 46.2 RATIO (10-20); Calcium,Total 9.2 mg/dL (8.5-10.1); Chloride 94 mmol/L (98-107); Creatinine, Serum 3.03 mg/dL (0.55-1.02); EST Glomerular Filtration Rate 16 mL/min (>60); Est Glom Filt Rate - Afr Amer 19 mL/min (>60); Glucose 185 mg/dL (74-106); Sodium Level 135 mmol/L (136-145)
[2018-02-23] MEDS: 0.9% NaCl Peripheral Flush Adult/Peds IV ×2 (08:50→19:45)
[2018-02-23] MEDS: Carvedilol 12.5 MG Tablet PO ×2 (10:10→21:19)
[2018-02-23] MEDS: Spironolactone 25 MG Tablet PO ×3 (10:10→10:12)
[2018-02-23] MEDS: hydrALAZINE 25 MG Tablet PO ×2 (10:11→21:19)
[2018-02-23] MEDS: Aspirin 81 MG TAB.CHEW PO (10:12)
[2018-02-23] MEDS: Pantoprazole Sodium 40 MG Tablet PO ×2 (10:12→21:19)
[2018-02-23] MEDS: Albuterol 2.5 MG/3 ML VIAL.NEB. INHALATION ×2 (10:27→22:49)
--- NOTE | 2018-02-23 12:28 | CASEMGMT ---
Pt agreeable to hospice, RAMSEY Helm called [facility], H&P and progress notes faxed to [facility]. JABARI Bowen, MURAL PAINTER
[2018-02-23 12:36] LABS: Bedside Glucose 319 mg/dL (70-110)
--- NOTE | 2018-02-23 13:45 | PN_ITS ---
<Inge Rascon - Last Filed: 02/23/18 13:46> Subjective: Patient seen and examined. Resting in chair in no acute distress. Plan has been for patient to go home with hospice versus inpatient hospital facility. However, today patient decided she wants further treatment including nephrology consult and paracentesis. She states she wants to try further treatment before deciding on hospice services. She does not feel ascites has significantly improved. Shortness of breath improved. Denies other complaints. - Physical Exam General: Alert, Oriented x3, Cooperative HEENT: Atraumatic, PERRLA, EOMI, Normocephalic Neck: Supple, No JVD, Negative Carotid Bruits Lungs: Diminished, - - Scattered fine crackles. Cardiovascular: Regular rate, Regular Rhythm, Normal S1, Normal S2 Abdomen: Bowel Sounds Present, Soft, Non Tender, Distended, - - Ascites Extremities: No clubbing, No cyanosis, Edema - +2-3 bilateral lower extremities Skin: No rashes, No breakdown Musculoskeletal: No Tenderness to Palpation of Joints or Extremities Neurological: Cranial nerves II-XII grossly intact, Neuro grossly intact Psych/Mental Status: Flat Affect, - - Tearful Vital Signs Pulse Resp BP Pulse Ox 78 22 H 116/46 L 98 02/23/18 10:27 02/23/18 10:27 02/23/18 10:11 02/23/18 07:05 Oxygen Flow Rate (L/min) 2 Oxygen Delivery Method Nasal Cannula Weight: 73.6 kg Laboratory Tests Past 24 Hrs 02/20/18 02/23/18 05:35 05:16 Sodium Pending 135 L Potassium Pending 5.0 Chloride Pending 94 L Carbon Dioxide Pending 31.0 Anion Gap Pending 10 BUN Pending 140 H* Creatinine Pending 3.03 H Est GFR (MDRD) Af Amer Pending 19 L Est GFR (MDRD) Non-Af Pending 16 L BUN/Creatinine Ratio Pending 46.2 H Glucose Pending 185 H Calcium Pending 9.2 POC Glucose 02/23/18 12:26 POC Glucose 319 H Medical Necessity - Tobacco Use Smoking Status: Never smoker Assessment/Plan All Active Problems Acute on chronic renal failure (Acute) Elevated troponin (Acute) Acute systolic CHF (congestive heart failure) (Acute) Syncope (Resolved) UTI (urinary tract infection), bacterial (Resolved) 1. Acute on chronic systolic CHF with associated acute hypoxia and ascites- Lasix drip discontinued due to acute renal failure. Switch to metolazone 2.5 mg daily. Strict I&O. Daily weight. 2. Acute renal failure on chronic kidney disease stage IV/renal artery stenosis status post stent left artery- follows with Dr. Hernandez. Nephrology consulted. Acute renal failure secondary to IV diuresis. Lasix drip discontinued. Trend BMP. Aldactone on hold. 3. Ascites-no significant improvement with Lasix drip. Paracentesis with labs ordered for morning. Patient has been off of Plavix for 5 days. 4. CAD status post PCI/CABG ?4-most recent cath in September 2017. Cath at that time showed EF 40-45%, left main 80% distal stenosis, LAD less than 30%, circumflex artery less than 30%, RCA 60% stenosis. No further intervention was necessary at that time and patient continued medical management. Continue aspirin, statin, carvedilol. Plavix on hold. 5. Type 2 diabetes mellitus-hold home oral regimen. Accu-Cheks before meals at bedtime with sliding scale insulin. 6. Hypertension-continue home regimen including Coreg. Aldactone on hold. 7. Hyperlipidemia-continue statin. 8. Anxiety/depression-continue home Klonopin regimen. 9. Hypothyroidism-continue Synthroid. 10. COPD-as needed albuterol. No acute exacerbation. 11. Sick sinus syndrome-status post pacemaker. 12. GERD-continue PPI. DVT prophylaxis-heparin subcu. Discharge planning: Patient previously from home with hospice. She is undecided on further hospice services. Social work involved. Code Status- DNRCCA This patient was seen by MEIR Malhotra under the supervision of Dr. Lamar. <Ra Lamar - Last Filed: 02/23/18 16:55> - Physical Exam Vital Signs Pulse Resp BP Pulse Ox 76 24 H 116/46 L 98 02/23/18 13:51 02/23/18 13:51 02/23/18 10:11 02/23/18 07:05 Oxygen Flow Rate (L/min) 2 Oxygen Delivery Method Nasal Cannula Weight: 162 lb 4.163 oz Laboratory Tests Past 24 Hrs 02/20/18 02/20/18 02/23/18 05:35 Unknown 05:16 WBC 8.6 RBC 4.03 L Hgb 10.4 L Hct 34.0 L MCV 84.4 MCH 25.8 L MCHC 30.6 L RDW 17.7 H RDW Differential 53.9 H Plt Count 144 L MPV 11.2 Sodium Pending 135 L Potassium Pending 5.0 Chloride Pending 94 L Carbon Dioxide Pending 31.0 Anion Gap Pending 10 BUN Pending 140 H* Creatinine Pending 3.03 H Est GFR (MDRD) Af Amer Pending 19 L Est GFR (MDRD) Non-Af Pending 16 L BUN/Creatinine Ratio Pending 46.2 H Glucose Pending 185 H Calcium Pending 9.2 POC Glucose 02/23/18 02/23/18 16:33 12:26 POC Glucose 246 H 319 H Assessment/Plan This patient was seen in conjunction with Inge NGUYEN. I have independently interviewed and examined the patient and reviewed pertinent history, examination findings, laboratory and plan of management. I have reviewed the note and agree with the documented findings with the few additional points. In brief, patient is admitted for anasarca secondary to acute and chronic systolic heart failure with acute hypoxic respiratory failure. Patient has acute kidney injury on CKD stage IV second troponin artery stenosis and cardiorenal disease medicated with cardiac ascites. Discussed with the group exercise instructor Dr. Hernandez. She agreed to see the patient. Was on Lasix drip until in the morning which is held secondary to worsening kidney function. Plan for paracentesis tomorrow morning. Earlier patient was home hospice but right now she is undecided I have discussed my assessment with Inge NGUYEN and orders have been reviewed. Code Visit Inpatient E&M: 08551 Disch Hosp
[2018-02-23 16:13] LABS: Hemoglobin 10.4 g/dl (12.0-15.0); Mean Corpuscular Hgb 25.8 pg (27.0-32.0); Mean Corpuscular Volume 84.4 fL (81-99); Red Blood Count 4.03 M/mm3 (4.2-5.4); White Blood Count 8.6 K/mm3 (4.4-11.0)
[2018-02-23 16:14] LABS: Mean Corp Hgb Conc 30.6 g/gl (32-36); Mean Platelet Vol. 11.2 fl (6.2-12.0); Platelet Count 144 K/mm3 (150-450); RBC Distribution Width CV 17.7 % (11.6-14.6); RBC Distribution Width SD 53.9 fl (35.1-43.9); Scan Indicated on CBC? Y/N NO
[2018-02-23] MEDS: Metolazone 2.5 MG Tablet PO (16:25)
[2018-02-23] MEDS: Senna Tablet 1 TABLET PO (16:25)
[2018-02-23] MEDS: traMADol 50 MG Tablet 25 MG PO (16:25)
[2018-02-23 16:41] LABS: Bedside Glucose 246 mg/dL (70-110)
[2018-02-23 21:31] LABS: Bedside Glucose 190 mg/dL (70-110)
[2018-02-23 22:30] LABS: Anion Gap 10 (5-15); BUN/Creat Ratio 48.4 RATIO (10-20); Chloride 95 mmol/L (98-107); Creatinine, Serum 2.75 mg/dL (0.55-1.02); EST Glomerular Filtration Rate 18 mL/min (>60); Est Glom Filt Rate - Afr Amer 22 mL/min (>60); Glucose 155 mg/dL (74-106); Potassium 4.3 mmol/L (3.5-5.1); Sodium Level 135 mmol/L (136-145)
[2018-02-23 22:31] LABS: BUN 133 mg/dL (7-18)
[2018-02-24] VITALS (8 sets, daily range): BP systolic 104–111; BP diastolic 36–45; PULSE 58–62; RESP 16–18; TEMP 36.4–36.5; O2SAT 94–99
[2018-02-24 06:00] LABS: Hematocrit 33.6 % (37-47); Hemoglobin 10.4 g/dl (12.0-15.0); Mean Corpuscular Hgb 25.8 pg (27.0-32.0); Mean Corpuscular Volume 83.4 fL (81-99); Mean Platelet Vol. 10.7 fl (6.2-12.0); Platelet Count 147 K/mm3 (150-450); RBC Distribution Width CV 18.6 % (11.6-14.6); RBC Distribution Width SD 56.2 fl (35.1-43.9); Red Blood Count 4.03 M/mm3 (4.2-5.4); White Blood Count 7.4 K/mm3 (4.4-11.0)
--- NOTE | 2018-02-24 06:00 | US_ITS ---
PROCEDURE: ULTRASOUND GUIDED PARACENTESIS CLINICAL HISTORY: Female, 82 years old. ASCITES CONSENT: The risks, benefits and alternatives to the procedure were explained to the patient, and the patient agreed to the procedure and signed the consent. SEDATION: Local Anesthesia STERILE BARRIER TECHNIQUE: The following sterile barrier precautions were used during the procedure: hand hygiene; use of 2% chlorhexidine aseptic; use of a cap, mask, sterile gown, sterile gloves, sterile full body drape, and a large sterile sheet. PROCEDURE/TECHNIQUE: The risks, benefits, and alternatives to the procedure were explained to patient, and the patient agreed to the procedure and signed a consent form for the procedure. TECHNIQUE: Under the ultrasound guidance using sterile technique and after infiltration of the skin and subcutaneous soft tissues with 10 mL of lidocaine 1% a 5 Portuguese drainage catheter is introduced in the lower part of the abdomen. 4400 mL of fluid were removed sample sent to lab for evaluation. The patient tolerated the procedure there was no immediate complication. FINDINGS: FLUID PRE-PROCEDURE There is posterior enhancement. The findings appear anechoic. There is no loculation. FLUID POST-PROCEDURE Amount of fluid drained: 4400 ml. US/Paracentesis with US IMPRESSION: Successful ultrasound-guided paracentesis. Electronically Signed: Faisal Lovelace MD at 13:56 EDT Tel , Service support ,
[2018-02-24 06:11] LABS: International Normalized Ratio 1.5; Scan Indicated on CBC? Y/N NO
[2018-02-24] MEDS: Levothyroxine 125 MCG Tablet PO (06:11)
[2018-02-24 06:12] LABS: Partial Thromboplast Time 33.2 Seconds (24.1-36.2)
[2018-02-24 06:25] LABS: Anion Gap 9 (5-15); BUN 129 mg/dL (7-18); BUN/Creat Ratio 38.6 RATIO (10-20); Chloride 94 mmol/L (98-107); Creatinine, Serum 3.34 mg/dL (0.55-1.02); EST Glomerular Filtration Rate 14 mL/min (>60); Est Glom Filt Rate - Afr Amer 17 mL/min (>60); Glucose 183 mg/dL (74-106); Potassium 5.1 mmol/L (3.5-5.1); Sodium Level 133 mmol/L (136-145)
[2018-02-24 07:00] LABS: Bedside Glucose 212 mg/dL (70-110)
[2018-02-24 09:01] LABS: AST(SGOT) 23 U/L (15-37); Alanine Aminotransfer ALT/SGPT 23 U/L (13-56); Albumin, Serum 3.3 g/dL (3.2-5.0); Alkaline Phosphatase 102 U/L (45-117); Bilirubin, Direct 0.34 mg/dL (0.00-0.30); Globulin 4.1 g/dL (2.2-4.2); Protein, Total 7.4 g/dL (6.4-8.2)
[2018-02-24] MEDS: Metolazone 2.5 MG Tablet PO (09:03)
[2018-02-24] MEDS: hydrALAZINE 25 MG Tablet PO (09:03)
[2018-02-24] MEDS: Carvedilol 12.5 MG Tablet PO (09:03)
[2018-02-24] MEDS: Pantoprazole Sodium 40 MG Tablet PO (09:03)
--- NOTE | 2018-02-24 09:31 | PCM.CONS.R ---
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 She has been unresponsive to diuretic therapy. Renal function continues to worsen. Denied nausea, vomiting but has a cough productive with sputum. She is DNR CCA and did not want dialysis after long discussion with pt today. She was with hospice but came out of hospice to have paracentesis done for comfort measure. She made decision to go back to hospice at home after paracentesis. Her friend is at bedside. Her son Alexx is aware of the situation with hospice and DNR status. - Allergies Allergies: Allergies felodipine Allergy (Severe, Verified 12/09/17 23:32) Shortness of breath pentazocine lactate [From Talwin] Allergy (Unknown, Verified 12/09/17 23:32) Unknown Patient does not know what happened when taking pentazocine, was told do not take it in the past promethazine Allergy (Unknown, Verified 12/09/17 23:32) Unknown Patient is unsure of allergy or reaction, was told do not take it in the past Sulfa (Sulfonamide Antibiotics) Allergy (Unknown, Verified 12/09/17 23:32) Unknown Patient does not know what the reaction/allergy is. Was told not to take it after surgery in the past amlodipine Allergy (Verified 12/09/17 23:32) Unknown Heparin Analogues Allergy (Verified 12/09/17 23:32) Unknown meloxicam [From Mobic] Allergy (Verified 12/09/17 23:32) Other oxycodone terephthalate [From Percodan] Allergy (Verified 12/09/17 23:32) Unknown Penicillins Allergy (Verified 12/09/17 23:32) Hives Iodinated Contrast- Oral and IV Dye [Iodinated Contrast Media - IV Dye] Adverse Reaction (Severe, Verified 12/09/17 23:32) Other Convulsions NSAIDS (Non-Steroidal Anti-Inflamma Adverse Reaction (Intermediate, Verified 12/09/17 23:32) Other Elevated liver enzymes oxycodone HCl [From Percodan] Adverse Reaction (Intermediate, Verified 12/09/17 23:32) Other Elevated liver enzymes ciprofloxacin [From Cipro] Adverse Reaction (Mild, Verified 12/09/17 23:32) Nausea/Vom/Diarrhea codeine Adverse Reaction (Mild, Verified 12/09/17 23:32) Nausea makes me sick HEPARIN Allergy (Unknown, Uncoded 12/09/17 23:32) Unknown WAS TOLD NOT TO TAKE AFTER HEART SURG D/T RXN - Current Medications Current Medications: Current Medications Acetaminophen (Tylenol) 650 mg PO Q6H PRN PRN Reason: PAIN Albuterol Sulfate (Ventolin Aerosols) 2.5 mg INHALATION Q2H.RT [facility] Last Admin: 02/23/18 22:49 Dose: 2.5 mg Albuterol/Ipratropium (Duoneb) 3 ml INHALATION Q6H.RT [facility] Last Admin: 02/24/18 07:12 Dose: Not Given Carvedilol (Coreg) 12.5 mg PO BID [facility] Last Admin: 02/24/18 09:03 Dose: 12.5 mg Clonazepam (Klonopin) 0.5 mg PO DAILY PRN PRN Reason: ANXIETY Dextrose (D50w Syringe) 0 gm IV X1 PRN; Protocol PRN Reason: Hypoglycemia Gabapentin (Neurontin) 300 mg PO TID PRN PRN Reason: NEUROPATHY Glucagon () 1 mg IM .X1 PRN PRN Reason: Hypoglycemia Hydralazine HCl (Apresoline) 25 mg PO BID [facility] Last Admin: 02/24/18 09:03 Dose: 25 mg Insulin Aspart (Novolog Flexpen (Bkc)) 0 units SC ACHS SALMA PRN Reason: Protocol Last Admin: 02/24/18 08:47 Dose: Not Given Levothyroxine Sodium (Synthroid) 125 mcg PO DAILY@0600 [facility] Last Admin: 02/24/18 06:11 Dose: 125 mcg Metolazone (Zaroxolyn) 2.5 mg PO DAILY [facility] Last Admin: 02/24/18 09:03 Dose: 2.5 mg Morphine Sulfate () 1 - 2 mg IV Q6H PRN PRN Reason: SEVERE PAIN (6-10/10) Ondansetron HCl (Zofran) 4 mg IV Q6H PRN PRN Reason: NAUSEA/VOMITING Pantoprazole Sodium (Protonix) 40 mg PO BID [facility] Last Admin: 02/24/18 09:03 Dose: 40 mg Senna (Senokot) 1 tablet PO BID PRN PRN Reason: CONSTIPATION Last Admin: 02/23/18 16:25 Dose: 1 tablet Sodium Chloride () 5 - 30 ml IV UD PRN PRN Reason: SALINE FLUSH Last Admin: 02/23/18 19:45 Dose: 10 ml Tramadol HCl (Ultram) 25 mg PO TID PRN PRN Reason: MODERATE PAIN (4-5/10) Last Admin: 02/23/18 16:25 Dose: 25 mg - Past Medical History Past Medical History (Chronic Problems): Chronic Problems Stage 3 chronic kidney disease (Chronic) Pacemaker (Chronic) History of renal stent (Chronic) 2008, right SSS (sick sinus syndrome) (Chronic) s/p pacer 2013 Anxiety (Chronic) Hypertension (Chronic) GERD (gastroesophageal reflux disease) (Chronic) Diabetes mellitus, type 2 (Chronic) History of hypothyroidism (Chronic) Benign hypertension (Chronic) History of coronary artery disease (Chronic) Status post total hip replacement, right (Chronic) Obesity (BMI 30.0-34.9) (Chronic) Anemia (Chronic) Chronic obstructive pulmonary disease (COPD) (Chronic) - Past Surgical History Surgical History: angioplasty - cardiac stent, JACQUES w/ BSO, pa, appendectomy, cataract, cholecystectomy, coronary bypass surgery, pacemaker implantation, total hip arthroplasty - rt, - - Rt CEA, Rt renal artery stent 2012, JACQUES/BSO - Social History Marital Status: Smoking Status: Never smoker - Family History Maternal History Items: Dementia - age 90, Hypertension Paternal History Items: Heart Disease - age 80, Hypertension, Stroke Sibling History Items: Hypertension, Stroke Review of Systems Constitutional: Reports: Anorexia, Malaise, Weakness, Fatigue. Denies: Chills, Fever Cardiovascular: Reports: Edema. Denies: Chest Pain Respiratory: Reports: Cough, Shortness of Breath, Shortness of breath at rest Gastrointestinal: Denies: Abdominal Pain, Diarrhea, Nausea, Vomiting Genitourinary: Reports: - - minimal urine output. Denies: Dysuria Skin: Denies: Rash Neurological: Reports: - - generalized weakness. Denies: Tremor, Seizures Psychiatric: Reports: Anxiety, Depression Hematologic/ Lymphatic: Reports: Anemia - Physical Exam General: Alert, Oriented x3, No apparent distress, - - weak, HEENT: PERRLA, EOMI Oral: Dry Mucosa Neck: JVD, Bilateral Lungs: Rales Cardiovascular: Regular rate - paced rhythm Abdomen: Bowel Sounds Present, Soft, Non Tender, Distended - ascites Extremities: Edema - 2+ pitting BLE Skin: No rashes Neurological: - - generalized weakness Psych/Mental Status: Anxious, Depressed, Alert and oriented to time, place, person, mood and affect Vital Signs Temp Pulse Resp BP Pulse Ox 97.7 F L 60 16 105/38 L 98 02/24/18 09:00 02/24/18 09:03 02/24/18 09:00 02/24/18 09:03 02/24/18 09:00 Oxygen Flow Rate (L/min) 2 Oxygen Delivery Method Nasal Cannula Weight: 78 kg Intake and Output for Last 24 Hours 02/22/18 02/23/18 02/24/18 23:59 23:59 23:59 Intake Total 807.9 / 807.9 Output Total 500 / 500 150 / 150 Balance 307.9 / 307.9 -150 / -150 Laboratory Tests Past 24 Hrs 02/20/18 02/20/18 02/21/18 05:35 Unknown 06:08 WBC 8.6 RBC 4.03 L Hgb 10.4 L Hct 34.0 L MCV 84.4 MCH 25.8 L MCHC 30.6 L RDW 17.7 H RDW Differential 53.9 H Plt Count 144 L MPV 11.2 PT INR APTT Sodium 135 L Pending Potassium 4.3 Pending Chloride 95 L Pending Carbon Dioxide 30.0 Pending Anion Gap 10 Pending BUN 133 H* Pending Creatinine 2.75 H Pending Est GFR (MDRD) Af Amer 22 L Pending Est GFR (MDRD) Non-Af 18 L Pending BUN/Creatinine Ratio 48.4 H Pending Glucose 155 H Pending Calcium 9.0 Pending Total Bilirubin Direct Bilirubin AST ALT Alkaline Phosphatase Total Protein Albumin Globulin 02/24/18 02/24/18 02/24/18 05:15 05:15 05:15 WBC 7.4 RBC 4.03 L Hgb 10.4 L Hct 33.6 L MCV 83.4 MCH 25.8 L MCHC 31.0 L RDW 18.6 H RDW Differential 56.2 H Plt Count 147 L MPV 10.7 PT 18.0 H INR 1.5 APTT 33.2 Sodium 133 L Potassium 5.1 Chloride 94 L Carbon Dioxide 30.0 Anion Gap 9 BUN 129 H* Creatinine 3.34 H Est GFR (MDRD) Af Amer 17 L Est GFR (MDRD) Non-Af 14 L BUN/Creatinine Ratio 38.6 H Glucose 183 H Calcium 9.0 Total Bilirubin Direct Bilirubin AST ALT Alkaline Phosphatase Total Protein Albumin Globulin 02/24/18 05:15 WBC RBC Hgb Hct MCV MCH MCHC RDW RDW Differential Plt Count MPV PT INR APTT Sodium Potassium Chloride Carbon Dioxide Anion Gap BUN Creatinine Est GFR (MDRD) Af Amer Est GFR (MDRD) Non-Af BUN/Creatinine Ratio Glucose Calcium Total Bilirubin 0.80 Direct Bilirubin 0.34 H AST 23 ALT 23 Alkaline Phosphatase 102 Total Protein 7.4 Albumin 3.3 Globulin 4.1 POC Glucose 02/24/18 02/23/18 02/23/18 06:57 21:22 16:33 POC Glucose 212 H 190 H 246 H 02/23/18 12:26 POC Glucose 319 H Clinical Impression(s) from Imaging Studies Knee X-Ray 02/16/18 15:31 IMPRESSION: Degenerative arthrosis. Atherosclerosis. Electronically Signed: Laura Rapp MD at 18:33 EDT Tel , Service support , Foot X-Ray 02/20/18 10:07 IMPRESSION: Osteopenia with degenerative changes. No acute osseous abnormality. Electronically Signed: Bassam Buchanan MD at 14:59 EDT , Service support , Assessment/Plan All Active Problems Acute on chronic renal failure (Acute) Elevated troponin (Acute) Acute systolic CHF (congestive heart failure) (Acute) Syncope (Resolved) UTI (urinary tract infection), bacterial (Resolved) 1. BRISEIDA on CKD stage 3 with worsening renal function, anasarca, ascites. Hx renovascular disease. Patient expressed no dialysis, currently DNR CCA. She will return to hospice after paracentesis. She was told by hospice that she will need to be discharged from hospice for paracentesis procedure but is able to be readmitted afterwards. 2. Ascites, anasarca, CHF unresponsive to diuretic therapy. Paracentesis today for palliative care 3. HTN stable. 4. CAD s/p PPM Discussed with pt son Alexx, hospitalist and case mgmt
--- NOTE | 2018-02-24 09:42 | CON.PCM_ITS ---
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 She has been unresponsive to diuretic therapy. Renal function continues to worsen. Denied nausea, vomiting but has a cough productive with sputum. She is DNR CCA and did not want dialysis after long discussion with pt today. She was with hospice but came out of hospice to have paracentesis done for comfort measure. She made decision to go back to hospice at home after paracentesis. Her friend is at bedside. Her son Alexx is aware of the situation with hospice and DNR status. - Allergies Allergies: Allergies felodipine Allergy (Severe, Verified 12/09/17 23:32) Shortness of breath pentazocine lactate [From Talwin] Allergy (Unknown, Verified 12/09/17 23:32) Unknown Patient does not know what happened when taking pentazocine, was told do not take it in the past promethazine Allergy (Unknown, Verified 12/09/17 23:32) Unknown Patient is unsure of allergy or reaction, was told do not take it in the past Sulfa (Sulfonamide Antibiotics) Allergy (Unknown, Verified 12/09/17 23:32) Unknown Patient does not know what the reaction/allergy is. Was told not to take it after surgery in the past amlodipine Allergy (Verified 12/09/17 23:32) Unknown Heparin Analogues Allergy (Verified 12/09/17 23:32) Unknown meloxicam [From Mobic] Allergy (Verified 12/09/17 23:32) Other oxycodone terephthalate [From Percodan] Allergy (Verified 12/09/17 23:32) Unknown Penicillins Allergy (Verified 12/09/17 23:32) Hives Iodinated Contrast- Oral and IV Dye [Iodinated Contrast Media - IV Dye] Adverse Reaction (Severe, Verified 12/09/17 23:32) Other Convulsions NSAIDS (Non-Steroidal Anti-Inflamma Adverse Reaction (Intermediate, Verified 23:32) Other Elevated liver enzymes oxycodone HCl [From Percodan] Adverse Reaction (Intermediate, Verified 12/09/17 23:32) Other Elevated liver enzymes ciprofloxacin [From Cipro] Adverse Reaction (Mild, Verified 12/09/17 23:32) Nausea/Vom/Diarrhea codeine Adverse Reaction (Mild, Verified 12/09/17 23:32) Nausea makes me sick HEPARIN Allergy (Unknown, Uncoded 12/09/17 23:32) Unknown WAS TOLD NOT TO TAKE AFTER HEART SURG D/T RXN - Current Medications Current Medications: Current Medications Acetaminophen (Tylenol) 650 mg PO Q6H PRN PRN Reason: PAIN Albuterol Sulfate (Ventolin Aerosols) 2.5 mg INHALATION Q2H.RT [facility] Last Admin: 02/23/18 22:49 Dose: 2.5 mg Albuterol/Ipratropium (Duoneb) 3 ml INHALATION Q6H.RT [facility] Last Admin: 02/24/18 07:12 Dose: Not Given Carvedilol (Coreg) 12.5 mg PO BID [facility] Last Admin: 02/24/18 09:03 Dose: 12.5 mg Clonazepam (Klonopin) 0.5 mg PO DAILY PRN PRN Reason: ANXIETY Dextrose (D50w Syringe) 0 gm IV X1 PRN; Protocol PRN Reason: Hypoglycemia Gabapentin (Neurontin) 300 mg PO TID PRN PRN Reason: NEUROPATHY Glucagon () 1 mg IM .X1 PRN PRN Reason: Hypoglycemia Hydralazine HCl (Apresoline) 25 mg PO BID [facility] Last Admin: 02/24/18 09:03 Dose: 25 mg Insulin Aspart (Novolog Flexpen (Bkc)) 0 units SC ACHS SALMA PRN Reason: Protocol Last Admin: 02/24/18 08:47 Dose: Not Given Levothyroxine Sodium (Synthroid) 125 mcg PO DAILY@0600 [facility] Last Admin: 02/24/18 06:11 Dose: 125 mcg Metolazone (Zaroxolyn) 2.5 mg PO DAILY [facility] Last Admin: 02/24/18 09:03 Dose: 2.5 mg Morphine Sulfate () 1 - 2 mg IV Q6H PRN PRN Reason: SEVERE PAIN (6-10/10) Ondansetron HCl (Zofran) 4 mg IV Q6H PRN PRN Reason: NAUSEA/VOMITING Pantoprazole Sodium (Protonix) 40 mg PO BID [facility] Last Admin: 02/24/18 09:03 Dose: 40 mg Senna (Senokot) 1 tablet PO BID PRN PRN Reason: CONSTIPATION Last Admin: 02/23/18 16:25 Dose: 1 tablet Sodium Chloride () 5 - 30 ml IV UD PRN PRN Reason: SALINE FLUSH Last Admin: 02/23/18 19:45 Dose: 10 ml Tramadol HCl (Ultram) 25 mg PO TID PRN PRN Reason: MODERATE PAIN (4-5/10) Last Admin: 02/23/18 16:25 Dose: 25 mg - Past Medical History Past Medical History (Chronic Problems): Chronic Problems Stage 3 chronic kidney disease (Chronic) Pacemaker (Chronic) History of renal stent (Chronic) 2008, right SSS (sick sinus syndrome) (Chronic) s/p pacer 2013 Anxiety (Chronic) Hypertension (Chronic) GERD (gastroesophageal reflux disease) (Chronic) Diabetes mellitus, type 2 (Chronic) History of hypothyroidism (Chronic) Benign hypertension (Chronic) History of coronary artery disease (Chronic) Status post total hip replacement, right (Chronic) Obesity (BMI 30.0-34.9) (Chronic) Anemia (Chronic) Chronic obstructive pulmonary disease (COPD) (Chronic) - Past Surgical History Surgical History: angioplasty - cardiac stent, JACQUES w/ BSO, pa, appendectomy, cataract, cholecystectomy, coronary bypass surgery, pacemaker implantation, total hip arthroplasty - rt, - - Rt CEA, Rt renal artery stent 2012, JACQUES/BSO - Social History Marital Status: Smoking Status: Never smoker - Family History Maternal History Items: Dementia - age 90, Hypertension Paternal History Items: Heart Disease - age 80, Hypertension, Stroke Sibling History Items: Hypertension, Stroke Review of Systems Constitutional: Reports: Anorexia, Malaise, Weakness, Fatigue. Denies: Chills, Fever Cardiovascular: Reports: Edema. Denies: Chest Pain Respiratory: Reports: Cough, Shortness of Breath, Shortness of breath at rest Gastrointestinal: Denies: Abdominal Pain, Diarrhea, Nausea, Vomiting Genitourinary: Reports: - - minimal urine output. Denies: Dysuria Skin: Denies: Rash Neurological: Reports: - - generalized weakness. Denies: Tremor, Seizures Psychiatric: Reports: Anxiety, Depression Hematologic/ Lymphatic: Reports: Anemia - Physical Exam General: Alert, Oriented x3, No apparent distress, - - weak, HEENT: PERRLA, EOMI Oral: Dry Mucosa Neck: JVD, Bilateral Lungs: Rales Cardiovascular: Regular rate - paced rhythm Abdomen: Bowel Sounds Present, Soft, Non Tender, Distended - ascites Extremities: Edema - 2+ pitting BLE Skin: No rashes Neurological: - - generalized weakness Psych/Mental Status: Anxious, Depressed, Alert and oriented to time, place, person, mood and affect Vital Signs Temp Pulse Resp BP Pulse Ox 97.7 F L 60 16 105/38 L 98 02/24/18 09:00 02/24/18 09:03 02/24/18 09:00 02/24/18 09:03 02/24/18 09:00 Oxygen Flow Rate (L/min) 2 Oxygen Delivery Method Nasal Cannula Weight: 78 kg Intake and Output for Last 24 Hours 02/22/18 02/23/18 02/24/18 23:59 23:59 23:59 Intake Total 807.9 / 807.9 Output Total 500 / 500 150 / 150 Balance 307.9 / 307.9 -150 / -150 Laboratory Tests Past 24 Hrs 02/20/18 02/20/18 02/21/18 05:35 Unknown 06:08 WBC 8.6 RBC 4.03 L Hgb 10.4 L Hct 34.0 L MCV 84.4 MCH 25.8 L MCHC 30.6 L RDW 17.7 H RDW Differential 53.9 H Plt Count 144 L MPV 11.2 PT INR APTT Sodium 135 L Pending Potassium 4.3 Pending Chloride 95 L Pending Carbon Dioxide 30.0 Pending Anion Gap 10 Pending BUN 133 H* Pending Creatinine 2.75 H Pending Est GFR (MDRD) Af Amer 22 L Pending Est GFR (MDRD) Non-Af 18 L Pending BUN/Creatinine Ratio 48.4 H Pending Glucose 155 H Pending Calcium 9.0 Pending Total Bilirubin Direct Bilirubin AST ALT Alkaline Phosphatase Total Protein Albumin Globulin 02/24/18 02/24/18 02/24/18 05:15 05:15 05:15 WBC 7.4 RBC 4.03 L Hgb 10.4 L Hct 33.6 L MCV 83.4 MCH 25.8 L MCHC 31.0 L RDW 18.6 H RDW Differential 56.2 H Plt Count 147 L MPV 10.7 PT 18.0 H INR 1.5 APTT 33.2 Sodium 133 L Potassium 5.1 Chloride 94 L Carbon Dioxide 30.0 Anion Gap 9 BUN 129 H* Creatinine 3.34 H Est GFR (MDRD) Af Amer 17 L Est GFR (MDRD) Non-Af 14 L BUN/Creatinine Ratio 38.6 H Glucose 183 H Calcium 9.0 Total Bilirubin Direct Bilirubin AST ALT Alkaline Phosphatase Total Protein Albumin Globulin 02/24/18 05:15 WBC RBC Hgb Hct MCV MCH MCHC RDW RDW Differential Plt Count MPV PT INR APTT Sodium Potassium Chloride Carbon Dioxide Anion Gap BUN Creatinine Est GFR (MDRD) Af Amer Est GFR (MDRD) Non-Af BUN/Creatinine Ratio Glucose Calcium Total Bilirubin 0.80 Direct Bilirubin 0.34 H AST 23 ALT 23 Alkaline Phosphatase 102 Total Protein 7.4 Albumin 3.3 Globulin 4.1 POC Glucose 02/24/18 02/23/18 02/23/18 06:57 21:22 16:33 POC Glucose 212 H 190 H 246 H 02/23/18 12:26 POC Glucose 319 H Clinical Impression(s) from Imaging Studies Knee X-Ray 02/16/18 15:31 IMPRESSION: Degenerative arthrosis. Atherosclerosis. Electronically Signed: Laura Rapp MD at 18:33 EDT Tel , Service support , Foot X-Ray 02/20/18 10:07 IMPRESSION: Osteopenia with degenerative changes. No acute osseous abnormality. Electronically Signed: Bassam Buchanan MD at 14:59 EDT , Service support , Assessment/Plan All Active Problems Acute on chronic renal failure (Acute) Elevated troponin (Acute) Acute systolic CHF (congestive heart failure) (Acute) Syncope (Resolved) UTI (urinary tract infection), bacterial (Resolved) 1. BRISEIDA on CKD stage 3 with worsening renal function, anasarca, ascites. Hx renovascular disease. Patient expressed no dialysis, currently DNR CCA. She will return to hospice after paracentesis. She was told by hospice that she will need to be discharged from hospice for paracentesis procedure but is able to be readmitted afterwards. 2. Ascites, anasarca, CHF unresponsive to diuretic therapy. Paracentesis today for palliative care 3. HTN stable. 4. CAD s/p PPM Discussed with pt son Alexx, hospitalist and case mgmt
[2018-02-24 09:58] LABS: Glucose 198 mg/dL (74-106)
[2018-02-24 09:59] LABS: BUN 129 mg/dL (7-18); BUN/Creat Ratio 48.1 RATIO (10-20); Calcium,Total 8.7 mg/dL (8.5-10.1); Creatinine, Serum 2.68 mg/dL (0.55-1.02); EST Glomerular Filtration Rate 18 mL/min (>60); Est Glom Filt Rate - Afr Amer 22 mL/min (>60); Potassium 4.8 mmol/L (3.5-5.1); Sodium Level 135 mmol/L (136-145)
[2018-02-24 10:00] LABS: Anion Gap 11 (5-15); Chloride 94 mmol/L (98-107)
--- NOTE | 2018-02-24 10:00 | CASEMGMT ---
Dr Hernandez spoke with patient. Patient's friend was also present. Patient said she does not want dialysis nor does she want intubated. She wants this paracentesis and then go home on Hospice. RAMSEY then received a call from Bisi at Hospice and she said Regina spoke with patient last night and she said she does not want Hospice. RAMSEY told Bisi that patient spoke with Dr Hernandez this am and she wants the paracentesis then home with Hospice. She said that is fine and asked that we let her know when patient leaves today. Plan: Home with Hospice after paracentesis. Nina GRAY MSW
--- NOTE | 2018-02-24 11:53 | PCM.DC ---
You will use the following diet at home:: No restrictions Discharge Activity: Return to Normal Activity Allergies/Adverse Reactions: Allergies felodipine Allergy (Severe, Verified 12/09/17 23:32) Shortness of breath pentazocine lactate [From Talwin] Allergy (Unknown, Verified 12/09/17 23:32) Unknown Patient does not know what happened when taking pentazocine, was told do not take it in the past promethazine Allergy (Unknown, Verified 12/09/17 23:32) Unknown Patient is unsure of allergy or reaction, was told do not take it in the past Sulfa (Sulfonamide Antibiotics) Allergy (Unknown, Verified 12/09/17 23:32) Unknown Patient does not know what the reaction/allergy is. Was told not to take it after surgery in the past amlodipine Allergy (Verified 12/09/17 23:32) Unknown Heparin Analogues Allergy (Verified 12/09/17 23:32) Unknown meloxicam [From Mobic] Allergy (Verified 12/09/17 23:32) Other oxycodone terephthalate [From Percodan] Allergy (Verified 12/09/17 23:32) Unknown Penicillins Allergy (Verified 12/09/17 23:32) Hives Iodinated Contrast- Oral and IV Dye [Iodinated Contrast Media - IV Dye] Adverse Reaction (Severe, Verified 12/09/17 23:32) Other Convulsions NSAIDS (Non-Steroidal Anti-Inflamma Adverse Reaction (Intermediate, Verified 12/09/17 23:32) Other Elevated liver enzymes oxycodone HCl [From Percodan] Adverse Reaction (Intermediate, Verified 12/09/17 23:32) Other Elevated liver enzymes ciprofloxacin [From Cipro] Adverse Reaction (Mild, Verified 12/09/17 23:32) Nausea/Vom/Diarrhea codeine Adverse Reaction (Mild, Verified 12/09/17 23:32) Nausea makes me sick HEPARIN Allergy (Unknown, Uncoded 12/09/17 23:32) Unknown WAS TOLD NOT TO TAKE AFTER HEART SURG D/T RXN Medications to take at Discharge Hydroxychloroquine [Plaquenil] 200 mg PO BIDCM 06/18/13 Nitroglycerin [Nitrostat] 0.4 mg SUBLINGUAL Q5M PRN 06/18/13 Pantoprazole Sodium [Protonix] 40 mg PO BID 06/20/13 Clonazepam [Klonopin] 0.5 mg PO DAILY PRN PRN 06/19/14 Gabapentin [Neurontin] 300 mg PO TID PRN PRN 01/10/16 Aspirin E.C. [Ecotrin] 81 mg PO DAILY@0800 10/09/17 Valacyclovir HCl [Valtrex] 500 mg PO BID PRN 10/09/17 Polyethylene Glycol 3350 [Miralax] 17 gm PO DAILY PRN PRN #0 10/14/17 Carvedilol [Coreg (Beta Ramírez)] 12.5 mg PO BIDCM 11/01/17 Clopidogrel Bisulfate [Plavix] 75 mg PO DAILY 11/01/17 Furosemide [Lasix] 80 mg PO BID 11/01/17 hydrALAZINE [Apresoline] 25 mg PO BID 11/01/17 Spironolactone [Aldactone] 50 mg PO BID 11/22/17 Albuterol IH (ProAir) [Proair Hfa] 2 puff INHALATION Q4H PRN PRN 01/23/18 Insulin NPH Hum/Reg Insulin Hm [Humulin 70/30 Kwikpen] 5 - 15 unit SQ TIDCM 01/23/18 Levothyroxine Sodium [Synthroid] 125 mcg PO DAILY 01/23/18 Metolazone [Zaroxolyn] 2.5 mg PO DAILY 01/23/18 Codeine Phosphate/Guaifenesin [Guaifen-Codeine 100-10 mg/5 ml] 5 - 10 ml PO 4X/DAY PRN PRN 02/23/18 Metolazone [Zaroxolyn] 2.5 mg PO DAILY #30 tab 02/24/18 The following prescriptions were given: Metolazone [Zaroxolyn] 2.5 mg PO DAILY #30 tab Primary Care Physician: Pita Conde MD [Primary Care Provider] - Please follow up with your Primary Care Physician in: As needed Proposed Discharge Date: 02/24/18
--- NOTE | 2018-02-24 11:55 | RAD_ITS ---
STUDY: X-RAY CHEST REASON FOR EXAM: Female, 82 years old. Short of breath status post paracentesis TECHNIQUE: PA and lateral COMPARISON: January 23, 2018 FINDINGS: There is a large right pleural effusion with consolidation of the right lower lobe and upper lobe infiltrate or pulmonary edema. There is a smaller effusion on the left with left lower lobe consolidation. Heart is enlarged. Normal mediastinum and bib. Normal visualized pulmonary arteries. Normal visualized aortic arch and descending thoracic aorta. Postop changes status post median sternotomy and CABG. Dorsal spine demonstrates mild spondylosis Normal visualized ribs, clavicles, and shoulders. Pacer noted on the left with electrodes in satisfactory position. There is no demonstrated abnormality of the visualized soft tissue structures of the upper abdomen. There is slightly increased consolidation in the right upper lobe since prior exam RAD/Chest PA and Lateral IMPRESSION: Bilateral effusions greater on the right with right lower lobe and right upper lobe consolidation and mild consolidation at the left base. Electronically Signed: Chaz Bautista MD at 17:42 EDT , Service support ,
--- NOTE | 2018-02-24 11:55 | PCM.DC.SUM ---
<Inge Rascon - Last Filed: 02/24/18 12:09> Discharge Date and Diagnosis Date of Admission: 01/23/18 Date of Discharge: 02/24/18 - Primary Discharge Diagnosis 1. Acute on chronic systolic CHF with associated acute hypoxia and ascites 2. Acute renal failure on chronic kidney disease stage IV - Secondary Discharge Diagnosis Chronic Problems Stage 3 chronic kidney disease (Chronic) Pacemaker (Chronic) History of renal stent (Chronic) 2008, right SSS (sick sinus syndrome) (Chronic) s/p pacer 2013 Anxiety (Chronic) Hypertension (Chronic) GERD (gastroesophageal reflux disease) (Chronic) Diabetes mellitus, type 2 (Chronic) History of hypothyroidism (Chronic) Benign hypertension (Chronic) History of coronary artery disease (Chronic) Status post total hip replacement, right (Chronic) Obesity (BMI 30.0-34.9) (Chronic) Anemia (Chronic) Chronic obstructive pulmonary disease (COPD) (Chronic) Hospital Course and Treatment Imaging Results: Diagnostic Data Knee X-Ray 02/16/18 15:31 IMPRESSION: Degenerative arthrosis. Atherosclerosis. Electronically Signed: Laura Rapp MD at 18:33 EDT Tel , Service support , Foot X-Ray 02/20/18 10:07 IMPRESSION: Osteopenia with degenerative changes. No acute osseous abnormality. Electronically Signed: Bassam Buchanan MD at 14:59 EDT , Service support , Dr. Hernandez- Nephrology Operations: None Procedures: Paracentesis Summary of Care Provided: Patient is an 82-year-old female admitted 02/18/2018 due to abdominal swelling and shortness of breath. She was previously from home with hospice. 1. Acute on chronic systolic CHF with associated acute hypoxia and ascites-Lasix drip discontinued due to acute renal failure. Switch to metolazone 2.5 mg daily. Resume home Lasix regimen at discharge with the addition of metolazone 2.5 mg daily. 2. Acute renal failure on chronic kidney disease stage IV/renal artery stenosis status post stent left artery- follows with Dr. Hernandez. Nephrology consulted. Acute renal failure secondary to IV diuresis. Lasix drip discontinued. Further treatment options were discussed with patient by Dr. Hernandez. Patient does not wish to undergo dialysis. She will continue home Lasix regimen with the addition of metolazone at discharge. 3. Ascites-no significant improvement with Lasix drip. Plavix discontinued. Patient underwent paracentesis 02/24/2018 with approximately 4 L removed. 4. CAD status post PCI/CABG ?4-most recent cath in September 2017. Cath at that time showed EF 40-45%, left main 80% distal stenosis, LAD less than 30%, circumflex artery less than 30%, RCA 60% stenosis. No further intervention was necessary at that time and patient continued medical management. Continue aspirin, statin, carvedilol. Discontinue Plavix at discharge. 5. Type 2 diabetes mellitus-hold home oral regimen. 6. Hypertension-continue home regimen including Coreg. 7. Hyperlipidemia-continue statin. 8. Anxiety/depression-continue home Klonopin regimen. 9. Hypothyroidism-continue Synthroid. 10. COPD-as needed albuterol. No acute exacerbation. 11. Sick sinus syndrome-status post pacemaker. 12. GERD-continue PPI. Code Status- DNRCCA General: Alert, Oriented x3, Cooperative HEENT: Atraumatic, PERRLA, EOMI, Normocephalic Neck: Supple, No JVD, Negative Carotid Bruits Lungs: Diminished, - - Scattered fine crackles. Cardiovascular: Regular rate, Regular Rhythm, Normal S1, Normal S2 Abdomen: Bowel Sounds Present, Soft, Non Tender, Distended, - - Ascites Extremities: No clubbing, No cyanosis, Edema - +2 bilateral lower extremities Skin: No rashes, No breakdown Musculoskeletal: No Tenderness to Palpation of Joints or Extremities Neurological: Cranial nerves II-XII grossly intact, Neuro grossly intact Psych/Mental Status: Flat Affect, intermittent tearfulness Patient seen and examined prior to discharge. Physical assessment as noted above. Patient is stable to return home with hospice services. She received palliative paracentesis as noted above. This patient was seen by MEIR Malhotra under the supervision of Dr. Lamar. Discharge Diet: No Restrictions Discharge Activity: Return to Normal Activity Home Medications: Medications to take at Discharge Hydroxychloroquine [Plaquenil] 200 mg PO BIDCM 06/18/13 Nitroglycerin [Nitrostat] 0.4 mg SUBLINGUAL Q5M PRN 06/18/13 Pantoprazole Sodium [Protonix] 40 mg PO BID 06/20/13 Clonazepam [Klonopin] 0.5 mg PO DAILY PRN PRN 06/19/14 Gabapentin [Neurontin] 300 mg PO TID PRN PRN 01/10/16 Aspirin E.C. [Ecotrin] 81 mg PO DAILY@0800 10/09/17 Valacyclovir HCl [Valtrex] 500 mg PO BID PRN 10/09/17 Polyethylene Glycol 3350 [Miralax] 17 gm PO DAILY PRN PRN #0 10/14/17 Carvedilol [Coreg (Beta Ramírez)] 12.5 mg PO BIDCM 11/01/17 Furosemide [Lasix] 80 mg PO BID 11/01/17 hydrALAZINE [Apresoline] 25 mg PO BID 11/01/17 Spironolactone [Aldactone] 50 mg PO BID 11/22/17 Albuterol IH (ProAir) [Proair Hfa] 2 puff INHALATION Q4H PRN PRN 01/23/18 Insulin NPH Hum/Reg Insulin Hm [Humulin 70/30 Kwikpen] 5 - 15 unit SQ TIDCM 01/23/18 Levothyroxine Sodium [Synthroid] 125 mcg PO DAILY 01/23/18 Metolazone [Zaroxolyn] 2.5 mg PO DAILY 01/23/18 Codeine Phosphate/Guaifenesin [Guaifen-Codeine 100-10 mg/5 ml] 5 - 10 ml PO 4X/DAY PRN PRN 02/23/18 Metolazone [Zaroxolyn] 2.5 mg PO DAILY #30 tab 02/24/18 Following Prescrptions Were Given to Patient: Metolazone [Zaroxolyn] 2.5 mg PO DAILY #30 tab Primary Care Physician: Pita Conde MD [Primary Care Provider] - Please follow up with your Primary Care Physician in: As needed Disposition: Home with Hospice Minutes spent on discharge:: 35 Patient Condition:: Guarded Medical Necessity - Tobacco Use Smoking Status: Never smoker Meaningful Use Info Meaningful Use Diagnoses (Choose all that apply): CHF - CHF CARLOS/ARB ordered at discharge?: No Reason CARLOS/ARB not ordered?: Worsening renal function Documented LVEF (%): 50 <Ra Lamar - Last Filed: 02/24/18 16:05> Discharge Date and Diagnosis Date of Admission: 02/17/18 - Primary Discharge Diagnosis Anasarca, resistant to diuretics; required paracentesis - Secondary Discharge Diagnosis Chronic Problems Stage 3 chronic kidney disease (Chronic) Pacemaker (Chronic) History of renal stent (Chronic) 2008, right SSS (sick sinus syndrome) (Chronic) s/p pacer 2013 Anxiety (Chronic) Hypertension (Chronic) GERD (gastroesophageal reflux disease) (Chronic) Diabetes mellitus, type 2 (Chronic) History of hypothyroidism (Chronic) Benign hypertension (Chronic) History of coronary artery disease (Chronic) Status post total hip replacement, right (Chronic) Obesity (BMI 30.0-34.9) (Chronic) Anemia (Chronic) Chronic obstructive pulmonary disease (COPD) (Chronic) Hospital Course and Treatment Imaging Results: 02/24/18 11:55 CXR [Chest PA and Lateral] [RAD] Routine Summary of Care Provided: This patient was seen in conjunction with VP [facility]. I have independently interviewed and examined the patient and reviewed pertinent history, examination findings, laboratory and plan of management. I have reviewed the note and agree with the documented findings with the few additional points. In brief, patient was admitted for anasarca secondary to acute and chronic systolic heart failure with acute hypoxic respiratory failure. Patient has acute kidney injury on CKD stage IV second troponin artery stenosis and cardiorenal disease medicated with cardiac ascites. Discussed with the interlocker Dr. Hernandez. Was on Lasix drip until in the morning which is held secondary to worsening kidney function. Patient had ultrasound-guided paracentesis and about 4 L of fluid drained. Further discussion, patient said she is DNR CC arrest with home hospice and wants hospice to be suspended temporarily in order to get paracentesis. The patient is back DNR CC arrest with home hospice and discharged home. Discharge medication reconciliation done. Discharge follow-up instructions discussed with the patient. Total time spent, exact 35 minutes on discharge meds reconciliation, examination, review of imaging and blood test and discussion with the patient on follow-up instructions. I have discussed my assessment with Inge NGUYEN and orders have been reviewed. [] Code Visit Inpatient E&M: 91655 Disch Hosp
--- NOTE | 2018-02-24 11:59 | DS.PCM_ITS ---
<Inge Rascon - Last Filed: 02/24/18 12:09> Discharge Date and Diagnosis Date of Admission: 01/23/18 Date of Discharge: 02/24/18 - Primary Discharge Diagnosis 1. Acute on chronic systolic CHF with associated acute hypoxia and ascites 2. Acute renal failure on chronic kidney disease stage IV - Secondary Discharge Diagnosis Chronic Problems Stage 3 chronic kidney disease (Chronic) Pacemaker (Chronic) History of renal stent (Chronic) 2008, right SSS (sick sinus syndrome) (Chronic) s/p pacer 2013 Anxiety (Chronic) Hypertension (Chronic) GERD (gastroesophageal reflux disease) (Chronic) Diabetes mellitus, type 2 (Chronic) History of hypothyroidism (Chronic) Benign hypertension (Chronic) History of coronary artery disease (Chronic) Status post total hip replacement, right (Chronic) Obesity (BMI 30.0-34.9) (Chronic) Anemia (Chronic) Chronic obstructive pulmonary disease (COPD) (Chronic) Hospital Course and Treatment Imaging Results: Diagnostic Data Knee X-Ray 02/16/18 15:31 IMPRESSION: Degenerative arthrosis. Atherosclerosis. Electronically Signed: Laura Rapp MD at 18:33 EDT Tel , Service support , Foot X-Ray 02/20/18 10:07 IMPRESSION: Osteopenia with degenerative changes. No acute osseous abnormality. Electronically Signed: Bassam Buchanan MD at 14:59 EDT , Service support , Dr. Hernandez- Nephrology Operations: None Procedures: Paracentesis Summary of Care Provided: Patient is an 82-year-old female admitted 02/18/2018 due to abdominal swelling and shortness of breath. She was previously from home with hospice. 1. Acute on chronic systolic CHF with associated acute hypoxia and ascites- Lasix drip discontinued due to acute renal failure. Switch to metolazone 2.5 mg daily. Resume home Lasix regimen at discharge with the addition of metolazone 2.5 mg daily. 2. Acute renal failure on chronic kidney disease stage IV/renal artery stenosis status post stent left artery- follows with Dr. Hernandez. Nephrology consulted. Acute renal failure secondary to IV diuresis. Lasix drip discontinued. Further treatment options were discussed with patient by Dr. Hernandez. Patient does not wish to undergo dialysis. She will continue home Lasix regimen with the addition of metolazone at discharge. 3. Ascites-no significant improvement with Lasix drip. Plavix discontinued. Patient underwent paracentesis 02/24/2018 with approximately 4 L removed. 4. CAD status post PCI/CABG ?4-most recent cath in September 2017. Cath at that time showed EF 40-45%, left main 80% distal stenosis, LAD less than 30%, circumflex artery less than 30%, RCA 60% stenosis. No further intervention was necessary at that time and patient continued medical management. Continue aspirin, statin, carvedilol. Discontinue Plavix at discharge. 5. Type 2 diabetes mellitus-hold home oral regimen. 6. Hypertension-continue home regimen including Coreg. 7. Hyperlipidemia-continue statin. 8. Anxiety/depression-continue home Klonopin regimen. 9. Hypothyroidism-continue Synthroid. 10. COPD-as needed albuterol. No acute exacerbation. 11. Sick sinus syndrome-status post pacemaker. 12. GERD-continue PPI. Code Status- DNRCCA General: Alert, Oriented x3, Cooperative HEENT: Atraumatic, PERRLA, EOMI, Normocephalic Neck: Supple, No JVD, Negative Carotid Bruits Lungs: Diminished, - - Scattered fine crackles. Cardiovascular: Regular rate, Regular Rhythm, Normal S1, Normal S2 Abdomen: Bowel Sounds Present, Soft, Non Tender, Distended, - - Ascites Extremities: No clubbing, No cyanosis, Edema - +2 bilateral lower extremities Skin: No rashes, No breakdown Musculoskeletal: No Tenderness to Palpation of Joints or Extremities Neurological: Cranial nerves II-XII grossly intact, Neuro grossly intact Psych/Mental Status: Flat Affect, intermittent tearfulness Patient seen and examined prior to discharge. Physical assessment as noted above. Patient is stable to return home with hospice services. She received palliative paracentesis as noted above. This patient was seen by MEIR Malhotra under the supervision of Dr. Lamar. Discharge Diet: No Restrictions Discharge Activity: Return to Normal Activity Home Medications: Medications to take at Discharge Hydroxychloroquine [Plaquenil] 200 mg PO BIDCM 06/18/13 Nitroglycerin [Nitrostat] 0.4 mg SUBLINGUAL Q5M PRN 06/18/13 Pantoprazole Sodium [Protonix] 40 mg PO BID 06/20/13 Clonazepam [Klonopin] 0.5 mg PO DAILY PRN PRN 06/19/14 Gabapentin [Neurontin] 300 mg PO TID PRN PRN 01/10/16 Aspirin E.C. [Ecotrin] 81 mg PO DAILY@0800 10/09/17 Valacyclovir HCl [Valtrex] 500 mg PO BID PRN 10/09/17 Polyethylene Glycol 3350 [Miralax] 17 gm PO DAILY PRN PRN #0 10/14/17 Carvedilol [Coreg (Beta Ramírez)] 12.5 mg PO BIDCM 11/01/17 Furosemide [Lasix] 80 mg PO BID 11/01/17 hydrALAZINE [Apresoline] 25 mg PO BID 11/01/17 Spironolactone [Aldactone] 50 mg PO BID 11/22/17 Albuterol IH (ProAir) [Proair Hfa] 2 puff INHALATION Q4H PRN PRN 01/23/18 Insulin NPH Hum/Reg Insulin Hm [Humulin 70/30 Kwikpen] 5 - 15 unit SQ TIDCM 08/02 Levothyroxine Sodium [Synthroid] 125 mcg PO DAILY 01/23/18 Metolazone [Zaroxolyn] 2.5 mg PO DAILY 01/23/18 Codeine Phosphate/Guaifenesin [Guaifen-Codeine 100-10 mg/5 ml] 5 - 10 ml PO 4X/ DAY PRN PRN 02/23/18 Metolazone [Zaroxolyn] 2.5 mg PO DAILY #30 tab 02/24/18 Following Prescrptions Were Given to Patient: Metolazone [Zaroxolyn] 2.5 mg PO DAILY #30 tab Primary Care Physician: Pita Conde MD [Primary Care Provider] - Please follow up with your Primary Care Physician in: As needed Disposition: Home with Hospice Minutes spent on discharge:: 35 Patient Condition:: Guarded Medical Necessity - Tobacco Use Smoking Status: Never smoker Meaningful Use Info Meaningful Use Diagnoses (Choose all that apply): CHF - CHF CARLOS/ARB ordered at discharge?: No Reason CARLOS/ARB not ordered?: Worsening renal function Documented LVEF (%): 50 <Ra Lamar - Last Filed: 02/24/18 16:05> Discharge Date and Diagnosis Date of Admission: 02/17/18 - Primary Discharge Diagnosis Anasarca, resistant to diuretics; required paracentesis - Secondary Discharge Diagnosis Chronic Problems Stage 3 chronic kidney disease (Chronic) Pacemaker (Chronic) History of renal stent (Chronic) 2008, right SSS (sick sinus syndrome) (Chronic) s/p pacer 2013 Anxiety (Chronic) Hypertension (Chronic) GERD (gastroesophageal reflux disease) (Chronic) Diabetes mellitus, type 2 (Chronic) History of hypothyroidism (Chronic) Benign hypertension (Chronic) History of coronary artery disease (Chronic) Status post total hip replacement, right (Chronic) Obesity (BMI 30.0-34.9) (Chronic) Anemia (Chronic) Chronic obstructive pulmonary disease (COPD) (Chronic) Hospital Course and Treatment Imaging Results: 02/24/18 11:55 CXR [Chest PA and Lateral] [RAD] Routine Summary of Care Provided: This patient was seen in conjunction with WASHER HANDInge. I have independently interviewed and examined the patient and reviewed pertinent history, examination findings, laboratory and plan of management. I have reviewed the note and agree with the documented findings with the few additional points. In brief, patient was admitted for anasarca secondary to acute and chronic systolic heart failure with acute hypoxic respiratory failure. Patient has acute kidney injury on CKD stage IV second troponin artery stenosis and cardiorenal disease medicated with cardiac ascites. Discussed with the continuous improvement coach Dr. Hernandez. Was on Lasix drip until in the morning which is held secondary to worsening kidney function. Patient had ultrasound-guided paracentesis and about 4 L of fluid drained. Further discussion, patient said she is DNR CC arrest with home hospice and wants hospice to be suspended temporarily in order to get paracentesis. The patient is back DNR CC arrest with home hospice and discharged home. Discharge medication reconciliation done. Discharge follow-up instructions discussed with the patient. Total time spent, exact 35 minutes on discharge meds reconciliation, examination , review of imaging and blood test and discussion with the patient on follow-up instructions. I have discussed my assessment with Inge NGUYEN and orders have been reviewed. [] Code Visit Inpatient E&M: 60671 Disch Hosp
--- NOTE | 2018-02-24 12:02 | NURSING ---
REPORT CALLED TO STACI CHRISTIE ON PCU. [id number] ML YELLOW FLUID DRAINED. PT TOLERATED WELL.
[2018-02-24 13:01] LABS: Bedside Glucose 195 mg/dL (70-110)
--- NOTE | 2018-02-24 13:16 | CASEMGMT ---
SW faxed d/c instructions and summary to Hospice. SW will notify Hospice when patient is headed home. Plan: Home with resumption of Hospice. Nina GRAY MSW
--- NOTE | 2018-02-24 13:57 | CASEMGMT ---
RAMSEY called Hospice and let Bisi know patient's is picking her up at 4p. Hospice will send someone to the hospital to have patient sign papers and then a nurse will meet her at her home. Plan: d/c home with resumption of Hospice. Nina GRAY MSW
[2018-02-24 16:31] LABS: Bedside Glucose 260 mg/dL (70-110)
[2018-02-24 16:32] LABS: Bedside Glucose 222 mg/dL (70-110)
[2018-02-24 16:34] LABS: Bedside Glucose 252 mg/dL (70-110)
[2018-02-24 16:35] LABS: Bedside Glucose 266 mg/dL (70-110)
[2018-02-24 17:40] LABS: Bedside Glucose 297 mg/dL (70-110)
[2018-02-24 17:41] LABS: Bedside Glucose 313 mg/dL (70-110)
[2018-02-24 17:43] LABS: Bedside Glucose 338 mg/dL (70-110)
[2018-02-24 17:44] LABS: Bedside Glucose 352 mg/dL (70-110)
[2018-02-26 15:44] LABS: Bedside Glucose 284 mg/dL (70-110)
[2018-02-26 15:47] LABS: Bedside Glucose 213 mg/dL (70-110)
[2018-02-26 16:46] LABS: Bedside Glucose 306 mg/dL (70-110)
[2018-02-26 16:47] LABS: Bedside Glucose 322 mg/dL (70-110)
[2018-03-01 17:26] LABS: Bedside Glucose 440 mg/dL (70-110)
[2018-03-01 17:29] LABS: Bedside Glucose 472 mg/dL (70-110)
[2018-03-01 17:33] LABS: Bedside Glucose 445 mg/dL (70-110)
[2018-03-01 18:12] LABS: Bedside Glucose 216 mg/dL (70-110)
[2018-03-01 18:13] LABS: Bedside Glucose 198 mg/dL (70-110)
[2018-03-01 18:14] LABS: Bedside Glucose 202 mg/dL (70-110)
[2018-03-01 18:16] LABS: Bedside Glucose 286 mg/dL (70-110)
[2018-03-03 14:35] LABS: Bedside Glucose 289 mg/dL (70-110)
[2018-03-03 14:35] LABS: Bedside Glucose 315 mg/dL (70-110)
[2018-03-04 10:32] LABS: Bedside Glucose 166 mg/dL (70-110)
[2018-03-04 10:32] LABS: Bedside Glucose 229 mg/dL (70-110)
== END 2018-02-24 15:58 | disposition hospice, home (50) | DRG 291 ==
LOC: ED 02-18 15:51 → PCU 02-19 11:36
PROVIDERS: Internal Medicine; Nurse Practitioner Family; Physician Assistant; Admitting Provider Hospitalist; Emergency Provider Emergency Medicine; Family Provider Internal Medicine; PCP Internal Medicine; Visit Provider Internal Medicine
DX: I13.0 Hypertensive heart and chronic kidney disease with heart failure and stage 1 through stage 4 chronic kidney disease, or unspecified chronic kidney disease (principal); I50.23 Acute on chronic systolic (congestive) heart failure; N17.9 Acute kidney failure, unspecified; N18.4 Chronic kidney disease, stage 4 (severe); R18.8 Other ascites; E11.22 Type 2 diabetes mellitus with diabetic chronic kidney disease; Z95.1 Presence of aortocoronary bypass graft; I25.10 Atherosclerotic heart disease of native coronary artery without angina pectoris; E78.5 Hyperlipidemia, unspecified; E03.9 Hypothyroidism, unspecified; K21.9 Gastro-esophageal reflux disease without esophagitis; J44.9 Chronic obstructive pulmonary disease, unspecified; F32.9 Major depressive disorder, single episode, unspecified; F41.9 Anxiety disorder, unspecified; Z95.0 Presence of cardiac pacemaker; Z66 Do not resuscitate; E66.9 Obesity, unspecified; Z68.34 Body mass index [BMI] 34.0-34.9, adult; Z71.3 Dietary counseling and surveillance
CPT/HCPCS: 36415; 49083; 71046; 73564; 73630; 80048; 80053; 80076; 82947; 82962; 85025; 85027; 85610; 85730; 94640; 97110; 97116; 97162; 97165; 97530; 97535; 99284; J7040; P9047; A4216; G8978; G8979; G8987; G8988; J1940; J2405